=== PATIENT | male | born 1960 | race Caucasian/White ===

== ENCOUNTER 2021-02-10 10:06 | Inpatient (IN) | payer BC ==
[2021-02-10] MEDS ORDERED: DEXAMETHASONE SOD PHOSPHATE 10 MG/ML 1 ML VIAL IVP STA (10:32)
[2021-02-10] MEDS ORDERED: ACETAMINOPHEN TAB 500 MG TAB PO STA (11:03)
--- NOTE | 2021-02-10 11:05 | ED ---
URI HPI - General Chief Complaint: Upper Respiratory Infection Stated Complaint: covid+, increased SOB Time Seen by Provider: 02/10/21 10:17 Source: patient, RN notes reviewed Mode of arrival: ambulatory Limitations: no limitations - History of Present Illness Initial Comments: 60-year-old male presents emergency Department with chief complaint of covid19. Patient states he tested positive ago. Patient states he seen at [facility] discussed with the not receive monoclonal antibodies at that time. Patient states he had: Back last December. Patient states that he's had increasing shortness breath, cough congestion. Patient still had fever bodyaches and chills. Patient states he feels more short of breath and he has.. - Related Data Allergies Allergy/AdvReac Type Severity Reaction Status Date / Time No Known Allergies Allergy Verified 02/10/21 10:08 Review of Systems ROS Statement: Those systems with pertinent positive or pertinent negative responses have been documented in the HPI. ROS Other: All systems not noted in ROS Statement are negative. Past Medical History Past Medical History: Hypertension History of Any Multi-Drug Resistant Organisms: None Reported Additional Past Surgical History / Comment(s): vasectomy Past Psychological History: No Psychological Hx Reported Smoking Status: Never smoker Past Alcohol Use History: Daily Past Drug Use History: None Reported General Exam Limitations: no limitations General appearance: alert, in no apparent distress Head exam: Present: atraumatic, normocephalic, normal inspection Eye exam: Present: normal appearance, PERRL, EOMI. Absent: scleral icterus, conjunctival injection, periorbital swelling ENT exam: Present: normal exam, mucous membranes moist Neck exam: Present: normal inspection. Absent: tenderness, meningismus, lymphadenopathy Respiratory exam: Present: decreased breath sounds. Absent: normal lung sounds bilaterally, respiratory distress, wheezes, rales, rhonchi, stridor Cardiovascular Exam: Present: regular rate, normal rhythm, normal heart sounds. Absent: systolic murmur, diastolic murmur, rubs, gallop, clicks GI/Abdominal exam: Present: soft, normal bowel sounds. Absent: distended, tenderness, guarding, rebound, rigid Neurological exam: Present: alert Skin exam: Present: warm, dry, intact, normal color. Absent: rash Course Vital Signs 02/10/21 02/10/21 10:08 10:18 Temperature 99.7 F H Pulse Rate 97 Respiratory 18 16 Rate Blood Pressure 129/74 O2 Sat by Pulse 82 L Oximetry Medical Decision Making - Medical Decision Making Chest x-ray is consistent COVID-19 pneumonia, patient is approximately 82%. Patient will be admitted for COVID-19 pneumonia hypoxia - Lab Data Result diagrams: 02/10/21 10:59 02/10/21 10:59 Lab Results 02/10/21 02/10/21 Range/Units 10:59 10:59 WBC 5.5 (3.8-10.6) k/uL RBC 4.64 (4.30-5.90) m/uL Hgb 14.9 (13.0-17.5) gm/dL Hct 43.5 (39.0-53.0) % MCV 93.7 (80.0-100.0) fL MCH 32.2 (25.0-35.0) pg MCHC 34.4 (31.0-37.0) g/dL RDW 12.2 (11.5-15.5) % Plt Count 206 (150-450) k/uL MPV 8.1 Neutrophils % 82 % Lymphocytes % 11 % Monocytes % 5 % Eosinophils % 0 % Basophils % 0 % Neutrophils # 4.5 (1.3-7.7) k/uL Lymphocytes # 0.6 L (1.0-4.8) k/uL Monocytes # 0.3 (0-1.0) k/uL Eosinophils # 0.0 (0-0.7) k/uL Basophils # 0.0 (0-0.2) k/uL Sodium 136 L (137-145) mmol/L Potassium 4.1 (3.5-5.1) mmol/L Chloride 105 (98-107) mmol/L Carbon Dioxide 22 (22-30) mmol/L Anion Gap 9 mmol/L BUN 24 H (9-20) mg/dL Creatinine 1.28 H (0.66-1.25) mg/dL Est GFR (CKD-EPI)AfAm 69 (>60 ml/min/1.73 sqM) Est GFR (CKD-EPI)NonAf 60 (>60 ml/min/1.73 sqM) Glucose 113 H (74-99) mg/dL Calcium 7.6 L (8.4-10.2) mg/dL Total Bilirubin 0.6 (0.2-1.3) mg/dL AST 74 H (17-59) U/L ALT 33 (4-49) U/L Alkaline Phosphatase 70 (38-126) U/L Lactate Dehydrogenase 1547 H (313-618) U/L Total Protein 6.1 L (6.3-8.2) g/dL Albumin 3.1 L (3.5-5.0) g/dL Disposition Clinical Impression: Pneumonia due to COVID-19 virus, Hypoxia Disposition: ADMITTED IP TO THIS HOSP Condition: Serious Referrals: Khadijah Hall DO [Primary Care Provider] - 1-2 days
[2021-02-10 11:30] LABS: Basophils % (A) 0 %; Eosinophils % (A) 0 %; HCT 43.5 % (39.0-53.0); HGB 14.9 gm/dL (13.0-17.5); Lymphocytes # (A) 0.6 k/uL (1.0-4.8); Lymphocytes % (A) 11 %; MCH 32.2 pg (25.0-35.0); MCHC 34.4 g/dL (31.0-37.0); MCV 93.7 fL (80.0-100.0); Mean Platelet Volume 8.1; Monocytes # (A) 0.3 k/uL (0-1.0); Monocytes % (A) 5 %; Neutrophils # (A) 4.5 k/uL (1.3-7.7); Neutrophils % (A) 82 %; Platelet Count 206 k/uL (150-450); RBC 4.64 m/uL (4.30-5.90); RDW 12.2 % (11.5-15.5); WBC 5.5 k/uL (3.8-10.6)
--- NOTE | 2021-02-10 11:35 | XR ---
EXAMINATION TYPE: XR chest 2V DATE OF EXAM: 02/10/2021 COMPARISON: NONE HISTORY: Shortness of breath, Covid positive TECHNIQUE: Frontal and lateral views of the chest are obtained. FINDINGS: There is abnormal airspace disease in the lungs bilaterally left greater than right. No ev ident pneumothorax or pleural effusion. Cardiac mediastinal silhouette is within normal limits. Bones are showing normal mineralization. IMPRESSION: Findings suggest Covid pneumonia. Follow-up as indicated.
[2021-02-10 11:48] LABS: Albumin 3.1 g/dL (3.5-5.0); Calcium 7.6 mg/dL (8.4-10.2); Potassium 4.1 mmol/L (3.5-5.1); Total Bilirubin 0.6 mg/dL (0.2-1.3); Total Protein 6.1 g/dL (6.3-8.2)
[2021-02-10] MEDS ORDERED: NALOXONE 0.4 MG/ML 1 ML VIAL IV PRN (12:11)
[2021-02-10] MEDS ORDERED: SODIUM CHLORIDE 0.9% 1,000 ML IV SCH (12:15)
[2021-02-10 13:13] LABS: C Reactive Protein 33.2 mg/dL (<1.0)
[2021-02-10] MEDS ORDERED: MELATONIN 3 MG TABLET PO PRN (15:46)
[2021-02-10] MEDS ORDERED: LORazepam 0.5 MG TAB PO PRN (15:46)
[2021-02-10] MEDS ORDERED: ONDANSETRON 4 MG/2 ML VIAL IVP PRN (15:46)
[2021-02-10] MEDS ORDERED: LACTULOSE 20 GM/30 ML CUP PO PRN (15:46)
[2021-02-10] MEDS ORDERED: CALCIUM CARBONATE 500 MG CHEWABLE PO PRN (15:46)
--- NOTE | 2021-02-10 15:48 | P.HPIM ---
History of Present Illness H&P Date: 02/10/21 Chief Complaint: Short of breath This is a pleasant 60-year-old patient of Dr. rae Chronic stable medical conditions include hyperlipidemia, hypertension. Patient did not take the COVID-19 vaccine. About 7 days ago patient started having fever and dry cough chills. About 4 days ago patient tested positive for COVID-19. Patient is having one or 2 loose stools a day. Denies any body aches or headaches. No loss of taste or smell. S patient is pretty symptoms progress decided to come in. He was 82% on room air. Review of systems: GEN.: Loss of appetite, fever, chills EYES: None HEENT: None NECK: None RESPIRATORY: As above CARDIOVASCULAR: None GASTROINTESTINAL: As above GENITOURINARY: None MUSCULOSKELETAL: None LYMPHATICS: None HEMATOLOGICAL: None PSYCHIATRY: None NEUROLOGICAL: None Past medical history to include: Hypertension, hyperlipidemia, diverticulosis, bilateral tinnitus, 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 Stopped in 1987. He has takes couple of drinks a day. 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 Family history: Reviewed, noncontributory to presentation Physical examination: VITAL SIGNS: 99.7, 97, 18, 129/74, 82% room air GENERAL: BMI 28.2, reclining in bed, awake, tired. EYES: Pupils equal. Conjunctiva normal. HEENT: External appearance of nose and ears normal, oral cavity grossly normal. NECK: JVD not raised; masses not palpable. HEART: First and second heart sounds are normal; no edema. LUNGS: Respiratory rate increased; bilateral crackles. ABDOMEN: Soft, nontender, liver spleen not palpable, no masses palpable. PSYCH: Alert and oriented x3; mood and affect normal. NEUROLOGICAL: Cranial nerves grossly intact; no facial asymmetry, power and sensation grossly intact. LYMPHATICS: No lymph nodes palpable in the axilla and neck INVESTIGATIONS, reviewed in the clinical context: WBC 5.5 hemoglobin 14.9 platelets 206 lymphocytes 0.6 sodium 136 potassium 4.1 BUN 24 creatinine 1.28 CRP 33.2 Assessment and plan: -Acute severe COVID 19 pneumonitis in a patient did not receive the COVID-19 vaccine. Dexamethasone. Subcu Lovenox. Vitamin C vitamin D zinc. Pulmonary consulted -Hyperlipidemia Zetia 10 mg daily at bedtime Pravachol 80 mg daily at bedtime -Essential hypertension Patient's had decreased appetite. Blood pressure relatively controlled. We will use amlodipine 5 mg a day -Kidney failure. Unknown if this is a acute component. IV fluids. Repeat labs in the morning. Renal ultrasound. UA. -Acute severe hypoxic is pretty failure from COVID-19 Supplement oxygen Dexamethasone. Subcu Lovenox. Resume home medications. Cut back on antihypertensive and use amlodipine 5 mg daily at bedtime. Ultrasound. UA. Repeat labs in the morning. Consult pulmonary. Oxygen supplementation. Care was discussed with the patient. Given the complexity and severity of patient's condition expect the patient to be in the hospital at least for 2 overnights Past Medical History Past Medical History: Hyperlipidemia, Hypertension, Osteoarthritis (OA) Additional Past Medical History / Comment(s): Diverticular disease, bilateral tinnitis, arthritis bilateral hands. History of Any Multi-Drug Resistant Organisms: None Reported Past Surgical History: Tonsillectomy Additional Past Surgical History / Comment(s): Colonoscopy, vasectomy Past Anesthesia/Blood Transfusion Reactions: No Reported Reaction Smoking Status: Former smoker - Past Family History Mother Family Medical History: No Reported History Additional Family Medical History / Comment(s): Mother is healthy Father Family Medical History: Respiratory Disorder Additional Family Medical History / Comment(s): Father of covid. Medications and Allergies Home Medications Medication Instructions Recorded Confirmed Type Albuterol Inhaler [Ventolin Hfa 2 puff INHALATION RT-Q4H PRN 02/10/21 02/10/21 History Inhaler] Ascorbic Acid [Vitamin C] 500 mg PO HS 02/10/21 02/10/21 History Calcium Carb/Mag Ox/Zinc Sulf 1 tab PO BID 02/10/21 02/10/21 History [Qia-Ral-Ppot 334-134-5 mg Tab] Ezetimibe [Zetia] 10 mg PO HS 02/10/21 02/10/21 History Multivitamins, Thera [Multivitamin 1 tab PO HS 02/10/21 02/10/21 History (formulary)] Pravastatin Sodium [Pravachol] 80 mg PO HS 02/10/21 02/10/21 History Turmeric Root Extract [Turmeric] 1,000 mg PO HS 02/10/21 02/10/21 History amLODIPine BESYLATE/BENAZEPRIL 1 cap PO HS 02/10/21 02/10/21 History [amLODIPine BESYLATE/BENAZEPRIL 5-20 MG] Allergies Allergy/AdvReac Type Severity Reaction Status Date / Time No Known Allergies Allergy Verified 02/10/21 12:23 Physical Exam Vitals: Vital Signs Temp Pulse Resp BP Pulse Ox 02/10/21 10:18 16 02/10/21 10:08 99.7 F H 97 18 129/74 82 L Intake and Output 02/10/21 02/10/21 02/10/21 06:59 14:59 22:59 Other: Weight 81.647 kg 81.647 kg Results CBC & Chem 7: 02/10/21 10:59 02/10/21 10:59 Labs: Abnormal Lab Results - Last 24 Hours (Table) 02/10/21 02/10/21 Range/Units 10:59 10:59 Lymphocytes # 0.6 L (1.0-4.8) k/uL Sodium 136 L (137-145) mmol/L BUN 24 H (9-20) mg/dL Creatinine 1.28 H (0.66-1.25) mg/dL Glucose 113 H (74-99) mg/dL Calcium 7.6 L (8.4-10.2) mg/dL AST 74 H (17-59) U/L Lactate Dehydrogenase 1547 H (313-618) U/L C-Reactive Protein 33.2 H (<1.0) mg/dL Total Protein 6.1 L (6.3-8.2) g/dL Albumin 3.1 L (3.5-5.0) g/dL Thrombosis Risk Factor Assmnt - Choose All That Apply Any of the Below Risk Factors Present?: Yes Each Factor Represents 1 point: Obesity (BMI >25), Serious lung disease incl. pneumonia (< 1month) Other Risk Factors: Yes Each Risk Factor Represents 2 Points: Age 61-74 years Other congenital or acquired thrombophilia - If yes, enter type in comment: No Thrombosis Risk Factor Assessment Total Risk Factor Score: 4 Thrombosis Risk Factor Assessment Level: Moderate Risk
--- NOTE | 2021-02-10 16:31 | US ---
EXAMINATION TYPE: US kidneys/renal and bladder DATE OF EXAM: 02/10/2021 COMPARISON: NONE CLINICAL HISTORY: Elevated BUN/creatinine. EXAM MEASUREMENTS: Right Kidney: 10.8 x 5.9 x 4.5 cm Left Kidney: 11.0 x 5.5 x 4.6 cm Incidental finding: liver appears heterogenous. Right Kidney: WNL as seen Left Kidney: WNL as seen Bladder: WNL; anechoic Bilateral Jets seen: No There is no evidence for hydronephrosis at this point in time. No nephrolithiasis is seen. No gerson s are identified. The urinary bladder is anechoic. Bilateral ureteral jets are not seen. IMPRESSION: There may be underlying hepatic steatosis, hepatocellular disease Renal sizes as described.
[2021-02-10] MEDS: amLODIPine 5 MG TAB PO SCH (20:15)
[2021-02-10] MEDS: MULTIVITAMINS, THERA 1 EACH TAB PO SCH (20:15)
[2021-02-10] MEDS: EZETIMIBE 10 MG TAB PO SCH (20:15)
[2021-02-10] MEDS: ASCORBIC ACID 500 MG TAB PO SCH (20:15)
[2021-02-10] MEDS: ENOXAPARIN 40 MG/0.4 ML SYRINGE SQ SCH (20:25)
[2021-02-10] MEDS: SODIUM CHLORIDE 0.45% 1,000 ML IV SCH ×2 (20:48)
[2021-02-10] MEDS: PRAVASTATIN SODIUM 80 MG TAB PO SCH (20:48)
[2021-02-10] MEDS: ACETAMINOPHEN TAB 325 MG TAB PO PRN (21:36)
[2021-02-11] MEDS: SODIUM CHLORIDE 0.45% 1,000 ML IV SCH ×3 (04:15→21:13)
[2021-02-11 06:56] LABS: African American GFR (CKD) >90 (>60 ml/min/1.73 sqM); Anion Gap 12 mmol/L; Blood Urea Nitrogen 19 mg/dL (9-20); Carbon Dioxide 22 mmol/L (22-30); Chloride 103 mmol/L (98-107); Glucose 161 mg/dL (74-99); Non-African American GFR(CKD) 87 (>60 ml/min/1.73 sqM); Potassium 4.5 mmol/L (3.5-5.1); Sodium 137 mmol/L (137-145)
[2021-02-11] MEDS: ENOXAPARIN 40 MG/0.4 ML SYRINGE SQ SCH (07:44)
[2021-02-11] MEDS: ZINC SULFATE 220 MG CAP PO SCH (07:45)
[2021-02-11] MEDS: DEXAMETHASONE SOD PHOSPHATE 10 MG/ML 1 ML VIAL IVP SCH (07:45)
[2021-02-11] MEDS: ASCORBIC ACID 500 MG TAB PO SCH (07:45)
[2021-02-11 09:08] LABS: C Reactive Protein 35.5 mg/dL (<1.0)
--- NOTE | 2021-02-11 13:10 | P.CNPUL ---
History of Present Illness Consult date: 02/11/21 Requesting physician: Jorge Lopez Reason for consult: dyspnea, hypoxemia, abnormal CXR/CT Chief complaint: Shortness of breath, cough, congestion History of present illness: This a very pleasant 60-year-old male patient with a history of hypertension, hyperlipidemia. Daily alcohol use. 8 days ago he started having complaints of increasing shortness of breath, cough and congestion. He tested positive for COVID-19 5 days ago. He is not vaccinated. He presented to the emergency room here yesterday with complaints of increasing shortness of breath cough and congestion. He was found to be hypoxemic at 82% on room air. He was initiated on oxygen at 5 L/m per nasal cannula. He did have a T-max of 100.5. X-ray revealed evidence of bilateral patchy opacities consistent with COVID-19 pneumonia. White count 5.5. Hemoglobin 14.9. Lymphocytes 0.6. D-dimer 2.33. Sodium 137. Potassium 4.5. Creatinine 0.94. Glucose 161. Ferritin 5642. AST 74. ALT 33. LDH 1547. C-reactive protein 35.5. He was initiated on Decadron, Lovenox, vitamin supplements. He is seen today in consultation on the regular medical floor. His oxygen requirements have increased and he is now on 15 L high flow nasal cannula plus a nonrebreather mask. He is afebrile. Hemodynamically stable. He states he is doing the same today compared to yesterday. No worse but no better. Review of Systems REVIEW OF SYSTEMS: CONSTITUTIONAL: Denies any recent significant weight loss or weight gain. EYES: Denies change in vision. EARS, NOSE, MOUTH, THROAT: Denies headaches, denies sore throat. CARDIOVASCULAR: Denies chest pain, palpitations or syncopal episodes. RESPIRATORY: Positive for shortness of breath, cough, congestion no hemoptysis. GASTROINTESTINAL: Denies change in appetite, denies abdominal pain GENITOURINARY: Denies hematuria, denies infections. MUSKULOSKELETAL: Denies pain, denies swelling. INTEGUMENTARY: Denies rash, denies eczema. NEUROLOGICAL: Denies recent memory loss, no recent seizure activity. PSYCHIATRIC: Denies anxiety, denies depression. HEMATOLOGIC/LYMPHATIC: Denies anemia, denies enlarged lymph nodes. Past Medical History Past Medical History: Hyperlipidemia, Hypertension, Osteoarthritis (OA) Additional Past Medical History / Comment(s): Diverticular disease, bilateral tinnitis, arthritis bilateral hands. History of Any Multi-Drug Resistant Organisms: None Reported Past Surgical History: Tonsillectomy Additional Past Surgical History / Comment(s): Colonoscopy, vasectomy Past Anesthesia/Blood Transfusion Reactions: No Reported Reaction Smoking Status: Former smoker - Past Family History Mother Family Medical History: No Reported History Additional Family Medical History / Comment(s): Mother is healthy Father Family Medical History: Respiratory Disorder Additional Family Medical History / Comment(s): Father of covid. Medications and Allergies Home Medications Medication Instructions Recorded Confirmed Type Albuterol Inhaler [Ventolin Hfa 2 puff INHALATION RT-Q4H PRN 02/10/21 02/10/21 History Inhaler] Ascorbic Acid [Vitamin C] 500 mg PO HS 02/10/21 02/10/21 History Calcium Carb/Mag Ox/Zinc Sulf 1 tab PO BID 02/10/21 02/10/21 History [Zxm-Orc-Odsq 334-134-5 mg Tab] Ezetimibe [Zetia] 10 mg PO HS 02/10/21 02/10/21 History Multivitamins, Thera [Multivitamin 1 tab PO HS 02/10/21 02/10/21 History (formulary)] Pravastatin Sodium [Pravachol] 80 mg PO HS 02/10/21 02/10/21 History Turmeric Root Extract [Turmeric] 1,000 mg PO HS 02/10/21 02/10/21 History amLODIPine BESYLATE/BENAZEPRIL 1 cap PO HS 02/10/21 02/10/21 History [amLODIPine BESYLATE/BENAZEPRIL 5-20 MG] Allergies Allergy/AdvReac Type Severity Reaction Status Date / Time No Known Allergies Allergy Verified 02/10/21 12:23 Physical Exam Vitals: Vital Signs Temp Pulse Pulse Resp BP BP Pulse Ox 02/11/21 09:41 99.5 F 95 19 147/75 90 L 02/11/21 09:38 90 17 02/11/21 07:47 90 17 02/11/21 06:00 99.5 F 90 17 127/63 90 L 02/11/21 02:00 99.9 F H 87 18 115/62 92 L 02/11/21 01:06 90 L 02/10/21 23:50 18 02/10/21 23:00 90 185 H 89 L 02/10/21 22:23 91 18 89 L 02/10/21 22:14 90 18 134/71 87 L 02/10/21 21:50 97 20 139/71 82 L 02/10/21 21:31 100.3 F H 94 20 138/69 86 L 02/10/21 20:00 99.0 F 92 16 131/72 89 L 02/10/21 18:10 100.5 F H 90 16 125/71 89 L 02/10/21 17:00 86 20 117/77 88 L 02/10/21 15:46 82 20 118/71 92 L 02/10/21 15:00 87 20 119/69 88 L 02/10/21 14:00 98 F 87 92 20 124/76 140/76 86 L 02/10/21 13:45 82 20 121/75 89 L Intake and Output 02/10/21 02/11/21 02/11/21 22:59 06:59 14:59 Output Total 100 Balance -100 Output: Urine 100 Other: Voiding Method Bedside Commode Bedside Commode Urinal Urinal # Voids 1 Weight 81.647 kg GENERAL EXAM: Alert, pleasant 60-year-old gentleman, on 15 L high flow nasal cannula plus a nonrebreather mask, fairly comfortable in no apparent distress. HEAD: Normocephalic. EYES: Normal reaction of pupils, equal size. NOSE: Clear with pink turbinates. THROAT: No erythema or exudates. NECK: No masses, no JVD. CHEST: No chest wall deformity. LUNGS: Equal air entry with coarse crackles in the bilateral bases. CVS: S1 and S2 normal with no audible murmur, regular rhythm. ABDOMEN: No hepatosplenomegaly, normal bowel sounds, no guarding or rigidity. SPINE: No scoliosis or deformity SKIN: No rashes CENTRAL NERVOUS SYSTEM: No focal deficits, tone is normal in all 4 extremities. EXTREMITIES: There is no peripheral edema. No clubbing, no cyanosis. Periphe ral pulses are intact. Results - Laboratory Findings CBC and BMP: 02/10/21 10:59 02/11/21 05:43 PT/INR, D-dimer D-Dimer 2.33 mg/L FEU (<0.60) H 02/11/21 05:43 Abnormal lab findings: Abnormal Labs 02/10/21 02/10/21 02/11/21 10:59 10:59 05:43 Lymphocytes # 0.6 L D-Dimer 2.33 H Sodium 136 L BUN 24 H Creatinine 1.28 H Glucose 113 H Calcium 7.6 L Ferritin 5642.0 H AST 74 H Lactate Dehydrogenase 1547 H C-Reactive Protein 33.2 H Total Protein 6.1 L Albumin 3.1 L 02/11/21 05:43 Lymphocytes # D-Dimer Sodium BUN Creatinine Glucose 161 H Calcium 8.0 L Ferritin AST Lactate Dehydrogenase C-Reactive Protein 35.5 H Total Protein Albumin - Diagnostic Findings Chest x-ray: image reviewed Assessment and Plan Assessment: 1 Acute hypoxemic respiratory failure secondary to acute COVID-19 pneumonia. Onset of symptoms 8 days ago. Tested + 5 days ago. Not vaccinated. Currently on 15 L high flow nasal cannula plus a nonrebreather mask. Oxygen requirements too high for Remdesivir. He will be initiated on Baricitinib. 2 Elevated inflammatory markers secondary to above 3 Acute renal failure initial creatinine 1.28, currently 0.94 4 Hypertension 5 Hyperlipidemia 6 Daily alcohol use Plan: The patient was seen and evaluated Chest x-ray and labs reviewed On 15 L high flow nasal cannula plus a nonrebreather mask Titrate the FiO2 as tolerated Initiated on Baricitinib Continue Decadron, Lovenox, vitamin supplements Doppler of the lower extremities Follow-up chest x-ray and labs in the a.m. We will continue to follow and make further recommendations based on his clinical status I, the cosigning physician, performed a history & physical examination of the patient. Lungs sounds with coarse crackles in the bilateral bases. Maintaining O2 saturations in the 90s on 15 L high flow nasal cannula plus a nonrebreather mask. I discussed the assessment and plan of care with my nurse practitioner, Oumou Manzano. I attest to the above consultation as dictated by her. Time with Patient: Greater than 30
[2021-02-11] MEDS ORDERED: LOPERAMIDE 2 MG CAP PO PRN (13:20)
[2021-02-11] MEDS: BARICITINIB 2 MG TABLET PO SCH ×2 (13:41→15:51)
--- NOTE | 2021-02-11 14:40 | US ---
EXAMINATION TYPE: US venous doppler duplex LE DATE OF EXAM: 02/11/2021 2:17 PM COMPARISON: NONE CLINICAL HISTORY: Elevated d-dimer, CoVID. d-dimer 2.3, no symptoms SIDE PERFORMED: Bilateral TECHNIQUE: The lower extremity deep venous system is examined utilizing real time linear array sonog lula with graded compression, doppler sonography and color-flow sonography. VESSELS IMAGED: Common Femoral Vein Deep Femoral Vein Greater Saphenous Vein * Femoral Vein Popliteal Vein Small Saphenous Vein * Proximal Calf Veins (* superficial vessels) rouleaux flow seen throughout bilateral legs There is normal flow, compressibility, vascular waveforms. Right Leg: Negative for DVT Left Leg: Negative for DVT IMPRESSION: No evident deep venous thrombosis within the lower extremities from the level of the knee s centrally
--- NOTE | 2021-02-11 14:56 | P.PN ---
Progress Note - Text Progress Note Date: 02/11/21 Chief Complaint: Short of breath This is a pleasant 60-year-old patient of Dr. rae Chronic stable medical conditions include hyperlipidemia, hypertension. Patient did not take the COVID-19 vaccine. About 7 days ago patient started having fever and dry cough chills. About 4 days ago patient tested positive for COVID-19. Patient is having one or 2 loose stools a day. Denies any body aches or headaches. No loss of taste or smell. S patient is pretty symptoms progress decided to come in. He was 82% on room air. Admitted with severe COVID 19 pneumonitis, acute kidney injury, acute hypoxic respiratory failure. Started on dexamethasone. IV fluids. Baricitinib added. February 11: Sitting of the edge of the bed. Short of breath. Eating some. Tired. Baricitinib added by pulmonary. Review of systems: Was done for constitutional, cardiovascular, GI, pulmonary. relevant finding as above Active Medications Acetaminophen (Acetaminophen Tab 325 Mg Tab) 650 mg PO Q6HR PRN PRN Reason: Mild Pain or Fever > 100.5 Last Admin: 02/10/21 21:36 Dose: 650 mg Documented by: Amlodipine Besylate (Amlodipine 5 Mg Tab) 5 mg PO HS [facility] Last Admin: 02/10/21 20:15 Dose: 5 mg Documented by: Ascorbic Acid (Ascorbic Acid 500 Mg Tab) 1,000 mg PO DAILY [facility] Last Admin: 02/11/21 07:45 Dose: 1,000 mg Documented by: Baricitinib (Baricitinib 2 Mg Tablet) 4 mg PO DAILY@1400 [facility] Stop: 02/24/21 14:01 Last Admin: 02/11/21 13:41 Dose: 4 mg Documented by: Calcium Carbonate/Glycine (Calcium Carbonate 500 Mg Chewable) 1,000 mg PO Q4HR PRN PRN Reason: Dyspepsia Dexamethasone Sodium Phosphate (Dexamethasone Sod Phosphate 10 Mg/Ml 1 Ml Vial) 6 mg IVP DAILY [facility] Last Admin: 02/11/21 07:45 Dose: 6 mg Documented by: Ezetimibe (Ezetimibe 10 Mg Tab) 10 mg PO HS [facility] Last Admin: 02/10/21 20:15 Dose: 10 mg Documented by: Enoxaparin Sodium (Enoxaparin 40 Mg/0.4 Ml Syringe) 40 mg SQ DAILY [facility] Last Admin: 02/11/21 07:44 Dose: 40 mg Documented by: Sodium Chloride (Saline 0.45%) 1,000 mls @ 125 mls/hr IV .Q8H [facility] Last Admin: 02/11/21 04:15 Dose: 125 mls/hr Documented by: Lactulose (Lactulose 20 Gm/30 Ml Cup) 20 gm PO DAILY PRN PRN Reason: Constipation Loperamide HCl (Loperamide 2 Mg Cap) 2 mg PO BID PRN PRN Reason: Diarrhea Last Admin: 02/11/21 13:41 Dose: 2 mg Documented by: Lorazepam (Lorazepam 0.5 Mg Tab) 0.5 mg PO Q6HR PRN PRN Reason: Anxiety Melatonin (Melatonin 3 Mg Tablet) 3 mg PO HS PRN PRN Reason: Insomnia Multivitamins (Multivitamins, Thera 1 Each Tab) 1 each PO HS [facility] Last Admin: 02/10/21 20:15 Dose: 1 each Documented by: Naloxone HCl (Naloxone 0.4 Mg/Ml 1 Ml Vial) 0.2 mg IV Q2M PRN PRN Reason: Opioid Reversal Ondansetron HCl (Ondansetron 4 Mg/2 Ml Vial) 4 mg IVP Q8HR PRN PRN Reason: Nausea And Vomiting Pravastatin Sodium (Pravastatin Sodium 80 Mg Tab) 80 mg PO HS [facility] Last Admin: 02/10/21 20:48 Dose: 80 mg Documented by: Zinc Sulfate (Zinc Sulfate 220 Mg Cap) 220 mg PO DAILY [facility] Last Admin: 02/11/21 07:45 Dose: 220 mg Documented by: Past medical history to include: Hypertension, hyperlipidemia, diverticulosis, bilateral tinnitus, 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 Stopped in 1987. He has takes couple of drinks a day. 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 Family history: Reviewed, noncontributory to presentation Physical examination: VITAL SIGNS: 99.5, 94, 19, 146.75, 93% on 15 L GENERAL: Sitting of the edge of the bed, short of breath LUNGS: Respiratory rate increased; PSYCH: Alert and oriented x3; mood and affect anxious NEUROLOGICAL: Cranial nerves grossly intact; no facial asymmetry, moving all 4 limbs Rest of the exam per pulmonary and nursing INVESTIGATIONS, reviewed in the clinical context: February 11: D-dimer 2.33 potassium 4.5 creatinine 0.94 CRP 35.5 Ultrasound kidney: Kidneys unremarkable. Possible hepatic steatosis. WBC 5.5 hemoglobin 14.9 platelets 206 lymphocytes 0.6 sodium 136 potassium 4.1 BUN 24 creatinine 1.28 CRP 33.2 Assessment and plan: -Acute severe COVID 19 pneumonitis in a patient did not receive the COVID-19 vaccine: Not improving. Dexamethasone. Subcu Lovenox. Vitamin C vitamin D zinc. Baricitinib added by pulmonary -Hyperlipidemia Zetia 10 mg daily at bedtime Pravachol 80 mg daily at bedtime -Essential hypertension Patient's had decreased appetite. Blood pressure relatively controlled. We will use amlodipine 5 mg a day -Acute kidney injury, prerenal from decreased oral intake: Better IV fluids. -Acute severe hypoxic is pretty failure from COVID-19: Worsening 15 L of nasal cannula Dexamethasone. Subcu Lovenox. Baricitinib. 15 L nasal cannula. Discussed with patient. Follow labs.
[2021-02-11] MEDS: MULTIVITAMINS, THERA 1 EACH TAB PO SCH (21:11)
[2021-02-11] MEDS: EZETIMIBE 10 MG TAB PO SCH (21:11)
[2021-02-11] MEDS: amLODIPine 5 MG TAB PO SCH (21:11)
[2021-02-11] MEDS: PRAVASTATIN SODIUM 80 MG TAB PO SCH (21:11)
[2021-02-12 07:01] LABS: Basophils % (A) 0 %; Eosinophils % (A) 0 %; HCT 46.1 % (39.0-53.0); HGB 15.6 gm/dL (13.0-17.5); Lymphocytes # (A) 0.7 k/uL (1.0-4.8); Lymphocytes % (A) 7 %; MCH 32.2 pg (25.0-35.0); MCHC 33.8 g/dL (31.0-37.0); MCV 95.3 fL (80.0-100.0); Mean Platelet Volume 8.1; Monocytes # (A) 0.7 k/uL (0-1.0); Monocytes % (A) 7 %; Neutrophils # (A) 7.9 k/uL (1.3-7.7); Neutrophils % (A) 82 %; Platelet Count 318 k/uL (150-450); RBC 4.83 m/uL (4.30-5.90); RDW 12.2 % (11.5-15.5); WBC 9.6 k/uL (3.8-10.6)
[2021-02-12 07:11] LABS: ALT 44 U/L (4-49); AST 77 U/L (17-59); African American GFR (CKD) >90 (>60 ml/min/1.73 sqM); Albumin 3.4 g/dL (3.5-5.0); Albumin/Globulin Ratio 1.1; Alkaline Phosphatase 75 U/L (38-126); Anion Gap 13 mmol/L; Blood Urea Nitrogen 19 mg/dL (9-20); Calcium 7.9 mg/dL (8.4-10.2); Carbon Dioxide 21 mmol/L (22-30); Chloride 101 mmol/L (98-107); Globulin 3.2 g/dL; Glucose 147 mg/dL (74-99); Non-African American GFR(CKD) >90 (>60 ml/min/1.73 sqM); Potassium 4.5 mmol/L (3.5-5.1); Sodium 135 mmol/L (137-145); Total Bilirubin 0.8 mg/dL (0.2-1.3); Total Protein 6.6 g/dL (6.3-8.2)
[2021-02-12 07:34] LABS: C Reactive Protein 16.9 mg/dL (<1.0)
--- NOTE | 2021-02-12 07:49 | XR ---
EXAMINATION TYPE: XR chest 1V portable DATE OF EXAM: 02/12/2021 COMPARISON: Chest x-ray 02/10/2021 HISTORY: Covid pneumonia TECHNIQUE: Single frontal view of the chest is obtained. FINDINGS: Bilateral airspace disease is again seen, there is prominence interstitium, groundglass op acity. There is no evident pneumothorax or pleural effusion. Cardiac mediastinal silhouette is stable . There are overlying artifacts. IMPRESSION: Findings consistent with Covid related pneumonia
[2021-02-12] MEDS: BARICITINIB 2 MG TABLET PO SCH (08:52)
[2021-02-12] MEDS: ZINC SULFATE 220 MG CAP PO SCH (08:52)
[2021-02-12] MEDS: ASCORBIC ACID 500 MG TAB PO SCH (08:52)
[2021-02-12] MEDS: DEXAMETHASONE SOD PHOSPHATE 10 MG/ML 1 ML VIAL IVP SCH (08:52)
[2021-02-12] MEDS: ENOXAPARIN 40 MG/0.4 ML SYRINGE SQ SCH (08:52)
[2021-02-12] MEDS: SODIUM CHLORIDE 0.45% 1,000 ML IV SCH ×2 (10:37→17:51)
--- NOTE | 2021-02-12 16:33 | P.PN ---
Subjective Progress Note Date: 02/12/21 Principal diagnosis: Dyspnea This a very pleasant 60-year-old male patient with a history of hypertension, hyperlipidemia. Daily alcohol use. 8 days ago he started having complaints of increasing shortness of breath, cough and congestion. He tested positive for COVID-19 5 days ago. He is not vaccinated. He presented to the emergency room here yesterday with complaints of increasing shortness of breath cough and congestion. He was found to be hypoxemic at 82% on room air. He was initiated on oxygen at 5 L/m per nasal cannula. He did have a T-max of 100.5. X-ray rev ealed evidence of bilateral patchy opacities consistent with COVID-19 pneumonia. White count 5.5. Hemoglobin 14.9. Lymphocytes 0.6. D-dimer 2.33. Sodium 137. Potassium 4.5. Creatinine 0.94. Glucose 161. Ferritin 5642. AST 74. ALT 33. LDH 1547. C-reactive protein 35.5. He was initiated on Decadron, Lovenox, vitamin supplements. He is seen today in consultation on the regular medical floor. His oxygen requirements have increased and he is now on 15 L high flow nasal cannula plus a nonrebreather mask. He is afebrile. Hemodynamically stable. He states he is doing the same today compared to yesterday. No worse but no better. On 02/12/2021 patient seen in follow-up on medical surgical floor. Is currently on 15 L and nonrebreather mask, his pulse ox of 93-96%. He states that his breathing is slightly improved, occasional cough and at times he is able to bring up some crawford colored phlegm. No chest discomfort. He sitting up in the recliner, his vital signs have been stable, he has been afebrile. He was started on Baricitinib yesterday on 02/11/2021, he remains on Decadron and prophylactic Lovenox in addition to multivitamins. His lower extremity Dopplers were negative for DVT. His d-dimer is up to 4.76 on today's labs, his white count is 9.6, hemoglobin is 15.6, sodium is 135, potassium is 4.5, BUN is 19 creatinine 0.81. Renal profile has improved, BUN is down to 19 creatinine 0.81. LDH is 2024, and CRP is 16.9. Objective - Vital Signs Vital signs: Vital Signs Temp 97.3 F L 02/12/21 12:58 Pulse 89 02/12/21 12:58 Resp 17 02/12/21 12:58 BP 146/82 02/12/21 12:58 Pulse Ox 96 02/12/21 12:58 Intake & Output 02/11/21 02/12/21 02/12/21 18:59 06:59 18:59 Output Total 103 1450 Balance -103 -1450 Output: Urine 100 1450 Stool 3 Other: Voiding Method Bedside Commode Bedside Commode Urinal Urinal # Voids 1 # Bowel Movements 1 - Exam GENERAL EXAM: Alert, very pleasant, 60-year-old white male, on 15 L and her percent nonrebreather mask with a sat of 93-96% comfortable in no apparent distress. HEAD: Normocephalic/atraumatic. EYES: Normal reaction of pupils, equal size. Conjunctiva pink, sclera white. NOSE: Clear with pink turbinates. THROAT: No erythema or exudates. NECK: No masses, no JVD, no thyroid enlargement, no adenopathy. CHEST: No chest wall deformity. Symmetrical expansion. LUNGS: Equal air entry with bilateral crackles CVS: Regular rate and rhythm, normal S1 and S2, no gallops, no murmurs, no rubs ABDOMEN: Soft, nontender. No hepatosplenomegaly, normal bowel sounds, no guarding or rigidity. EXTREMITIES: No clubbing, no edema, no cyanosis, 2+ pulses and upper and lower extremities. MUSCULOSKELETAL: Muscle strength and tone normal. SPINE: No scoliosis or deformity SKIN: No rashes CENTRAL NERVOUS SYSTEM: Alert and oriented -3. No focal deficits, tone is normal in all 4 extremities. PSYCHIATRIC: Alert and oriented -3. Appropriate affect. Intact judgment and insight. - Labs CBC & Chem 7: 02/12/21 05:47 02/12/21 05:47 Labs: Abnormal Lab Results - Last 24 Hours (Table) 02/11/21 02/12/21 02/12/21 Range/Units 05:43 05:47 05:47 Neutrophils # (1.3-7.7) k/uL Lymphocytes # (1.0-4.8) k/uL D-Dimer 4.76 H (<0.60) mg/L FEU Sodium (137-145) mmol/L Carbon Dioxide (22-30) mmol/L Glucose (74-99) mg/dL Calcium (8.4-10.2) mg/dL AST (17-59) U/L Lactate Dehydrogenase 2024 H (313-618) U/L C-Reactive Protein 16.9 H (<1.0) mg/dL Albumin (3.5-5.0) g/dL Procalcitonin 0.60 H (0.02-0.09) ng/mL 02/12/21 02/12/21 Range/Units 05:47 05:47 Neutrophils # 7.9 H (1.3-7.7) k/uL Lymphocytes # 0.7 L (1.0-4.8) k/uL D-Dimer (<0.60) mg/L FEU Sodium 135 L (137-145) mmol/L Carbon Dioxide 21 L (22-30) mmol/L Glucose 147 H (74-99) mg/dL Calcium 7.9 L (8.4-10.2) mg/dL AST 77 H (17-59) U/L Lactate Dehydrogenase (313-618) U/L C-Reactive Protein (<1.0) mg/dL Albumin 3.4 L (3.5-5.0) g/dL Procalcitonin (0.02-0.09) ng/mL Assessment and Plan Plan: Assessment: #1. Acute hypoxic respiratory failure, related to COVID-19, patient came into the hospital on 02/10/2021 with a day history of symptoms. He was outside the window for Remdesivir, he is a non-vaccinated adult. Started on Baricitinib on 02/11/2021. Currently on 15 L in the 100% nonrebreather mask #2. Elevated d-dimer, lower extremity Dopplers were negative for DVT, CTA chest is pending #3. Acute kidney injury, improved with IV hydration #4. Hyperlipidemia #5. Hypertension Plan: Wean FiO2 to keep O2 sat ration is at or above 90% Still requiring high flow oxygen at 15 L and nonrebreather mask Breathing fairly comfortably, not tachypneic, no increased work of breathing We will obtain CT angiogram of the chest to rule out possibility of pulmonary embolism Continue with current medical treatment, Decadron, prophylactic Lovenox, and Tommy Patient's daughter was updated on the phone, questions have been answered I performed a history & physical examination of the patient and discussed their management with my nurse practitioner, Ness Garcia. I reviewed the nurse practitioner's note and agree with the documented findings and plan of care. Lung sounds are positive for dim breath sounds throughout the lung anne. The findings and the impression was discussed with the patient. I attest to the documentation by the nurse practitioner. Time with Patient: Less than 30
--- NOTE | 2021-02-12 18:43 | CT ---
EXAMINATION TYPE: CT chest angio for PE DATE OF EXAM: 02/12/2021 COMPARISON: Same-day radiograph. HISTORY: Covid, elevated d-dimer, cough, shortness of breath. CT DLP: 381.6 mGycm Automated exposure control for dose reduction was used. CONTRAST: CT Chest for pulmonary embolism performed with with IV Contrast, patient injected with 100 mL of Isov ue 370. MIPS reformats were provided and reviewed. FINDINGS: LUNGS: There are bilateral diffuse marked patchy ground glass opacities. There is no pleural effusion or pneumothorax seen. The tracheobronchial tree is patent. MEDIASTINUM: There is satisfactory enhancement of the pulmonary artery and its branches, there is no CT evidence for pulmonary embolism. There are scattered few borderline to mildly enlarged mediastina l lymph nodes, may be reactive. No pericardial effusion is seen. OTHER: No additional significant abnormality is seen. IMPRESSION: No acute PE. Findings compatible with atypical pneumonia including Covid.
--- NOTE | 2021-02-12 19:43 | P.PN ---
Progress Note - Text Progress Note Date: 02/12/21 Chief Complaint: Short of breath This is a pleasant 60-year-old patient of Dr. rae Chronic stable medical conditions include hyperlipidemia, hypertension. Patient did not take the COVID-19 vaccine. About 7 days ago patient started having fever and dry cough chills. About 4 days ago patient tested positive for COVID-19. Patient is having one or 2 loose stools a day. Denies any body aches or headaches. No loss of taste or smell. S patient is pretty symptoms progress decided to come in. He was 82% on room air. Admitted with severe COVID 19 pneumonitis, acute kidney injury, acute hypoxic respiratory failure. Started on dexamethasone. IV fluids. Baricitinib added. February 11: Sitting of the edge of the bed. Short of breath. Eating some. Tired. Baricitinib added by pulmonary. February 12: Sitting at edge of the bed. Short of breath. 96% on 15 L. On Baricitinib and dexamethasone. Eating about 50-75%. Review of systems: Was done for constitutional, cardiovascular, GI, pulmonary. relevant finding as above Active Medications Acetaminophen (Acetaminophen Tab 325 Mg Tab) 650 mg PO Q6HR PRN PRN Reason: Mild Pain or Fever > 100.5 Last Admin: 02/10/21 21:36 Dose: 650 mg Documented by: Amlodipine Besylate (Amlodipine 5 Mg Tab) 5 mg PO HS [facility] Last Admin: 02/11/21 21:11 Dose: 5 mg Documented by: Ascorbic Acid (Ascorbic Acid 500 Mg Tab) 1,000 mg PO DAILY [facility] Last Admin: 02/12/21 08:52 Dose: 1,000 mg Documented by: Baricitinib (Baricitinib 2 Mg Tablet) 4 mg PO DAILY@1400 [facility] Stop: 02/25/21 14:01 Last Admin: 02/12/21 08:52 Dose: 4 mg Documented by: Calcium Carbonate/Glycine (Calcium Carbonate 500 Mg Chewable) 1,000 mg PO Q4HR PRN PRN Reason: Dyspepsia Dexamethasone Sodium Phosphate (Dexamethasone Sod Phosphate 10 Mg/Ml 1 Ml Vial) 6 mg IVP DAILY [facility] Last Admin: 02/12/21 08:52 Dose: 6 mg Documented by: Ezetimibe (Ezetimibe 10 Mg Tab) 10 mg PO [facility] Last Admin: 12/14/21 21:11 Dose: 10 mg Documented by: Enoxaparin Sodium (Enoxaparin 40 Mg/0.4 Ml Syringe) 40 mg SQ DAILY [facility] Last Admin: 02/12/21 08:52 Dose: 40 mg Documented by: Sodium Chloride (Saline 0.45%) 1,000 mls @ 75 mls/hr IV .[id number] [facility] Last Admin: 02/12/21 17:51 Dose: Not Given Documented by: Lactulose (Lactulose 20 Gm/30 Ml Cup) 20 gm PO DAILY PRN PRN Reason: Constipation Loperamide HCl (Loperamide 2 Mg Cap) 2 mg PO BID PRN PRN Reason: Diarrhea Last Admin: 02/11/21 13:41 Dose: 2 mg Documented by: Lorazepam (Lorazepam 0.5 Mg Tab) 0.5 mg PO Q6HR PRN PRN Reason: Anxiety Melatonin (Melatonin 3 Mg Tablet) 3 mg PO HS PRN PRN Reason: Insomnia Multivitamins (Multivitamins, Thera 1 Each Tab) 1 each PO HS [facility] Last Admin: 02/11/21 21:11 Dose: 1 each Documented by: Naloxone HCl (Naloxone 0.4 Mg/Ml 1 Ml Vial) 0.2 mg IV Q2M PRN PRN Reason: Opioid Reversal Ondansetron HCl (Ondansetron 4 Mg/2 Ml Vial) 4 mg IVP Q8HR PRN PRN Reason: Nausea And Vomiting Pravastatin Sodium (Pravastatin Sodium 80 Mg Tab) 80 mg PO HS [facility] Last Admin: 02/11/21 21:11 Dose: 80 mg Documented by: Zinc Sulfate (Zinc Sulfate 220 Mg Cap) 220 mg PO DAILY [facility] Last Admin: 02/12/21 08:52 Dose: 220 mg Documented by: Past medical history to include: Hypertension, hyperlipidemia, diverticulosis, bilateral tinnitus, 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 Stopped in 1987. He has takes couple of drinks a day. 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 Family history: Reviewed, noncontributory to presentation Physical examination: VITAL SIGNS: 97.3, 99, 17, 1 4682, 96% on 15 L nonrebreather GENERAL: Sitting of the edge of the bed, short of breath LUNGS: Respiratory rate increased; PSYCH: Alert and oriented x3; mood and affect anxious NEUROLOGICAL: Cranial nerves grossly intact; no facial asymmetry, moving all 4 limbs Rest of the exam per pulmonary and nursing INVESTIGATIONS, reviewed in the clinical context: February 12: WBC 9.6 hemoglobin 15.6 d-dimer 4.76 potassium 4.5 creatinine 0.81 February 11: D-dimer 2.33 potassium 4.5 creatinine 0.94 CRP 35.5 Ultrasound kidney: Kidneys unremarkable. Possible hepatic steatosis. WBC 5.5 hemoglobin 14.9 platelets 206 lymphocytes 0.6 sodium 136 potassium 4.1 BUN 24 creatinine 1.28 CRP 33.2 Assessment and plan: -Acute severe COVID 19 pneumonitis in a patient did not receive the COVID-19 vaccine: Not improving. Dexamethasone. Subcu Lovenox. Vitamin C vitamin D zinc. Baricitinib added by pulmonary -Hyperlipidemia Zetia 10 mg daily at bedtime Pravachol 80 mg daily at bedtime -Essential hypertension Patient's had decreased appetite. Blood pressure relatively controlled. We will use amlodipine 5 mg a day -Acute kidney injury, prerenal from decreased oral intake: Better IV fluids. -Acute severe hypoxic is pretty failure from COVID-19: Not improving 15 L of nasal cannula Dexamethasone. Subcu Lovenox. Baricitinib. 15 L nasal cannula. Discussed with patient. Follow labs.
[2021-02-12] MEDS: MULTIVITAMINS, THERA 1 EACH TAB PO SCH (20:29)
[2021-02-12] MEDS: amLODIPine 5 MG TAB PO SCH (20:29)
[2021-02-12] MEDS: EZETIMIBE 10 MG TAB PO SCH (20:29)
[2021-02-12] MEDS: PRAVASTATIN SODIUM 80 MG TAB PO SCH (20:29)
[2021-02-13] MEDS: SODIUM CHLORIDE 0.45% 1,000 ML IV SCH ×3 (00:52→22:48)
[2021-02-13 06:27] LABS: ALT 58 U/L (4-49); AST 74 U/L (17-59); African American GFR (CKD) >90 (>60 ml/min/1.73 sqM); Albumin 3.4 g/dL (3.5-5.0); Alkaline Phosphatase 86 U/L (38-126); Anion Gap 10 mmol/L; Blood Urea Nitrogen 19 mg/dL (9-20); Carbon Dioxide 22 mmol/L (22-30); Chloride 105 mmol/L (98-107); Globulin 3.5 g/dL; Glucose 137 mg/dL (74-99); Non-African American GFR(CKD) >90 (>60 ml/min/1.73 sqM); Potassium 4.8 mmol/L (3.5-5.1); Sodium 137 mmol/L (137-145); Total Protein 6.9 g/dL (6.3-8.2)
[2021-02-13 06:40] LABS: HCT 45.4 % (39.0-53.0); HGB 15.4 gm/dL (13.0-17.5); MCH 32.5 pg (25.0-35.0); MCV 95.8 fL (80.0-100.0); Mean Platelet Volume 8.1; Platelet Count 304 k/uL (150-450); RBC 4.74 m/uL (4.30-5.90); RDW 12.9 % (11.5-15.5); WBC 12.7 k/uL (3.8-10.6)
[2021-02-13 06:50] LABS: C Reactive Protein 6.8 mg/dL (<1.0)
[2021-02-13 07:34] LABS: Lymphocytes # (M) 1.14 k/uL (1.0-4.8); Monocytes # (M) 1.02 k/uL (0-1.0); Neutrophils # (M) 10.54 k/uL (1.3-7.7); Neutrophils % (M) 83 %; Nucleated Red Blood Cells 0 /100 WBC (0-0); Total Cells Counted 100
[2021-02-13] MEDS: ZINC SULFATE 220 MG CAP PO SCH (09:16)
[2021-02-13] MEDS: ENOXAPARIN 40 MG/0.4 ML SYRINGE SQ SCH (09:16)
[2021-02-13] MEDS: ASCORBIC ACID 500 MG TAB PO SCH (09:16)
[2021-02-13] MEDS: DEXAMETHASONE SOD PHOSPHATE 10 MG/ML 1 ML VIAL IVP SCH (09:16)
[2021-02-13] MEDS: BARICITINIB 2 MG TABLET PO SCH (14:46)
--- NOTE | 2021-02-13 14:52 | P.PN ---
Subjective Progress Note Date: 02/13/21 Principal diagnosis: Dyspnea This a very pleasant 60-year-old male patient with a history of hypertension, hyperlipidemia. Daily alcohol use. 8 days ago he started having complaints of increasing shortness of breath, cough and congestion. He tested positive for COVID-19 5 days ago. He is not vaccinated. He presented to the emergency room here yesterday with complaints of increasing shortness of breath cough and congestion. He was found to be hypoxemic at 82% on room air. He was initiated on oxygen at 5 L/m per nasal cannula. He did have a T-max of 100.5. X-ray rev ealed evidence of bilateral patchy opacities consistent with COVID-19 pneumonia. White count 5.5. Hemoglobin 14.9. Lymphocytes 0.6. D-dimer 2.33. Sodium 137. Potassium 4.5. Creatinine 0.94. Glucose 161. Ferritin 5642. AST 74. ALT 33. LDH 1547. C-reactive protein 35.5. He was initiated on Decadron, Lovenox, vitamin supplements. He is seen today in consultation on the regular medical floor. His oxygen requirements have increased and he is now on 15 L high flow nasal cannula plus a nonrebreather mask. He is afebrile. Hemodynamically stable. He states he is doing the same today compared to yesterday. No worse but no better. On 02/12/2021 patient seen in follow-up on medical surgical floor. Is currently on 15 L and nonrebreather mask, his pulse ox of 93-96%. He states that his breathing is slightly improved, occasional cough and at times he is able to bring up some crawford colored phlegm. No chest discomfort. He sitting up in the recliner, his vital signs have been stable, he has been afebrile. He was started on Baricitinib yesterday on 02/11/2021, he remains on Decadron and prophylactic Lovenox in addition to multivitamins. His lower extremity Dopplers were negative for DVT. His d-dimer is up to 4.76 on today's labs, his white count is 9.6, hemoglobin is 15.6, sodium is 135, potassium is 4.5, BUN is 19 creatinine 0.81. Renal profile has improved, BUN is down to 19 creatinine 0.81. LDH is 2024, and CRP is 16.9. On 02/13/2021 patient seen in follow-up on medical surgical floor. Patient is currently awake and alert, in no acute distress, he continues to require 15 L and [place] nonrebreather mask, to maintain O2 saturations at 90-92%, mildly dyspneic, but no acute distress, he states he is slightly better, no complaints of chest pain, his been afebrile, he is short of breath with any exertion, and with conversation, CTA chest was completed showing no evidence of pulmonary embolism. There were bilateral diffuse marked patchy groundglass opacities. There were no pleural effusions or pneumothorax. Patient is currently on Baricitinib, she is on Decadron 6 mg daily, multivitamins, patient is on prophylactic Lovenox. Patient has had no acute events overnight. Objective - Vital Signs Vital signs: Vital Signs Temp 98.6 F 02/13/21 14:28 Pulse 107 H 02/13/21 14:28 Resp 18 02/13/21 14:28 BP 156/85 02/13/21 14:28 Pulse Ox 81 L 02/13/21 14:28 Intake & Output 02/12/21 02/13/21 02/13/21 18:59 06:59 18:59 Output Total 900 900 Balance -900 -900 Output: Urine 900 900 Other: Voiding Method Bedside Commode Urinal Urinal # Voids 4 4 # Bowel Movements 1 - Exam GENERAL EXAM: Alert, very pleasant, 60-year-old white male, on 15 L and her percent nonrebreather mask with a sat of 90-92% comfortable in no apparent distress. HEAD: Normocephalic/atraumatic. EYES: Normal reaction of pupils, equal size. Conjunctiva pink, sclera white. NOSE: Clear with pink turbinates. THROAT: No erythema or exudates. NECK: No masses, no JVD, no thyroid enlargement, no adenopathy. CHEST: No chest wall deformity. Symmetrical expansion. LUNGS: Equal air entry with bilateral crackles CVS: Regular rate and rhythm, normal S1 and S2, no gallops, no murmurs, no rubs ABDOMEN: Soft, nontender. No hepatosplenomegaly, normal bowel sounds, no guarding or rigidity. EXTREMITIES: No clubbing, no edema, no cyanosis, 2+ pulses and upper and lower extremities. MUSCULOSKELETAL: Muscle strength and tone normal. SPINE: No scoliosis or deformity SKIN: No rashes CENTRAL NERVOUS SYSTEM: Alert and oriented -3. No focal deficits, tone is normal in all 4 extremities. PSYCHIATRIC: Alert and oriented -3. Appropriate affect. Intact judgment and insight. - Labs CBC & Chem 7: 02/13/21 05:32 02/13/21 05:32 Labs: Abnormal Lab Results - Last 24 Hours (Table) 02/13/21 02/13/21 02/13/21 Range/Units 05:32 05:32 05:32 WBC 12.7 H (3.8-10.6) k/uL Neutrophils # (Manual) 10.54 H (1.3-7.7) k/uL Monocytes # (Manual) 1.02 H (0-1.0) k/uL D-Dimer 29.00 H (<0.60) mg/L FEU Glucose 137 H (74-99) mg/dL Calcium 8.0 L (8.4-10.2) mg/dL AST 74 H (17-59) U/L ALT 58 H (4-49) U/L C-Reactive Protein 6.8 H (<1.0) mg/dL Albumin 3.4 L (3.5-5.0) g/dL Assessment and Plan Plan: Assessment: #1. Acute hypoxic respiratory failure, related to COVID-19, patient came into the hospital on 02/10/2021 with a day history of symptoms. He was outside the window for Remdesivir, he is a non-vaccinated adult. Started on Baricitinib on 02/11/2021. Currently on 15 L in the 100% nonrebreather mask #2. Elevated d-dimer, lower extremity Dopplers were negative for DVT, CTA showed no evidence of PE #3. Acute kidney injury, improved with IV hydration #4. Hyperlipidemia #5. Hypertension Plan: Continue Baricitinib Continue Decadron, Lovenox CT angiogram of the chest has been reviewed showing no pulmonary embolism Continue with current dose Lovenox Continue with multivitamins Encouraged patient to do self-proning I performed a history & physical examination of the patient and discussed their management with my nurse practitioner, Ness Garcia. I reviewed the nurse practitioner's note and agree with the documented findings and plan of care. Lung sounds are positive for dim breath sounds throughout the lung anne. The findings and the impression was discussed with the patient. I attest to the documentation by the nurse practitioner. Time with Patient: Less than 30
--- NOTE | 2021-02-13 15:12 | P.PN ---
Progress Note - Text Progress Note Date: 02/13/21 Chief Complaint: Short of breath This is a pleasant 60-year-old patient of Dr. rae Chronic stable medical conditions include hyperlipidemia, hypertension. Patient did not take the COVID-19 vaccine. About 7 days ago patient started having fever and dry cough chills. About 4 days ago patient tested positive for COVID-19. Patient is having one or 2 loose stools a day. Denies any body aches or headaches. No loss of taste or smell. S patient is pretty symptoms progress decided to come in. He was 82% on room air. Admitted with severe COVID 19 pneumonitis, acute kidney injury, acute hypoxic respiratory failure. Started on dexamethasone. IV fluids. Baricitinib added. February 11: Sitting of the edge of the bed. Short of breath. Eating some. Tired. Baricitinib added by pulmonary. February 12: Sitting at edge of the bed. Short of breath. 96% on 15 L. On Baricitinib and dexamethasone. Eating about 50-75%. February 13: Sitting up in a chair. Short of breath. On 15 L nasal cannula. On Baricitinib admitted and dexamethasone. Eating some Review of systems: Was done for constitutional, cardiovascular, GI, pulmonary. relevant finding as above Active Medications Acetaminophen (Acetaminophen Tab 325 Mg Tab) 650 mg PO Q6HR PRN PRN Reason: Mild Pain or Fever > 100.5 Last Admin: 02/10/21 21:36 Dose: 650 mg Documented by: Amlodipine Besylate (Amlodipine 5 Mg Tab) 5 mg PO HS [facility] Last Admin: 02/12/21 20:29 Dose: 5 mg Documented by: Ascorbic Acid (Ascorbic Acid 500 Mg Tab) 1,000 mg PO DAILY [facility] Last Admin: 02/13/21 09:16 Dose: 1,000 mg Documented by: Baricitinib (Baricitinib 2 Mg Tablet) 4 mg PO DAILY@1400 [facility] Stop: 02/25/21 14:01 Last Admin: 02/13/21 14:46 Dose: 4 mg Documented by: Calcium Carbonate/Glycine (Calcium Carbonate 500 Mg Chewable) 1,000 mg PO Q4HR PRN PRN Reason: Dyspepsia Dexamethasone Sodium Phosphate (Dexamethasone Sod Phosphate 10 Mg/Ml 1 Ml Vial) 6 mg IVP DAILY [facility] Last Admin: 02/13/21 09:16 Dose: 6 mg Documented by: Ezetimibe (Ezetimibe 10 Mg Tab) 10 mg PO HS [facility] Last Admin: 02/12/21 20:29 Dose: 10 mg Documented by: Enoxaparin Sodium (Enoxaparin 40 Mg/0.4 Ml Syringe) 40 mg SQ DAILY [facility] Last Admin: 02/13/21 09:16 Dose: 40 mg Documented by: Sodium Chloride (Saline 0.45%) 1,000 mls @ 75 mls/hr IV .[id number] [facility] Last Admin: 02/13/21 09:21 Dose: 75 mls/hr Documented by: Lactulose (Lactulose 20 Gm/30 Ml Cup) 20 gm PO DAILY PRN PRN Reason: Constipation Loperamide HCl (Loperamide 2 Mg Cap) 2 mg PO BID PRN PRN Reason: Diarrhea Last Admin: 02/11/21 13:41 Dose: 2 mg Documented by: Lorazepam (Lorazepam 0.5 Mg Tab) 0.5 mg PO Q6HR PRN PRN Reason: Anxiety Melatonin (Melatonin 3 Mg Tablet) 3 mg PO HS PRN PRN Reason: Insomnia Multivitamins (Multivitamins, Thera 1 Each Tab) 1 each PO HS [facility] Last Admin: 02/12/21 20:29 Dose: 1 each Documented by: Naloxone HCl (Naloxone 0.4 Mg/Ml 1 Ml Vial) 0.2 mg IV Q2M PRN PRN Reason: Opioid Reversal Ondansetron HCl (Ondansetron 4 Mg/2 Ml Vial) 4 mg IVP Q8HR PRN PRN Reason: Nausea And Vomiting Pravastatin Sodium (Pravastatin Sodium 80 Mg Tab) 80 mg PO HS [facility] Last Admin: 02/12/21 20:29 Dose: 80 mg Documented by: Zinc Sulfate (Zinc Sulfate 220 Mg Cap) 220 mg PO DAILY [facility] Last Admin: 02/13/21 09:16 Dose: 220 mg Documented by: Past medical history to include: Hypertension, hyperlipidemia, diverticulosis, bilateral tinnitus, 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 Stopped in 1987. He has takes couple of drinks a day. 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 Family history: Reviewed, noncontributory to presentation Physical examination: VITAL SIGNS: 98.6, 107, 18, 1 56 x 85, 90% on 15 L GENERAL: Sitting up in a chair, short of breath LUNGS: Respiratory rate increased; PSYCH: Alert and oriented x3; mood and affect anxious NEUROLOGICAL: Cranial nerves grossly intact; no facial asymmetry, moving all 4 limbs Rest of the exam per pulmonary and nursing INVESTIGATIONS, reviewed in the clinical context: February 13: WBC 12.7 hemoglobin 15.4 d-dimer 29 potassium 4.8 creatinine 0.73 Chest CTA [February 12]: Negative for PE Doppler ultrasound [February 11]: Negative for DVT February 12: WBC 9.6 hemoglobin 15.6 d-dimer 4.76 potassium 4.5 creatinine 0.81 February 11: D-dimer 2.33 potassium 4.5 creatinine 0.94 CRP 35.5 Ultrasound kidney: Kidneys unremarkable. Possible hepatic steatosis. WBC 5.5 hemoglobin 14.9 platelets 206 lymphocytes 0.6 sodium 136 potassium 4.1 BUN 24 creatinine 1.28 CRP 33.2 Assessment and plan: -Acute severe COVID 19 pneumonitis in a patient did not receive the COVID-19 vaccine: Not improving. Dexamethasone. Subcu Lovenox. Vitamin C vitamin D zinc. Baricitinib added by pulmonary -Hyperlipidemia Zetia 10 mg daily at bedtime Pravachol 80 mg daily at bedtime -Essential hypertension amlodipine 5 mg a day -Acute kidney injury, prerenal from decreased oral intake: Better IV fluids. -Acute severe hypoxic is pretty failure from COVID-19: Not improving 15 L of nasal cannula Dexamethasone. Subcu Lovenox. Baricitinib. 15 L nasal cannula. Discussed with patient. Follow labs.
[2021-02-13] MEDS: EZETIMIBE 10 MG TAB PO SCH (22:31)
[2021-02-13] MEDS: amLODIPine 5 MG TAB PO SCH (22:31)
[2021-02-13] MEDS: PRAVASTATIN SODIUM 80 MG TAB PO SCH (22:31)
[2021-02-13] MEDS: MULTIVITAMINS, THERA 1 EACH TAB PO SCH (22:31)
[2021-02-14] MEDS ORDERED: ALBUTEROL HFA INHALER INHALATION PRN (04:13)
[2021-02-14 05:58] LABS: Glucose,Whole Blood 114 mg/dL (75-99)
[2021-02-14] MEDS ORDERED: LORazepam 2 MG/ML INJ IV STA (06:08)
[2021-02-14] MEDS ORDERED: propofoL 100 ML IV ONE (06:58)
[2021-02-14 07:02] LABS: Glucose,Whole Blood 125 mg/dL (75-99)
--- NOTE | 2021-02-14 07:31 | XR ---
EXAMINATION TYPE: XR chest 1V portable DATE OF EXAM: 02/14/2021 CLINICAL HISTORY: Difficulty breathing have to be intubated. TECHNIQUE: Single AP portable semiupright view of the chest is obtained. COMPARISON: Chest x-ray and CTA chest from 2 days earlier FINDINGS: New endotracheal tube terminates just below clavicular level above the aortic knob approxi mately 5 cm above pia. New orogastric tube projects below diaphragm. Persistent bilateral multifocal and confluent opacities. Cardiac silhouette size is upper limits of n ormal. Osseous structures are intact. IMPRESSION: 1. Satisfactory positioning of new endotracheal and orogastric tubes. 2. Bilateral multifocal and confluent opacities consistent with covid-19 infection are redemonstrated . No significant change from 2 days earlier.
[2021-02-14 08:17] LABS: Basophils # (A) 0.1 k/uL (0-0.2); Basophils % (A) 1 %; Eosinophils % (A) 0 %; HCT 44.1 % (39.0-53.0); HGB 14.9 gm/dL (13.0-17.5); Lymphocytes # (A) 0.9 k/uL (1.0-4.8); Lymphocytes % (A) 4 %; MCH 32.4 pg (25.0-35.0); MCHC 33.7 g/dL (31.0-37.0); Mean Platelet Volume 7.6; Monocytes # (A) 1.3 k/uL (0-1.0); Monocytes % (A) 5 %; Neutrophils # (A) 22.6 k/uL (1.3-7.7); Neutrophils % (A) 88 %; Platelet Count 223 k/uL (150-450); WBC 25.8 k/uL (3.8-10.6)
[2021-02-14] MEDS ORDERED: CISATRACURIUM 2 MG/ML 5 ML VIAL IV ONE (08:18)
[2021-02-14 08:22] LABS: ALT 85 U/L (4-49); AST 119 U/L (17-59); African American GFR (CKD) >90 (>60 ml/min/1.73 sqM); Albumin 3.3 g/dL (3.5-5.0); Alkaline Phosphatase 126 U/L (38-126); Anion Gap 8 mmol/L; Blood Urea Nitrogen 19 mg/dL (9-20); Calcium 7.7 mg/dL (8.4-10.2); Carbon Dioxide 27 mmol/L (22-30); Chloride 100 mmol/L (98-107); Globulin 3.3 g/dL; Glucose 169 mg/dL (74-99); Non-African American GFR(CKD) >90 (>60 ml/min/1.73 sqM); Potassium 4.3 mmol/L (3.5-5.1); Sodium 135 mmol/L (137-145); Total Bilirubin 2.2 mg/dL (0.2-1.3); Total Protein 6.6 g/dL (6.3-8.2)
--- NOTE | 2021-02-14 08:48 | XR ---
EXAMINATION TYPE: XR chest 1V confirm line [facility] DATE OF EXAM: 02/14/2021 COMPARISON: 02/14/2021 HISTORY: Line placement TECHNIQUE: Single frontal view of the chest is obtained. FINDINGS: Central line seen with tip overlying the SVC. No sizable pneumothorax. Diffuse bilateral i nfiltrate stable. Tiny bilateral pleural effusion suspected. Osseous structures are stable. IMPRESSION: 1. Central line in good position with no sizable pneumothorax. 2. Stable bilateral infiltrates
[2021-02-14 08:53] LABS: ABG Base Excess 0.2 mmol/L; ABG HCO3 28 mmol/L (21-25); ABG Oxygen Saturation 96.3 % (94-97); ABG PCO2 64 mmHg (35-45); ABG PH 7.25 (7.35-7.45); ABG PO2 101 mmHg (83-108); ABG TCO2 29 mmol/L (19-24)
[2021-02-14 08:58] LABS: Allen Test Performed? no
[2021-02-14] MEDS: ASCORBIC ACID 500 MG TAB PO SCH (09:04)
[2021-02-14] MEDS: ZINC SULFATE 220 MG CAP PO SCH (09:04)
[2021-02-14] MEDS: DEXAMETHASONE SOD PHOSPHATE 10 MG/ML 1 ML VIAL IVP SCH (09:05)
[2021-02-14] MEDS: ENOXAPARIN 40 MG/0.4 ML SYRINGE SQ SCH (09:05)
[2021-02-14] MEDS: ALBUTEROL HFA INHALER INHALATION SCH ×4 (09:31→20:13)
[2021-02-14] MEDS: CISATRACURIUM 200 MG in SODIUM CHLORIDE 0.9% 180 ML IV SCH (09:45)
--- NOTE | 2021-02-14 10:03 | US ---
EXAMINATION TYPE: US venous doppler duplex LE BI DATE OF EXAM: 02/14/2021 9:53 AM COMPARISON: 02/11/21 CLINICAL HISTORY: elevated d-dimer. Increase in d-dimer from prior exam on 02/11/21 SIDE PERFORMED: Bilateral TECHNIQUE: The lower extremity deep venous system is examined utilizing real time linear array sonog lula with graded compression, doppler sonography and color-flow sonography. VESSELS IMAGED: Common Femoral Vein Deep Femoral Vein Greater Saphenous Vein * Femoral Vein Popliteal Vein Small Saphenous Vein * Proximal Calf Veins (* superficial vessels) Right Leg: Positive for DVT Left Leg: Negative for DVT Thrombus of the right Posterior Tibial vein IMPRESSION: 1. Exam is positive for DVT right lower extremity posterior tibial vein
--- NOTE | 2021-02-14 10:13 | PCN ---
PROCEDURE NOTE PROCEDURE PERFORMED: Right radial art line. PREOP DIAGNOSIS: Frequent blood draws and blood gas monitoring. POSTOP DIAGNOSIS: Frequent blood draws and blood gas monitoring. VACATION SALES ADVISOR: Dr. Jose Juan Salinas. ARTERIAL LINE PLACEMENT: Indications: Hemodynamic monitoring. A time-out was completed verifying correct patient, procedure, site, positioning, and implant(s) or special equipment if applicable. Bart's test was performed to ensure adequate perfusion. The patient's right wrist was prepped and draped in sterile fashion. 1% Lidocaine was used to anesthetize the area. An 18G Arrow arterial line was introduced into the radial artery. The catheter was threaded over the guide wire and the needle was removed with appropriate pulsatile blood return. Blood loss was minimal. The catheter was then sutured in place to the skin and a sterile dressing applied. Perfusion to the extremity distal to the point of catheter insertion was checked and found to be adequate. The patient tolerated the procedure well and there were no complications. There was informed consent and universal timeout. The patient's procedure took place in room 257. There was good blood return and waveform. The patient tolerated the procedure well. The catheter was sutured in place. A sterile dressing was applied by the nurse. There was no immediate complication. MMODL / IJN: [id number] /
--- NOTE | 2021-02-14 10:13 | PCN ---
PROCEDURE NOTE PROCEDURE PERFORMED: Left subclavian triple-lumen catheter. PREOP DIAGNOSIS: Administration of fluids and pressors. POSTOP DIAGNOSIS: Administration of fluids and pressors. OPERATORS: Dr. Gandhi, Dr. Manzano. TRIPLE LUMEN CATHETER PLACEMENT: Indication: Hemodynamic monitoring/Intravenous access. A time-out was completed verifying correct patient, procedure, site, positioning, and implant(s) or special equipment if applicable. The patient was placed in a dependent position appropriate for triple lumen catheter placement based on the vein to be cannulated. The patient's left shoulder was prepped and draped in sterile fashion. 1% Lidocaine was used to anesthetize the surrounding skin area. A triple lumen 9F Cordis catheter was introduced into the subclavian vein using Seldinger technique. The catheter was threaded smoothly over the guide wire and appropriate blood return was obtained. Each lumen of the catheter was evacuated of air and flushed with sterile saline. The catheter was then sutured in place to the skin and a sterile dressing applied. Perfusion to the extremity distal to the point of catheter insertion was checked and found to be adequate. We used the left subclavian site. There was no immediate complication. There was good blood return from all 3 ports. The patient tolerated procedure well. The catheter was sutured in place. Sterile dressing was applied. A chest x-ray was ordered. There was no immediate complication. The patient did well with the procedure. MMODL / IJN: [id number] /
[2021-02-14] MEDS: SODIUM CHLORIDE 0.9% 1,000 ML IV SCH (10:16)
[2021-02-14] MEDS ORDERED: HEPARIN SODIUM 1,000 UN/ML (10ML VL) IV ONE (10:46)
[2021-02-14] MEDS ORDERED: HEPARIN SODIUM 1,000 UN/ML (10ML VL) IV PRN (10:46)
[2021-02-14] MEDS ORDERED: SODIUM CHLORIDE 0.9% 1,000 ML IV ONE ×3 (10:47→14:38)
--- NOTE | 2021-02-14 10:55 | P.PN ---
Subjective Progress Note Date: 02/14/21 Principal diagnosis: Dyspnea This a very pleasant 60-year-old male patient with a history of hypertension, hyperlipidemia. Daily alcohol use. 8 days ago he started having complaints of increasing shortness of breath, cough and congestion. He tested positive for COVID-19 5 days ago. He is not vaccinated. He presented to the emergency room here yesterday with complaints of increasing shortness of breath cough and congestion. He was found to be hypoxemic at 82% on room air. He was initiated on oxygen at 5 L/m per nasal cannula. He did have a T-max of 100.5. X-ray rev ealed evidence of bilateral patchy opacities consistent with COVID-19 pneumonia. White count 5.5. Hemoglobin 14.9. Lymphocytes 0.6. D-dimer 2.33. Sodium 137. Potassium 4.5. Creatinine 0.94. Glucose 161. Ferritin 5642. AST 74. ALT 33. LDH 1547. C-reactive protein 35.5. He was initiated on Decadron, Lovenox, vitamin supplements. He is seen today in consultation on the regular medical floor. His oxygen requirements have increased and he is now on 15 L high flow nasal cannula plus a nonrebreather mask. He is afebrile. Hemodynamically stable. He states he is doing the same today compared to yesterday. No worse but no better. On 02/12/2021 patient seen in follow-up on medical surgical floor. Is currently on 15 L and nonrebreather mask, his pulse ox of 93-96%. He states that his breathing is slightly improved, occasional cough and at times he is able to bring up some crawford colored phlegm. No chest discomfort. He sitting up in the recliner, his vital signs have been stable, he has been afebrile. He was started on Baricitinib yesterday on 02/11/2021, he remains on Decadron and prophylactic Lovenox in addition to multivitamins. His lower extremity Dopplers were negative for DVT. His d-dimer is up to 4.76 on today's labs, his white count is 9.6, hemoglobin is 15.6, sodium is 135, potassium is 4.5, BUN is 19 creatinine 0.81. Renal profile has improved, BUN is down to 19 creatinine 0.81. LDH is 2024, and CRP is 16.9. On 02/13/2021 patient seen in follow-up on medical surgical floor. Patient is currently awake and alert, in no acute distress, he continues to require 15 L and [place] nonrebreather mask, to maintain O2 saturations at 90-92%, mildly dyspneic, but no acute distress, he states he is slightly better, no complaints of chest pain, his been afebrile, he is short of breath with any exertion, and with conversation, CTA chest was completed showing no evidence of pulmonary embolism. There were bilateral diffuse marked patchy groundglass opacities. There were no pleural effusions or pneumothorax. Patient is currently on Baricitinib, she is on Decadron 6 mg daily, multivitamins, patient is on prophylactic Lovenox. Patient has had no acute events overnight. On 02/14/2021 patient seen in follow-up in intensive care unit, patient significantly deteriorated clinically and was emergently transferred to the intensive care unit early this morning and intubated and placed on mechanical ventilator at 7 AM this morning, he is currently on assist control mode with a rate of 24, tidal volume is 450, FiO2 of 100%, and PEEP of 14. His peak airway pressure is 30, plateau is 28. He has been sedated he is currently on Diprivan and 75 mics per kilo per minute, awaiting to be started on Nimbex infusion as well, his maintenance IV fluids of 0.45 at a rate of 75 ML per hour. His blood gas was reviewed showing pO2 of 101, pCO2 of 64, and pH of 7.25, this was done on the above-mentioned vent settings and FiO2 100%. We will increase the rate to 32, and dropped the FiO2 down to 90%. He is hemodynamically stable, he is tachycardic with a rate of 126, in sinus mechanism. Chest x-ray shows left subclavian central line, ET tube in good positions, no sizable pneumothorax, and diffuse bilateral infiltrates that are stable in appearance, there were tiny bilateral pleural effusions. The rest of his blood work has been reviewed and his white blood cell count is up to 25.8, hemoglobin is 14.9, his d-dimer remains elevated at greater than 34.1, patient had a recent CTA chest on 02/12/2021 which showed no evidence of pulmonary embolism, and lower extremity Dopplers were negative for DVT. His sodium today is 135, potassium is 4.3, the rest of electrolytes and renal profile were unremarkable. His AST is over 119, ALT is 85. His follow-up LDH and CRP are pending for today, his pro-calcitonin level is 0.60. Baricitinib was discontinued. Lower extremity Dopplers were again checked and were negative for DVT, will continue with current dose Lovenox. Objective - Vital Signs Vital signs: Vital Signs Temp 98.5 F 02/14/21 08:15 Pulse 123 H 02/14/21 09:30 Resp 32 H 02/14/21 09:30 BP 121/71 02/14/21 09:30 Pulse Ox 93 L 02/14/21 09:30 Intake & Output 02/13/21 02/14/21 02/14/21 18:59 06:59 18:59 Intake Total 900 480 Output Total 440 443 Balance 460 37 Intake: IV 900 Sodium Chloride 0.45% 1, 900 000 ml @ 75 mls/hr IV . [id number] [facility] Rx#:[id number] Oral 480 Output: Urine 440 440 Stool 3 Other: Voiding Method Urinal Urinal # Voids 500 500 ABP, PAP, CO, CI - Last Documented Arterial Blood Pressure 117/65 - Exam GENERAL EXAM: Intubated, and sedated 60-year-old white male, on assist control mode of ventilation, newly intubated, with a rate of 24, tidal is 450, FiO2 100% and PEEP of 14. Tachypneic, tachycardic, patient is sedated on 75 mics of diprivan, will also be paralyzed HEAD: Normocephalic/atraumatic. EYES: Normal reaction of pupils, equal size. Conjunctiva pink, sclera white. NOSE: Clear with pink turbinates. THROAT: No erythema or exudates. NECK: No masses, no JVD, no thyroid enlargement, no adenopathy. CHEST: No chest wall deformity. Symmetrical expansion. LUNGS: Equal air entry with bilateral crackles CVS: Regular rate and rhythm, normal S1 and S2, no gallops, no murmurs, no rubs ABDOMEN: Soft, nontender. No hepatosplenomegaly, normal bowel sounds, no guarding or rigidity. EXTREMITIES: No clubbing, no edema, no cyanosis, 2+ pulses and upper and lower extremities. MUSCULOSKELETAL: Muscle strength and tone normal. SPINE: No scoliosis or deformity SKIN: No rashes CENTRAL NERVOUS SYSTEM: Sedated, intubated No focal deficits, tone is normal in all 4 extremities. - Labs CBC & Chem 7: 02/14/21 07:48 02/14/21 07:48 Labs: Abnormal Lab Results - Last 24 Hours (Table) 02/14/21 02/14/21 02/14/21 Range/Units 05:57 07:01 07:48 WBC (3.8-10.6) k/uL Neutrophils # (1.3-7.7) k/uL Lymphocytes # (1.0-4.8) k/uL Monocytes # (0-1.0) k/uL D-Dimer >34.10 H (<0.60) mg/L FEU ABG pH (7.35-7.45) ABG pCO2 (35-45) mmHg ABG HCO3 (21-25) mmol/L ABG Total CO2 (19-24) mmol/L Sodium (137-145) mmol/L Glucose (74-99) mg/dL POC Glucose (mg/dL) 114 H 125 H (75-99) mg/dL Calcium (8.4-10.2) mg/dL Total Bilirubin (0.2-1.3) mg/dL AST (17-59) U/L ALT (4-49) U/L Albumin (3.5-5.0) g/dL 02/14/21 02/14/21 02/14/21 Range/Units 07:48 07:48 08:51 WBC 25.8 H (3.8-10.6) k/uL Neutrophils # 22.6 H (1.3-7.7) k/uL Lymphocytes # 0.9 L (1.0-4.8) k/uL Monocytes # 1.3 H (0-1.0) k/uL D-Dimer (<0.60) mg/L FEU ABG pH 7.25 L (7.35-7.45) ABG pCO2 64 H (35-45) mmHg ABG HCO3 28 H (21-25) mmol/L ABG Total CO2 29 H (19-24) mmol/L Sodium 135 L (137-145) mmol/L Glucose 169 H (74-99) mg/dL POC Glucose (mg/dL) (75-99) mg/dL Calcium 7.7 L (8.4-10.2) mg/dL Total Bilirubin 2.2 H (0.2-1.3) mg/dL AST 119 H (17-59) U/L ALT 85 H (4-49) U/L Albumin 3.3 L (3.5-5.0) g/dL Assessment and Plan Plan: Assessment: #1. Acute hypoxic respiratory failure, related to COVID-19, patient came into the hospital on 02/10/2021 with a day history of symptoms. He was outside the window for Remdesivir, he is a non-vaccinated adult. Started on Baricitinib on 02/11/2021. Currently on 15 L in the 100% nonrebreather mask. Patient had decompensated and was emergently transferred to the intensive care unit where he was intubated on 02/14/2021 #2. Elevated pro-calcitonin level, rule out possibility of bacterial infection, Baricitinib was discontinued, patient will be mak cultured, and started on cefep eder for empiric antibiotic coverage #3. Acute right leg DVT discovered on repeat lower extremity Doppler on 02/14/2021. No evidence of PE on CT angiogram of the chest from 02/12/2021 #4. Acute kidney injury, improved with IV hydration #5. Hyperlipidemia #6. Hypertension Plan: Patient was transferred to the intensive care unit, and emergently intubated Blood gases and chest x-rays were reviewed Increase respiratory rate to 32 breaths per minute Drop FiO2 down to 90% Give 1 L bolus Obtain lactic acid, obtain blood cultures 2, urine and sputum culture Start cefepime for empiric antibiotic coverage Baricitinib was discontinued Continue Decadron 6 mg IVP daily Central line and art line has been placed, follow-up chest x-ray has been reviewed and ET tube and central line are in good locations, no evidence of pneumothorax Utilize to prevent an Nimbex for sedation and paralysis We'll start heparin infusion high intensity protocol for acute DVT in right lower leg Start tube feedings for nutritional support Prone patient sometime today after we make sure that he is hemodynamically s table Wean FiO2 to keep O2 saturations at 90% and above We'll continue to closely follow I performed a history & physical examination of the patient and discussed their management with my nurse practitioner, Ness Garcia. I reviewed the nurse practitioner's note and agree with the documented findings and plan of care. Lung sounds are positive for dim breath sounds throughout the lung anne. The findings and the impression was discussed with the patient. I attest to the documentation by the nurse practitioner. Time with Patient: Greater than 30
[2021-02-14] MEDS ORDERED: CEFEPIME 2 GM in SODIUM CHLORIDE 0.9% 100 ML IVPB ONE (11:00)
[2021-02-14 12:11] LABS: INR 1.3 (<1.2); Partial Thromboplastin Time 24.2 sec (22.0-30.0); Prothrombin Time 13.5 sec (9.0-12.0)
[2021-02-14] MEDS: HEPARIN SOD,PORK IN 0.45% NACL 25,000 UNIT in 0.45% NACL 1 250ML.BAG IV SCH (12:14)
[2021-02-14 12:32] LABS: Glucose,Whole Blood 166 mg/dL (75-99)
[2021-02-14] MEDS: ARTIFICIAL TEARS-HYPROMELLOSE DROPS 15 ML BTL BOTH EYES SCH ×3 (13:46→20:26)
[2021-02-14] MEDS: CEFEPIME 2 GM in SODIUM CHLORIDE 0.9% 100 ML IVPB SCH (16:02)
[2021-02-14 16:18] LABS: Glucose,Whole Blood 176 mg/dL (75-99)
[2021-02-14 16:20] LABS: Amorphous Sediment,Urine Moderate /hpf; Appearance,Urine Cloudy (Clear); Bacteria,Urine Rare /hpf; Bilirubin,Urine Negative (Negative); Blood,Urine Small (Negative); Color,Urine Dark Yellow; Glucose,Urine (UA) Negative (Negative); Hyaline Casts,Urine 5 /lpf (0-2); Ketones,Urine Negative (Negative); Leukocyte Esterase,Urine Negative (Negative); Mucus,Urine Rare /hpf; Nitrite,Urine Negative (Negative); PH, Urine 5.5 (5.0-8.0); Protein,Urine 1+ (Negative); RBC,Urine 2 /hpf (0-5); Specific Gravity,Urine 1.021 (1.001-1.035); Squamous Epithelial Cell,Urine 1 /hpf (0-4); WBC,Urine 4 /hpf (0-5)
--- NOTE | 2021-02-14 17:25 | P.PN ---
Progress Note - Text Progress Note Date: 02/14/21 Chief Complaint: Short of breath This is a pleasant 60-year-old patient of Dr. rae Chronic stable medical conditions include hyperlipidemia, hypertension. Patient did not take the COVID-19 vaccine. About 7 days ago patient started having fever and dry cough chills. About 4 days ago patient tested positive for COVID-19. Patient is having one or 2 loose stools a day. Denies any body aches or headaches. No loss of taste or smell. S patient is pretty symptoms progress decided to come in. He was 82% on room air. Admitted with severe COVID 19 pneumonitis, acute kidney injury, acute hypoxic respiratory failure. Started on dexamethasone. IV fluids. Baricitinib added. February 11: Sitting of the edge of the bed. Short of breath. Eating some. Tired. Baricitinib added by pulmonary. February 12: Sitting at edge of the bed. Short of breath. 96% on 15 L. On Baricitinib and dexamethasone. Eating about 50-75%. February 13: Sitting up in a chair. Short of breath. On 15 L nasal cannula. On Baricitinib admitted and dexamethasone. Eating some February 14: Patient went down respiratory status and was moved to the ICU. Intubated. Drips included Diprivan, Nimbex, IV heparin. Doppler positive for DVT in the right lower extremity posterior tibial vein. Ventilator settings include FiO2 90% and a PEEP of 14. Spoke to patient is Dr. Bowman telephone number [phone]. She wanted the patient to have ivermectin. I did inform her that this was not one of the CDC recommended medications. Dr. Gandhi in sole stapler welt on the case is on the [facility] COVID guideline team. She also had wanted patient to be on inhalers including QVAR. She'll be discussing this with Dr. Gandhi the sole stapler welt. She also wants the patient to be at high dose vitamin C. I've asked her to fax over the literature to the ICU and I will review the same. Review of systems: Patient intubated Active Medications Acetaminophen (Acetaminophen Tab 325 Mg Tab) 650 mg PO Q6HR PRN PRN Reason: Mild Pain or Fever > 100.5 Last Admin: 02/10/21 21:36 Dose: 650 mg Documented by: Albuterol Sulfate (Albuterol Hfa Inhaler) 2 puff INHALATION RT-QID PRN PRN Reason: Shortness Of Breath Or Wheezing Albuterol Sulfate (Albuterol Hfa Inhaler) 2 puff INHALATION RT-QID [facility] Last Admin: 02/14/21 16:51 Dose: 2 puff Documented by: Artificial Tears (Artificial Tears-Hypromellose Drops 15 Ml Btl) 2 drops BOTH EYES Q4HR [facility] Last Admin: 02/14/21 16:04 Dose: 2 drops Documented by: Ascorbic Acid (Ascorbic Acid 500 Mg Tab) 1,000 mg PO DAILY [facility] Last Admin: 02/14/21 09:04 Dose: 1,000 mg Documented by: Dexamethasone Sodium Phosphate (Dexamethasone Sod Phosphate 10 Mg/Ml 1 Ml Vial) 6 mg IVP DAILY [facility] Last Admin: 02/14/21 09:05 Dose: 6 mg Documented by: Ezetimibe (Ezetimibe 10 Mg Tab) 10 mg PO HS [facility] Last Admin: 02/13/21 22:31 Dose: 10 mg Documented by: Heparin Sodium (Porcine) (Heparin Sodium 1,000 Un/Ml (10ml Vl)) 0 unit IV PER PROTOCOL PRN; Protocol PRN Reason: Low PTT Hydromorphone HCl (Hydromorphone 1 Mg/Ml 1 Ml Syringe) 1 mg IVP Q1HR PRN PRN Reason: Pain Cisatracurium Besylate 200 mg/ (Sodium Chloride) 200 mls @ 4.899 mls/hr IV .Q24H [facility]; Protocol Last Titration: 02/14/21 16:26 Dose: 1 mcg/kg/min, 4.899 mls/hr Documented by: Propofol 1,000 mg/ IV Solution 100 mls @ 0 mls/hr IV .Q0M [facility]; Protocol Last Admin: 02/14/21 15:45 Dose: 50 mcg/kg/min, 24.494 mls/hr Documented by: Sodium Chloride (Saline 0.9%) 1,000 mls @ 75 mls/hr IV .[id number] [facility] Last Admin: 02/14/21 10:16 Dose: 75 mls/hr Documented by: Cefepime HCl 2 gm/ Sodium (Chloride) 100 mls @ 25 mls/hr IVPB Q8HR [facility] Last Admin: 02/14/21 16:02 Dose: 25 mls/hr Documented by: Heparin Sodium/Sodium Chloride (25,000 unit/ Sodium Chloride) 250 mls @ 14.696 mls/hr IV .Q17H1M [facility]; Protocol Last Admin: 02/14/21 12:14 Dose: 18 units/kg/hr, 14.696 mls/hr Documented by: Norepinephrine Bitartrate 8 mg (/ Sodium Chloride) 258 mls @ 7.899 mls/hr IV .Q24H [facility]; Protocol Multivitamins (Multivitamins, Thera 1 Each Tab) 1 each PO HS [facility] Last Admin: 02/13/21 22:31 Dose: 1 each Documented by: Pravastatin Sodium (Pravastatin Sodium 80 Mg Tab) 80 mg PO HS [facility] Last Admin: 02/13/21 22:31 Dose: 80 mg Documented by: Zinc Sulfate (Zinc Sulfate 220 Mg Cap) 220 mg PO DAILY [facility] Last Admin: 02/14/21 09:04 Dose: 220 mg Documented by: Past medical history to include: Hypertension, hyperlipidemia, diverticulosis, bilateral tinnitus, 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 Stopped in 1987. He has takes couple of drinks a day. 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 Family history: Reviewed, noncontributory to presentation Physical examination: VITAL SIGNS: 98.8, 63, 32, 95/62, 98/56, 92% on the ventilator GENERAL: Laying in bed, intubated LUNGS: Respiratory rate increased; PSYCH: Unable to assess Rest of the exam per pulmonary and nursing INVESTIGATIONS, reviewed in the clinical context: February 14: WBC 25.8 hemoglobin 14.9 d-dimer greater than 34 potassium 4.3 creatinine 0.77 pro-calcitonin 0.21 Ultrasound venous Doppler right leg: DVT posterior tibial vein. February 13: WBC 12.7 hemoglobin 15.4 d-dimer 29 potassium 4.8 creatinine 0.73 Chest CTA [February 12]: Negative for PE Doppler ultrasound [February 11]: Negative for DVT February 12: WBC 9.6 hemoglobin 15.6 d-dimer 4.76 potassium 4.5 creatinine 0.81 February 11: D-dimer 2.33 potassium 4.5 creatinine 0.94 CRP 35.5 Ultrasound kidney: Kidneys unremarkable. Possible hepatic steatosis. WBC 5.5 hemoglobin 14.9 platelets 206 lymphocytes 0.6 sodium 136 potassium 4.1 BUN 24 creatinine 1.28 CRP 33.2 Assessment and plan: -Acute severe COVID 19 pneumonitis in a patient did not receive the COVID-19 vaccine: Worsening Dexamethasone. Subcu Lovenox. Vitamin C vitamin D zinc. Baricitinib added by pulmonary -Hyperlipidemia Zetia 10 mg daily at bedtime Pravachol 80 mg daily at bedtime -Acute DVT right lower extremity tibial vein IV heparin -IV heparin monitoring Follow PTT -Essential hypertension amlodipine 5 mg a day -Acute kidney injury, prerenal from decreased oral intake: Better IV fluids. -Acute severe hypoxic respiratory failure from COVID-19: Worsening Patient intubated today on the ventilator. Patient intubated on the ventilator. Drips include to prevent, Nimbex, IV heparin. Spoke to patient's daughter over the phone. Prognosis guarded.
[2021-02-14] MEDS: NOREPINEPHRINE 8 MG in SODIUM CHLORIDE 0.9% 250 ML IV SCH (17:38)
[2021-02-14 18:04] LABS: Glucose,Whole Blood 178 mg/dL (75-99)
[2021-02-14] MEDS: INSULIN ASPART (NovoLOG) 100 UNIT/ML VIAL SQ SCH (18:35)
[2021-02-14] MEDS: CHLORHEXIDINE GLUCONATE 15 ML CUP MUCOUS MEM SCH (20:25)
[2021-02-14] MEDS: MULTIVITAMINS, THERA 1 EACH TAB PO SCH (20:25)
[2021-02-14] MEDS: PRAVASTATIN SODIUM 80 MG TAB PO SCH (20:33)
[2021-02-14] MEDS: EZETIMIBE 10 MG TAB PO SCH (20:33)
[2021-02-14 23:39] LABS: Glucose,Whole Blood 174 mg/dL (75-99)
[2021-02-15] MEDS: SODIUM CHLORIDE 0.9% 1,000 ML IV SCH ×2 (00:15→12:06)
[2021-02-15] MEDS: INSULIN ASPART (NovoLOG) 100 UNIT/ML VIAL SQ SCH ×4 (00:15→18:17)
[2021-02-15] MEDS: CEFEPIME 2 GM in SODIUM CHLORIDE 0.9% 100 ML IVPB SCH ×3 (00:15→17:13)
[2021-02-15] MEDS: ARTIFICIAL TEARS-HYPROMELLOSE DROPS 15 ML BTL BOTH EYES SCH ×6 (00:15→20:56)
[2021-02-15 03:29] LABS: Basophils # (A) 0.1 k/uL (0-0.2); Basophils % (A) 0 %; Eosinophils % (A) 0 %; HCT 38.1 % (39.0-53.0); HGB 12.3 gm/dL (13.0-17.5); Lymphocytes # (A) 0.6 k/uL (1.0-4.8); Lymphocytes % (A) 3 %; MCH 31.5 pg (25.0-35.0); MCHC 32.3 g/dL (31.0-37.0); MCV 97.6 fL (80.0-100.0); Mean Platelet Volume 8.9; Monocytes # (A) 0.8 k/uL (0-1.0); Monocytes % (A) 4 %; Neutrophils # (A) 16.4 k/uL (1.3-7.7); Neutrophils % (A) 90 %; Platelet Count 178 k/uL (150-450); RDW 13.3 % (11.5-15.5); WBC 18.3 k/uL (3.8-10.6)
[2021-02-15 03:37] LABS: Partial Thromboplastin Time 44.8 sec (22.0-30.0)
[2021-02-15] MEDS: CISATRACURIUM 200 MG in SODIUM CHLORIDE 0.9% 180 ML IV SCH (04:02)
[2021-02-15] MEDS: HEPARIN SOD,PORK IN 0.45% NACL 25,000 UNIT in 0.45% NACL 1 250ML.BAG IV SCH ×2 (04:02→20:58)
[2021-02-15 04:05] LABS: ALT 62 U/L (4-49); AST 52 U/L (17-59); African American GFR (CKD) >90 (>60 ml/min/1.73 sqM); Albumin 2.4 g/dL (3.5-5.0); Alkaline Phosphatase 76 U/L (38-126); Anion Gap 7 mmol/L; Blood Urea Nitrogen 31 mg/dL (9-20); Calcium 6.7 mg/dL (8.4-10.2); Carbon Dioxide 22 mmol/L (22-30); Chloride 108 mmol/L (98-107); Glucose 157 mg/dL (74-99); LDH 1887 U/L (313-618); Non-African American GFR(CKD) 84 (>60 ml/min/1.73 sqM); Potassium 5.2 mmol/L (3.5-5.1); Sodium 137 mmol/L (137-145); Total Bilirubin 0.8 mg/dL (0.2-1.3); Total Protein 5.2 g/dL (6.3-8.2)
[2021-02-15 05:33] LABS: Glucose,Whole Blood 135 mg/dL (75-99)
[2021-02-15 06:23] LABS: ABG Base Excess -1.9 mmol/L; ABG HCO3 23 mmol/L (21-25); ABG Oxygen Saturation 98.4 % (94-97); ABG PCO2 41 mmHg (35-45); ABG PH 7.37 (7.35-7.45); ABG PO2 110 mmHg (83-108); ABG TCO2 25 mmol/L (19-24)
[2021-02-15 06:34] LABS: Allen Test Performed? No
--- NOTE | 2021-02-15 06:37 | XR ---
EXAMINATION TYPE: XR chest 1V portable DATE OF EXAM: 02/15/2021 COMPARISON: 02/14/2021 HISTORY: Covid pneumonia TECHNIQUE: Single frontal view of the chest is obtained. FINDINGS: There is a retrocardiac opacity which is worsened in the interval since the prior study. I nfiltrates in the right lung have improved slightly in the interval. The heart size is normal and the pulmonary vasculature is not congested. There is no pneumothorax. There is an NG tube within the stomach and a PICC line entering the left arm terminating the SVC/R ju nction. ET tube is 6.4 cm above the pia. IMPRESSION: Mild improvement in the right lung infiltrates but worsening in the infiltrate in the re trocardiac region of the left lower lobe.
[2021-02-15] MEDS: ALBUTEROL HFA INHALER INHALATION SCH ×4 (07:57→20:55)
[2021-02-15] MEDS ORDERED: CHOLECALCIFEROL 25 MCG (1000 IU) TABLET PO SCH (09:00)
[2021-02-15] MEDS: DEXAMETHASONE SOD PHOSPHATE 10 MG/ML 1 ML VIAL IVP SCH (09:06)
[2021-02-15] MEDS: CHLORHEXIDINE GLUCONATE 15 ML CUP MUCOUS MEM SCH ×2 (09:06→20:56)
[2021-02-15] MEDS: ASCORBIC ACID 500 MG TAB PO SCH (09:07)
[2021-02-15] MEDS: ZINC SULFATE 220 MG CAP PO SCH (09:07)
[2021-02-15] MEDS: SYMBICORT 160-4.5 MCG INHALER INHALATION SCH ×2 (09:17→20:55)
--- NOTE | 2021-02-15 11:19 | P.PN ---
Subjective Progress Note Date: 02/15/21 Principal diagnosis: Acute hypoxemic respiratory failure secondary to COVID-19 pneumonia This a very pleasant 60-year-old male patient with a history of hypertension, hyperlipidemia. Daily alcohol use. 8 days ago he started having complaints of increasing shortness of breath, cough and congestion. He tested positive for COVID-19 5 days ago. He is not vaccinated. He presented to the emergency room here yesterday with complaints of increasing shortness of breath cough and congestion. He was found to be hypoxemic at 82% on room air. He was initiated on oxygen at 5 L/m per nasal cannula. He did have a T-max of 100.5. X-ray revealed evidence of bilateral patchy opacities consistent with COVID-19 pneumonia. White count 5.5. Hemoglobin 14.9. Lymphocytes 0.6. D-dimer 2.33. Sodium 137. Potassium 4.5. Creatinine 0.94. Glucose 161. Ferritin 5642. AST 74. ALT 33. LDH 1547. C-reactive protein 35.5. He was initiated on Decadron, Lovenox, vitamin supplements. He is seen today in consultation on the regular medical floor. His oxygen requirements have increased and he is now on 15 L high flow nasal cannula plus a nonrebreather mask. He is afebrile. He modynamically stable. He states he is doing the same today compared to yesterday. No worse but no better. On 02/12/2021 patient seen in follow-up on medical surgical floor. Is currently on 15 L and nonrebreather mask, his pulse ox of 93-96%. He states that his breathing is slightly improved, occasional cough and at times he is able to bring up some crawford colored phlegm. No chest discomfort. He sitting up in the recliner, his vital signs have been stable, he has been afebrile. He was starte d on Baricitinib yesterday on 02/11/2021, he remains on Decadron and prophylactic Lovenox in addition to multivitamins. His lower extremity Dopplers were negative for DVT. His d-dimer is up to 4.76 on today's labs, his white count is 9.6, hemoglobin is 15.6, sodium is 135, potassium is 4.5, BUN is 19 creatinine 0.81. Renal profile has improved, BUN is down to 19 creatinine 0.81. LDH is 2023, and CRP is 16.9. On 02/13/2021 patient seen in follow-up on medical surgical floor. Patient is currently awake and alert, in no acute distress, he continues to require 15 L and [place] nonrebreather mask, to maintain O2 saturations at 90-92%, mildly dyspneic, but no acute distress, he states he is slightly better, no complaints of chest pain, his been afebrile, he is short of breath with any exertion, and with conversation, CTA chest was completed showing no evidence of pulmonary embolism. There were bilateral diffuse marked patchy groundglass opacities. There were no pleural effusions or pneumothorax. Patient is currently on Baricitinib, she is on Decadron 6 mg daily, multivitamins, patient is on prophylactic Lovenox. Patient has had no acute events overnight. On 02/14/2021 patient seen in follow-up in intensive care unit, patient significantly deteriorated clinically and was emergently transferred to the intensive care unit early this morning and intubated and placed on mechanical ventilator at 7 AM this morning, he is currently on assist control mode with a rate of 24, tidal volume is 450, FiO2 of 100%, and PEEP of 14. His peak airway pressure is 30, plateau is 28. He has been sedated he is currently on Diprivan and 75 mics per kilo per minute, awaiting to be started on Nimbex infusion as well, his maintenance IV fluids of 0.45 at a rate of 75 ML per hour. His blood gas was reviewed showing pO2 of 101, pCO2 of 64, and pH of 7.25, this was done on the above-mentioned vent settings and FiO2 100%. We will increase the rate to 32, and dropped the FiO2 down to 90%. He is hemodynamically stable, he is tachycardic with a rate of 126, in sinus mechanism. Chest x-ray shows left subclavian central line, ET tube in good positions, no sizable pneumothorax, and diffuse bilateral infiltrates that are stable in appearance, there were tiny bilateral pleural effusions. The rest of his blood work has been reviewed and his white blood cell count is up to 25.8, hemoglobin is 14.9, his d-dimer remains elevated at greater than 34.1, patient had a recent CTA chest on which showed no evidence of pulmonary embolism, and lower extremity Dopplers were negative for DVT. His sodium today is 135, potassium is 4.3, the rest of electrolytes and renal profile were unremarkable. His AST is over 119, ALT is 85. His follow-up LDH and CRP are pending for today, his pro-calcitonin level is 0.60. Baricitinib was discontinued. Lower extremity Dopplers were again checked and were negative for DVT, will continue with current dose Lovenox. The patient is seen today 02/15/2021 in follow-up in the intensive care unit. He remains intubated and on mechanical ventilator. Current settings are assist- control mode with a rate of 32, tidal volume 450, FiO2 55% and a PEEP of 14. Morning blood gases revealed a and P O2 of 110, pCO2 41, 87.37. He is sedated on propofol 50 mcg/kg/m, Nimbex at 1.5 g per kilogram per minute. Norepinephrine at 3 mcg/m. Heparin drip per weight base protocol. He does have a right lower extremity DVT. 0.9 normal saline at 75 ML's per hour. He is being nourished with Vital HPI 37 ML's per hour which is goal. He continues on Sym bicort, albuterol. Remains on Decadron, vitamin supplements. Currently on cefepime. White count 18.3. Hemoglobin 12.3. Lymphocytes 0.6. D-dimer greater than 34. Sodium 137. Potassium 5.2. Creatinine 0.97. Chest x-ray continues to show bilateral patchy opacities. Slightly improved on the right. Slightly worsened on the left. Objective - Vital Signs Vital signs: Vital Signs Temp 98.4 F 02/15/21 04:00 Pulse 85 02/15/21 10:00 Resp 32 H 02/15/21 10:00 BP 95/62 02/14/21 16:00 Pulse Ox 94 L 02/15/21 10:00 Intake & Output 02/14/21 02/15/21 02/15/21 18:59 06:59 18:59 Intake Total 3071.993 2462.183 580.513 Output Total 390 590 245 Balance 2681.993 1872.183 335.513 Weight 81.647 kg Intake: IV 21 1241 257 0.9NS Pressure BAg 21 36 12 Sodium Chloride 0.9% 1, 1205 245 000 ml @ 75 mls/hr IV . [id number] [facility] Rx#:[id number] Intake, IV Titration 3010.993 682.183 115.513 Amount Cefepime 2 gm In Sodium 75 25 Chloride 0.9% 100 ml @ 200 mls/hr IVPB ONCE [facility] Rx#:[id number] Cisatracurium 200 mg In 60.993 75.848 Sodium Chloride 0.9% 180 ml @ 1 MCG/KG/MIN 4.899 mls/hr IV .Q24H [facility] Rx#: [id number] Heparin Sod,Pork in 0.45% 192.152 NaCl 25,000 unit In 0.45 % NaCl 1 250ml.bag @ 18 UNITS/KG/HR 14.696 mls/hr IV .Q17H1M [facility] Rx#: [id number] Norepinephrine 8 mg In 25.596 Sodium Chloride 0.9% 250 ml @ 0.05 MCG/KG/MIN 7. 899 mls/hr IV .Q24H [facility] Rx#:[id number] Sodium Chloride 0.9% 1, 675 75 000 ml @ 75 mls/hr IV . [id number] [facility] Rx#:[id number] Sodium Chloride 0.9% 1, 2000 000 ml @ 999 mls/hr IV . Q1H1M [facility] Rx#:[id number] propofoL 1,000 mg In 200.000 288.587 115.513 Empty Bag 1 bag @ Titrate IV .Q0M [facility] Rx#: [id number] Tube Feeding 40 359 148 Other 180 60 Output: Urine 390 590 245 Other: Voiding Method Indwelling Catheter Indwelling Catheter ABP, PAP, CO, CI - Last Documented Arterial Blood Pressure 119/58 - Exam GENERAL EXAM: Intubated, sedated 60-year-old male patient, on assist control mode of ventilation, with a rate of 32, tidal is 450, FiO2 55% and PEEP of 14. HEAD: Normocephalic/atraumatic. EYES: Normal reaction of pupils, equal size. Conjunctiva pink, sclera white. NOSE: Clear with pink turbinates. THROAT: No erythema or exudates. NECK: No masses, no JVD, no thyroid enlargement, no adenopathy. CHEST: No chest wall deformity. Symmetrical expansion. LUNGS: Equal air entry with bilateral crackles CVS: Regular rate and rhythm, normal S1 and S2, no gallops, no murmurs, no rubs ABDOMEN: Soft, nontender. No hepatosplenomegaly, normal bowel sounds, no guardi ng or rigidity. EXTREMITIES: No clubbing, no edema, no cyanosis, 2+ pulses and upper and lower extremities. MUSCULOSKELETAL: Muscle strength and tone normal. SPINE: No scoliosis or deformity SKIN: No rashes CENTRAL NERVOUS SYSTEM: Sedated, intubated No focal deficits, tone is normal in all 4 extremities. - Labs CBC & Chem 7: 02/15/21 03:05 02/15/21 03:05 Labs: Abnormal Lab Results - Last 24 Hours (Table) 02/14/21 02/14/21 02/14/21 Range/Units 07:48 11:03 11:03 WBC (3.8-10.6) k/uL RBC (4.30-5.90) m/uL Hgb (13.0-17.5) gm/dL Hct (39.0-53.0) % Neutrophils # (1.3-7.7) k/uL Lymphocytes # (1.0-4.8) k/uL PT 13.5 H (9.0-12.0) sec INR 1.3 H (<1.2) APTT (22.0-30.0) sec D-Dimer (<0.60) mg/L FEU ABG pO2 (83-108) mmHg ABG Total CO2 (19-24) mmol/L ABG O2 Saturation (94-97) % ABG Lactic Acid 1.8 H (0.5-1.6) mmol/L Potassium (3.5-5.1) mmol/L Chloride (98-107) mmol/L BUN (9-20) mg/dL Glucose (74-99) mg/dL POC Glucose (mg/dL) (75-99) mg/dL Calcium (8.4-10.2) mg/dL ALT (4-49) U/L Lactate Dehydrogenase (313-618) U/L C-Reactive Protein (<1.0) mg/dL Total Protein (6.3-8.2) g/dL Albumin (3.5-5.0) g/dL Procalcitonin 0.21 H (0.02-0.09) ng/mL Urine Protein (Negative) Urine Blood (Negative) Amorphous Sediment (None) /hpf Urine Bacteria (None) /hpf Hyaline Casts (0-2) /lpf Urine Mucus (None) /hpf 02/14/21 02/14/21 02/14/21 Range/Units 11:06 12:29 16:15 WBC (3.8-10.6) k/uL RBC (4.30-5.90) m/uL Hgb (13.0-17.5) gm/dL Hct (39.0-53.0) % Neutrophils # (1.3-7.7) k/uL Lymphocytes # (1.0-4.8) k/uL PT (9.0-12.0) sec INR (<1.2) APTT (22.0-30.0) sec D-Dimer (<0.60) mg/L FEU ABG pO2 (83-108) mmHg ABG Total CO2 (19-24) mmol/L ABG O2 Saturation (94-97) % ABG Lactic Acid (0.5-1.6) mmol/L Potassium (3.5-5.1) mmol/L Chloride (98-107) mmol/L BUN (9-20) mg/dL Glucose (74-99) mg/dL POC Glucose (mg/dL) 166 H 176 H (75-99) mg/dL Calcium (8.4-10.2) mg/dL ALT (4-49) U/L Lactate Dehydrogenase (313-618) U/L C-Reactive Protein (<1.0) mg/dL Total Protein (6.3-8.2) g/dL Albumin (3.5-5.0) g/dL Procalcitonin (0.02-0.09) ng/mL Urine Protein 1+ H (Negative) Urine Blood Small H (Negative) Amorphous Sediment Moderate H (None) /hpf Urine Bacteria Rare H (None) /hpf Hyaline Casts 5 H (0-2) /lpf Urine Mucus Rare H (None) /hpf 02/14/21 02/14/21 02/14/21 Range/Units 18:03 18:08 23:38 WBC (3.8-10.6) k/uL RBC (4.30-5.90) m/uL Hgb (13.0-17.5) gm/dL Hct (39.0-53.0) % Neutrophils # (1.3-7.7) k/uL Lymphocytes # (1.0-4.8) k/uL PT (9.0-12.0) sec INR (<1.2) APTT 111.2 H* (22.0-30.0) sec D-Dimer (<0.60) mg/L FEU ABG pO2 (83-108) mmHg ABG Total CO2 (19-24) mmol/L ABG O2 Saturation (94-97) % ABG Lactic Acid (0.5-1.6) mmol/L Potassium (3.5-5.1) mmol/L Chloride (98-107) mmol/L BUN (9-20) mg/dL Glucose (74-99) mg/dL POC Glucose (mg/dL) 178 H 174 H (75-99) mg/dL Calcium (8.4-10.2) mg/dL ALT (4-49) U/L Lactate Dehydrogenase (313-618) U/L C-Reactive Protein (<1.0) mg/dL Total Protein (6.3-8.2) g/dL Albumin (3.5-5.0) g/dL Procalcitonin (0.02-0.09) ng/mL Urine Protein (Negative) Urine Blood (Negative) Amorphous Sediment (None) /hpf Urine Bacteria (None) /hpf Hyaline Casts (0-2) /lpf Urine Mucus (None) /hpf 02/15/21 02/15/21 02/15/21 Range/Units 03:05 03:05 03:05 WBC 18.3 H (3.8-10.6) k/uL RBC 3.90 L (4.30-5.90) m/uL Hgb 12.3 L (13.0-17.5) gm/dL Hct 38.1 L (39.0-53.0) % Neutrophils # 16.4 H (1.3-7.7) k/uL Lymphocytes # 0.6 L (1.0-4.8) k/uL PT (9.0-12.0) sec INR (<1.2) APTT 44.8 H (22.0-30.0) sec D-Dimer >34.10 H (<0.60) mg/L FEU ABG pO2 (83-108) mmHg ABG Total CO2 (19-24) mmol/L ABG O2 Saturation (94-97) % ABG Lactic Acid (0.5-1.6) mmol/L Potassium 5.2 H (3.5-5.1) mmol/L Chloride 108 H (98-107) mmol/L BUN 31 H (9-20) mg/dL Glucose 157 H (74-99) mg/dL POC Glucose (mg/dL) (75-99) mg/dL Calcium 6.7 L (8.4-10.2) mg/dL ALT 62 H (4-49) U/L Lactate Dehydrogenase 1887 H (313-618) U/L C-Reactive Protein 22.0 H (<1.0) mg/dL Total Protein 5.2 L (6.3-8.2) g/dL Albumin 2.4 L (3.5-5.0) g/dL Procalcitonin (0.02-0.09) ng/mL Urine Protein (Negative) Urine Blood (Negative) Amorphous Sediment (None) /hpf Urine Bacteria (None) /hpf Hyaline Casts (0-2) /lpf Urine Mucus (None) /hpf 02/15/21 02/15/21 Range/Units 05:32 05:39 WBC (3.8-10.6) k/uL RBC (4.30-5.90) m/uL Hgb (13.0-17.5) gm/dL Hct (39.0-53.0) % Neutrophils # (1.3-7.7) k/uL Lymphocytes # (1.0-4.8) k/uL PT (9.0-12.0) sec INR (<1.2) APTT (22.0-30.0) sec D-Dimer (<0.60) mg/L FEU ABG pO2 110 H (83-108) mmHg ABG Total CO2 25 H (19-24) mmol/L ABG O2 Saturation 98.4 H (94-97) % ABG Lactic Acid (0.5-1.6) mmol/L Potassium (3.5-5.1) mmol/L Chloride (98-107) mmol/L BUN (9-20) mg/dL Glucose (74-99) mg/dL POC Glucose (mg/dL) 135 H (75-99) mg/dL Calcium (8.4-10.2) mg/dL ALT (4-49) U/L Lactate Dehydrogenase (313-618) U/L C-Reactive Protein (<1.0) mg/dL Total Protein (6.3-8.2) g/dL Albumin (3.5-5.0) g/dL Procalcitonin (0.02-0.09) ng/mL Urine Protein (Negative) Urine Blood (Negative) Amorphous Sediment (None) /hpf Urine Bacteria (None) /hpf Hyaline Casts (0-2) /lpf Urine Mucus (None) /hpf Assessment and Plan Assessment: 1 Acute hypoxemic respiratory failure secondary to acute COVID-19 pneumonia. Not vaccinated. Continued to worsen and was subsequently intubated and placed on mechanical ventilator on 02/14/2021. 2 Elevated inflammatory markers secondary to above 3 Elevated pro-calcitonin level, rule out possibility of bacterial infection, Baricitinib was discontinued, patient will be mak cultured, and started on cefepime for empiric antibiotic coverage 4 Acute right leg DVT discovered on repeat lower extremity Doppler on 02/14/2021. No evidence of PE on CT angiogram of the chest from 02/12/2021 5 Acute kidney injury, improved with IV hydration 6 Hypertension 7 Hyperlipidemia 8 Daily alcohol use Plan: The patient was seen and evaluated Chest x-ray, ABGs and labs reviewed Decrease FiO2 to 50% Adjust ET tube down another 1.5 cm Continue Symbicort, albuterol Continue Decadron, Lovenox, vitamin supplements On heparin drip for DVT Follow-up chest x-ray, ABG's and labs in the a.m. The patient's daughter Gracie was updated at length and in detail by Dr. Gandhi today We will continue to follow and make further recommendations based on his clinical status Critical care time 38 minutes I, the cosigning physician, performed a history & physical examination of the patient. Lungs sounds with coarse crackles in the bilateral bases. Maintaining O2 saturations in the 90s on 50% FiO2 and a PEEP of 14 via the mechanical ventilator. I discussed the assessment and plan of care with my nurse practitioner, Oumou Manzano. I attest to the above note as dictated by her.
[2021-02-15 12:11] LABS: Glucose,Whole Blood 168 mg/dL (75-99)
[2021-02-15 17:33] LABS: Glucose,Whole Blood 177 mg/dL (75-99)
--- NOTE | 2021-02-15 18:06 | P.PN ---
Progress Note - Text Progress Note Date: 02/15/21 Chief Complaint: Short of breath This is a pleasant 60-year-old patient of Dr. rae Chronic stable medical conditions include hyperlipidemia, hypertension. Patient did not take the COVID-19 vaccine. About 7 days ago patient started having fever and dry cough chills. About 4 days ago patient tested positive for COVID-19. Patient is having one or 2 loose stools a day. Denies any body aches or headaches. No loss of taste or smell. S patient is pretty symptoms progress decided to come in. He was 82% on room air. Admitted with severe COVID 19 pneumonitis, acute kidney injury, acute hypoxic respiratory failure. Started on dexamethasone. IV fluids. Baricitinib added. February 11: Sitting of the edge of the bed. Short of breath. Eating some. Tired. Baricitinib added by pulmonary. February 12: Sitting at edge of the bed. Short of breath. 96% on 15 L. On Baricitinib and dexamethasone. Eating about 50-75%. February 13: Sitting up in a chair. Short of breath. On 15 L nasal cannula. On Baricitinib admitted and dexamethasone. Eating some February 14: Patient went down respiratory status and was moved to the ICU. Intubated. Drips included Diprivan, Nimbex, IV heparin. Doppler positive for DVT in the right lower extremity posterior tibial vein. Ventilator settings include FiO2 90% and a PEEP of 14. Spoke to patient is Dr. Bowman telephone number [phone]. She wanted the patient to have ivermectin. I did inform her that this was not one of the CDC recommended medications. Dr. Gandhi in customer service cashier on the case is on the [facility] COVID guideline team. She also had wanted patient to be on inhalers including QVAR. She'll be discussing this with Dr. Gandhi the customer service cashier. She also wants the patient to be at high dose vitamin C. I've asked her to fax over the literature to the ICU and I will review the same. February 15: ICU: Patient currently under pain and Nimbex. He will fed taken off this morning. 2 feeding at 37 mL an hour. On the ventilator with FiO2 50% and a PEEP of 14. Review of systems: Patient intubated Active Medications Acetaminophen (Acetaminophen Tab 325 Mg Tab) 650 mg PO Q6HR PRN PRN Reason: Mild Pain or Fever > 100.5 Last Admin: 02/10/21 21:36 Dose: 650 mg Documented by: Albuterol Sulfate (Albuterol Hfa Inhaler) 2 puff INHALATION RT-QID PRN PRN Reason: Shortness Of Breath Or Wheezing Albuterol Sulfate (Albuterol Hfa Inhaler) 2 puff INHALATION RT-QID [facility] Last Admin: 02/15/21 16:02 Dose: 2 puff Documented by: Artificial Tears (Artificial Tears-Hypromellose Drops 15 Ml Btl) 2 drops BOTH EYES Q4HR [facility] Last Admin: 02/15/21 17:14 Dose: 2 drops Documented by: Ascorbic Acid (Ascorbic Acid 500 Mg Tab) 1,000 mg PO DAILY [facility] Last Admin: 02/15/21 09:07 Dose: 1,000 mg Documented by: Budesonide/Formoterol Fumarate (Symbicort 160-4.5 Mcg Inhaler) 2 puff INHALATION RT-BID [facility] Last Admin: 02/15/21 09:17 Dose: Not Given Documented by: Chlorhexidine Gluconate (Chlorhexidine Gluconate 15 Ml Cup) 15 ml MUCOUS MEM BID [facility] Last Admin: 02/15/21 09:06 Dose: 15 ml Documented by: Cholecalciferol (Cholecalciferol 25 Mcg (1000 Iu) Tablet) 25 mcg PO DAILY [facility] Last Admin: 02/15/21 09:07 Dose: 25 mcg Documented by: Dexamethasone Sodium Phosphate (Dexamethasone Sod Phosphate 10 Mg/Ml 1 Ml Vial) 6 mg IVP DAILY [facility] Last Admin: 02/15/21 09:06 Dose: 6 mg Documented by: Ezetimibe (Ezetimibe 10 Mg Tab) 10 mg PO HS [facility] Last Admin: 02/14/21 20:33 Dose: 10 mg Documented by: Heparin Sodium (Porcine) (Heparin Sodium 1,000 Un/Ml (10ml Vl)) 0 unit IV PER PROTOCOL PRN; Protocol PRN Reason: Low PTT Hydromorphone HCl (Hydromorphone 1 Mg/Ml 1 Ml Syringe) 1 mg IVP Q1HR PRN PRN Reason: Pain Cisatracurium Besylate 200 mg/ (Sodium Chloride) 200 mls @ 4.899 mls/hr IV .Q24H [facility]; Protocol Last Titration: 02/15/21 09:00 Dose: 2 mcg/kg/min, 9.798 mls/hr Documented by: Propofol 1,000 mg/ IV Solution 100 mls @ 0 mls/hr IV .Q0M [facility]; Protocol Last Admin: 02/15/21 12:05 Dose: 50 mcg/kg/min, 24.494 mls/hr Documented by: Sodium Chloride (Saline 0.9%) 1,000 mls @ 75 mls/hr IV .[id number] [facility] Last Admin: 02/15/21 12:06 Dose: 75 mls/hr Documented by: Cefepime HCl 2 gm/ Sodium (Chloride) 100 mls @ 25 mls/hr IVPB Q8HR [facility] Last Admin: 02/15/21 17:13 Dose: 25 mls/hr Documented by: Heparin Sodium/Sodium Chloride (25,000 unit/ Sodium Chloride) 250 mls @ 14.696 mls/hr IV .Q17H1M [facility]; Protocol Last Admin: 02/15/21 04:02 Dose: 15 units/kg/hr, 12.247 mls/hr Documented by: Norepinephrine Bitartrate 8 mg (/ Sodium Chloride) 258 mls @ 7.899 mls/hr IV .Q24H [facility]; Protocol Last Titration: 02/14/21 23:02 Dose: 0.02 mcg/kg/min, 3.16 mls/hr Documented by: Insulin Aspart (Insulin Aspart (Novolog) 100 Unit/Ml Vial) 0 unit SQ Q6H [facility]; Protocol Last Admin: 02/15/21 12:34 Dose: 3 unit Documented by: Multivitamins (Multivitamins, Thera 1 Each Tab) 1 each PO HS [facility] Last Admin: 02/14/21 20:25 Dose: 1 each Documented by: Pravastatin Sodium (Pravastatin Sodium 80 Mg Tab) 80 mg PO HS [facility] Last Admin: 02/14/21 20:33 Dose: 80 mg Documented by: Zinc Sulfate (Zinc Sulfate 220 Mg Cap) 220 mg PO DAILY [facility] Last Admin: 02/15/21 09:07 Dose: 220 mg Documented by: Past medical history to include: Hypertension, hyperlipidemia, diverticulosis, bilateral tinnitus, 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 Stopped in 1987. He has takes couple of drinks a day. 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 Family history: Reviewed, noncontributory to presentation Physical examination: VITAL SIGNS: Afebrile, 85, 32, 128/59, 96% on the ventilator/50% GENERAL: Laying in bed, intubated, sedated LUNGS: Respiratory rate increased; PSYCH: Unable to assess Rest of the exam per pulmonary and nursing INVESTIGATIONS, reviewed in the clinical context: February 15: WBC eating 0.3 hemoglobin 12.3 platelets 8.9 d-dimer greater than 34 potassium 5.2 creatinine 0.97 CRP February 14: WBC 25.8 hemoglobin 14.9 d-dimer greater than 34 potassium 4.3 creatinine 0.77 pro-calcitonin 0.21 Ultrasound venous Doppler right leg: DVT posterior tibial vein. February 13: WBC 12.7 hemoglobin 15.4 d-dimer 29 potassium 4.8 creatinine 0.73 Chest CTA [February 12]: Negative for PE Doppler ultrasound [February 11]: Negative for DVT February 12: WBC 9.6 hemoglobin 15.6 d-dimer 4.76 potassium 4.5 creatinine 0.81 February 11: D-dimer 2.33 potassium 4.5 creatinine 0.94 CRP 35.5 Ultrasound kidney: Kidneys unremarkable. Possible hepatic steatosis. WBC 5.5 hemoglobin 14.9 platelets 206 lymphocytes 0.6 sodium 136 potassium 4.1 BUN 24 creatinine 1.28 CRP 33.2 Assessment and plan: -Acute severe COVID 19 pneumonitis in a patient did not receive the COVID-19 vaccine: On improving Dexamethasone. Subcu Lovenox. Vitamin C vitamin D zinc. -Hyperlipidemia Zetia 10 mg daily at bedtime Pravachol 80 mg daily at bedtime -Acute DVT right lower extremity tibial vein IV heparin -IV heparin monitoring Follow PTT -Essential hypertension amlodipine 5 mg a day -Acute kidney injury, prerenal from decreased oral intake: Better IV fluids. -Acute severe hypoxic respiratory failure from COVID-19: Not improving Patient intubated today on the ventilator. Drips include to propofol/Nimbex. Patient's levo fed discontinued this morning. 2 feeding at 37 mL an hour. Prognosis guarded. Spoke to patient's daughter about vitamin D vitamin C. She was wondering if vitamin C IV will be useful. I did say we did not have any concrete data to support that even though vitamin C is useful and patient is only getting some vitamin C supplement.
[2021-02-15] MEDS: NOREPINEPHRINE 8 MG in SODIUM CHLORIDE 0.9% 250 ML IV SCH (18:31)
[2021-02-15] MEDS ORDERED: propofoL 100 ML IV ONE (19:36)
[2021-02-15] MEDS: PRAVASTATIN SODIUM 80 MG TAB PO SCH (20:56)
[2021-02-15] MEDS: EZETIMIBE 10 MG TAB PO SCH (20:56)
[2021-02-15] MEDS: MULTIVITAMINS, THERA 1 EACH TAB PO SCH (20:56)
[2021-02-16] MEDS: CISATRACURIUM 200 MG in SODIUM CHLORIDE 0.9% 180 ML IV SCH ×2 (00:25→16:15)
[2021-02-16] MEDS: ARTIFICIAL TEARS-HYPROMELLOSE DROPS 15 ML BTL BOTH EYES SCH ×6 (00:25→20:52)
[2021-02-16 00:29] LABS: Glucose,Whole Blood 159 mg/dL (75-99)
[2021-02-16] MEDS: INSULIN ASPART (NovoLOG) 100 UNIT/ML VIAL SQ SCH ×4 (00:36→18:18)
[2021-02-16] MEDS: CEFEPIME 2 GM in SODIUM CHLORIDE 0.9% 100 ML IVPB SCH ×3 (00:36→17:03)
[2021-02-16] MEDS: SODIUM CHLORIDE 0.9% 1,000 ML IV SCH ×2 (00:37→15:16)
[2021-02-16 05:00] LABS: Basophils % (A) 0 %; Eosinophils % (A) 0 %; HCT 37.2 % (39.0-53.0); HGB 12.1 gm/dL (13.0-17.5); Lymphocytes # (A) 0.6 k/uL (1.0-4.8); Lymphocytes % (A) 3 %; MCH 32.3 pg (25.0-35.0); MCHC 32.5 g/dL (31.0-37.0); MCV 99.2 fL (80.0-100.0); Monocytes # (A) 0.8 k/uL (0-1.0); Monocytes % (A) 4 %; Neutrophils # (A) 16.1 k/uL (1.3-7.7); Neutrophils % (A) 90 %; Platelet Count 320 k/uL (150-450); RBC 3.75 m/uL (4.30-5.90); RDW 13.2 % (11.5-15.5); WBC 17.8 k/uL (3.8-10.6)
[2021-02-16 05:18] LABS: Partial Thromboplastin Time 30.9 sec (22.0-30.0)
[2021-02-16 05:24] LABS: ALT 65 U/L (4-49); AST 49 U/L (17-59); African American GFR (CKD) >90 (>60 ml/min/1.73 sqM); Albumin 2.5 g/dL (3.5-5.0); Alkaline Phosphatase 78 U/L (38-126); Anion Gap 4 mmol/L; Blood Urea Nitrogen 24 mg/dL (9-20); Calcium 7.3 mg/dL (8.4-10.2); Carbon Dioxide 25 mmol/L (22-30); Chloride 109 mmol/L (98-107); Glucose 170 mg/dL (74-99); LDH 1195 U/L (313-618); Non-African American GFR(CKD) >90 (>60 ml/min/1.73 sqM); Potassium 4.8 mmol/L (3.5-5.1); Sodium 138 mmol/L (137-145); Total Bilirubin 0.6 mg/dL (0.2-1.3); Total Protein 5.4 g/dL (6.3-8.2)
[2021-02-16 05:35] LABS: C Reactive Protein 13.4 mg/dL (<1.0)
[2021-02-16 05:57] LABS: ABG HCO3 26 mmol/L (21-25); ABG Oxygen Saturation 97.8 % (94-97); ABG PCO2 40 mmHg (35-45); ABG PH 7.43 (7.35-7.45); ABG PO2 94 mmHg (83-108); ABG TCO2 28 mmol/L (19-24); Allen Test Performed? Yes
--- NOTE | 2021-02-16 06:44 | XR ---
EXAMINATION TYPE: XR chest 1V portable DATE OF EXAM: 02/16/2021 COMPARISON: 02/15/2021 HISTORY: Covid TECHNIQUE: Single frontal view of the chest is obtained. FINDINGS: ET tube is 5.58 cm above the pia. The left-sided PICC line is unchanged in position. Th ere is an NG tube within the stomach. There is a consolidative opacity in the retrocardiac region which is stable partially consolidative o pacity in the right mid and lower lung zone, stable as well. There is no pneumothorax. Is a probable small left pleural effusion. The osseous structures are intact. IMPRESSION: No significant interval change in the acute cardiopulmonary process.
[2021-02-16 06:58] LABS: Glucose,Whole Blood 154 mg/dL (75-99)
[2021-02-16] MEDS: ALBUTEROL HFA INHALER INHALATION SCH ×4 (07:51→19:53)
[2021-02-16] MEDS: SYMBICORT 160-4.5 MCG INHALER INHALATION SCH ×2 (07:51→19:53)
[2021-02-16] MEDS: CHLORHEXIDINE GLUCONATE 15 ML CUP MUCOUS MEM SCH ×2 (09:00→20:51)
[2021-02-16] MEDS: ZINC SULFATE 220 MG CAP PO SCH (09:14)
[2021-02-16] MEDS: DEXAMETHASONE SOD PHOSPHATE 10 MG/ML 1 ML VIAL IVP SCH (09:14)
[2021-02-16] MEDS: ASCORBIC ACID 500 MG TAB PO SCH (09:14)
[2021-02-16] MEDS: CHOLECALCIFEROL 25 MCG (1000 IU) TABLET PO SCH (09:30)
--- NOTE | 2021-02-16 10:46 | P.PN ---
Subjective Progress Note Date: 02/16/21 Principal diagnosis: Dyspnea This a very pleasant 60-year-old male patient with a history of hypertension, hyperlipidemia. Daily alcohol use. 8 days ago he started having complaints of increasing shortness of breath, cough and congestion. He tested positive for COVID-19 5 days ago. He is not vaccinated. He presented to the emergency room here yesterday with complaints of increasing shortness of breath cough and congestion. He was found to be hypoxemic at 82% on room air. He was initiated on oxygen at 5 L/m per nasal cannula. He did have a T-max of 100.5. X-ray rev ealed evidence of bilateral patchy opacities consistent with COVID-19 pneumonia. White count 5.5. Hemoglobin 14.9. Lymphocytes 0.6. D-dimer 2.33. Sodium 137. Potassium 4.5. Creatinine 0.94. Glucose 161. Ferritin 5642. AST 74. ALT 33. LDH 1547. C-reactive protein 35.5. He was initiated on Decadron, Lovenox, vitamin supplements. He is seen today in consultation on the regular medical floor. His oxygen requirements have increased and he is now on 15 L high flow nasal cannula plus a nonrebreather mask. He is afebrile. Hemodynamically stable. He states he is doing the same today compared to yesterday. No worse but no better. On 02/12/2021 patient seen in follow-up on medical surgical floor. Is currently on 15 L and nonrebreather mask, his pulse ox of 93-96%. He states that his breathing is slightly improved, occasional cough and at times he is able to bring up some crawford colored phlegm. No chest discomfort. He sitting up in the recliner, his vital signs have been stable, he has been afebrile. He was started on Baricitinib yesterday on 02/11/2021, he remains on Decadron and prophylactic Lovenox in addition to multivitamins. His lower extremity Dopplers were negative for DVT. His d-dimer is up to 4.76 on today's labs, his white count is 9.6, hemoglobin is 15.6, sodium is 135, potassium is 4.5, BUN is 19 creatinine 0.81. Renal profile has improved, BUN is down to 19 creatinine 0.81. LDH is 2024, and CRP is 16.9. On 02/13/2021 patient seen in follow-up on medical surgical floor. Patient is currently awake and alert, in no acute distress, he continues to require 15 L and [place] nonrebreather mask, to maintain O2 saturations at 90-92%, mildly dyspneic, but no acute distress, he states he is slightly better, no complaints of chest pain, his been afebrile, he is short of breath with any exertion, and with conversation, CTA chest was completed showing no evidence of pulmonary embolism. There were bilateral diffuse marked patchy groundglass opacities. There were no pleural effusions or pneumothorax. Patient is currently on Baricitinib, she is on Decadron 6 mg daily, multivitamins, patient is on prophylactic Lovenox. Patient has had no acute events overnight. On 02/14/2021 patient seen in follow-up in intensive care unit, patient significantly deteriorated clinically and was emergently transferred to the intensive care unit early this morning and intubated and placed on mechanical ventilator at 7 AM this morning, he is currently on assist control mode with a rate of 24, tidal volume is 450, FiO2 of 100%, and PEEP of 14. His peak airway pressure is 30, plateau is 28. He has been sedated he is currently on Diprivan and 75 mics per kilo per minute, awaiting to be started on Nimbex infusion as well, his maintenance IV fluids of 0.45 at a rate of 75 ML per hour. His blood gas was reviewed showing pO2 of 101, pCO2 of 64, and pH of 7.25, this was done on the above-mentioned vent settings and FiO2 100%. We will increase the rate to 32, and dropped the FiO2 down to 90%. He is hemodynamically stable, he is tachycardic with a rate of 126, in sinus mechanism. Chest x-ray shows left subclavian central line, ET tube in good positions, no sizable pneumothorax, and diffuse bilateral infiltrates that are stable in appearance, there were tiny bilateral pleural effusions. The rest of his blood work has been reviewed and his white blood cell count is up to 25.8, hemoglobin is 14.9, his d-dimer remains elevated at greater than 34.1, patient had a recent CTA chest on 02/12/2021 which showed no evidence of pulmonary embolism, and lower extremity Dopplers were negative for DVT. His sodium today is 135, potassium is 4.3, the rest of electrolytes and renal profile were unremarkable. His AST is over 119, ALT is 85. His follow-up LDH and CRP are pending for today, his pro-calcitonin level is 0.60. Baricitinib was discontinued. Lower extremity Dopplers were again checked and were negative for DVT, will continue with current dose Lovenox. On 02/16/2021 patient seen in follow-up in intensive care unit, he remains intubated, sedated and paralyzed, on assist-control mode of ventilation with a rate of 32, tidal volume is 450, FiO2 of 40%, and PEEP of 14. His peak air pressures 30, plateau pressure is 27. Patient is currently on point tenderness) 75 ML per hour, Diprivan is a 50 mics per kilo per minute, Nimbex is a 2 mics per kilo per minute, his heparin infusion is at weight-based her to call, and he is tolerating tube feedings with vital HP at a rate of 37 with a goal of 37. He remains on Decadron 6 mg daily, he is on empiric antibiotics in the form of cefepime, his pro-calcitonin was elevated at 2.38, his blood and sputum cultures have been sent, a sputum culture showing rare PMNs, rare epithelial cells and rare gram-negative bacilli, fungal culture is pending. Culture has shown no growth thus far. Urinalysis has shown no clear evidence of infection. His inflammatory markers are improving at today's labs and LDH is down to 1195, CRP is 13.4, his white count is improving and is down to 17.8, hemoglobin is 12.9, his d-dimer has significantly improved and is down to 4.3, renal function is stable with BUN of 24 creatinine of 0.91, sodium is 138, potassium is 4.8, chloride is 109, CO2 is 25. No fever or chills, vital signs have been stable, has not required vasopressor support. Urine output has been adequate any order of 60-70 ML per hour. Objective - Vital Signs Vital signs: Vital Signs Temp 97.9 F 02/16/21 04:00 Pulse 73 02/16/21 07:00 Resp 32 H 02/16/21 07:00 BP 128/79 02/16/21 05:00 Pulse Ox 96 02/16/21 07:00 Intake & Output 02/15/21 02/16/21 02/16/21 18:59 06:59 18:59 Intake Total 6775.306 4805.283 115 Output Total 1220 1050 45 Balance 955.699 1525.283 70 Intake: IV 938 936 78 0.9NS Pressure BAg 36 36 3 Sodium Chloride 0.9% 1, 902 900 75 000 ml @ 75 mls/hr IV . [id number] [facility] Rx#:[id number] Intake, IV Titration 324.265 737.283 Amount Cisatracurium 200 mg In 36.495 151.053 Sodium Chloride 0.9% 180 ml @ 1 MCG/KG/MIN 4.899 mls/hr IV .Q24H [facility] Rx#: [id number] Heparin Sod,Pork in 0.45% 323.934 NaCl 25,000 unit In 0.45 % NaCl 1 250ml.bag @ 18 UNITS/KG/HR 14.696 mls/hr IV .Q17H1M [facility] Rx#: [id number] Norepinephrine 8 mg In 63.095 Sodium Chloride 0.9% 250 ml @ 0.05 MCG/KG/MIN 7. 899 mls/hr IV .Q24H [facility] Rx#:[id number] propofoL 1,000 mg In 287.770 199.201 Empty Bag 1 bag @ Titrate IV .Q0M [facility] Rx#: [id number] Tube Feeding 467 444 37 Other 120 180 Output: Urine 1220 1050 45 Other: Voiding Method Indwelling Catheter Indwelling Catheter ABP, PAP, CO, CI - Last Documented Arterial Blood Pressure 151/63 - Exam GENERAL EXAM: Intubated, and sedated 60-year-old white male, on assist control mode of ventilation, with a rate of 32, tidal is 450, FiO2 40% and PEEP of 14. Paralyzed and sedated HEAD: Normocephalic/atraumatic. EYES: Normal reaction of pupils, equal size. Conjunctiva pink, sclera white. NOSE: Clear with pink turbinates. THROAT: No erythema or exudates. NECK: No masses, no JVD, no thyroid enlargement, no adenopathy. CHEST: No chest wall deformity. Symmetrical expansion. LUNGS: Equal air entry with bilateral crackles CVS: Regular rate and rhythm, normal S1 and S2, no gallops, no murmurs, no rubs ABDOMEN: Soft, nontender. No hepatosplenomegaly, normal bowel sounds, no guarding or rigidity. EXTREMITIES: No clubbing, no edema, no cyanosis, 2+ pulses and upper and lower extremities. MUSCULOSKELETAL: Muscle strength and tone normal. SPINE: No scoliosis or deformity SKIN: No rashes CENTRAL NERVOUS SYSTEM: Sedated, intubated No focal deficits, tone is normal in all 4 extremities. - Labs CBC & Chem 7: 02/16/21 04:30 02/16/21 04:30 Labs: Abnormal Lab Results - Last 24 Hours (Table) 02/15/21 02/15/21 02/15/21 Range/Units 03:05 12:10 17:31 WBC (3.8-10.6) k/uL RBC (4.30-5.90) m/uL Hgb (13.0-17.5) gm/dL Hct (39.0-53.0) % Neutrophils # (1.3-7.7) k/uL Lymphocytes # (1.0-4.8) k/uL APTT (22.0-30.0) sec D-Dimer (<0.60) mg/L FEU ABG HCO3 (21-25) mmol/L ABG Total CO2 (19-24) mmol/L ABG O2 Saturation (94-97) % Chloride (98-107) mmol/L BUN (9-20) mg/dL Glucose (74-99) mg/dL POC Glucose (mg/dL) 168 H 177 H (75-99) mg/dL Calcium (8.4-10.2) mg/dL ALT (4-49) U/L Lactate Dehydrogenase (313-618) U/L C-Reactive Protein (<1.0) mg/dL Total Protein (6.3-8.2) g/dL Albumin (3.5-5.0) g/dL Procalcitonin 2.38 H (0.02-0.09) ng/mL 02/16/21 02/16/21 02/16/21 Range/Units 00:27 04:30 04:30 WBC (3.8-10.6) k/uL RBC (4.30-5.90) m/uL Hgb (13.0-17.5) gm/dL Hct (39.0-53.0) % Neutrophils # (1.3-7.7) k/uL Lymphocytes # (1.0-4.8) k/uL APTT 30.9 H (22.0-30.0) sec D-Dimer 4.30 H (<0.60) mg/L FEU ABG HCO3 (21-25) mmol/L ABG Total CO2 (19-24) mmol/L ABG O2 Saturation (94-97) % Chloride 109 H (98-107) mmol/L BUN 24 H (9-20) mg/dL Glucose 170 H (74-99) mg/dL POC Glucose (mg/dL) 159 H (75-99) mg/dL Calcium 7.3 L (8.4-10.2) mg/dL ALT 65 H (4-49) U/L Lactate Dehydrogenase 1195 H (313-618) U/L C-Reactive Protein 13.4 H (<1.0) mg/dL Total Protein 5.4 L (6.3-8.2) g/dL Albumin 2.5 L (3.5-5.0) g/dL Procalcitonin (0.02-0.09) ng/mL 02/16/21 02/16/21 02/16/21 Range/Units 04:30 06:00 06:57 WBC 17.8 H (3.8-10.6) k/uL RBC 3.75 L (4.30-5.90) m/uL Hgb 12.1 L (13.0-17.5) gm/dL Hct 37.2 L (39.0-53.0) % Neutrophils # 16.1 H (1.3-7.7) k/uL Lymphocytes # 0.6 L (1.0-4.8) k/uL APTT (22.0-30.0) sec D-Dimer (<0.60) mg/L FEU ABG HCO3 26 H (21-25) mmol/L ABG Total CO2 28 H (19-24) mmol/L ABG O2 Saturation 97.8 H (94-97) % Chloride (98-107) mmol/L BUN (9-20) mg/dL Glucose (74-99) mg/dL POC Glucose (mg/dL) 154 H (75-99) mg/dL Calcium (8.4-10.2) mg/dL ALT (4-49) U/L Lactate Dehydrogenase (313-618) U/L C-Reactive Protein (<1.0) mg/dL Total Protein (6.3-8.2) g/dL Albumin (3.5-5.0) g/dL Procalcitonin (0.02-0.09) ng/mL Microbiology - Last 24 Hours (Table) 02/15/21 09:41 Gram Stain - Preliminary Sputum Sputum Culture - Preliminary 02/14/21 16:46 Blood Culture - Preliminary Blood No Growth after 24 hours 02/14/21 11:03 Blood Culture - Preliminary Blood No Growth after 24 hours Assessment and Plan Plan: Assessment: #1. Acute hypoxic respiratory failure, related to COVID-19, patient came into the hospital on 02/10/2021 with a day history of symptoms. He was outside the window for Remdesivir, he is a non-vaccinated adult. Started on Baricitinib on 02/11/2021. Currently on 15 L in the 100% nonrebreather mask. Patient had decompensated and was emergently transferred to the intensive care unit where he was intubated on 02/14/2021 #2. Elevated pro-calcitonin level, rule out possibility of bacterial infection, Baricitinib was discontinued, patient will be mak cultured, and started on cefepime for empiric antibiotic coverage, no evidence of UTI, sputum culture showing rare PMNs, blood cultures are negative thus far #3. Acute right leg DVT discovered on repeat lower extremity Doppler on 02/14/2021. No evidence of PE on CT angiogram of the chest from 02/12/2021, on heparin infusion #4. Acute kidney injury, improved with IV hydration #5. Hyperlipidemia #6. Hypertension Plan: Blood gases and chest x-rays were reviewed We'll continue with current vent settings FiO2 is currently on 40% and PEEP of 14 Blood gases are satisfactory We will attempt paralytic holiday today Continue with empiric antibiotics will await final culture so far the cultures are negative While signs are stable, hemodynamically stable Urine output is adequate, not requiring any vasopressor support Continue to feedings for nutritional support If tolerates paralytic holiday and maintains stable O2 saturations we will start decreasing PEEP We'll continue closely follow Obtain blood work for tomorrow CBC, CMP, Inflammatory markers are improving, d-dimer is significantly improved Discontinue heparin and start the patient on Eliquis for right lower extremity DVT I performed a history & physical examination of the patient and discussed their management with my nurse practitioner, Ness Garcia. I reviewed the nurse practitioner's note and agree with the documented findings and plan of care. Lung sounds are positive for dim breath sounds throughout the lung anne. The findings and the impression was discussed with the patient. I attest to the documentation by the nurse practitioner. Time with Patient: Greater than 30
[2021-02-16] MEDS: APIXABAN 5 MG TAB PO SCH ×2 (11:26→20:51)
[2021-02-16 11:33] LABS: Glucose,Whole Blood 148 mg/dL (75-99)
[2021-02-16] MEDS: HYDROmorphone 1 MG/ML 1 ML SYRINGE IVP PRN ×2 (15:05→20:51)
--- NOTE | 2021-02-16 16:28 | P.PN ---
Progress Note - Text Progress Note Date: 02/16/21 Chief Complaint: Short of breath This is a pleasant 60-year-old patient of Dr. rae Chronic stable medical conditions include hyperlipidemia, hypertension. Patient did not take the COVID-19 vaccine. About 7 days ago patient started having fever and dry cough chills. About 4 days ago patient tested positive for COVID-19. Patient is having one or 2 loose stools a day. Denies any body aches or headaches. No loss of taste or smell. S patient is pretty symptoms progress decided to come in. He was 82% on room air. Admitted with severe COVID 19 pneumonitis, acute kidney injury, acute hypoxic respiratory failure. Started on dexamethasone. IV fluids. Baricitinib added. February 11: Sitting of the edge of the bed. Short of breath. Eating some. Tired. Baricitinib added by pulmonary. February 12: Sitting at edge of the bed. Short of breath. 96% on 15 L. On Baricitinib and dexamethasone. Eating about 50-75%. February 13: Sitting up in a chair. Short of breath. On 15 L nasal cannula. On Baricitinib admitted and dexamethasone. Eating some February 14: Patient went down respiratory status and was moved to the ICU. Intubated. Drips included Diprivan, Nimbex, IV heparin. Doppler positive for DVT in the right lower extremity posterior tibial vein. Ventilator settings include FiO2 90% and a PEEP of 14. Spoke to patient is Dr. Bowman telephone number [phone]. She wanted the patient to have ivermectin. I did inform her that this was not one of the CDC recommended medications. Dr. Gandhi in litigation associate on the case is on the [facility] COVID guideline team. She also had wanted patient to be on inhalers including QVAR. She'll be discussing this with Dr. Gandhi the litigation associate. She also wants the patient to be at high dose vitamin C. I've asked her to fax over the literature to the ICU and I will review the same. February 15: ICU: Patient currently under pain and Nimbex. He will fed taken off this morning. 2 feeding at 37 mL an hour. On the ventilator with FiO2 50% and a PEEP of 14. February 16: ICU: Drips include propofol and Nimbex. FiO2 40% and a PEEP of 14. Tube feeding. Review of systems: Patient intubated Active Medications Acetaminophen (Acetaminophen Tab 325 Mg Tab) 650 mg PO Q6HR PRN PRN Reason: Mild Pain or Fever > 100.5 Last Admin: 02/10/21 21:36 Dose: 650 mg Documented by: Albuterol Sulfate (Albuterol Hfa Inhaler) 2 puff INHALATION RT-QID PRN PRN Reason: Shortness Of Breath Or Wheezing Albuterol Sulfate (Albuterol Hfa Inhaler) 2 puff INHALATION RT-QID [facility] Last Admin: 02/16/21 16:16 Dose: 2 puff Documented by: Apixaban (Apixaban 5 Mg Tab) 10 mg PO BID [facility]; Protocol Stop: 02/22/21 10:45 Last Admin: 02/16/21 11:26 Dose: 10 mg Documented by: Apixaban (Apixaban 5 Mg Tab) 5 mg PO BID [facility]; Protocol Artificial Tears (Artificial Tears-Hypromellose Drops 15 Ml Btl) 2 drops BOTH EYES Q4HR [facility] Last Admin: 02/16/21 11:26 Dose: 2 drops Documented by: Ascorbic Acid (Ascorbic Acid 500 Mg Tab) 1,000 mg PO DAILY [facility] Last Admin: 02/16/21 09:14 Dose: 1,000 mg Documented by: Budesonide/Formoterol Fumarate (Symbicort 160-4.5 Mcg Inhaler) 2 puff INHALATION RT-BID [facility] Last Admin: 02/16/21 07:51 Dose: 2 puff Documented by: Chlorhexidine Gluconate (Chlorhexidine Gluconate 15 Ml Cup) 15 ml MUCOUS MEM BID [facility] Last Admin: 02/16/21 09:00 Dose: 15 ml Documented by: Cholecalciferol (Cholecalciferol 25 Mcg (1000 Iu) Tablet) 100 mcg PO DAILY [facility] Last Admin: 02/16/21 09:30 Dose: 100 mcg Documented by: Dexamethasone Sodium Phosphate (Dexamethasone Sod Phosphate 10 Mg/Ml 1 Ml Vial) 6 mg IVP DAILY [facility] Last Admin: 02/16/21 09:14 Dose: 6 mg Documented by: Ezetimibe (Ezetimibe 10 Mg Tab) 10 mg PO HS [facility] Last Admin: 02/15/21 20:56 Dose: 10 mg Documented by: Hydromorphone HCl (Hydromorphone 1 Mg/Ml 1 Ml Syringe) 1 mg IVP Q1HR PRN PRN Reason: Pain Last Admin: 02/16/21 15:05 Dose: 1 mg Documented by: Propofol 1,000 mg/ IV Solution 100 mls @ 0 mls/hr IV .Q0M [facility]; Protocol Last Titration: 02/16/21 15:27 Dose: 50 mcg/kg/min, 24.494 mls/hr Documented by: Sodium Chloride (Saline 0.9%) 1,000 mls @ 75 mls/hr IV .[id number] [facility] Last Admin: 02/16/21 15:16 Dose: 75 mls/hr Documented by: Cefepime HCl 2 gm/ Sodium (Chloride) 100 mls @ 25 mls/hr IVPB Q8HR [facility] Last Admin: 02/16/21 09:13 Dose: 25 mls/hr Documented by: Cisatracurium Besylate 200 mg/ (Sodium Chloride) 200 mls @ 9.798 mls/hr IV .[id number] [facility]; Protocol Insulin Aspart (Insulin Aspart (Novolog) 100 Unit/Ml Vial) 0 unit SQ Q6H [facility]; Protocol Last Admin: 02/16/21 11:39 Dose: 2 unit Documented by: Multivitamins (Multivitamins, Thera 1 Each Tab) 1 each PO HS [facility] Last Admin: 02/15/21 20:56 Dose: 1 each Documented by: Pravastatin Sodium (Pravastatin Sodium 80 Mg Tab) 80 mg PO HS [facility] Last Admin: 02/15/21 20:56 Dose: 80 mg Documented by: Zinc Sulfate (Zinc Sulfate 220 Mg Cap) 220 mg PO DAILY [facility] Last Admin: 02/16/21 09:14 Dose: 220 mg Documented by: Past medical history to include: Hypertension, hyperlipidemia, diverticulosis, bilateral tinnitus, 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 Stopped in 1987. He has takes couple of drinks a day. 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 Family history: Reviewed, noncontributory to presentation Physical examination: VITAL SIGNS: 98.5, 73, 32, 03/31/1961, 94% on the ventilator GENERAL: Laying in bed, intubated, sedated LUNGS: Respiratory rate increased; PSYCH: Unable to assess Rest of the exam per pulmonary and nursing INVESTIGATIONS, reviewed in the clinical context: February 16: White count 17.8 hemoglobin 12.1 d-dimer 4.3 potassium 4.8 creatinine 0.9 CRP 13.4 February 15: WBC eating 0.3 hemoglobin 12.3 platelets 8.9 d-dimer greater than 34 potassium 5.2 creatinine 0.97 CRP 22 February 14: WBC 25.8 hemoglobin 14.9 d-dimer greater than 34 potassium 4.3 creatinine 0.77 pro-calcitonin 0.21 Ultrasound venous Doppler right leg: DVT posterior tibial vein. February 13: WBC 12.7 hemoglobin 15.4 d-dimer 29 potassium 4.8 creatinine 0.73 Chest CTA [February 12]: Negative for PE Doppler ultrasound [February 11]: Negative for DVT February 12: WBC 9.6 hemoglobin 15.6 d-dimer 4.76 potassium 4.5 creatinine 0.81 February 11: D-dimer 2.33 potassium 4.5 creatinine 0.94 CRP 35.5 Ultrasound kidney: Kidneys unremarkable. Possible hepatic steatosis. WBC 5.5 hemoglobin 14.9 platelets 206 lymphocytes 0.6 sodium 136 potassium 4.1 BUN 24 creatinine 1.28 CRP 33.2 Assessment and plan: -Acute severe COVID 19 pneumonitis in a patient did not receive the COVID-19 vaccine: Slow to respond Dexamethasone. Subcu Lovenox. Vitamin C vitamin D zinc. -Hyperlipidemia Zetia 10 mg daily at bedtime Pravachol 80 mg daily at bedtime -Acute DVT right lower extremity tibial vein IV heparin. He started on eliquis today on February 16 -IV heparin monitoring: Discontinued -Essential hypertension amlodipine 5 mg a day -Acute kidney injury, prerenal from decreased oral intake: Better IV fluids. -Acute severe hypoxic respiratory failure from COVID-19: Slow to respond on the ventilator. Drips include to propofol/Nimbex. 2 feeding. On the ventilator. Continue supportive care. With litigation associate
[2021-02-16 17:45] LABS: Glucose,Whole Blood 155 mg/dL (75-99)
[2021-02-16] MEDS: EZETIMIBE 10 MG TAB PO SCH (20:51)
[2021-02-16] MEDS: MULTIVITAMINS, THERA 1 EACH TAB PO SCH (20:51)
[2021-02-16] MEDS: PRAVASTATIN SODIUM 80 MG TAB PO SCH (20:51)
[2021-02-16 23:59] LABS: Glucose,Whole Blood 159 mg/dL (75-99)
[2021-02-17] MEDS: ARTIFICIAL TEARS-HYPROMELLOSE DROPS 15 ML BTL BOTH EYES SCH ×7 (00:06→23:18)
[2021-02-17] MEDS: INSULIN ASPART (NovoLOG) 100 UNIT/ML VIAL SQ SCH ×5 (00:06→23:17)
[2021-02-17] MEDS: CEFEPIME 2 GM in SODIUM CHLORIDE 0.9% 100 ML IVPB SCH ×4 (00:06→23:17)
[2021-02-17] MEDS: CISATRACURIUM 200 MG in SODIUM CHLORIDE 0.9% 180 ML IV SCH ×3 (01:23→20:13)
[2021-02-17] MEDS: SODIUM CHLORIDE 0.9% 1,000 ML IV SCH ×2 (05:01→17:11)
[2021-02-17 05:17] LABS: Basophils % (A) 0 %; Eosinophils % (A) 0 %; HCT 32.6 % (39.0-53.0); HGB 10.8 gm/dL (13.0-17.5); Lymphocytes # (A) 0.5 k/uL (1.0-4.8); Lymphocytes % (A) 4 %; MCH 32.3 pg (25.0-35.0); MCHC 33.3 g/dL (31.0-37.0); MCV 96.9 fL (80.0-100.0); Mean Platelet Volume 9.2; Monocytes % (A) 7 %; Neutrophils % (A) 87 %; Platelet Count 409 k/uL (150-450); RBC 3.36 m/uL (4.30-5.90); RDW 12.6 % (11.5-15.5); WBC 14.9 k/uL (3.8-10.6)
[2021-02-17 05:20] LABS: Glucose,Whole Blood 144 mg/dL (75-99)
[2021-02-17 05:45] LABS: ALT 69 U/L (4-49); AST 44 U/L (17-59); African American GFR (CKD) >90 (>60 ml/min/1.73 sqM); Albumin 2.4 g/dL (3.5-5.0); Alkaline Phosphatase 75 U/L (38-126); Anion Gap 3 mmol/L; Blood Urea Nitrogen 27 mg/dL (9-20); Calcium 7.6 mg/dL (8.4-10.2); Carbon Dioxide 26 mmol/L (22-30); Chloride 108 mmol/L (98-107); Glucose 151 mg/dL (74-99); LDH 999 U/L (313-618); Non-African American GFR(CKD) >90 (>60 ml/min/1.73 sqM); Potassium 4.8 mmol/L (3.5-5.1); Sodium 137 mmol/L (137-145); Total Bilirubin 0.5 mg/dL (0.2-1.3); Total Protein 5.3 g/dL (6.3-8.2)
[2021-02-17 06:30] LABS: ABG Base Excess 3.3 mmol/L; ABG HCO3 27 mmol/L (21-25); ABG Oxygen Saturation 97.9 % (94-97); ABG PCO2 37 mmHg (35-45); ABG PH 7.48 (7.35-7.45); ABG PO2 89 mmHg (83-108); ABG TCO2 28 mmol/L (19-24); Allen Test Performed? Yes
[2021-02-17] MEDS: HYDROmorphone 1 MG/ML 1 ML SYRINGE IVP PRN ×2 (07:55→11:07)
--- NOTE | 2021-02-17 08:03 | P.PN ---
Subjective Progress Note Date: 02/17/21 This a very pleasant 60-year-old male patient with a history of hypertension, hyperlipidemia. Daily alcohol use. 8 days ago he started having complaints of increasing shortness of breath, cough and congestion. He tested positive for COVID-19 5 days ago. He is not vaccinated. He presented to the emergency room here yesterday with complaints of increasing shortness of breath cough and congestion. He was found to be hypoxemic at 82% on room air. He was initiated on oxygen at 5 L/m per nasal cannula. He did have a T-max of 100.5. X-ray revealed evidence of bilateral patchy opacities consistent with COVID-19 pneumonia. White count 5.5. Hemoglobin 14.9. Lymphocytes 0.6. D-dimer 2.33. Sodium 137. Potassium 4.5. Creatinine 0.94. Glucose 161. Ferritin 5642. AST 74. ALT 33. LDH 1547. C-reactive protein 35.5. He was initiated on Decadron, Lovenox, vitamin supplements. He is seen today in consultation on the regular medical floor. His oxygen requirements have increased and he is now on 15 L high flow nasal cannula plus a nonrebreather mask. He is afebrile. Hemodynamically stable. He states he is doing the same today compared to yesterday. No worse but no better. On 02/12/2021 patient seen in follow-up on medical surgical floor. Is currently on 15 L and nonrebreather mask, his pulse ox of 93-96%. He states that his breathing is slightly improved, occasional cough and at times he is able to bring up some crawford colored phlegm. No chest discomfort. He sitting up in the recliner, his vital signs have been stable, he has been afebrile. He was started on Baricitinib yesterday on 02/11/2021, he remains on Decadron and prophylactic Lovenox in addition to multivitamins. His lower extremity Dopplers were negative for DVT. His d-dimer is up to 4.76 on today's labs, his white count is 9.6, hemoglobin is 15.6, sodium is 135, potassium is 4.5, BUN is 19 creatinine 0.81. Renal profile has improved, BUN is down to 19 creatinine 0.81. LDH is 2023, and CRP is 16.9. On 02/13/2021 patient seen in follow-up on medical surgical floor. Patient is currently awake and alert, in no acute distress, he continues to require 15 L and [place] nonrebreather mask, to maintain O2 saturations at 90-92%, mildly dyspneic, but no acute distress, he states he is slightly better, no complaints of chest pain, his been afebrile, he is short of breath with any exertion, and with conversation, CTA chest was completed showing no evidence of pulmonary embolism. There were bilateral diffuse marked patchy groundglass opacities. There were no pleural effusions or pneumothorax. Patient is currently on Baricitinib, she is on Decadron 6 mg daily, multivitamins, patient is on pro phylactic Lovenox. Patient has had no acute events overnight. On 02/14/2021 patient seen in follow-up in intensive care unit, patient significantly deteriorated clinically and was emergently transferred to the intensive care unit early this morning and intubated and placed on mechanical ventilator at 7 AM this morning, he is currently on assist control mode with a rate of 24, tidal volume is 450, FiO2 of 100%, and PEEP of 14. His peak airway pressure is 30, plateau is 28. He has been sedated he is currently on Diprivan and 75 mics per kilo per minute, awaiting to be started on Nimbex infusion as well, his maintenance IV fluids of 0.45 at a rate of 75 ML per hour. His blood gas was reviewed showing pO2 of 101, pCO2 of 64, and pH of 7.25, this was done on the above-mentioned vent settings and FiO2 100%. We will increase the rate to 32, and dropped the FiO2 down to 90%. He is hemodynamically stable, he is tachycardic with a rate of 126, in sinus mechanism. Chest x-ray shows left s ubclavian central line, ET tube in good positions, no sizable pneumothorax, and diffuse bilateral infiltrates that are stable in appearance, there were tiny bilateral pleural effusions. The rest of his blood work has been reviewed and his white blood cell count is up to 25.8, hemoglobin is 14.9, his d-dimer remains elevated at greater than 34.1, patient had a recent CTA chest on 02/12/2021 which showed no evidence of pulmonary embolism, and lower extremity Dopplers were negative for DVT. His sodium today is 135, potassium is 4.3, the rest of electrolytes and renal profile were unremarkable. His AST is over 119, ALT is 85. His follow-up LDH and CRP are pending for today, his pro-calcitonin level is 0.60. Baricitinib was discontinued. Lower extremity Dopplers were again checked and were negative for DVT, will continue with current dose Lovenox. On 02/16/2021 patient seen in follow-up in intensive care unit, he remains intubated, sedated and paralyzed, on assist-control mode of ventilation with a rate of 32, tidal volume is 450, FiO2 of 40%, and PEEP of 14. His peak air pressures 30, plateau pressure is 27. Patient is currently on point tenderness) 75 ML per hour, Diprivan is a 50 mics per kilo per minute, Nimbex is a 2 mics per kilo per minute, his heparin infusion is at weight-based her to call, and he is tolerating tube feedings with vital HP at a rate of 37 with a goal of 37. He remains on Decadron 6 mg daily, he is on empiric antibiotics in the form of cefepime, his pro-calcitonin was elevated at 2.38, his blood and sputum cultures have been sent, a sputum culture showing rare PMNs, rare epithelial cells and rare gram-negative bacilli, fungal culture is pending. Culture has shown no growth thus far. Urinalysis has shown no clear evidence of infection. His inflammatory markers are improving at today's labs and LDH is down to 1195, CRP is 13.4, his white count is improving and is down to 17.8, hemoglobin is 12.9, his d-dimer has significantly improved and is down to 4.3, renal function is stable with BUN of 24 creatinine of 0.91, sodium is 138, potassium is 4.8, chloride is 109, CO2 is 25. No fever or chills, vital signs have been stable, has not required vasopressor support. Urine output has been adequate any order of 60-70 ML per hour. 02/17/2021, the patient is being seen for a follow-up in the intensive care unit. The patient is a supplement. Pneumonia, intubated on a mechanical ventilator and the patient has been intubated since 02/14/2021. This morning the patient is sedated and paralyzed. The patient is currently on propofol w hich is running at 50 mg/kg per minute and the patient is also on Nimbex running at 2 mcg/kg per minute. The patient has been adequately sedated and paralyzed. The patient is currently on a mechanical ventilator. He is on assist control mode at the rate of 32, tidal volume is at 450, FiO2 is at 40% with a PEEP of 14. His peak airway pressure is 34. His dynamic airway pressure is 31. The chest x-ray from today shows adequate expansion of both lungs and the patient has bilateral pulmonary infiltrates consistent with COVID 19 infection. The patient's has no evidence of any pneumothorax. ET tube is in a good location. The blood gases from today shows a pH of 7.48 with a pCO2 of 37 and pO2 of 89 and this was done and FiO2 of 40%. Note that the patient was also found to have a DVT of the left lower extremity. For now, the patient is on anticoagulation and the patient is receiving Eliquis for anticoagulants at a dose of 10 mg by mouth twice a day. A CT angiogram was also done at time of admission and it showed no evidence of PE and was consistent with COVID 19 related pneumonia. The patient's most recent d-dimer is at 4.79. The patient is hemodynamically stable. In terms of his COVID 19 related pneumonia, the patient is being treated with a combination of Decadron and multivitamins. He is receiving Decadron 6 mg IV for 24 hours. His LDH level is down to 999 and his CRP level is down to 6. His pro-calcitonin level at the time of admission was 0.6 and came up to 2.39. Based on that, the patient was placed on empiric antibiotic coverage with cefepime. Sputum Gram stain and culture has been sent and the results are still pending for now. Meanwhile, the blood work shows a white cell count of 14.9. The patient is currently afebrile on no pressors. He is receiv ing enteral feeding for nutritional support and he is currently on vital high protein at the rate of 37 mL an hour. His cardiac rhythm is sinus. In terms of his blood pressure, he is hypertensive. He is receiving no antihypertensive medication. The patient has been maintained on lisinopril and amlodipine on outpatient basis. Objective - Vital Signs Vital signs: Vital Signs Temp 98.0 F 02/17/21 04:00 Pulse 64 02/17/21 07:00 Resp 11 L 02/17/21 07:00 BP 141/76 02/17/21 07:00 Pulse Ox 95 02/17/21 07:00 Intake & Output 02/16/21 02/17/21 02/17/21 18:59 06:59 18:59 Intake Total 0191.809 6119.092 132.055 Output Total 1270 930 100 Balance 663.728 8476.092 32.055 Weight 85.7 kg Intake: IV 936 969 81 0.9NS Pressure BAg 36 69 6 Sodium Chloride 0.9% 1, 900 900 75 000 ml @ 75 mls/hr IV . [id number] [facility] Rx#:[id number] Intake, IV Titration 375.497 378.092 14.055 Amount Cefepime 2 gm In Sodium 100 Chloride 0.9% 100 ml @ 25 mls/hr IVPB Q8HR [facility] Rx# :[id number] Cisatracurium 200 mg In 89.488 Sodium Chloride 0.9% 180 ml @ 2 MCG/KG/MIN 9.798 mls/hr IV .[id number] [facility] Rx #:[id number] Heparin Sod,Pork in 0.45% 75.497 NaCl 25,000 unit In 0.45 % NaCl 1 250ml.bag @ 18 UNITS/KG/HR 14.696 mls/hr IV .[id number] [facility] Rx#: [id number] propofoL 1,000 mg In 200.000 288.604 14.055 Empty Bag 1 bag @ Titrate IV .Q0M [facility] Rx#: [id number] Tube Feeding 444 444 37 Other 180 180 Output: Urine 1270 930 100 Other: Voiding Method Indwelling Catheter Indwelling Catheter ABP, PAP, CO, CI - Last Documented Arterial Blood Pressure 154/65 - Exam GENERAL EXAM: Intubated, and sedated 60-year-old white male, on assist control mode of ventilation, with a rate of 32, tidal is 450, FiO2 40% and PEEP of 14. Paralyzed and sedated HEAD: Normocephalic/atraumatic. EYES: Normal reaction of pupils, equal size. Conjunctiva pink, sclera white. NOSE: Clear with pink turbinates. THROAT: No erythema or exudates. NECK: No masses, no JVD, no thyroid enlargement, no adenopathy. CHEST: No chest wall deformity. Symmetrical expansion. LUNGS: Equal air entry with bilateral crackles CVS: Regular rate and rhythm, normal S1 and S2, no gallops, no murmurs, no rubs ABDOMEN: Soft, nontender. No hepatosplenomegaly, normal bowel sounds, no guarding or rigidity. EXTREMITIES: No clubbing, no edema, no cyanosis, 2+ pulses and upper and lower extremities. MUSCULOSKELETAL: Muscle strength and tone normal. SPINE: No scoliosis or deformity SKIN: No rashes CENTRAL NERVOUS SYSTEM: Sedated, intubated No focal deficits, tone is normal in all 4 extremities. - Labs CBC & Chem 7: 02/17/21 05:00 02/17/21 05:00 Labs: Abnormal Lab Results - Last 24 Hours (Table) 02/16/21 02/16/21 02/16/21 Range/Units 10:45 11:31 17:43 WBC (3.8-10.6) k/uL RBC (4.30-5.90) m/uL Hgb (13.0-17.5) gm/dL Hct (39.0-53.0) % Neutrophils # (1.3-7.7) k/uL Lymphocytes # (1.0-4.8) k/uL APTT 68.2 H (22.0-30.0) sec D-Dimer (<0.60) mg/L FEU ABG pH (7.35-7.45) ABG HCO3 (21-25) mmol/L ABG Total CO2 (19-24) mmol/L ABG O2 Saturation (94-97) % Chloride (98-107) mmol/L BUN (9-20) mg/dL Glucose (74-99) mg/dL POC Glucose (mg/dL) 148 H 155 H (75-99) mg/dL Calcium (8.4-10.2) mg/dL ALT (4-49) U/L Lactate Dehydrogenase (313-618) U/L C-Reactive Protein (<1.0) mg/dL Total Protein (6.3-8.2) g/dL Albumin (3.5-5.0) g/dL 02/16/21 02/17/21 02/17/21 Range/Units 23:57 05:00 05:00 WBC (3.8-10.6) k/uL RBC (4.30-5.90) m/uL Hgb (13.0-17.5) gm/dL Hct (39.0-53.0) % Neutrophils # (1.3-7.7) k/uL Lymphocytes # (1.0-4.8) k/uL APTT (22.0-30.0) sec D-Dimer 4.79 H (<0.60) mg/L FEU ABG pH (7.35-7.45) ABG HCO3 (21-25) mmol/L ABG Total CO2 (19-24) mmol/L ABG O2 Saturation (94-97) % Chloride 108 H (98-107) mmol/L BUN 27 H (9-20) mg/dL Glucose 151 H (74-99) mg/dL POC Glucose (mg/dL) 159 H (75-99) mg/dL Calcium 7.6 L (8.4-10.2) mg/dL ALT 69 H (4-49) U/L Lactate Dehydrogenase 999 H (313-618) U/L C-Reactive Protein 6.0 H (<1.0) mg/dL Total Protein 5.3 L (6.3-8.2) g/dL Albumin 2.4 L (3.5-5.0) g/dL 02/17/21 02/17/21 02/17/21 Range/Units 05:00 05:19 06:25 WBC 14.9 H (3.8-10.6) k/uL RBC 3.36 L (4.30-5.90) m/uL Hgb 10.8 L (13.0-17.5) gm/dL Hct 32.6 L (39.0-53.0) % Neutrophils # 13.0 H (1.3-7.7) k/uL Lymphocytes # 0.5 L (1.0-4.8) k/uL APTT (22.0-30.0) sec D-Dimer (<0.60) mg/L FEU ABG pH 7.48 H (7.35-7.45) ABG HCO3 27 H (21-25) mmol/L ABG Total CO2 28 H (19-24) mmol/L ABG O2 Saturation 97.9 H (94-97) % Chloride (98-107) mmol/L BUN (9-20) mg/dL Glucose (74-99) mg/dL POC Glucose (mg/dL) 144 H (75-99) mg/dL Calcium (8.4-10.2) mg/dL ALT (4-49) U/L Lactate Dehydrogenase (313-618) U/L C-Reactive Protein (<1.0) mg/dL Total Protein (6.3-8.2) g/dL Albumin (3.5-5.0) g/dL Microbiology - Last 24 Hours (Table) 02/14/21 16:46 Blood Culture - Preliminary Blood No Growth after 48 hours 02/14/21 11:03 Blood Culture - Preliminary Blood No Growth after 48 hours 02/15/21 09:41 Gram Stain - Preliminary Sputum Sputum Culture - Preliminary Assessment and Plan Plan: #1. Acute hypoxic respiratory failure, related to COVID-19, patient came into the hospital on 02/10/2021 with a day history of symptoms. He was outside the window for Remdesivir, he is a non-vaccinated adult. Started on Baricitinib on 02/11/2021. Currently on 15 L in the 100% nonrebreather mask. Patient had d ecompensated and was emergently transferred to the intensive care unit where he was intubated on 02/14/2021. For now, the patient is intubated, sedated and paralyzed. The patient remains on a mechanical ventilator. Chest x-ray still showing diffuse bilateral pulmonary infiltrates. He also has a right lower extremity DVT. He remains on Decadron and he is also on empiric antibiotic coverage with IV cefepime due to an elevated pro-calcitonin level. Cultures of been all negative. #2. Elevated pro-calcitonin level, rule out possibility of bacterial infection, Baricitinib was discontinued, patient will be mak cultured, and started on cefepime for empiric antibiotic coverage, no evidence of UTI, sputum culture showing rare PMNs, blood cultures are negative thus far #3. Acute right leg DVT discovered on repeat lower extremity Doppler on 02/14/2021. No evidence of PE on CT angiogram of the chest from 02/12/2021, on heparin infusion #4. Acute kidney injury, improved with IV hydration #5. Hyperlipidemia #6. Hypertension Plan: Continue vent support Review of the respiratory rate down to 26 and keep the PEEP at 14 with an FiO2 of 40% Continue Decadron Continue IV cefepime We also antibiotic therapy is not required pressors will attempt paralytic holiday today Continue with empiric antibiotics will await final culture so far the cultures are negative While signs are stable, hemodynamically stable Urine output is adequate, not requiring any vasopressor support Continue to feedings for nutritional support Inflammatory markers are improving, d-dimer is significantly improved Condition is critical and the patient will continue his care here in the intensive care unit. Family will be updated on his condition. There is a critically care evaluate was done and more than 30 minutes. Time with Patient: Greater than 30
[2021-02-17] MEDS: SYMBICORT 160-4.5 MCG INHALER INHALATION SCH ×2 (08:33→20:16)
[2021-02-17] MEDS: ALBUTEROL HFA INHALER INHALATION SCH ×4 (08:33→20:16)
[2021-02-17 08:42] LABS: ABG Base Excess 3.8 mmol/L; ABG HCO3 29 mmol/L (21-25); ABG Oxygen Saturation 98.9 % (94-97); ABG PCO2 47 mmHg (35-45); ABG PO2 139 mmHg (83-108); ABG TCO2 30 mmol/L (19-24); Allen Test Performed? Yes
--- NOTE | 2021-02-17 09:04 | XR ---
EXAMINATION TYPE: XR chest 1V portable DATE OF EXAM: 02/17/2021 Comparison: Earlier today Clinical History: 60-year-old male sob Findings: ET tube satisfactory. Left subclavian CVC tip at the cavoatrial junction. NG tube satisfactory. Sligh t leftward patient rotation. Heart likely normal size. Suspect slight leftward cardiac shift. Mild hy perinflation. Patchy interstitial changes bilaterally. Worsening left basilar/retrocardiac opacity ex tending up to the midlung level. Impression: 1. Diffuse patchy interstitial changes persist. 2. Worsening opacity in the left mid and lower lung now with some volume loss at the left base. Corre late for a combination of worsening airspace disease and atelectasis.
--- NOTE | 2021-02-17 10:07 | XR ---
EXAMINATION TYPE: XR chest 1V portable DATE OF EXAM: 02/17/2021 COMPARISON: 02/16/2021 HISTORY: Cough TECHNIQUE: Single frontal view of the chest is obtained. FINDINGS: ET and NG tube noted. Left-sided central line seen. Bilateral interstitial and the left-si ded alveolar consolidative infiltrates are seen with small left effusion. Findings are stable. Heart size stable. IMPRESSION: Bilateral infiltrates and left-sided pleural effusion and consolidation are stable.
[2021-02-17] MEDS: CHLORHEXIDINE GLUCONATE 15 ML CUP MUCOUS MEM SCH ×2 (10:16→20:03)
[2021-02-17] MEDS: ZINC SULFATE 220 MG CAP PO SCH (10:17)
[2021-02-17] MEDS: CHOLECALCIFEROL 25 MCG (1000 IU) TABLET PO SCH (10:17)
[2021-02-17] MEDS: ASCORBIC ACID 500 MG TAB PO SCH (10:17)
[2021-02-17] MEDS: DEXAMETHASONE SOD PHOSPHATE 10 MG/ML 1 ML VIAL IVP SCH (10:17)
[2021-02-17] MEDS: APIXABAN 5 MG TAB PO SCH ×2 (10:17→20:03)
[2021-02-17 12:01] LABS: Glucose,Whole Blood 147 mg/dL (75-99)
[2021-02-17] MEDS: fentaNYL (PF). 1,000 MCG in SODIUM CHLORIDE 0.9% 80 ML IV SCH (14:35)
[2021-02-17 18:16] LABS: Glucose,Whole Blood 156 mg/dL (75-99)
[2021-02-17] MEDS: EZETIMIBE 10 MG TAB PO SCH (20:03)
[2021-02-17] MEDS: MULTIVITAMINS, THERA 1 EACH TAB PO SCH (20:03)
[2021-02-17] MEDS: PRAVASTATIN SODIUM 80 MG TAB PO SCH (20:03)
[2021-02-17 23:09] LABS: Glucose,Whole Blood 177 mg/dL (75-99)
--- NOTE | 2021-02-18 00:04 | P.PN ---
Subjective From the records This is a pleasant 60-year-old patient of Dr. rae Chronic stable medical conditions include hyperlipidemia, hypertension. Patient did not take the COVID-19 vaccine. About 7 days ago patient started having fever and dry cough chills. About 4 days ago patient tested positive for COVID-19. Patient is having one or 2 loose stools a day. Denies any body aches or headaches. No loss of taste or smell. S patient is pretty symptoms progress decided to come in. He was 82% on room air. Admitted with severe COVID 19 pneumonitis, acute kidney injury, acute hypoxic respiratory failure. Started on dexamethasone. IV fluids. Baricitinib added. February 11: Sitting of the edge of the bed. Short of breath. Eating some. Ti red. Baricitinib added by pulmonary. February 12: Sitting at edge of the bed. Short of breath. 96% on 15 L. On Baricitinib and dexamethasone. Eating about 50-75%. February 13: Sitting up in a chair. Short of breath. On 15 L nasal cannula. On Baricitinib admitted and dexamethasone. Eating some February 14: Patient went down respiratory status and was moved to the ICU. Intubated. Drips included Diprivan, Nimbex, IV heparin. Doppler positive for DVT in the right lower extremity posterior tibial vein. Ventilator settings include FiO2 90% and a PEEP of 14. Spoke to patient is Dr. Bwoman telephone number [phone]. She wanted the patient to have ivermectin. I did inform her that this was not one of the CDC recommended medications. Dr. Gandhi in office services specialist on the case is on the [facility] COVID guideline team. She also had wanted patient to be on inhalers including QVAR. She'll be discussing this with Dr. Gandhi the office services specialist. She also wants the patient to be at high dose vitamin C. I've asked her to fax over the literature to the ICU and I will review the same. February 15: ICU: Patient currently under pain and Nimbex. He will fed taken off this morning. 2 feeding at 37 mL an hour. On the ventilator with FiO2 50% and a PEEP of 14. February 16: ICU: Drips include propofol and Nimbex. FiO2 40% and a PEEP of 14. Tube feeding. Subjective: 02/17/2021 Patient remains in the ICU sedated and intubated, with pulmonary/critical care team helping with the vent management. Patient was admitted with bilateral Covid pneumonia with bacterial super infection is suspected with hypoxia. Also his hospital case complicated with a right leg DVT. Patient has been treated currently with dexamethasone, multiple vitamins and cefepime added for suspected bacterial superinfection. Also he is on Eliquis therapeutic dose for his right leg DVT. WBCs is 14. Hemoglobin 10.8. D-dimer 4.7. LDH 999 and CRP. Patient prognosis remains guarded Objective - Vital Signs Vital signs: Vital Signs Temp 98.0 F 02/17/21 04:00 Pulse 55 L 02/17/21 10:00 Resp 45 H 02/17/21 10:00 BP 130/67 02/17/21 10:00 Pulse Ox 98 02/17/21 10:00 Intake & Output 02/16/21 02/17/21 02/17/21 18:59 06:59 18:59 Intake Total 4868.001 4843.092 586.901 Output Total 1270 930 450 Balance 891.807 0855.092 136.901 Weight 85.7 kg Intake: IV 936 969 324 0.9NS Pressure BAg 36 69 24 Sodium Chloride 0.9% 1, 900 900 300 000 ml @ 75 mls/hr IV . [id number] [facility] Rx#:[id number] Intake, IV Titration 375.497 378.092 77.901 Amount Cefepime 2 gm In Sodium 100 Chloride 0.9% 100 ml @ 25 mls/hr IVPB Q8HR [facility] Rx# :[id number] Cisatracurium 200 mg In 89.488 Sodium Chloride 0.9% 180 ml @ 2 MCG/KG/MIN 9.798 mls/hr IV .[id number] [facility] Rx #:[id number] Heparin Sod,Pork in 0.45% 75.497 NaCl 25,000 unit In 0.45 % NaCl 1 250ml.bag @ 18 UNITS/KG/HR 14.696 mls/hr IV .[id number] [facility] Rx#: [id number] propofoL 1,000 mg In 200.000 288.604 77.901 Empty Bag 1 bag @ Titrate IV .Q0M [facility] Rx#: [id number] Tube Feeding 444 444 185 Other 180 180 Output: Urine 1270 930 450 Other: Voiding Method Indwelling Catheter Indwelling Catheter ABP, PAP, CO, CI - Last Documented Arterial Blood Pressure 130/58 - Exam -GENERAL: The patient is sedated and intubated HEENT: Pupils are round and equally reacting to light. EOMI. No scleral icterus. No conjunctival pallor. Normocephalic, atraumatic. No pharyngeal erythema. No thyromegaly. CARDIOVASCULAR: S1 and S2 present. No murmurs, rubs, or gallops. PULMONARY: Chest is clear to auscultation, no wheezing or crackles. ABDOMEN: Soft, nontender, nondistended, normoactive bowel sounds. No palpable organomegaly. MUSCULOSKELETAL: No joint swelling or deformity. EXTREMITIES: No cyanosis, clubbing, or pedal edema. NEUROLOGICAL: Gross neurological examination did not reveal any focal deficits. SKIN: No rashes. no petechiae. - Labs CBC & Chem 7: 02/17/21 05:00 02/17/21 05:00 Labs: Abnormal Lab Results - Last 24 Hours (Table) 02/16/21 02/16/21 02/16/21 Range/Units 10:45 11:31 17:43 WBC (3.8-10.6) k/uL RBC (4.30-5.90) m/uL Hgb (13.0-17.5) gm/dL Hct (39.0-53.0) % Neutrophils # (1.3-7.7) k/uL Lymphocytes # (1.0-4.8) k/uL APTT 68.2 H (22.0-30.0) sec D-Dimer (<0.60) mg/L FEU ABG pH (7.35-7.45) ABG pCO2 (35-45) mmHg ABG pO2 (83-108) mmHg ABG HCO3 (21-25) mmol/L ABG Total CO2 (19-24) mmol/L ABG O2 Saturation (94-97) % Chloride (98-107) mmol/L BUN (9-20) mg/dL Glucose (74-99) mg/dL POC Glucose (mg/dL) 148 H 155 H (75-99) mg/dL Calcium (8.4-10.2) mg/dL ALT (4-49) U/L Lactate Dehydrogenase (313-618) U/L C-Reactive Protein (<1.0) mg/dL Total Protein (6.3-8.2) g/dL Albumin (3.5-5.0) g/dL 02/16/21 02/17/21 02/17/21 Range/Units 23:57 05:00 05:00 WBC (3.8-10.6) k/uL RBC (4.30-5.90) m/uL Hgb (13.0-17.5) gm/dL Hct (39.0-53.0) % Neutrophils # (1.3-7.7) k/uL Lymphocytes # (1.0-4.8) k/uL APTT (22.0-30.0) sec D-Dimer 4.79 H (<0.60) mg/L FEU ABG pH (7.35-7.45) ABG pCO2 (35-45) mmHg ABG pO2 (83-108) mmHg ABG HCO3 (21-25) mmol/L ABG Total CO2 (19-24) mmol/L ABG O2 Saturation (94-97) % Chloride 108 H (98-107) mmol/L BUN 27 H (9-20) mg/dL Glucose 151 H (74-99) mg/dL POC Glucose (mg/dL) 159 H (75-99) mg/dL Calcium 7.6 L (8.4-10.2) mg/dL ALT 69 H (4-49) U/L Lactate Dehydrogenase 999 H (313-618) U/L C-Reactive Protein 6.0 H (<1.0) mg/dL Total Protein 5.3 L (6.3-8.2) g/dL Albumin 2.4 L (3.5-5.0) g/dL 02/17/21 02/17/21 02/17/21 Range/Units 05:00 05:19 06:25 WBC 14.9 H (3.8-10.6) k/uL RBC 3.36 L (4.30-5.90) m/uL Hgb 10.8 L (13.0-17.5) gm/dL Hct 32.6 L (39.0-53.0) % Neutrophils # 13.0 H (1.3-7.7) k/uL Lymphocytes # 0.5 L (1.0-4.8) k/uL APTT (22.0-30.0) sec D-Dimer (<0.60) mg/L FEU ABG pH 7.48 H (7.35-7.45) ABG pCO2 (35-45) mmHg ABG pO2 (83-108) mmHg ABG HCO3 27 H (21-25) mmol/L ABG Total CO2 28 H (19-24) mmol/L ABG O2 Saturation 97.9 H (94-97) % Chloride (98-107) mmol/L BUN (9-20) mg/dL Glucose (74-99) mg/dL POC Glucose (mg/dL) 144 H (75-99) mg/dL Calcium (8.4-10.2) mg/dL ALT (4-49) U/L Lactate Dehydrogenase (313-618) U/L C-Reactive Protein (<1.0) mg/dL Total Protein (6.3-8.2) g/dL Albumin (3.5-5.0) g/dL 02/17/21 Range/Units 08:40 WBC (3.8-10.6) k/uL RBC (4.30-5.90) m/uL Hgb (13.0-17.5) gm/dL Hct (39.0-53.0) % Neutrophils # (1.3-7.7) k/uL Lymphocytes # (1.0-4.8) k/uL APTT (22.0-30.0) sec D-Dimer (<0.60) mg/L FEU ABG pH (7.35-7.45) ABG pCO2 47 H (35-45) mmHg ABG pO2 139 H (83-108) mmHg ABG HCO3 29 H (21-25) mmol/L ABG Total CO2 30 H (19-24) mmol/L ABG O2 Saturation 98.9 H (94-97) % Chloride (98-107) mmol/L BUN (9-20) mg/dL Glucose (74-99) mg/dL POC Glucose (mg/dL) (75-99) mg/dL Calcium (8.4-10.2) mg/dL ALT (4-49) U/L Lactate Dehydrogenase (313-618) U/L C-Reactive Protein (<1.0) mg/dL Total Protein (6.3-8.2) g/dL Albumin (3.5-5.0) g/dL Microbiology - Last 24 Hours (Table) 02/15/21 09:41 Gram Stain - Final Sputum Sputum Culture - Final 02/14/21 16:46 Blood Culture - Preliminary Blood No Growth after 48 hours 02/14/21 11:03 Blood Culture - Preliminary Blood No Growth after 48 hours Assessment and Plan Assessment: Bilateral Covid pneumonia Acute hypoxic respiratory failure Increased inflammatory markers Right leg DVT Hypertension Hyperlipidemia Plan: This is a pleasant 60 years old male who presents with Bilateral Covid pneumonia and hypoxia Continue with vitamin C, vitamin D, and zinc. Continue with dexamethasone Pulmonary team consult Labs and medication were reviewed.. Continue same treatment. Continue with symptomatic treatment. Resume home medication. Monitor lytes and vitals. DVT and GI prophylaxis. Further recommendations as per clinical course of the patient DVT prophylaxis: Eliquis GI Prophylaxis: Pepcid PT/OT: Pending Prognosis is guarded
[2021-02-18 00:23] LABS: Glucose,Whole Blood 159 mg/dL (75-99)
[2021-02-18] MEDS: fentaNYL (PF). 1,000 MCG in SODIUM CHLORIDE 0.9% 80 ML IV SCH ×4 (01:30→23:26)
[2021-02-18 05:08] LABS: Glucose,Whole Blood 141 mg/dL (75-99)
[2021-02-18] MEDS: ARTIFICIAL TEARS-HYPROMELLOSE DROPS 15 ML BTL BOTH EYES SCH ×5 (05:15→20:03)
[2021-02-18] MEDS: INSULIN ASPART (NovoLOG) 100 UNIT/ML VIAL SQ SCH ×3 (05:15→18:46)
[2021-02-18 05:17] LABS: Basophils % (A) 0 %; Eosinophils % (A) 0 %; HCT 32.5 % (39.0-53.0); HGB 10.4 gm/dL (13.0-17.5); Lymphocytes # (A) 0.7 k/uL (1.0-4.8); Lymphocytes % (A) 6 %; MCH 31.3 pg (25.0-35.0); MCHC 31.9 g/dL (31.0-37.0); MCV 98.1 fL (80.0-100.0); Mean Platelet Volume 9.1; Monocytes # (A) 0.8 k/uL (0-1.0); Monocytes % (A) 6 %; Neutrophils # (A) 10.4 k/uL (1.3-7.7); Neutrophils % (A) 84 %; Platelet Count 493 k/uL (150-450); RBC 3.31 m/uL (4.30-5.90); RDW 12.6 % (11.5-15.5); WBC 12.4 k/uL (3.8-10.6)
[2021-02-18 05:27] LABS: ALT 59 U/L (4-49); AST 30 U/L (17-59); African American GFR (CKD) >90 (>60 ml/min/1.73 sqM); Albumin 2.4 g/dL (3.5-5.0); Alkaline Phosphatase 73 U/L (38-126); Anion Gap 5 mmol/L; Blood Urea Nitrogen 29 mg/dL (9-20); Calcium 7.5 mg/dL (8.4-10.2); Carbon Dioxide 26 mmol/L (22-30); Chloride 107 mmol/L (98-107); Glucose 141 mg/dL (74-99); Non-African American GFR(CKD) >90 (>60 ml/min/1.73 sqM); Potassium 4.8 mmol/L (3.5-5.1); Sodium 138 mmol/L (137-145); Total Bilirubin 0.5 mg/dL (0.2-1.3); Total Protein 5.5 g/dL (6.3-8.2)
[2021-02-18 05:45] LABS: ABG Base Excess 4.7 mmol/L; ABG HCO3 29 mmol/L (21-25); ABG PCO2 43 mmHg (35-45); ABG PH 7.44 (7.35-7.45); ABG PO2 78 mmHg (83-108); ABG TCO2 30 mmol/L (19-24); Allen Test Performed? Yes
[2021-02-18] MEDS: ALBUTEROL HFA INHALER INHALATION SCH ×4 (07:42→20:50)
[2021-02-18] MEDS ORDERED: FUROSEMIDE 10 MG/ML 4 ML VIAL IV STA (08:25)
--- NOTE | 2021-02-18 08:26 | P.PN ---
Subjective Progress Note Date: 02/18/21 This a very pleasant 60-year-old male patient with a history of hypertension, hyperlipidemia. Daily alcohol use. 8 days ago he started having complaints of increasing shortness of breath, cough and congestion. He tested positive for COVID-19 5 days ago. He is not vaccinated. He presented to the emergency room here yesterday with complaints of increasing shortness of breath cough and congestion. He was found to be hypoxemic at 82% on room air. He was initiated on oxygen at 5 L/m per nasal cannula. He did have a T-max of 100.5. X-ray revealed evidence of bilateral patchy opacities consistent with COVID-19 pneumonia. White count 5.5. Hemoglobin 14.9. Lymphocytes 0.6. D-dimer 2.33. Sodium 137. Potassium 4.5. Creatinine 0.94. Glucose 161. Ferritin 5642. AST 74. ALT 33. LDH 1547. C-reactive protein 35.5. He was initiated on Decadron, Lovenox, vitamin supplements. He is seen today in consultation on the regular medical floor. His oxygen requirements have increased and he is now on 15 L high flow nasal cannula plus a nonrebreather mask. He is afebrile. Hemodynamically stable. He states he is doing the same today compared to yesterday. No worse but no better. On 02/12/2021 patient seen in follow-up on medical surgical floor. Is currently on 15 L and nonrebreather mask, his pulse ox of 93-96%. He states that his breathing is slightly improved, occasional cough and at times he is able to bring up some crawford colored phlegm. No chest discomfort. He sitting up in the recliner, his vital signs have been stable, he has been afebrile. He was started on Baricitinib yesterday on 02/11/2021, he remains on Decadron and prophylactic Lovenox in addition to multivitamins. His lower extremity Dopplers were negative for DVT. His d-dimer is up to 4.76 on today's labs, his white count is 9.6, hemoglobin is 15.6, sodium is 135, potassium is 4.5, BUN is 19 creatinine 0.81. Renal profile has improved, BUN is down to 19 creatinine 0.81. LDH is 2023, and CRP is 16.9. On 02/13/2021 patient seen in follow-up on medical surgical floor. Patient is currently awake and alert, in no acute distress, he continues to require 15 L and [place] nonrebreather mask, to maintain O2 saturations at 90-92%, mildly dyspneic, but no acute distress, he states he is slightly better, no complaints of chest pain, his been afebrile, he is short of breath with any exertion, and with conversation, CTA chest was completed showing no evidence of pulmonary embolism. There were bilateral diffuse marked patchy groundglass opacities. There were no pleural effusions or pneumothorax. Patient is currently on Baricitinib, she is on Decadron 6 mg daily, multivitamins, patient is on prop hylactic Lovenox. Patient has had no acute events overnight. On 02/14/2021 patient seen in follow-up in intensive care unit, patient significantly deteriorated clinically and was emergently transferred to the intensive care unit early this morning and intubated and placed on mechanical ventilator at 7 AM this morning, he is currently on assist control mode with a rate of 24, tidal volume is 450, FiO2 of 100%, and PEEP of 14. His peak airway pressure is 30, plateau is 28. He has been sedated he is currently on Diprivan and 75 mics per kilo per minute, awaiting to be started on Nimbex infusion as well, his maintenance IV fluids of 0.45 at a rate of 75 ML per hour. His blood gas was reviewed showing pO2 of 101, pCO2 of 64, and pH of 7.25, this was done on the above-mentioned vent settings and FiO2 100%. We will increase the rate to 32, and dropped the FiO2 down to 90%. He is hemodynamically stable, he is tachycardic with a rate of 126, in sinus mechanism. Chest x-ray shows left rondon bclavian central line, ET tube in good positions, no sizable pneumothorax, and diffuse bilateral infiltrates that are stable in appearance, there were tiny bilateral pleural effusions. The rest of his blood work has been reviewed and his white blood cell count is up to 25.8, hemoglobin is 14.9, his d-dimer remains elevated at greater than 34.1, patient had a recent CTA chest on 02/12/2021 which showed no evidence of pulmonary embolism, and lower extremity Dopplers were negative for DVT. His sodium today is 135, potassium is 4.3, the rest of electrolytes and renal profile were unremarkable. His AST is over 119, ALT is 85. His follow-up LDH and CRP are pending for today, his pro-calcitonin level is 0.60. Baricitinib was discontinued. Lower extremity Dopplers were again checked and were negative for DVT, will continue with current dose Lovenox. On 02/16/2021 patient seen in follow-up in intensive care unit, he remains intubated, sedated and paralyzed, on assist-control mode of ventilation with a rate of 32, tidal volume is 450, FiO2 of 40%, and PEEP of 14. His peak air pressures 30, plateau pressure is 27. Patient is currently on point tenderness) 75 ML per hour, Diprivan is a 50 mics per kilo per minute, Nimbex is a 2 mics per kilo per minute, his heparin infusion is at weight-based her to call, and he is tolerating tube feedings with vital HP at a rate of 37 with a goal of 37. He remains on Decadron 6 mg daily, he is on empiric antibiotics in the form of cefepime, his pro-calcitonin was elevated at 2.38, his blood and sputum cultures have been sent, a sputum culture showing rare PMNs, rare epithelial cells and rare gram-negative bacilli, fungal culture is pending. Culture has shown no growth thus far. Urinalysis has shown no clear evidence of infection. His inflammatory markers are improving at today's labs and LDH is down to 1195, CRP is 13.4, his white count is improving and is down to 17.8, hemoglobin is 12.9, his d-dimer has significantly improved and is down to 4.3, renal function is stable with BUN of 24 creatinine of 0.91, sodium is 138, potassium is 4.8, chloride is 109, CO2 is 25. No fever or chills, vital signs have been stable, has not required vasopressor support. Urine output has been adequate any order of 60-70 ML per hour. 02/17/2021, the patient is being seen for a follow-up in the intensive care unit. The patient is a supplement. Pneumonia, intubated on a mechanical ventilator and the patient has been intubated since 02/14/2021. This morning the patient is sedated and paralyzed. The patient is currently on propofol wh ich is running at 50 mg/kg per minute and the patient is also on Nimbex running at 2 mcg/kg per minute. The patient has been adequately sedated and paralyzed. The patient is currently on a mechanical ventilator. He is on assist control mode at the rate of 32, tidal volume is at 450, FiO2 is at 40% with a PEEP of 14. His peak airway pressure is 34. His dynamic airway pressure is 31. The chest x-ray from today shows adequate expansion of both lungs and the patient has bilateral pulmonary infiltrates consistent with COVID 19 infection. The patient's has no evidence of any pneumothorax. ET tube is in a good location. The blood gases from today shows a pH of 7.48 with a pCO2 of 37 and pO2 of 89 and this was done and FiO2 of 40%. Note that the patient was also found to have a DVT of the left lower extremity. For now, the patient is on anticoagulation and the patient is receiving Eliquis for anticoagulants at a dose of 10 mg by mouth twice a day. A CT angiogram was also done at time of admission and it showed no evidence of PE and was consistent with COVID 19 related pneumonia. The patient's most recent d-dimer is at 4.79. The patient is hemodynamically stable. In terms of his COVID 19 related pneumonia, the patient is being treated with a combination of Decadron and multivitamins. He is receiving Decadron 6 mg IV for 24 hours. His LDH level is down to 999 and his CRP level is down to 6. His pro-calcitonin level at the time of admission was 0.6 and came up to 2.39. Based on that, the patient was placed on empiric antibiotic coverage with cefepime. Sputum Gram stain and culture has been sent and the results are still pending for now. Meanwhile, the blood work shows a white cell count of 14.9. The patient is currently afebrile on no pressors. He is receivi ng enteral feeding for nutritional support and he is currently on vital high protein at the rate of 37 mL an hour. His cardiac rhythm is sinus. In terms of his blood pressure, he is hypertensive. He is receiving no antihypertensive medication. The patient has been maintained on lisinopril and amlodipine on outpatient basis. 02/18/2021, the patient is being seen in follow-up in the intensive care unit. The patient was intubated on 02/14/2021 and the patient has been intubated since. The patient remains on propofol which is running at 50 mcg/kg per minute and the patient is also on paralyzed with Nimbex at 2 mcg/kg per minute. Adequately paralyzed and sedated on assist-control mode of mechanical ventilation with a rate of 32, tidal volume 450, FiO2 is at 40% with a PEEP of 12. I was able to wean down the PEEP likely yesterday. Repeat chest x-ray from today is showing stable findings. There may be some improved aeration of the right lung base. Nevertheless, there is still persistent bibasilar pulmonary infiltrates that are still present. Blood gases from today shows a pH of 7.44 with a pCO2 of 43 and pO2 of 78 and this was done and FiO2 of 40%. The patient had a CT angiogram and at time of admission that showed no evidence of any pulmonary embolism. It was consistent overnight he related pneumonia. Nevertheless, the patient had a DVT of the right lower extremity and the patient is currently on therapeutic dose of Eliquis 10 mg by mouth twice a day. (. The patient remains on Decadron at a dose of 6 mg IV every 24 hours. His inflammatory markers were downtrending yesterday. Repeat labs are not available from today. Most recent LDH from yesterday was down to 999 and a CRP level was down to 6. He is hemodynamically stable for now. He is on no pressors. He is on enteral feeding with vital high protein at the rate of 37 mL an hour. Cardiac rhythm is sinus. His blood pressure is under better control for now and he is on no drips and he is maintained on 0.9 saline at the rate of 26 and hour. Objective - Vital Signs Vital signs: Vital Signs Temp 98.4 F 02/18/21 04:00 Pulse 49 L 02/18/21 04:00 Resp 26 H 02/18/21 04:00 BP 113/67 02/18/21 04:00 Pulse Ox 95 02/18/21 04:00 Intake & Output 02/17/21 02/18/21 02/18/21 18:59 06:59 18:59 Intake Total 1133.269 6745.347 193 Output Total 1250 1340 250 Balance 662.911 -42.653 -57 Weight 85.7 kg 91.2 kg Intake: IV 972 367 52 0.9NS Pressure BAg 72 72 12 Sodium Chloride 0.9% 1, 900 295 40 000 ml @ 20 mls/hr IV . Q24H [facility] Rx#:[id number] Intake, IV Titration 422.911 322.347 Amount Cisatracurium 200 mg In 145.01 39.519 Sodium Chloride 0.9% 180 ml @ 2 MCG/KG/MIN 9.798 mls/hr IV .[id number] [facility] Rx #:[id number] fentaNYL (PF). 1,000 mcg 112.125 In Sodium Chloride 0.9% 80 ml @ 0.5 MCG/KG/HR 4. 285 mls/hr IV .[id number] [facility] Rx#:[id number] propofoL 1,000 mg In 277.901 170.703 Empty Bag 1 bag @ Titrate IV .Q0M [facility] Rx#: [id number] Tube Feeding 518 518 111 Other 90 30 Output: Urine 1250 1340 250 Other: Voiding Method Indwelling Catheter Indwelling Catheter Indwelling Catheter ABP, PAP, CO, CI - Last Documented Arterial Blood Pressure 124/58 - Exam GENERAL EXAM: Intubated, and sedated 60-year-old white male, on assist control mode of ventilation, with a rate of 26, tidal is 450, FiO2 40% and PEEP of 12. Paralyzed and sedated HEAD: Normocephalic/atraumatic. EYES: Normal reaction of pupils, equal size. Conjunctiva pink, sclera white. NOSE: Clear with pink turbinates. THROAT: No erythema or exudates. NECK: No masses, no JVD, no thyroid enlargement, no adenopathy. CHEST: No chest wall deformity. Symmetrical expansion. LUNGS: Equal air entry with bilateral crackles CVS: Regular rate and rhythm, normal S1 and S2, no gallops, no murmurs, no rubs ABDOMEN: Soft, nontender. No hepatosplenomegaly, normal bowel sounds, no guarding or rigidity. EXTREMITIES: No clubbing, no edema, no cyanosis, 2+ pulses and upper and lower extremities. MUSCULOSKELETAL: Muscle strength and tone normal. SPINE: No scoliosis or deformity SKIN: No rashes CENTRAL NERVOUS SYSTEM: Sedated, intubated No focal deficits, tone is normal in all 4 extremities. - Labs CBC & Chem 7: 02/18/21 05:05 02/18/21 05:05 Labs: Abnormal Lab Results - Last 24 Hours (Table) 02/17/21 02/17/21 02/17/21 Range/Units 08:40 11:59 18:15 WBC (3.8-10.6) k/uL RBC (4.30-5.90) m/uL Hgb (13.0-17.5) gm/dL Hct (39.0-53.0) % Plt Count (150-450) k/uL Neutrophils # (1.3-7.7) k/uL Lymphocytes # (1.0-4.8) k/uL ABG pCO2 47 H (35-45) mmHg ABG pO2 139 H (83-108) mmHg ABG HCO3 29 H (21-25) mmol/L ABG Total CO2 30 H (19-24) mmol/L ABG O2 Saturation 98.9 H (94-97) % BUN (9-20) mg/dL Glucose (74-99) mg/dL POC Glucose (mg/dL) 147 H 156 H (75-99) mg/dL Calcium (8.4-10.2) mg/dL ALT (4-49) U/L Total Protein (6.3-8.2) g/dL Albumin (3.5-5.0) g/dL 02/17/21 02/18/21 02/18/21 Range/Units 23:07 00:22 05:05 WBC 12.4 H (3.8-10.6) k/uL RBC 3.31 L (4.30-5.90) m/uL Hgb 10.4 L (13.0-17.5) gm/dL Hct 32.5 L (39.0-53.0) % Plt Count 493 H (150-450) k/uL Neutrophils # 10.4 H (1.3-7.7) k/uL Lymphocytes # 0.7 L (1.0-4.8) k/uL ABG pCO2 (35-45) mmHg ABG pO2 (83-108) mmHg ABG HCO3 (21-25) mmol/L ABG Total CO2 (19-24) mmol/L ABG O2 Saturation (94-97) % BUN (9-20) mg/dL Glucose (74-99) mg/dL POC Glucose (mg/dL) 177 H 159 H (75-99) mg/dL Calcium (8.4-10.2) mg/dL ALT (4-49) U/L Total Protein (6.3-8.2) g/dL Albumin (3.5-5.0) g/dL 02/18/21 02/18/21 02/18/21 Range/Units 05:05 05:06 05:42 WBC (3.8-10.6) k/uL RBC (4.30-5.90) m/uL Hgb (13.0-17.5) gm/dL Hct (39.0-53.0) % Plt Count (150-450) k/uL Neutrophils # (1.3-7.7) k/uL Lymphocytes # (1.0-4.8) k/uL ABG pCO2 (35-45) mmHg ABG pO2 78 L (83-108) mmHg ABG HCO3 29 H (21-25) mmol/L ABG Total CO2 30 H (19-24) mmol/L ABG O2 Saturation (94-97) % BUN 29 H (9-20) mg/dL Glucose 141 H (74-99) mg/dL POC Glucose (mg/dL) 141 H (75-99) mg/dL Calcium 7.5 L (8.4-10.2) mg/dL ALT 59 H (4-49) U/L Total Protein 5.5 L (6.3-8.2) g/dL Albumin 2.4 L (3.5-5.0) g/dL Microbiology - Last 24 Hours (Table) 02/14/21 16:46 Blood Culture - Preliminary Blood No Growth after 72 hours 02/14/21 11:03 Blood Culture - Preliminary Blood No Growth after 72 hours 02/15/21 09:41 Gram Stain - Final Sputum Sputum Culture - Final Assessment and Plan Plan: #1. Acute hypoxic respiratory failure, related to COVID-19, patient came into the hospital on 02/10/2021 with a day history of symptoms. He was outside the window for Remdesivir, he is a non-vaccinated adult. Started on Baricitinib on 02/11/2021. Currently on 15 L in the 100% nonrebreather mask. Patient had decompensated and was emergently transferred to the intensive care unit where he was intubated on 02/14/2021. For now, the patient is intubated, sedated and paralyzed. The patient remains on a mechanical ventilator. Chest x-ray still showing diffuse bilateral pulmonary infiltrates. He also has a right lower extremity DVT. He remains on Decadron and he is also on empiric antibiotic coverage with IV cefepime due to an elevated pro-calcitonin level. Cultures of been all negative. On today's evaluation, the patient remains on a mechanical ventilator. He remains sedated and paralyzed. No major improvement of the chest x-ray findings. No significant change in his blood gases. He was dynamically stable. Remains on IV cefepime. Remains on Decadron. #2. Elevated pro-calcitonin level, rule out possibility of bacterial infection, Baricitinib was discontinued, patient will be mak cultured, and started on cefepime for empiric antibiotic coverage, no evidence of UTI, sputum culture showing rare PMNs, blood cultures are negative thus far #3. Acute right leg DVT discovered on repeat lower extremity Doppler on 02/14/2021. No evidence of PE on CT angiogram of the chest from 02/12/2021, on heparin infusion #4. Acute kidney injury, improved with IV hydration #5. Hyperlipidemia #6. Hypertension Plan: Continue vent support, Drop the PEEP down to 10 Keep rate 26 and with an FiO2 of 40% Lasix 40 mg IVP Continue Decadron Continue IV cefepime repeat pro-calcitonin level paralytic holiday today Continue with empiric antibiotics will await final culture so far the cultures are negative While signs are stable, hemodynamically stable Urine output is adequate, not requiring any vasopressor support Continue to feedings for nutritional support Inflammatory markers are improving, d-dimer is significantly improved Condition is critical and the patient will continue his care here in the intensive care unit. Family will be updated on his condition. There is a critically care evaluate was done and more than 30 minutes. Time with Patient: Greater than 30 Time with Patient: Greater than 30
[2021-02-18] MEDS: APIXABAN 5 MG TAB PO SCH ×2 (09:00→20:03)
[2021-02-18] MEDS: CHOLECALCIFEROL 25 MCG (1000 IU) TABLET PO SCH (09:00)
[2021-02-18] MEDS: CHLORHEXIDINE GLUCONATE 15 ML CUP MUCOUS MEM SCH ×2 (09:00→20:03)
[2021-02-18] MEDS: ZINC SULFATE 220 MG CAP PO SCH (09:00)
[2021-02-18] MEDS: ASCORBIC ACID 500 MG TAB PO SCH (09:00)
[2021-02-18] MEDS: DEXAMETHASONE SOD PHOSPHATE 10 MG/ML 1 ML VIAL IVP SCH (09:00)
[2021-02-18] MEDS: CEFEPIME 2 GM in SODIUM CHLORIDE 0.9% 100 ML IVPB SCH ×2 (09:01→15:51)
--- NOTE | 2021-02-18 09:07 | XR ---
EXAMINATION TYPE: XR chest 1V portable DATE OF EXAM: 02/18/2021 COMPARISON: 02/17/2021 HISTORY: Shortness of breath TECHNIQUE: Single frontal view of the chest is obtained. FINDINGS: ET tube, NG tube and central line noted. There is bilateral areas of infiltrate and pleura l effusion pattern. No sizable pneumothorax. Hypertrophic change of the spine. IMPRESSION: Interval progression of infiltrate involving the right lung with stable left-sided conso lidation and pleural effusion. Correlate for diffuse pneumonia versus CHF
[2021-02-18 11:42] LABS: Glucose,Whole Blood 174 mg/dL (75-99)
[2021-02-18] MEDS ORDERED: amLODIPine 10 MG TAB PO SCH (14:30)
[2021-02-18] MEDS: SODIUM CHLORIDE 0.9% 1,000 ML IV SCH (14:32)
[2021-02-18] MEDS: CISATRACURIUM 200 MG in SODIUM CHLORIDE 0.9% 180 ML IV SCH (15:49)
[2021-02-18 17:33] LABS: Glucose,Whole Blood 184 mg/dL (75-99)
[2021-02-18] MEDS: EZETIMIBE 10 MG TAB PO SCH (20:02)
[2021-02-18] MEDS: PRAVASTATIN SODIUM 80 MG TAB PO SCH (20:03)
[2021-02-18] MEDS: MULTIVITAMINS, THERA 1 EACH TAB PO SCH (20:03)
--- NOTE | 2021-02-18 21:42 | P.PN ---
Subjective From the records This is a pleasant 60-year-old patient of Dr. rae Chronic stable medical conditions include hyperlipidemia, hypertension. Patient did not take the COVID-19 vaccine. About 7 days ago patient started having fever and dry cough chills. About 4 days ago patient tested positive for COVID-19. Patient is having one or 2 loose stools a day. Denies any body aches or headaches. No loss of taste or smell. S patient is pretty symptoms progress decided to come in. He was 82% on room air. Admitted with severe COVID 19 pneumonitis, acute kidney injury, acute hypoxic respiratory failure. Started on dexamethasone. IV fluids. Baricitinib added. February 11: Sitting of the edge of the bed. Short of breath. Eating some. Ti red. Baricitinib added by pulmonary. February 12: Sitting at edge of the bed. Short of breath. 96% on 15 L. On Baricitinib and dexamethasone. Eating about 50-75%. February 13: Sitting up in a chair. Short of breath. On 15 L nasal cannula. On Baricitinib admitted and dexamethasone. Eating some February 14: Patient went down respiratory status and was moved to the ICU. Intubated. Drips included Diprivan, Nimbex, IV heparin. Doppler positive for DVT in the right lower extremity posterior tibial vein. Ventilator settings include FiO2 90% and a PEEP of 14. Spoke to patient is Dr. Bowman telephone number [phone]. She wanted the patient to have ivermectin. I did inform her that this was not one of the CDC recommended medications. Dr. Gandhi in string studies director on the case is on the [facility] COVID guideline team. She also had wanted patient to be on inhalers including QVAR. She'll be discussing this with Dr. Gandhi the string studies director. She also wants the patient to be at high dose vitamin C. I've asked her to fax over the literature to the ICU and I will review the same. February 15: ICU: Patient currently under pain and Nimbex. He will fed taken off this morning. 2 feeding at 37 mL an hour. On the ventilator with FiO2 50% and a PEEP of 14. February 16: ICU: Drips include propofol and Nimbex. FiO2 40% and a PEEP of 14. Tube feeding. Subjective: 02/17/2021 Patient remains in the ICU sedated and intubated, with pulmonary/critical care team helping with the vent management. Patient was admitted with bilateral Covid pneumonia with bacterial super infection is suspected with hypoxia. Also his hospital case complicated with a right leg DVT. Patient has been treated currently with dexamethasone, multiple vitamins and cefepime added for suspected bacterial superinfection. Also he is on Eliquis therapeutic dose for his right leg DVT. WBCs is 14. Hemoglobin 10.8. D-dimer 4.7. LDH 999 and CRP. Patient prognosis remains guarded 02/18/2021 Patient remains intubated and sedated the critical care unit with pulmonary/critical care unit team following the patient closely. His FiO2 improved down to 40%. Distal to Our . He isn't a slight leukocytosis at 12, hemoglobin 10.4. Repeat chest x-ray showing progressed right-sided infiltrate therefore received 1 time dose of Lasix. Protonix calcitonin actually improved 2.3 down to 0.3. He remains on cefepime, dexamethasone, multiple vitamins and Eliquis with Pepcid. Objective - Vital Signs Vital signs: Vital Signs Temp 98.1 F 02/18/21 08:00 Pulse 51 L 02/18/21 09:00 Resp 26 H 02/18/21 09:00 BP 111/63 02/18/21 09:00 Pulse Ox 93 L 02/18/21 09:00 Intake & Output 02/17/21 02/18/21 02/18/21 18:59 06:59 18:59 Intake Total 5270.822 6856.347 468.547 Output Total 1250 1340 550 Balance 662.911 -42.653 -81.453 Weight 85.7 kg 91.2 kg Intake: IV 972 367 104 0.9NS Pressure BAg 72 72 24 Sodium Chloride 0.9% 1, 900 295 80 000 ml @ 20 mls/hr IV . Q24H [facility] Rx#:[id number] Intake, IV Titration 422.911 322.347 149.547 Amount Cisatracurium 200 mg In 145.01 39.519 Sodium Chloride 0.9% 180 ml @ 2 MCG/KG/MIN 9.798 mls/hr IV .[id number] [facility] Rx #:[id number] fentaNYL (PF). 1,000 mcg 112.125 55.705 In Sodium Chloride 0.9% 80 ml @ 0.5 MCG/KG/HR 4. 285 mls/hr IV .[id number] [facility] Rx#:[id number] propofoL 1,000 mg In 277.901 170.703 93.842 Empty Bag 1 bag @ Titrate IV .Q0M [facility] Rx#: [id number] Tube Feeding 518 518 185 Other 90 30 Output: Urine 1250 1340 550 Other: Voiding Method Indwelling Catheter Indwelling Catheter Indwelling Catheter ABP, PAP, CO, CI - Last Documented Arterial Blood Pressure 108/52 - Exam -GENERAL: The patient is sedated and intubated HEENT: Pupils are round and equally reacting to light. EOMI. No scleral icterus. No conjunctival pallor. Normocephalic, atraumatic. No pharyngeal erythema. No thyromegaly. CARDIOVASCULAR: S1 and S2 present. No murmurs, rubs, or gallops. PULMONARY: Chest is clear to auscultation, no wheezing or crackles. ABDOMEN: Soft, nontender, nondistended, normoactive bowel sounds. No palpable organomegaly. MUSCULOSKELETAL: No joint swelling or deformity. EXTREMITIES: No cyanosis, clubbing, or pedal edema. NEUROLOGICAL: Gross neurological examination did not reveal any focal deficits. SKIN: No rashes. no petechiae. - Labs CBC & Chem 7: 02/18/21 05:05 02/18/21 05:05 Labs: Abnormal Lab Results - Last 24 Hours (Table) 02/17/21 02/17/21 02/17/21 Range/Units 11:59 18:15 23:07 WBC (3.8-10.6) k/uL RBC (4.30-5.90) m/uL Hgb (13.0-17.5) gm/dL Hct (39.0-53.0) % Plt Count (150-450) k/uL Neutrophils # (1.3-7.7) k/uL Lymphocytes # (1.0-4.8) k/uL ABG pO2 (83-108) mmHg ABG HCO3 (21-25) mmol/L ABG Total CO2 (19-24) mmol/L BUN (9-20) mg/dL Glucose (74-99) mg/dL POC Glucose (mg/dL) 147 H 156 H 177 H (75-99) mg/dL Calcium (8.4-10.2) mg/dL ALT (4-49) U/L Total Protein (6.3-8.2) g/dL Albumin (3.5-5.0) g/dL 02/18/21 02/18/21 02/18/21 Range/Units 00:22 05:05 05:05 WBC 12.4 H (3.8-10.6) k/uL RBC 3.31 L (4.30-5.90) m/uL Hgb 10.4 L (13.0-17.5) gm/dL Hct 32.5 L (39.0-53.0) % Plt Count 493 H (150-450) k/uL Neutrophils # 10.4 H (1.3-7.7) k/uL Lymphocytes # 0.7 L (1.0-4.8) k/uL ABG pO2 (83-108) mmHg ABG HCO3 (21-25) mmol/L ABG Total CO2 (19-24) mmol/L BUN 29 H (9-20) mg/dL Glucose 141 H (74-99) mg/dL POC Glucose (mg/dL) 159 H (75-99) mg/dL Calcium 7.5 L (8.4-10.2) mg/dL ALT 59 H (4-49) U/L Total Protein 5.5 L (6.3-8.2) g/dL Albumin 2.4 L (3.5-5.0) g/dL 02/18/21 02/18/21 Range/Units 05:06 05:42 WBC (3.8-10.6) k/uL RBC (4.30-5.90) m/uL Hgb (13.0-17.5) gm/dL Hct (39.0-53.0) % Plt Count (150-450) k/uL Neutrophils # (1.3-7.7) k/uL Lymphocytes # (1.0-4.8) k/uL ABG pO2 78 L (83-108) mmHg ABG HCO3 29 H (21-25) mmol/L ABG Total CO2 30 H (19-24) mmol/L BUN (9-20) mg/dL Glucose (74-99) mg/dL POC Glucose (mg/dL) 141 H (75-99) mg/dL Calcium (8.4-10.2) mg/dL ALT (4-49) U/L Total Protein (6.3-8.2) g/dL Albumin (3.5-5.0) g/dL Microbiology - Last 24 Hours (Table) 02/14/21 16:46 Blood Culture - Preliminary Blood No Growth after 72 hours 02/14/21 11:03 Blood Culture - Preliminary Blood No Growth after 72 hours 02/15/21 09:41 Gram Stain - Final Sputum Sputum Culture - Final Assessment and Plan Assessment: Bilateral Covid pneumonia Acute hypoxic respiratory failure Increased inflammatory markers Right leg DVT Hypertension Hyperlipidemia Plan: This is a pleasant 60 years old male who presents with Bilateral Covid pneumonia and hypoxia Continue with vitamin C, vitamin D, and zinc. Continue with dexamethasone Pulmonary team consult Labs and medication were reviewed.. Continue same treatment. Continue with symptomatic treatment. Resume home medication. Monitor lytes and vitals. DVT and GI prophylaxis. Further recommendations as per clinical course of the patient DVT prophylaxis: Eliquis GI Prophylaxis: Pepcid PT/OT: Pending Prognosis is guarded
[2021-02-19 00:04] LABS: Glucose,Whole Blood 117 mg/dL (75-99)
[2021-02-19] MEDS: INSULIN ASPART (NovoLOG) 100 UNIT/ML VIAL SQ SCH ×5 (00:09→23:48)
[2021-02-19] MEDS: ARTIFICIAL TEARS-HYPROMELLOSE DROPS 15 ML BTL BOTH EYES SCH ×3 (00:11→08:31)
[2021-02-19] MEDS: CEFEPIME 2 GM in SODIUM CHLORIDE 0.9% 100 ML IVPB SCH ×4 (00:11→23:49)
[2021-02-19] MEDS: fentaNYL (PF). 1,000 MCG in SODIUM CHLORIDE 0.9% 80 ML IV SCH ×5 (02:56→21:20)
[2021-02-19 05:46] LABS: Glucose,Whole Blood 130 mg/dL (75-99)
[2021-02-19 05:56] LABS: ABG Base Excess 3.5 mmol/L; ABG HCO3 28 mmol/L (21-25); ABG PCO2 46 mmHg (35-45); ABG PH 7.41 (7.35-7.45); ABG PO2 77 mmHg (83-108); Allen Test Performed? Yes
[2021-02-19 06:53] LABS: Basophils % (A) 0 %; Eosinophils # (A) 0.1 k/uL (0-0.7); Eosinophils % (A) 1 %; HCT 32.5 % (39.0-53.0); HGB 10.6 gm/dL (13.0-17.5); Lymphocytes # (A) 0.9 k/uL (1.0-4.8); Lymphocytes % (A) 8 %; MCH 32.1 pg (25.0-35.0); MCHC 32.6 g/dL (31.0-37.0); MCV 98.5 fL (80.0-100.0); Mean Platelet Volume 8.8; Monocytes # (A) 0.8 k/uL (0-1.0); Monocytes % (A) 7 %; Neutrophils # (A) 8.6 k/uL (1.3-7.7); Neutrophils % (A) 80 %; Platelet Count 524 k/uL (150-450); RDW 12.6 % (11.5-15.5); WBC 10.7 k/uL (3.8-10.6)
[2021-02-19 06:53] LABS: ALT 52 U/L (4-49); AST 42 U/L (17-59); African American GFR (CKD) >90 (>60 ml/min/1.73 sqM); Albumin 2.5 g/dL (3.5-5.0); Alkaline Phosphatase 70 U/L (38-126); Anion Gap 5 mmol/L; Blood Urea Nitrogen 30 mg/dL (9-20); Calcium 7.7 mg/dL (8.4-10.2); Carbon Dioxide 26 mmol/L (22-30); Chloride 106 mmol/L (98-107); Glucose 143 mg/dL (74-99); Non-African American GFR(CKD) >90 (>60 ml/min/1.73 sqM); Potassium 4.6 mmol/L (3.5-5.1); Sodium 137 mmol/L (137-145); Total Bilirubin 0.8 mg/dL (0.2-1.3); Total Protein 5.8 g/dL (6.3-8.2)
[2021-02-19 07:10] LABS: ABG Oxygen Saturation 95.4 % (94-97)
[2021-02-19] MEDS: SODIUM CHLORIDE 0.9% 1,000 ML IV SCH (07:17)
[2021-02-19] MEDS ORDERED: bisacodyL 10 MG SUPP RECTAL PRN (08:20)
[2021-02-19] MEDS: ALBUTEROL HFA INHALER INHALATION SCH ×4 (08:34→20:22)
[2021-02-19] MEDS ORDERED: FUROSEMIDE 10 MG/ML 4 ML VIAL IV STA (08:46)
--- NOTE | 2021-02-19 08:49 | P.PN ---
Subjective Progress Note Date: 02/19/21 This a very pleasant 60-year-old male patient with a history of hypertension, hyperlipidemia. Daily alcohol use. 8 days ago he started having complaints of increasing shortness of breath, cough and congestion. He tested positive for COVID-19 5 days ago. He is not vaccinated. He presented to the emergency room here yesterday with complaints of increasing shortness of breath cough and congestion. He was found to be hypoxemic at 82% on room air. He was initiated on oxygen at 5 L/m per nasal cannula. He did have a T-max of 100.5. X-ray revealed evidence of bilateral patchy opacities consistent with COVID-19 pneumonia. White count 5.5. Hemoglobin 14.9. Lymphocytes 0.6. D-dimer 2.33. Sodium 137. Potassium 4.5. Creatinine 0.94. Glucose 161. Ferritin 5642. AST 74. ALT 33. LDH 1547. C-reactive protein 35.5. He was initiated on Decadron, Lovenox, vitamin supplements. He is seen today in consultation on the regular medical floor. His oxygen requirements have increased and he is now on 15 L high flow nasal cannula plus a nonrebreather mask. He is afebrile. Hemodynamically stable. He states he is doing the same today compared to yesterday. No worse but no better. On 02/12/2021 patient seen in follow-up on medical surgical floor. Is currently on 15 L and nonrebreather mask, his pulse ox of 93-96%. He states that his breathing is slightly improved, occasional cough and at times he is able to bring up some crawford colored phlegm. No chest discomfort. He sitting up in the recliner, his vital signs have been stable, he has been afebrile. He was started on Baricitinib yesterday on 02/11/2021, he remains on Decadron and prophylactic Lovenox in addition to multivitamins. His lower extremity Dopplers were negative for DVT. His d-dimer is up to 4.76 on today's labs, his white count is 9.6, hemoglobin is 15.6, sodium is 135, potassium is 4.5, BUN is 19 creatinine 0.81. Renal profile has improved, BUN is down to 19 creatinine 0.81. LDH is 2023, and CRP is 16.9. On 02/13/2021 patient seen in follow-up on medical surgical floor. Patient is currently awake and alert, in no acute distress, he continues to require 15 L and [place] nonrebreather mask, to maintain O2 saturations at 90-92%, mildly dyspneic, but no acute distress, he states he is slightly better, no complaints of chest pain, his been afebrile, he is short of breath with any exertion, and with conversation, CTA chest was completed showing no evidence of pulmonary embolism. There were bilateral diffuse marked patchy groundglass opacities. There were no pleural effusions or pneumothorax. Patient is currently on Baricitinib, she is on Decadron 6 mg daily, multivitamins, patient is on prop hylactic Lovenox. Patient has had no acute events overnight. On 02/14/2021 patient seen in follow-up in intensive care unit, patient significantly deteriorated clinically and was emergently transferred to the intensive care unit early this morning and intubated and placed on mechanical ventilator at 7 AM this morning, he is currently on assist control mode with a rate of 24, tidal volume is 450, FiO2 of 100%, and PEEP of 14. His peak airway pressure is 30, plateau is 28. He has been sedated he is currently on Diprivan and 75 mics per kilo per minute, awaiting to be started on Nimbex infusion as well, his maintenance IV fluids of 0.45 at a rate of 75 ML per hour. His blood gas was reviewed showing pO2 of 101, pCO2 of 64, and pH of 7.25, this was done on the above-mentioned vent settings and FiO2 100%. We will increase the rate to 32, and dropped the FiO2 down to 90%. He is hemodynamically stable, he is tachycardic with a rate of 126, in sinus mechanism. Chest x-ray shows left rondon bclavian central line, ET tube in good positions, no sizable pneumothorax, and diffuse bilateral infiltrates that are stable in appearance, there were tiny bilateral pleural effusions. The rest of his blood work has been reviewed and his white blood cell count is up to 25.8, hemoglobin is 14.9, his d-dimer remains elevated at greater than 34.1, patient had a recent CTA chest on 02/12/2021 which showed no evidence of pulmonary embolism, and lower extremity Dopplers were negative for DVT. His sodium today is 135, potassium is 4.3, the rest of electrolytes and renal profile were unremarkable. His AST is over 119, ALT is 85. His follow-up LDH and CRP are pending for today, his pro-calcitonin level is 0.60. Baricitinib was discontinued. Lower extremity Dopplers were again checked and were negative for DVT, will continue with current dose Lovenox. On 02/16/2021 patient seen in follow-up in intensive care unit, he remains intubated, sedated and paralyzed, on assist-control mode of ventilation with a rate of 32, tidal volume is 450, FiO2 of 40%, and PEEP of 14. His peak air pressures 30, plateau pressure is 27. Patient is currently on point tenderness) 75 ML per hour, Diprivan is a 50 mics per kilo per minute, Nimbex is a 2 mics per kilo per minute, his heparin infusion is at weight-based her to call, and he is tolerating tube feedings with vital HP at a rate of 37 with a goal of 37. He remains on Decadron 6 mg daily, he is on empiric antibiotics in the form of cefepime, his pro-calcitonin was elevated at 2.38, his blood and sputum cultures have been sent, a sputum culture showing rare PMNs, rare epithelial cells and rare gram-negative bacilli, fungal culture is pending. Culture has shown no growth thus far. Urinalysis has shown no clear evidence of infection. His inflammatory markers are improving at today's labs and LDH is down to 1195, CRP is 13.4, his white count is improving and is down to 17.8, hemoglobin is 12.9, his d-dimer has significantly improved and is down to 4.3, renal function is stable with BUN of 24 creatinine of 0.91, sodium is 138, potassium is 4.8, chloride is 109, CO2 is 25. No fever or chills, vital signs have been stable, has not required vasopressor support. Urine output has been adequate any order of 60-70 ML per hour. 02/17/2021, the patient is being seen for a follow-up in the intensive care unit. The patient is a supplement. Pneumonia, intubated on a mechanical ventilator and the patient has been intubated since 02/14/2021. This morning the patient is sedated and paralyzed. The patient is currently on propofol wh ich is running at 50 mg/kg per minute and the patient is also on Nimbex running at 2 mcg/kg per minute. The patient has been adequately sedated and paralyzed. The patient is currently on a mechanical ventilator. He is on assist control mode at the rate of 32, tidal volume is at 450, FiO2 is at 40% with a PEEP of 14. His peak airway pressure is 34. His dynamic airway pressure is 31. The chest x-ray from today shows adequate expansion of both lungs and the patient has bilateral pulmonary infiltrates consistent with COVID 19 infection. The patient's has no evidence of any pneumothorax. ET tube is in a good location. The blood gases from today shows a pH of 7.48 with a pCO2 of 37 and pO2 of 89 and this was done and FiO2 of 40%. Note that the patient was also found to have a DVT of the left lower extremity. For now, the patient is on anticoagulation and the patient is receiving Eliquis for anticoagulants at a dose of 10 mg by mouth twice a day. A CT angiogram was also done at time of admission and it showed no evidence of PE and was consistent with COVID 19 related pneumonia. The patient's most recent d-dimer is at 4.79. The patient is hemodynamically stable. In terms of his COVID 19 related pneumonia, the patient is being treated with a combination of Decadron and multivitamins. He is receiving Decadron 6 mg IV for 24 hours. His LDH level is down to 999 and his CRP level is down to 6. His pro-calcitonin level at the time of admission was 0.6 and came up to 2.39. Based on that, the patient was placed on empiric antibiotic coverage with cefepime. Sputum Gram stain and culture has been sent and the results are still pending for now. Meanwhile, the blood work shows a white cell count of 14.9. The patient is currently afebrile on no pressors. He is receivi ng enteral feeding for nutritional support and he is currently on vital high protein at the rate of 37 mL an hour. His cardiac rhythm is sinus. In terms of his blood pressure, he is hypertensive. He is receiving no antihypertensive medication. The patient has been maintained on lisinopril and amlodipine on outpatient basis. 02/18/2021, the patient is being seen in follow-up in the intensive care unit. The patient was intubated on 02/14/2021 and the patient has been intubated since. The patient remains on propofol which is running at 50 mcg/kg per minute and the patient is also on paralyzed with Nimbex at 2 mcg/kg per minute. Adequately paralyzed and sedated on assist-control mode of mechanical ventilation with a rate of 32, tidal volume 450, FiO2 is at 40% with a PEEP of 12. I was able to wean down the PEEP likely yesterday. Repeat chest x-ray from today is showing stable findings. There may be some improved aeration of the right lung base. Nevertheless, there is still persistent bibasilar pulmonary infiltrates that are still present. Blood gases from today shows a pH of 7.44 with a pCO2 of 43 and pO2 of 78 and this was done and FiO2 of 40%. The patient had a CT angiogram and at time of admission that showed no evidence of any pulmonary embolism. It was consistent overnight he related pneumonia. Nevertheless, the patient had a DVT of the right lower extremity and the patient is currently on therapeutic dose of Eliquis 10 mg by mouth twice a day. (. The patient remains on Decadron at a dose of 6 mg IV every 24 hours. His inflammatory markers were downtrending yesterday. Repeat labs are not available from today. Most recent LDH from yesterday was down to 999 and a CRP level was down to 6. He is hemodynamically stable for now. He is on no pressors. He is on enteral feeding with vital high protein at the rate of 37 mL an hour. Cardiac rhythm is sinus. His blood pressure is under better control for now and he is on no drips and he is maintained on 0.9 saline at the rate of 26 and hour. 02/19/21, the patient is being seen for a follow-up. This is a 60-year-old male patient a case of COVID 19 related pneumonia remains intubated on a mechanical ventilator. We were finally able to get him off the paralytics yesterday and as of midnight, the patient has been off paralytics. This morning, the patient is on /propofol which is running at 45 mcg/kg per minute. The patient is also on fentanyl at 2 mcg/kg/h. The patient is on a mechanical ventilator. Currently on assist control mode at the rate of 26 and the rate was reduced yesterday and the patient is also on a tidal volume of 450, FiO2 of 4040% and a PEEP is currently at 10. The peak airway pressure on the mechanical ventilator is 22 and a chest x-ray from today shows some improvement infiltration of the lung bases bilaterally. The blood gases from today shows a pH of 7.4 with a pCO2 of 46 and pO2 of 77. The patient is currently on Decadron. The patient is on therapeutic dose of Eliquis as the patient had a right lower extremity DVT. Due to concern of infections, the patient was given IV cefepime. His protest on level was as high as 2.38 and currently is down to 0.37. Otherwise, rest of the blood work is essentially stable. Hemoglobin is 10.6, stable with a white cell count of 10.7, stable. /Electrolytes are stable. The patient is receiving vital high protein at the rate of 37 mL an hour. Cardiac rhythm is sinus. IV fluids are currently at KVO. Fluid balance over the past 24 hours has been -8 81 mL. Objective - Vital Signs Vital signs: Vital Signs Temp 99 F 02/18/21 20:00 Pulse 57 L 02/18/21 21:00 Resp 26 H 02/18/21 21:00 BP 96/64 02/18/21 21:00 Pulse Ox 89 L 02/18/21 21:00 Intake & Output 02/18/21 02/19/21 02/19/21 18:59 06:59 18:59 Intake Total 5449.436 4993.374 90.853 Output Total 3075 895 100 Balance -1483.030 601.374 -9.147 Weight 88.5 kg Intake: IV 338 286 26 0.9NS Pressure BAg 78 66 6 Sodium Chloride 0.9% 1, 260 220 20 000 ml @ 20 mls/hr IV . Q24H [facility] Rx#:[id number] Intake, IV Titration 631.970 653.374 27.853 Amount Cisatracurium 200 mg In 216.699 42.655 Sodium Chloride 0.9% 180 ml @ 2 MCG/KG/MIN 9.798 mls/hr IV .[id number] [facility] Rx #:[id number] fentaNYL (PF). 1,000 mcg 141.299 242.746 27.853 In Sodium Chloride 0.9% 80 ml @ 0.5 MCG/KG/HR 4. 285 mls/hr IV .[id number] [facility] Rx#:[id number] propofoL 1,000 mg In 273.972 367.973 Empty Bag 1 bag @ Titrate IV .Q0M [facility] Rx#: [id number] Tube Feeding 592 407 37 Other 30 150 Output: Urine 3075 895 100 Other: Voiding Method Indwelling Catheter Indwelling Catheter ABP, PAP, CO, CI - Last Documented Arterial Blood Pressure 116/56 - Exam GENERAL EXAM: Intubated, and sedated 60-year-old white male, on assist control mode of ventilation, with a rate of 26, tidal is 450, FiO2 40% and PEEP of 10. sedated HEAD: Normocephalic/atraumatic. EYES: Normal reaction of pupils, equal size. Conjunctiva pink, sclera white. NOSE: Clear with pink turbinates. THROAT: No erythema or exudates. NECK: No masses, no JVD, no thyroid enlargement, no adenopathy. CHEST: No chest wall deformity. Symmetrical expansion. LUNGS: Equal air entry with bilateral crackles CVS: Regular rate and rhythm, normal S1 and S2, no gallops, no murmurs, no rubs ABDOMEN: Soft, nontender. No hepatosplenomegaly, normal bowel sounds, no guarding or rigidity. EXTREMITIES: No clubbing, no edema, no cyanosis, 2+ pulses and upper and lower extremities. MUSCULOSKELETAL: Muscle strength and tone normal. SPINE: No scoliosis or deformity SKIN: No rashes CENTRAL NERVOUS SYSTEM: Sedated, intubated No focal deficits, tone is normal in all 4 extremities. - Labs CBC & Chem 7: 02/19/21 04:30 02/19/21 05:00 Labs: Abnormal Lab Results - Last 24 Hours (Table) 02/18/21 02/18/21 02/18/21 Range/Units 05:05 11:40 17:32 WBC (3.8-10.6) k/uL RBC (4.30-5.90) m/uL Hgb (13.0-17.5) gm/dL Hct (39.0-53.0) % Plt Count (150-450) k/uL Neutrophils # (1.3-7.7) k/uL Lymphocytes # (1.0-4.8) k/uL ABG pCO2 (35-45) mmHg ABG pO2 (83-108) mmHg ABG HCO3 (21-25) mmol/L BUN (9-20) mg/dL Glucose (74-99) mg/dL POC Glucose (mg/dL) 174 H 184 H (75-99) mg/dL Calcium (8.4-10.2) mg/dL ALT (4-49) U/L Total Protein (6.3-8.2) g/dL Albumin (3.5-5.0) g/dL Procalcitonin 0.37 H (0.02-0.09) ng/mL 02/19/21 02/19/21 02/19/21 Range/Units 00:02 04:30 05:00 WBC 10.7 H (3.8-10.6) k/uL RBC 3.30 L (4.30-5.90) m/uL Hgb 10.6 L (13.0-17.5) gm/dL Hct 32.5 L (39.0-53.0) % Plt Count 524 H (150-450) k/uL Neutrophils # 8.6 H (1.3-7.7) k/uL Lymphocytes # 0.9 L (1.0-4.8) k/uL ABG pCO2 (35-45) mmHg ABG pO2 (83-108) mmHg ABG HCO3 (21-25) mmol/L BUN 30 H (9-20) mg/dL Glucose 143 H (74-99) mg/dL POC Glucose (mg/dL) 117 H (75-99) mg/dL Calcium 7.7 L (8.4-10.2) mg/dL ALT 52 H (4-49) U/L Total Protein 5.8 L (6.3-8.2) g/dL Albumin 2.5 L (3.5-5.0) g/dL Procalcitonin (0.02-0.09) ng/mL 02/19/21 02/19/21 Range/Units 05:45 05:45 WBC (3.8-10.6) k/uL RBC (4.30-5.90) m/uL Hgb (13.0-17.5) gm/dL Hct (39.0-53.0) % Plt Count (150-450) k/uL Neutrophils # (1.3-7.7) k/uL Lymphocytes # (1.0-4.8) k/uL ABG pCO2 46 H (35-45) mmHg ABG pO2 77 L (83-108) mmHg ABG HCO3 28 H (21-25) mmol/L BUN (9-20) mg/dL Glucose (74-99) mg/dL POC Glucose (mg/dL) 130 H (75-99) mg/dL Calcium (8.4-10.2) mg/dL ALT (4-49) U/L Total Protein (6.3-8.2) g/dL Albumin (3.5-5.0) g/dL Procalcitonin (0.02-0.09) ng/mL Microbiology - Last 24 Hours (Table) 02/14/21 16:46 Blood Culture - Preliminary Blood No Growth after 96 hours 02/14/21 11:03 Blood Culture - Preliminary Blood No Growth after 96 hours Assessment and Plan Plan: #1. Acute hypoxic respiratory failure, related to COVID-19, patient came into the hospital on 02/10/2021 with a day history of symptoms. He was outside the window for Remdesivir, he is a non-vaccinated adult. Started on Baricitinib on 02/11/2021. Currently on 15 L in the 100% nonrebreather mask. Patient had deco mpensated and was emergently transferred to the intensive care unit where he was intubated on 02/14/2021. For now, the patient is intubated, sedated and this morning the patient is off dialysis. We are the process of weaning down his sedation assessing his ability to do a breathing trial. He is currently on a PEEP of 10 and FiO2 of 40%. Airway pressures are quite low. Chest x-ray are stable and I am considering the possibility of extubate this patient either to a BiPAP or a high flow/Airvo system. This is possible today. As the patient's sedation is being weaned off, the blood pressure is going up and I'm going to counteract the blood pressure with Cleviprex #2. Elevated pro-calcitonin level, rule out possibility of bacterial infection, Baricitinib was discontinued, patient will be mak cultured, and started on cefepime for empiric antibiotic coverage, no evidence of UTI, sputum culture showing rare PMNs, blood cultures are negative thus far #3. Acute right leg DVT discovered on repeat lower extremity Doppler on 02/14/2021. No evidence of PE on CT angiogram of the chest from 02/12/2021, on heparin infusion #4. Acute kidney injury, improved #5. Hyperlipidemia #6. Hypertension Plan: Continue vent support, Lasix 40 mg IVP x1 Sedation holiday and check weaning parameters. The blood pressure goes up use Cleviprex drip for blood pressure control. The patient is currently off paralytics. Continue Decadron Continue IV cefepime repeat pro-calcitonin level was low @ 0.37 Continue with empiric antibiotics for another 24 hours hemodynamically stable Urine output is adequate, not requiring any vasopressor support Continue to feedings for nutritional support Inflammatory markers are improving, d-dimer is significantly improved Condition is critical and the patient will continue his care here in the intensive care unit. Family will be updated on his condition. There is a critically care evaluate was done and more than 30 minutes. Possible weaning, possible extubation to have high flow system or BiPAP today. Time with Patient: Greater than 30 Time with Patient: Greater than 30
[2021-02-19] MEDS: DEXAMETHASONE SOD PHOSPHATE 10 MG/ML 1 ML VIAL IVP SCH (09:01)
[2021-02-19] MEDS: CHLORHEXIDINE GLUCONATE 15 ML CUP MUCOUS MEM SCH ×2 (09:01→20:06)
[2021-02-19] MEDS: CHOLECALCIFEROL 25 MCG (1000 IU) TABLET PO SCH (09:01)
[2021-02-19] MEDS: CLEVIDIPINE BUTYRATE 25 MG in EMPTY BAG 1 BAG IV SCH ×4 (09:01→21:55)
[2021-02-19] MEDS: APIXABAN 5 MG TAB PO SCH ×2 (09:02→20:06)
[2021-02-19] MEDS: ASCORBIC ACID 500 MG TAB PO SCH (09:02)
[2021-02-19] MEDS: ZINC SULFATE 220 MG CAP PO SCH (09:02)
--- NOTE | 2021-02-19 09:26 | XR ---
EXAMINATION TYPE: XR chest 1V portable DATE OF EXAM: 02/19/2021 COMPARISON: Chest x-ray 02/18/2021 HISTORY: Covid, intubated TECHNIQUE: Single frontal view of the chest is obtained. FINDINGS: Endotracheal tube, NG tube, left subclavian central venous catheter are overlying appropri ate positions. Bilateral airspace disease is again seen. There is no evident pneumothorax or pleural effusion. Cardiac mediastinal silhouette shows a stable appearance accounting for differences in tech nique. There are overlying artifacts. Lung volumes are low. IMPRESSION: Findings consistent with patient's history pneumonia, ARDS or edema
[2021-02-19 11:59] LABS: Glucose,Whole Blood 179 mg/dL (75-99)
[2021-02-19] MEDS: ACETAMINOPHEN TAB 325 MG TAB PO PRN (12:42)
[2021-02-19 17:52] LABS: Glucose,Whole Blood 178 mg/dL (75-99)
[2021-02-19] MEDS: PRAVASTATIN SODIUM 80 MG TAB PO SCH (20:06)
[2021-02-19] MEDS: MULTIVITAMINS, THERA 1 EACH TAB PO SCH (20:06)
[2021-02-19] MEDS: EZETIMIBE 10 MG TAB PO SCH (20:06)
--- NOTE | 2021-02-19 21:39 | P.PN ---
Subjective From the records This is a pleasant 60-year-old patient of Dr. rae Chronic stable medical conditions include hyperlipidemia, hypertension. Patient did not take the COVID-19 vaccine. About 7 days ago patient started having fever and dry cough chills. About 4 days ago patient tested positive for COVID-19. Patient is having one or 2 loose stools a day. Denies any body aches or headaches. No loss of taste or smell. S patient is pretty symptoms progress decided to come in. He was 82% on room air. Admitted with severe COVID 19 pneumonitis, acute kidney injury, acute hypoxic respiratory failure. Started on dexamethasone. IV fluids. Baricitinib added. February 11: Sitting of the edge of the bed. Short of breath. Eating some. Ti red. Baricitinib added by pulmonary. February 12: Sitting at edge of the bed. Short of breath. 96% on 15 L. On Baricitinib and dexamethasone. Eating about 50-75%. February 13: Sitting up in a chair. Short of breath. On 15 L nasal cannula. On Baricitinib admitted and dexamethasone. Eating some February 14: Patient went down respiratory status and was moved to the ICU. Intubated. Drips included Diprivan, Nimbex, IV heparin. Doppler positive for DVT in the right lower extremity posterior tibial vein. Ventilator settings include FiO2 90% and a PEEP of 14. Spoke to patient is Dr. Bowman telephone number [phone]. She wanted the patient to have ivermectin. I did inform her that this was not one of the CDC recommended medications. Dr. Gandhi in food and beverage manager on the case is on the [facility] COVID guideline team. She also had wanted patient to be on inhalers including QVAR. She'll be discussing this with Dr. Gandhi the food and beverage manager. She also wants the patient to be at high dose vitamin C. I've asked her to fax over the literature to the ICU and I will review the same. February 15: ICU: Patient currently under pain and Nimbex. He will fed taken off this morning. 2 feeding at 37 mL an hour. On the ventilator with FiO2 50% and a PEEP of 14. February 16: ICU: Drips include propofol and Nimbex. FiO2 40% and a PEEP of 14. Tube feeding. Subjective: 02/17/2021 Patient remains in the ICU sedated and intubated, with pulmonary/critical care team helping with the vent management. Patient was admitted with bilateral Covid pneumonia with bacterial super infection is suspected with hypoxia. Also his hospital case complicated with a right leg DVT. Patient has been treated currently with dexamethasone, multiple vitamins and cefepime added for suspected bacterial superinfection. Also he is on Eliquis therapeutic dose for his right leg DVT. WBCs is 14. Hemoglobin 10.8. D-dimer 4.7. LDH 999 and CRP. Patient prognosis remains guarded 02/18/2021 Patient remains intubated and sedated the critical care unit with pulmonary/critical care unit team following the patient closely. His FiO2 improved down to 40%. Distal to Our . He isn't a slight leukocytosis at 12, hemoglobin 10.4. Repeat chest x-ray showing progressed right-sided infiltrate therefore received 1 time dose of Lasix. Protonix calcitonin actually improved 2.3 down to 0.3. He remains on cefepime, dexamethasone, multiple vitamins and Eliquis with Pepcid. 02/19/2021 Patient's still intubated in the ICU. Pulmonary/critical care team on the case. His FiO2 is 40% and tachypnea similar to yesterday but today he had low-grade fever over 100.5. However her leukocytosis is the same at 10.3, hemoglobin is stable at 10.6. Chest x-ray showing the same finding suspicious for pneumonia, ARDS, CHF. Patient currently is on cefepime as well as treatment for his Covid pneumonia with dexamethasone and multiple vitamins. Anticoagulation with Eliquis and Pepcid Objective - Vital Signs Vital signs: Vital Signs Temp 99.3 F 02/19/21 09:08 Pulse 82 02/19/21 11:00 Resp 26 H 02/19/21 11:00 BP 96/64 02/18/21 21:00 Pulse Ox 92 L 02/19/21 11:00 Intake & Output 02/18/21 02/19/21 02/19/21 18:59 06:59 18:59 Intake Total 2808.353 4320.374 640.265 Output Total 3075 895 2300 Balance -1483.030 601.374 -1659.735 Weight 88.5 kg Intake: IV 338 286 118 0.9NS Pressure BAg 78 66 18 Sodium Chloride 0.9% 1, 260 220 100 000 ml @ 20 mls/hr IV . Q24H [facility] Rx#:[id number] Intake, IV Titration 631.970 653.374 217.265 Amount Cefepime 2 gm In Sodium 100 Chloride 0.9% 100 ml @ 25 mls/hr IVPB Q8HR [facility] Rx# :[id number] Cisatracurium 200 mg In 216.699 42.655 Sodium Chloride 0.9% 180 ml @ 2 MCG/KG/MIN 9.798 mls/hr IV .[id number] [facility] Rx #:[id number] Clevidipine Butyrate 25 0.867 mg In Empty Bag 1 bag @ 1 MG/HR 2 mls/hr IV .Q24H [facility] Rx#:[id number] fentaNYL (PF). 1,000 mcg 141.299 242.746 27.853 In Sodium Chloride 0.9% 80 ml @ 0.5 MCG/KG/HR 4. 285 mls/hr IV .[id number] [facility] Rx#:[id number] propofoL 1,000 mg In 273.972 367.973 88.545 Empty Bag 1 bag @ Titrate IV .Q0M [facility] Rx#: [id number] Tube Feeding 592 407 185 Other 30 150 120 Output: Urine 3075 895 2300 Other: Voiding Method Indwelling Catheter Indwelling Catheter Indwelling Catheter ABP, PAP, CO, CI - Last Documented Arterial Blood Pressure 143/52 - Exam -GENERAL: The patient is sedated and intubated HEENT: Pupils are round and equally reacting to light. EOMI. No scleral icterus. No conjunctival pallor. Normocephalic, atraumatic. No pharyngeal erythema. No thyromegaly. CARDIOVASCULAR: S1 and S2 present. No murmurs, rubs, or gallops. PULMONARY: Chest is clear to auscultation, no wheezing or crackles. ABDOMEN: Soft, nontender, nondistended, normoactive bowel sounds. No palpable organomegaly. MUSCULOSKELETAL: No joint swelling or deformity. EXTREMITIES: No cyanosis, clubbing, or pedal edema. NEUROLOGICAL: Gross neurological examination did not reveal any focal deficits. SKIN: No rashes. no petechiae. - Labs CBC & Chem 7: 02/19/21 04:30 02/19/21 05:00 Labs: Abnormal Lab Results - Last 24 Hours (Table) 02/18/21 02/18/21 02/18/21 Range/Units 05:05 11:40 17:32 WBC (3.8-10.6) k/uL RBC (4.30-5.90) m/uL Hgb (13.0-17.5) gm/dL Hct (39.0-53.0) % Plt Count (150-450) k/uL Neutrophils # (1.3-7.7) k/uL Lymphocytes # (1.0-4.8) k/uL ABG pCO2 (35-45) mmHg ABG pO2 (83-108) mmHg ABG HCO3 (21-25) mmol/L BUN (9-20) mg/dL Glucose (74-99) mg/dL POC Glucose (mg/dL) 174 H 184 H (75-99) mg/dL Calcium (8.4-10.2) mg/dL ALT (4-49) U/L Total Protein (6.3-8.2) g/dL Albumin (3.5-5.0) g/dL Procalcitonin 0.37 H (0.02-0.09) ng/mL 02/19/21 02/19/21 02/19/21 Range/Units 00:02 04:30 05:00 WBC 10.7 H (3.8-10.6) k/uL RBC 3.30 L (4.30-5.90) m/uL Hgb 10.6 L (13.0-17.5) gm/dL Hct 32.5 L (39.0-53.0) % Plt Count 524 H (150-450) k/uL Neutrophils # 8.6 H (1.3-7.7) k/uL Lymphocytes # 0.9 L (1.0-4.8) k/uL ABG pCO2 (35-45) mmHg ABG pO2 (83-108) mmHg ABG HCO3 (21-25) mmol/L BUN 30 H (9-20) mg/dL Glucose 143 H (74-99) mg/dL POC Glucose (mg/dL) 117 H (75-99) mg/dL Calcium 7.7 L (8.4-10.2) mg/dL ALT 52 H (4-49) U/L Total Protein 5.8 L (6.3-8.2) g/dL Albumin 2.5 L (3.5-5.0) g/dL Procalcitonin (0.02-0.09) ng/mL 02/19/21 02/19/21 Range/Units 05:45 05:45 WBC (3.8-10.6) k/uL RBC (4.30-5.90) m/uL Hgb (13.0-17.5) gm/dL Hct (39.0-53.0) % Plt Count (150-450) k/uL Neutrophils # (1.3-7.7) k/uL Lymphocytes # (1.0-4.8) k/uL ABG pCO2 46 H (35-45) mmHg ABG pO2 77 L (83-108) mmHg ABG HCO3 28 H (21-25) mmol/L BUN (9-20) mg/dL Glucose (74-99) mg/dL POC Glucose (mg/dL) 130 H (75-99) mg/dL Calcium (8.4-10.2) mg/dL ALT (4-49) U/L Total Protein (6.3-8.2) g/dL Albumin (3.5-5.0) g/dL Procalcitonin (0.02-0.09) ng/mL Microbiology - Last 24 Hours (Table) 02/14/21 16:46 Blood Culture - Preliminary Blood No Growth after 96 hours 02/14/21 11:03 Blood Culture - Preliminary Blood No Growth after 96 hours Assessment and Plan Assessment: Bilateral Covid pneumonia Acute hypoxic respiratory failure Increased inflammatory markers Right leg DVT Hypertension Hyperlipidemia Plan: This is a pleasant 60 years old male who presents with Bilateral Covid pneumonia and hypoxia Continue with vitamin C, vitamin D, and zinc. Continue with dexamethasone Pulmonary team consult Labs and medication were reviewed.. Continue same treatment. Continue with symptomatic treatment. Resume home medication. Monitor lytes and vitals. DVT and GI prophylaxis. Further recommendations as per clinical course of the patient DVT prophylaxis: Eliquis GI Prophylaxis: Pepcid PT/OT: Pending Prognosis is guarded
[2021-02-19 23:39] LABS: Glucose,Whole Blood 167 mg/dL (75-99)
[2021-02-19] MEDS: CISATRACURIUM 200 MG in SODIUM CHLORIDE 0.9% 180 ML IV SCH (23:47)
[2021-02-20] MEDS: CLEVIDIPINE BUTYRATE 25 MG in EMPTY BAG 1 BAG IV SCH ×8 (00:01→20:24)
[2021-02-20] MEDS: fentaNYL (PF). 1,000 MCG in SODIUM CHLORIDE 0.9% 80 ML IV SCH ×4 (02:50→19:32)
[2021-02-20 04:34] LABS: Basophils % (A) 0 %; Eosinophils % (A) 0 %; HCT 38.5 % (39.0-53.0); HGB 12.4 gm/dL (13.0-17.5); Lymphocytes # (A) 0.7 k/uL (1.0-4.8); Lymphocytes % (A) 5 %; MCH 31.5 pg (25.0-35.0); MCHC 32.3 g/dL (31.0-37.0); MCV 97.4 fL (80.0-100.0); Mean Platelet Volume 7.9; Monocytes # (A) 0.9 k/uL (0-1.0); Monocytes % (A) 6 %; Neutrophils # (A) 12.9 k/uL (1.3-7.7); Neutrophils % (A) 86 %; Platelet Count 664 k/uL (150-450); RBC 3.95 m/uL (4.30-5.90); WBC 14.9 k/uL (3.8-10.6)
[2021-02-20 05:01] LABS: ALT 65 U/L (4-49); AST 62 U/L (17-59); African American GFR (CKD) >90 (>60 ml/min/1.73 sqM); Albumin 2.9 g/dL (3.5-5.0); Alkaline Phosphatase 87 U/L (38-126); Anion Gap 8 mmol/L; Blood Urea Nitrogen 33 mg/dL (9-20); Calcium 8.2 mg/dL (8.4-10.2); Carbon Dioxide 29 mmol/L (22-30); Chloride 101 mmol/L (98-107); Glucose 168 mg/dL (74-99); Non-African American GFR(CKD) >90 (>60 ml/min/1.73 sqM); Potassium 4.4 mmol/L (3.5-5.1); Sodium 138 mmol/L (137-145); Total Bilirubin 1.2 mg/dL (0.2-1.3); Total Protein 6.5 g/dL (6.3-8.2)
[2021-02-20 05:22] LABS: Glucose,Whole Blood 147 mg/dL (75-99)
[2021-02-20] MEDS: INSULIN ASPART (NovoLOG) 100 UNIT/ML VIAL SQ SCH ×4 (05:41→23:32)
[2021-02-20] MEDS: SODIUM CHLORIDE 0.9% 1,000 ML IV SCH (05:41)
[2021-02-20 06:09] LABS: ABG Base Excess 7.8 mmol/L; ABG HCO3 32 mmol/L (21-25); ABG Oxygen Saturation 96.1 % (94-97); ABG PCO2 45 mmHg (35-45); ABG PH 7.45 (7.35-7.45); ABG PO2 82 mmHg (83-108); ABG TCO2 33 mmol/L (19-24)
[2021-02-20 06:28] LABS: Allen Test Performed? no
[2021-02-20] MEDS: CEFEPIME 2 GM in SODIUM CHLORIDE 0.9% 100 ML IVPB SCH ×3 (08:33→23:24)
[2021-02-20] MEDS: ALBUTEROL HFA INHALER INHALATION SCH ×4 (08:34→19:55)
--- NOTE | 2021-02-20 08:42 | XR ---
EXAMINATION TYPE: XR chest 1V portable DATE OF EXAM: 02/20/2021 COMPARISON: 02/19/2021 HISTORY: Shortness of breath TECHNIQUE: Single frontal view of the chest is obtained. FINDINGS: ET tube, NG tube and central line noted. There is bilateral areas of infiltrate and pleura l effusion pattern. No sizable pneumothorax. Hypertrophic change of the spine. IMPRESSION: Stable bilateral areas of infiltrate and small effusion greater on the left.
[2021-02-20] MEDS: ASCORBIC ACID 500 MG TAB PO SCH (08:48)
[2021-02-20] MEDS: CHOLECALCIFEROL 25 MCG (1000 IU) TABLET PO SCH (08:48)
[2021-02-20] MEDS: APIXABAN 5 MG TAB PO SCH ×2 (08:48→20:24)
[2021-02-20] MEDS: DEXAMETHASONE SOD PHOSPHATE 10 MG/ML 1 ML VIAL IVP SCH (08:48)
[2021-02-20] MEDS: ZINC SULFATE 220 MG CAP PO SCH (08:48)
[2021-02-20] MEDS: CHLORHEXIDINE GLUCONATE 15 ML CUP MUCOUS MEM SCH ×2 (08:48→20:24)
[2021-02-20] MEDS: DEXMEDETOMIDINE/0.9% NACL(PMX) 400 MCG in EMPTY BAG 1 BAG IV SCH ×2 (11:13→22:07)
[2021-02-20 12:09] LABS: Glucose,Whole Blood 229 mg/dL (75-99)
--- NOTE | 2021-02-20 14:16 | P.PN ---
Subjective Progress Note Date: 02/20/21 Principal diagnosis: Acute hypoxic respiratory failure secondary to COVID-19 pneumonia 02/18/2021, the patient is being seen in follow-up in the intensive care unit. The patient was intubated on 02/14/2021 and the patient has been intubated since. The patient remains on propofol which is running at 50 mcg/kg per minute and the patient is also on paralyzed with Nimbex at 2 mcg/kg per minute. Adequately paralyzed and sedated on assist-control mode of mechanical ventilation with a rate of 32, tidal volume 450, FiO2 is at 40% with a PEEP of 12. I was able to wean down the PEEP likely yesterday. Repeat chest x-ray from today is showing stable findings. There may be some improved aeration of the right lung base. Nevertheless, there is still persistent bibasilar pulmonary infiltrates that are still present. Blood gases from today shows a pH of 7.44 with a pCO2 of 43 and pO2 of 78 and this was done and FiO2 of 40%. The patient had a CT angiogram and at time of admission that showed no evidence of any pulmonary embolism. It was consistent overnight he related pneumonia. Nevertheless, the patient had a DVT of the right lower extremity and the patient is currently on therapeutic dose of Eliquis 10 mg by mouth twice a day. (. The patient remains on Decadron at a dose of 6 mg IV every 24 hours. His inflammatory markers were downtrending yesterday. Repeat labs are not available from today. Most recent LDH from yesterday was down to 999 and a CRP level was down to 6. He is hemodynamically stable for now. He is on no pressors. He is on enteral feeding with vital high protein at the rate of 37 mL an hour. Cardiac rhythm is sinus. His blood pressure is under better control for now and he is on no drips and he is maintained on 0.9 saline at the rate of 26 and hour. 02/19/21, the patient is being seen for a follow-up. This is a 60-year-old male patient a case of COVID 19 related pneumonia remains intubated on a mechanical ventilator. We were finally able to get him off the paralytics yesterday and as of midnight, the patient has been off paralytics. This morning, the patient is on /propofol which is running at 45 mcg/kg per minute. The patient is also on fentanyl at 2 mcg/kg/h. The patient is on a mechanical ventilator. Currently on assist control mode at the rate of 26 and the rate was reduced yesterday and the patient is also on a tidal volume of 450, FiO2 of 4040% and a PEEP is currently at 10. The peak airway pressure on the mechanical ventilator is 22 and a chest x-ray from today shows some improvement infiltration of the lung bases bilaterally. The blood gases from today shows a pH of 7.4 with a pCO2 of 46 and pO2 of 77. The patient is currently on Decadron. The patient is on therapeutic dose of Eliquis as the patient had a right lower extremity DVT. Due to concern of infections, the patient was given IV cefepime. His protest on level was as high as 2.38 and currently is down to 0.37. Otherwise, rest of the blood work is essentially stable. Hemoglobin is 10.6, stable with a white cell count of 10.7, stable. /Electrolytes are stable. The patient is receiving vital high protein at the rate of 37 mL an hour. Cardiac rhythm is sinus. IV fluids are currently at KVO. Fluid balance over the past 24 hours has been -8 81 mL. Reevaluated today on 02/20/21, patient remains in the ICU, intubated and m echanically ventilated. He is presently on assist control rate of 26th of 450 FiO2 40% PEEP of 8 ABG showed a pO2 of 82 pCO2 of 42 pH of 7.45. Patient is on propofol, fentanyl, and Klonopin X. Propofol is at 15 cm at 2 mcg/kg/h, and level proximal is 10 mg per hour. Uterus yet is 14.9 hemoglobin is 12.4. Elects lites are normal, renal profile is normal. X-ray is showing bilateral infiltrates with left lower lobe consolidation and/or atelectasis. Patient remains on the COVID-19 cocktail, he is on Eliquis 10 mg by mouth twice a day, he is also on cefepime, Decadron 6 mg IV push daily. Patient is off Precedex at this point. I was hoping today that I couldn't wean the patient however he seems to be quite tachycardic, anxious, I will give the patient trial of Precedex and see if we could discontinue fentanyl and propofol. And proceed at least with some weaning trials of possible. I doubt if that will actually be successful but it is worth a trial. Objective - Vital Signs Vital signs: Vital Signs Temp 98.0 F 02/20/21 12:00 Pulse 106 H 02/20/21 13:00 Resp 27 H 02/20/21 13:00 BP 165/80 02/20/21 13:00 Pulse Ox 97 02/20/21 13:00 Intake & Output 02/19/21 02/20/21 02/20/21 18:59 06:59 18:59 Intake Total 4816.142 4460.820 921.602 Output Total 3850 1585 840 Balance -2094.668 84.820 81.602 Weight 88.5 kg 83.1 kg Intake: IV 276 309 282 0.9NS Pressure BAg 36 36 21 CVP 33 21 Cefepime 2 gm In Sodium 100 Chloride 0.9% 100 ml @ 25 mls/hr IVPB Q8HR [facility] Rx# :[id number] Sodium Chloride 0.9% 1, 240 240 140 000 ml @ 20 mls/hr IV . Q24H [facility] Rx#:[id number] Intake, IV Titration 710.332 622.820 369.602 Amount Cefepime 2 gm In Sodium 200 Chloride 0.9% 100 ml @ 25 mls/hr IVPB Q8HR [facility] Rx# :[id number] Clevidipine Butyrate 25 68.401 224.301 94.766 mg In Empty Bag 1 bag @ 1 MG/HR 2 mls/hr IV .Q24H [facility] Rx#:[id number] fentaNYL (PF). 1,000 mcg 174.400 176.256 189.682 In Sodium Chloride 0.9% 80 ml @ 0.5 MCG/KG/HR 4. 285 mls/hr IV .[id number] [facility] Rx#:[id number] propofoL 1,000 mg In 267.531 222.263 85.154 Empty Bag 1 bag @ Titrate IV .Q0M [facility] Rx#: [id number] Tube Feeding 261 598 270 Other 240 90 Output: Urine 3850 1585 840 Other: Voiding Method Indwelling Catheter Indwelling Catheter Indwelling Catheter ABP, PAP, CO, CI - Last Documented Arterial Blood Pressure 160/64 - Exam Physical Exam revealed 58-year-old white male on mechanical ventilation, intubated, sedated, but nonetheless he is arousable, follows simple instructions in spite of propofol and fentanyl. Head: Atraumatic normocephalic, endotracheal tube is intact. HEENT:[Neck is supple.] [No neck masses.] [No thyromegaly.] [No JVD.] Chest: [Symmetrical chest expansion, crackles at the bases. Cardiac Exam: [Normal S1 and S2, no S3 gallop, no murmur.] Abdomen: [Soft, nontender, no megaly, no rebound, no guarding, normal bowel sounds.] Extremities: [No clubbing, no edema, no cyanosis.] Neurological Exam: Patient is sedated however he is arousable, follows simple instructions, seems to be appropriate. Psychiatric: Anxious mood, blunt affect, seems to comprehend what he is being controlled. - Labs CBC & Chem 7: 02/20/21 04:15 02/20/21 04:15 Labs: Abnormal Lab Results - Last 24 Hours (Table) 02/19/21 02/19/21 02/20/21 Range/Units 17:51 23:36 04:15 WBC 14.9 H (3.8-10.6) k/uL RBC 3.95 L (4.30-5.90) m/uL Hgb 12.4 L (13.0-17.5) gm/dL Hct 38.5 L (39.0-53.0) % Plt Count 664 H (150-450) k/uL Neutrophils # 12.9 H (1.3-7.7) k/uL Lymphocytes # 0.7 L (1.0-4.8) k/uL ABG pO2 (83-108) mmHg ABG HCO3 (21-25) mmol/L ABG Total CO2 (19-24) mmol/L BUN (9-20) mg/dL Glucose (74-99) mg/dL POC Glucose (mg/dL) 178 H 167 H (75-99) mg/dL Calcium (8.4-10.2) mg/dL AST (17-59) U/L ALT (4-49) U/L Albumin (3.5-5.0) g/dL 02/20/21 02/20/21 02/20/21 Range/Units 04:15 05:21 06:07 WBC (3.8-10.6) k/uL RBC (4.30-5.90) m/uL Hgb (13.0-17.5) gm/dL Hct (39.0-53.0) % Plt Count (150-450) k/uL Neutrophils # (1.3-7.7) k/uL Lymphocytes # (1.0-4.8) k/uL ABG pO2 82 L (83-108) mmHg ABG HCO3 32 H (21-25) mmol/L ABG Total CO2 33 H (19-24) mmol/L BUN 33 H (9-20) mg/dL Glucose 168 H (74-99) mg/dL POC Glucose (mg/dL) 147 H (75-99) mg/dL Calcium 8.2 L (8.4-10.2) mg/dL AST 62 H (17-59) U/L ALT 65 H (4-49) U/L Albumin 2.9 L (3.5-5.0) g/dL 02/20/21 Range/Units 12:08 WBC (3.8-10.6) k/uL RBC (4.30-5.90) m/uL Hgb (13.0-17.5) gm/dL Hct (39.0-53.0) % Plt Count (150-450) k/uL Neutrophils # (1.3-7.7) k/uL Lymphocytes # (1.0-4.8) k/uL ABG pO2 (83-108) mmHg ABG HCO3 (21-25) mmol/L ABG Total CO2 (19-24) mmol/L BUN (9-20) mg/dL Glucose (74-99) mg/dL POC Glucose (mg/dL) 229 H (75-99) mg/dL Calcium (8.4-10.2) mg/dL AST (17-59) U/L ALT (4-49) U/L Albumin (3.5-5.0) g/dL Microbiology - Last 24 Hours (Table) 02/14/21 11:03 Blood Culture - Final Blood No Growth after 144 hours 02/14/21 16:46 Blood Culture - Preliminary Blood No Growth after 120 hours Assessment and Plan Assessment: Impression: Acute hypoxic respiratory failure secondary to COVID-19 pneumonia, admitted on 02/10, he was out of the window for Remdesivir. He is not vaccinated. Started on Baricitinib on 02/11, decompensated and ended up intubated on 02/14 remains intubated and mechanically ventilated. I am in the process of cutting down on sedation and hopefully achieve weaning parameters and possibly weaning mode of mechanical ventilation, but that seems to be a bit far-fetched. Elevated pro calcitonin, hence his Baricitinib was discontinued. And the patient is empirically on antibiotics in the form of cefepime. Acute right lower extremity DVT patient is on Eliquis. Initially was on heparin. No evidence of pulmonary embolism on CT angiogram. Acute kidney injury, improving. Benign essential hypertension. Dyslipidemia. Recommendation: Continue present supportive care measures Continue ventilatory support. Continue Decadron. Agree with stopping Baricitinib. Continue cefepime. Continue to monitor inflammatory markers. Will give the patient a trial of Precedex if we could discontinue propofol and fentanyl. However this is rather difficult patient is still requiring significant sedation nonetheless he is arousable in spite of all the sedation. Continue to monitor progress calcitonin. Continue nutritional support. Continue GI and DVT prophylaxis. Patient is definitely critically ill. Critical care time is over 30 minutes. Time with Patient: Greater than 30
[2021-02-20 17:55] LABS: Glucose,Whole Blood 153 mg/dL (75-99)
[2021-02-20] MEDS: CISATRACURIUM 200 MG in SODIUM CHLORIDE 0.9% 180 ML IV SCH (20:18)
[2021-02-20] MEDS: MULTIVITAMINS, THERA 1 EACH TAB PO SCH (20:24)
[2021-02-20] MEDS: EZETIMIBE 10 MG TAB PO SCH (21:51)
[2021-02-20] MEDS: PRAVASTATIN SODIUM 80 MG TAB PO SCH (21:51)
[2021-02-20 23:30] LABS: Glucose,Whole Blood 137 mg/dL (75-99)
--- NOTE | 2021-02-20 23:54 | P.PN ---
Subjective From the records This is a pleasant 60-year-old patient of Dr. rae Chronic stable medical conditions include hyperlipidemia, hypertension. Patient did not take the COVID-19 vaccine. About 7 days ago patient started having fever and dry cough chills. About 4 days ago patient tested positive for COVID-19. Patient is having one or 2 loose stools a day. Denies any body aches or headaches. No loss of taste or smell. S patient is pretty symptoms progress decided to come in. He was 82% on room air. Admitted with severe COVID 19 pneumonitis, acute kidney injury, acute hypoxic respiratory failure. Started on dexamethasone. IV fluids. Baricitinib added. February 11: Sitting of the edge of the bed. Short of breath. Eating some. Ti red. Baricitinib added by pulmonary. February 12: Sitting at edge of the bed. Short of breath. 96% on 15 L. On Baricitinib and dexamethasone. Eating about 50-75%. February 13: Sitting up in a chair. Short of breath. On 15 L nasal cannula. On Baricitinib admitted and dexamethasone. Eating some February 14: Patient went down respiratory status and was moved to the ICU. Intubated. Drips included Diprivan, Nimbex, IV heparin. Doppler positive for DVT in the right lower extremity posterior tibial vein. Ventilator settings include FiO2 90% and a PEEP of 14. Spoke to patient is Dr. Bowman telephone number [phone]. She wanted the patient to have ivermectin. I did inform her that this was not one of the CDC recommended medications. Dr. Gandhi in improvement engineer on the case is on the [facility] COVID guideline team. She also had wanted patient to be on inhalers including QVAR. She'll be discussing this with Dr. Gandhi the improvement engineer. She also wants the patient to be at high dose vitamin C. I've asked her to fax over the literature to the ICU and I will review the same. February 15: ICU: Patient currently under pain and Nimbex. He will fed taken off this morning. 2 feeding at 37 mL an hour. On the ventilator with FiO2 50% and a PEEP of 14. February 16: ICU: Drips include propofol and Nimbex. FiO2 40% and a PEEP of 14. Tube feeding. Subjective: 02/17/2021 Patient remains in the ICU sedated and intubated, with pulmonary/critical care team helping with the vent management. Patient was admitted with bilateral Covid pneumonia with bacterial super infection is suspected with hypoxia. Also his hospital case complicated with a right leg DVT. Patient has been treated currently with dexamethasone, multiple vitamins and cefepime added for suspected bacterial superinfection. Also he is on Eliquis therapeutic dose for his right leg DVT. WBCs is 14. Hemoglobin 10.8. D-dimer 4.7. LDH 999 and CRP. Patient prognosis remains guarded 02/18/2021 Patient remains intubated and sedated the critical care unit with pulmonary/critical care unit team following the patient closely. His FiO2 improved down to 40%. Distal to Our 26-28. He isn't a slight leukocytosis at 12, hemoglobin 10.4. Repeat chest x-ray showing progressed right-sided infiltrate therefore received 1 time dose of Lasix. Protonix calcitonin actually improved 2.3 down to 0.3. He remains on cefepime, dexamethasone, multiple vitamins and Eliquis with Pepcid. 02/19/2021 Patient's still intubated in the ICU. Pulmonary/critical care team on the case. His FiO2 is 40% and tachypnea similar to yesterday but today he had low-grade fever over 100.5. However her leukocytosis is the same at 10.3, hemoglobin is stable at 10.6. Chest x-ray showing the same finding suspicious for pneumonia, ARDS, CHF. Patient currently is on cefepime as well as treatment for his Covid pneumonia with dexamethasone and multiple vitamins. Anticoagulation with Eliquis and Pepcid 02/20/2021 Patient is critically ill in the ICU for bilateral Covid pneumonia and possible bacterial element of infection. With pulmonary/critical care team following the case closely and help with vent management. FiO2 today is slightly worse at 45%. Increased from the morning of 40%. PEEP was taken. The tip neck at 26. CBC showing some elements of hemoconcentration today with WBC 14.9, hemoglobin 12.4 and white count more than 600. BMP is unremarkable. Chest x-ray showing the usual bilateral infiltrates suspicious for pneumonia, ARDS versus CHF. She is on dexamethasone, multiple vitamins, cefepime, Eliquis and Pepcid Objective - Vital Signs Vital signs: Vital Signs Temp 98.0 F 02/20/21 12:00 Pulse 117 H 02/20/21 12:00 Resp 40 H 02/20/21 12:00 BP 180/84 02/20/21 11:00 Pulse Ox 97 02/20/21 12:00 Intake & Output 02/19/21 02/20/21 02/20/21 18:59 06:59 18:59 Intake Total 0915.647 6125.820 750.189 Output Total 3850 1585 800 Balance -2094.668 84.820 -49.811 Weight 88.5 kg 83.1 kg Intake: IV 276 309 256 0.9NS Pressure BAg 36 36 18 CVP 33 18 Cefepime 2 gm In Sodium 100 Chloride 0.9% 100 ml @ 25 mls/hr IVPB Q8HR [facility] Rx# :[id number] Sodium Chloride 0.9% 1, 240 240 120 000 ml @ 20 mls/hr IV . Q24H [facility] Rx#:[id number] Intake, IV Titration 710.332 622.820 278.189 Amount Cefepime 2 gm In Sodium 200 Chloride 0.9% 100 ml @ 25 mls/hr IVPB Q8HR [facility] Rx# :[id number] Clevidipine Butyrate 25 68.401 224.301 94.766 mg In Empty Bag 1 bag @ 1 MG/HR 2 mls/hr IV .Q24H [facility] Rx#:[id number] fentaNYL (PF). 1,000 mcg 174.400 176.256 98.269 In Sodium Chloride 0.9% 80 ml @ 0.5 MCG/KG/HR 4. 285 mls/hr IV .[id number] [facility] Rx#:[id number] propofoL 1,000 mg In 267.531 222.263 85.154 Empty Bag 1 bag @ Titrate IV .Q0M [facility] Rx#: [id number] Tube Feeding 529 648 216 Other 240 90 Output: Urine 3850 1585 800 Other: Voiding Method Indwelling Catheter Indwelling Catheter Indwelling Catheter ABP, PAP, CO, CI - Last Documented Arterial Blood Pressure 180/70 - Exam -GENERAL: The patient is sedated and intubated HEENT: Pupils are round and equally reacting to light. EOMI. No scleral icterus. No conjunctival pallor. Normocephalic, atraumatic. No pharyngeal erythema. No thyromegaly. CARDIOVASCULAR: S1 and S2 present. No murmurs, rubs, or gallops. PULMONARY: Chest is clear to auscultation, no wheezing or crackles. ABDOMEN: Soft, nontender, nondistended, normoactive bowel sounds. No palpable organomegaly. MUSCULOSKELETAL: No joint swelling or deformity. EXTREMITIES: No cyanosis, clubbing, or pedal edema. NEUROLOGICAL: Gross neurological examination did not reveal any focal deficits. SKIN: No rashes. no petechiae. - Labs CBC & Chem 7: 02/20/21 04:15 02/20/21 04:15 Labs: Abnormal Lab Results - Last 24 Hours (Table) 02/19/21 02/19/21 02/20/21 Range/Units 17:51 23:36 04:15 WBC 14.9 H (3.8-10.6) k/uL RBC 3.95 L (4.30-5.90) m/uL Hgb 12.4 L (13.0-17.5) gm/dL Hct 38.5 L (39.0-53.0) % Plt Count 664 H (150-450) k/uL Neutrophils # 12.9 H (1.3-7.7) k/uL Lymphocytes # 0.7 L (1.0-4.8) k/uL ABG pO2 (83-108) mmHg ABG HCO3 (21-25) mmol/L ABG Total CO2 (19-24) mmol/L BUN (9-20) mg/dL Glucose (74-99) mg/dL POC Glucose (mg/dL) 178 H 167 H (75-99) mg/dL Calcium (8.4-10.2) mg/dL AST (17-59) U/L ALT (4-49) U/L Albumin (3.5-5.0) g/dL 02/20/21 02/20/21 02/20/21 Range/Units 04:15 05:21 06:07 WBC (3.8-10.6) k/uL RBC (4.30-5.90) m/uL Hgb (13.0-17.5) gm/dL Hct (39.0-53.0) % Plt Count (150-450) k/uL Neutrophils # (1.3-7.7) k/uL Lymphocytes # (1.0-4.8) k/uL ABG pO2 82 L (83-108) mmHg ABG HCO3 32 H (21-25) mmol/L ABG Total CO2 33 H (19-24) mmol/L BUN 33 H (9-20) mg/dL Glucose 168 H (74-99) mg/dL POC Glucose (mg/dL) 147 H (75-99) mg/dL Calcium 8.2 L (8.4-10.2) mg/dL AST 62 H (17-59) U/L ALT 65 H (4-49) U/L Albumin 2.9 L (3.5-5.0) g/dL 02/20/21 Range/Units 12:08 WBC (3.8-10.6) k/uL RBC (4.30-5.90) m/uL Hgb (13.0-17.5) gm/dL Hct (39.0-53.0) % Plt Count (150-450) k/uL Neutrophils # (1.3-7.7) k/uL Lymphocytes # (1.0-4.8) k/uL ABG pO2 (83-108) mmHg ABG HCO3 (21-25) mmol/L ABG Total CO2 (19-24) mmol/L BUN (9-20) mg/dL Glucose (74-99) mg/dL POC Glucose (mg/dL) 229 H (75-99) mg/dL Calcium (8.4-10.2) mg/dL AST (17-59) U/L ALT (4-49) U/L Albumin (3.5-5.0) g/dL Microbiology - Last 24 Hours (Table) 02/14/21 16:46 Blood Culture - Preliminary Blood No Growth after 120 hours 02/14/21 11:03 Blood Culture - Preliminary Blood No Growth after 120 hours Assessment and Plan Assessment: Bilateral Covid pneumonia, bacterial superinfection is suspected as well Acute hypoxic respiratory failure Increased inflammatory markers Right leg DVT Hypertension Hyperlipidemia Plan: This is a pleasant 60 years old male who presents with Bilateral Covid pneumonia and hypoxia Continue with vitamin C, vitamin D, and zinc. Continue with dexamethasone Pulmonary team consult Continue with cefepime Labs and medication were reviewed.. Continue same treatment. Continue with symptomatic treatment. Resume home medication. Monitor lytes and vitals. DVT and GI prophylaxis. Further recommendations as per clinical course of the patient DVT prophylaxis: Eliquis GI Prophylaxis: Pepcid PT/OT: Pending Prognosis is guarded
[2021-02-21] MEDS: fentaNYL (PF). 1,000 MCG in SODIUM CHLORIDE 0.9% 80 ML IV SCH ×3 (00:39→08:28)
[2021-02-21] MEDS: CLEVIDIPINE BUTYRATE 25 MG in EMPTY BAG 1 BAG IV SCH ×7 (00:40→18:09)
[2021-02-21] MEDS: SODIUM CHLORIDE 0.9% 1,000 ML IV SCH (04:28)
[2021-02-21 05:07] LABS: Basophils % (A) 0 %; Eosinophils # (A) 0.1 k/uL (0-0.7); Eosinophils % (A) 1 %; HCT 37.6 % (39.0-53.0); HGB 12.1 gm/dL (13.0-17.5); Lymphocytes # (A) 0.9 k/uL (1.0-4.8); Lymphocytes % (A) 7 %; MCH 31.2 pg (25.0-35.0); MCHC 32.1 g/dL (31.0-37.0); MCV 97.1 fL (80.0-100.0); Mean Platelet Volume 8.1; Monocytes # (A) 1.1 k/uL (0-1.0); Monocytes % (A) 8 %; Neutrophils % (A) 82 %; Platelet Count 650 k/uL (150-450); RBC 3.88 m/uL (4.30-5.90); RDW 12.5 % (11.5-15.5); WBC 13.4 k/uL (3.8-10.6)
[2021-02-21 05:14] LABS: ABG Base Excess 7.9 mmol/L; ABG HCO3 32 mmol/L (21-25); ABG Oxygen Saturation 97.4 % (94-97); ABG PCO2 45 mmHg (35-45); ABG PH 7.46 (7.35-7.45); ABG PO2 91 mmHg (83-108); ABG TCO2 33 mmol/L (19-24)
[2021-02-21 05:26] LABS: ALT 80 U/L (4-49); AST 71 U/L (17-59); African American GFR (CKD) >90 (>60 ml/min/1.73 sqM); Alkaline Phosphatase 88 U/L (38-126); Anion Gap 8 mmol/L; Blood Urea Nitrogen 35 mg/dL (9-20); Calcium 8.5 mg/dL (8.4-10.2); Carbon Dioxide 28 mmol/L (22-30); Chloride 102 mmol/L (98-107); Glucose 139 mg/dL (74-99); Non-African American GFR(CKD) >90 (>60 ml/min/1.73 sqM); Potassium 4.5 mmol/L (3.5-5.1); Sodium 138 mmol/L (137-145); Total Bilirubin 1.2 mg/dL (0.2-1.3); Total Protein 6.7 g/dL (6.3-8.2)
[2021-02-21] MEDS: INSULIN ASPART (NovoLOG) 100 UNIT/ML VIAL SQ SCH ×3 (05:37→18:18)
[2021-02-21 06:17] LABS: Allen Test Performed? no
[2021-02-21] MEDS: CHLORHEXIDINE GLUCONATE 15 ML CUP MUCOUS MEM SCH ×2 (08:20→21:34)
[2021-02-21] MEDS: CHOLECALCIFEROL 25 MCG (1000 IU) TABLET PO SCH (08:20)
[2021-02-21] MEDS: ASCORBIC ACID 500 MG TAB PO SCH (08:20)
[2021-02-21] MEDS: CEFEPIME 2 GM in SODIUM CHLORIDE 0.9% 100 ML IVPB SCH ×2 (08:21→15:49)
[2021-02-21] MEDS: APIXABAN 5 MG TAB PO SCH ×2 (08:21→21:34)
[2021-02-21] MEDS: DEXAMETHASONE SOD PHOSPHATE 10 MG/ML 1 ML VIAL IVP SCH (08:21)
[2021-02-21] MEDS: ZINC SULFATE 220 MG CAP PO SCH (08:21)
[2021-02-21] MEDS: ALBUTEROL HFA INHALER INHALATION SCH ×4 (08:44→21:12)
[2021-02-21] MEDS: QUEtiapine 50 MG TAB PO SCH ×2 (09:43→21:34)
[2021-02-21] MEDS: DEXMEDETOMIDINE/0.9% NACL(PMX) 400 MCG in EMPTY BAG 1 BAG IV SCH ×4 (11:29→19:58)
[2021-02-21] MEDS: HYDROmorphone 1 MG/ML 1 ML SYRINGE IVP PRN (11:29)
--- NOTE | 2021-02-21 11:39 | P.PN ---
Subjective Progress Note Date: 02/21/21 Principal diagnosis: Acute hypoxic respiratory failure secondary to COVID-19 pneumonia 02/18/2021, the patient is being seen in follow-up in the intensive care unit. The patient was intubated on 02/14/2021 and the patient has been intubated since. The patient remains on propofol which is running at 50 mcg/kg per minute and the patient is also on paralyzed with Nimbex at 2 mcg/kg per minute. Adequately paralyzed and sedated on assist-control mode of mechanical ventilation with a rate of 32, tidal volume 450, FiO2 is at 40% with a PEEP of 12. I was able to wean down the PEEP likely yesterday. Repeat chest x-ray from today is showing stable findings. There may be some improved aeration of the right lung base. Nevertheless, there is still persistent bibasilar pulmonary infiltrates that are still present. Blood gases from today shows a pH of 7.44 with a pCO2 of 43 and pO2 of 78 and this was done and FiO2 of 40%. The patient had a CT angiogram and at time of admission that showed no evidence of any pulmonary embolism. It was consistent overnight he related pneumonia. Nevertheless, the patient had a DVT of the right lower extremity and the patient is currently on therapeutic dose of Eliquis 10 mg by mouth twice a day. (. The patient remains on Decadron at a dose of 6 mg IV every 24 hours. His inflammatory markers were downtrending yesterday. Repeat labs are not available from today. Most recent LDH from yesterday was down to 999 and a CRP level was down to 6. He is hemodynamically stable for now. He is on no pressors. He is on enteral feeding with vital high protein at the rate of 37 mL an hour. Cardiac rhythm is sinus. His blood pressure is under better control for now and he is on no drips and he is maintained on 0.9 saline at the rate of 26 and hour. 02/19/21, the patient is being seen for a follow-up. This is a 60-year-old male patient a case of COVID 19 related pneumonia remains intubated on a mechanical ventilator. We were finally able to get him off the paralytics yesterday and as of midnight, the patient has been off paralytics. This morning, the patient is on /propofol which is running at 45 mcg/kg per minute. The patient is also on fentanyl at 2 mcg/kg/h. The patient is on a mechanical ventilator. Currently on assist control mode at the rate of 26 and the rate was reduced yesterday and the patient is also on a tidal volume of 450, FiO2 of 4040% and a PEEP is currently at 10. The peak airway pressure on the mechanical ventilator is 22 and a chest x-ray from today shows some improvement infiltration of the lung bases bilaterally. The blood gases from today shows a pH of 7.4 with a pCO2 of 46 and pO2 of 77. The patient is currently on Decadron. The patient is on therapeutic dose of Eliquis as the patient had a right lower extremity DVT. Due to concern of infections, the patient was given IV cefepime. His protest on level was as high as 2.38 and currently is down to 0.37. Otherwise, rest of the blood work is essentially stable. Hemoglobin is 10.6, stable with a white cell count of 10.7, stable. /Electrolytes are stable. The patient is receiving vital high protein at the rate of 37 mL an hour. Cardiac rhythm is sinus. IV fluids are currently at KVO. Fluid balance over the past 24 hours has been -8 81 mL. Reevaluated today on 02/20/21, patient remains in the ICU, intubated and m echanically ventilated. He is presently on assist control rate of 26th of 450 FiO2 40% PEEP of 8 ABG showed a pO2 of 82 pCO2 of 42 pH of 7.45. Patient is on propofol, fentanyl, and Klonopin X. Propofol is at 15 cm at 2 mcg/kg/h, and level proximal is 10 mg per hour. Uterus yet is 14.9 hemoglobin is 12.4. Elects lites are normal, renal profile is normal. X-ray is showing bilateral infiltrates with left lower lobe consolidation and/or atelectasis. Patient remains on the COVID-19 cocktail, he is on Eliquis 10 mg by mouth twice a day, he is also on cefepime, Decadron 6 mg IV push daily. Patient is off Precedex at this point. I was hoping today that I couldn't wean the patient however he seems to be quite tachycardic, anxious, I will give the patient trial of Precedex and see if we could discontinue fentanyl and propofol. And proceed at least with some weaning trials of possible. I doubt if that will actually be successful but it is worth a trial. Reevaluated today on 02/17/21, patient remains in the ICU, intubated and mechanically ventilated. Patient is on assist control rate of 26, tidal volume 450, FiO2 40%, and PEEP at 8. His ABG today showed a pO2 of 91 pCO2 45 pH of 7.46. His WBC count is 13.4 hemoglobin 12.4 elects lites are normal renal profile is normal. Surprisingly, in spite of being on that much sedation, the patient is arousable, follows all simple instructions, seems to be very appropriate. Intensive still requiring clevidipine, at 12 mg per hour He is also on propofol at 40 which I cut it down to 20 shortly after I evaluated him. Fentanyl at 2 mcg/kg/h, and I went ahead and discontinued his fentanyl. Then I went ahead and recommended a trial of pressure support of 12 and CPAP, and the patient was doing great moving excellent tidal volumes in the 600 range, and his rate was in the low 20s. Then after a 20 minutes., I decided to go ahead and extubate the patient to BiPAP. He'll be placed on BiPAP with IPAP of 14, EPAP of 6, and FiO2 of 50%. This was done shortly after I evaluated the patient fully. Chest x-ray is showing persistent bilateral infiltrates, consistent with COVID-19 pneumonia. Objective - Vital Signs Vital signs: Vital Signs Temp 99.2 F 02/21/21 08:00 Pulse 124 H 02/21/21 10:00 Resp 9 L 02/21/21 10:00 BP 148/73 02/21/21 10:00 Pulse Ox 97 02/21/21 10:00 Intake & Output 02/20/21 02/21/21 02/21/21 18:59 06:59 18:59 Intake Total 3228.093 4124.748 714.871 Output Total 1150 1495 365 Balance 266.107 37.748 349.871 Intake: IV 412 312 184 0.9NS Pressure BAg 36 36 12 CVP 36 36 12 Cefepime 2 gm In Sodium 100 100 Chloride 0.9% 100 ml @ 25 mls/hr IVPB Q8HR [facility] Rx# :[id number] Sodium Chloride 0.9% 1, 240 240 60 000 ml @ 20 mls/hr IV . Q24H [facility] Rx#:[id number] Intake, IV Titration 518.107 482.748 248.871 Amount Clevidipine Butyrate 25 161.833 131.900 41.500 mg In Empty Bag 1 bag @ 1 MG/HR 2 mls/hr IV .Q24H [facility] Rx#:[id number] Dexmedetomidine/0.9% NaCl 27.839 (Pmx) 400 mcg In Empty Bag 1 bag @ 0.4 MCG/KG/HR 8.31 mls/hr IV .[id number] [facility] Rx#:[id number] Sodium Chloride 0.9% 1, 40 000 ml @ 20 mls/hr IV . Q24H [facility] Rx#:[id number] fentaNYL (PF). 1,000 mcg 189.682 270.241 65.989 In Sodium Chloride 0.9% 80 ml @ 0.5 MCG/KG/HR 4. 285 mls/hr IV .[id number] [facility] Rx#:[id number] propofoL 1,000 mg In 138.753 80.607 101.382 Empty Bag 1 bag @ Titrate IV .Q0M [facility] Rx#: [id number] Tube Feeding 486 648 162 Other 90 120 Output: Urine 1150 1495 365 Other: Voiding Method Indwelling Catheter Indwelling Catheter Indwelling Catheter ABP, PAP, CO, CI - Last Documented Arterial Blood Pressure 145/62 - Exam Physical Exam revealed 58-year-old white male on mechanical ventilation, intubated, sedated, but nonetheless he is arousable, follows simple instructions in spite of propofol and fentanyl. Head: Atraumatic normocephalic, endotracheal tube is intact. HEENT:[Neck is supple.] [No neck masses.] [No thyromegaly.] [No JVD.] Chest: [Symmetrical chest expansion, crackles at the bases. Cardiac Exam: [Normal S1 and S2, no S3 gallop, no murmur.] Abdomen: [Soft, nontender, no megaly, no rebound, no guarding, normal bowel sounds.] Extremities: [No clubbing, no edema, no cyanosis.] Neurological Exam: Patient is sedated however he is arousable, follows simple instructions, seems to be appropriate. Psychiatric: Anxious mood, blunt affect, seems to comprehend what he is being controlled. - Labs CBC & Chem 7: 02/21/21 04:45 02/21/21 04:45 Labs: Abnormal Lab Results - Last 24 Hours (Table) 02/20/21 02/20/21 02/20/21 Range/Units 12:08 17:53 23:29 WBC (3.8-10.6) k/uL RBC (4.30-5.90) m/uL Hgb (13.0-17.5) gm/dL Hct (39.0-53.0) % Plt Count (150-450) k/uL Neutrophils # (1.3-7.7) k/uL Lymphocytes # (1.0-4.8) k/uL Monocytes # (0-1.0) k/uL ABG pH (7.35-7.45) ABG HCO3 (21-25) mmol/L ABG Total CO2 (19-24) mmol/L ABG O2 Saturation (94-97) % BUN (9-20) mg/dL Glucose (74-99) mg/dL POC Glucose (mg/dL) 229 H 153 H 137 H (75-99) mg/dL AST (17-59) U/L ALT (4-49) U/L Albumin (3.5-5.0) g/dL 02/21/21 02/21/21 02/21/21 Range/Units 04:45 04:45 05:12 WBC 13.4 H (3.8-10.6) k/uL RBC 3.88 L (4.30-5.90) m/uL Hgb 12.1 L (13.0-17.5) gm/dL Hct 37.6 L (39.0-53.0) % Plt Count 650 H (150-450) k/uL Neutrophils # 11.0 H (1.3-7.7) k/uL Lymphocytes # 0.9 L (1.0-4.8) k/uL Monocytes # 1.1 H (0-1.0) k/uL ABG pH 7.46 H (7.35-7.45) ABG HCO3 32 H (21-25) mmol/L ABG Total CO2 33 H (19-24) mmol/L ABG O2 Saturation 97.4 H (94-97) % BUN 35 H (9-20) mg/dL Glucose 139 H (74-99) mg/dL POC Glucose (mg/dL) (75-99) mg/dL AST 71 H (17-59) U/L ALT 80 H (4-49) U/L Albumin 3.0 L (3.5-5.0) g/dL Microbiology - Last 24 Hours (Table) 02/14/21 16:46 Blood Culture - Final Blood No Growth after 144 hours 02/14/21 11:03 Blood Culture - Final Blood No Growth after 144 hours Assessment and Plan Assessment: Impression: Acute hypoxic respiratory failure secondary to COVID-19 pneumonia, admitted on 02/10, he was out of the window for Remdesivir. He is not vaccinated. Started on Baricitinib on 02/11, decompensated and ended up intubated on 02/14 remains intubated and mechanically ventilated. Hence we'll proceed with a weaning mode of mechanical ventilation today and placed on pressure support and CPAP and decide whether we could extubate the patient. Elevated pro calcitonin, hence his Baricitinib was discontinued. And the patient is empirically on antibiotics in the form of cefepime. Acute right lower extremity DVT patient is on Eliquis. Initially was on heparin. No evidence of pulmonary embolism on CT angiogram. Acute kidney injury, improving. Benign essential hypertension. Dyslipidemia. Recommendation: Continue present supportive care measures however the patient will be given a pressure support and CPAP, and if tolerated will extubate. Continue Decadron. Has been off Baricitinib Continue cefepime. Continue to monitor inflammatory markers. monitor in the ICU even if extubated. Start patient on Seroquel 50 mg by mouth twice a day. Continue nutritional support. Continue GI and DVT prophylaxis. Critical care time is over 30 minutes. Time with Patient: Greater than 30
[2021-02-21] MEDS ORDERED: LORazepam 2 MG/ML INJ IV STA (11:49)
[2021-02-21 11:52] LABS: Glucose,Whole Blood 192 mg/dL (75-99)
[2021-02-21] MEDS: LORazepam 2 MG/ML INJ IV PRN (14:53)
--- NOTE | 2021-02-21 17:41 | P.PN ---
Progress Note - Text Progress Note Date: 02/21/21 Chief Complaint: Short of breath This is a pleasant 60-year-old patient of Dr. rae Chronic stable medical conditions include hyperlipidemia, hypertension. Patient did not take the COVID-19 vaccine. About 7 days ago patient started having fever and dry cough chills. About 4 days ago patient tested positive for COVID-19. Patient is having one or 2 loose stools a day. Denies any body aches or headaches. No loss of taste or smell. S patient is pretty symptoms progress decided to come in. He was 82% on room air. Admitted with severe COVID 19 pneumonitis, acute kidney injury, acute hypoxic respiratory failure. Started on dexamethasone. IV fluids. Baricitinib added. February 11: Sitting of the edge of the bed. Short of breath. Eating some. Tired. Baricitinib added by pulmonary. February 12: Sitting at edge of the bed. Short of breath. 96% on 15 L. On Baricitinib and dexamethasone. Eating about 50-75%. February 13: Sitting up in a chair. Short of breath. On 15 L nasal cannula. On Baricitinib admitted and dexamethasone. Eating some February 14: Patient went down respiratory status and was moved to the ICU. Intubated. Drips included Diprivan, Nimbex, IV heparin. Doppler positive for DVT in the right lower extremity posterior tibial vein. Ventilator settings include FiO2 90% and a PEEP of 14. Spoke to patient is Dr. Bowman telephone number [phone]. She wanted the patient to have ivermectin. I did inform her that this was not one of the CDC recommended medications. Dr. Gandhi in coin dealer on the case is on the [facility] COVID guideline team. She also had wanted patient to be on inhalers including QVAR. She'll be discussing this with Dr. Gandhi the coin dealer. She also wants the patient to be at high dose vitamin C. I've asked her to fax over the literature to the ICU and I will review the same. February 15: ICU: Patient currently under pain and Nimbex. He will fed taken off this morning. 2 feeding at 37 mL an hour. On the ventilator with FiO2 50% and a PEEP of 14. February 16: ICU: Drips include propofol and Nimbex. FiO2 40% and a PEEP of 14. Tube feeding. February 21: ICU patient was extubated earlier today. Around 10 AM. Was getting 2 feeding prior to that. Currently on BiPAP 50%. Tired. On 50%. Current drips include Precedex and Cleviprex. Review of systems: Patient lethargic Active Medications Acetaminophen (Acetaminophen Tab 325 Mg Tab) 650 mg PO Q6HR PRN PRN Reason: Mild Pain or Fever > 100.5 Last Admin: 02/19/21 12:42 Dose: 650 mg Documented by: Albuterol Sulfate (Albuterol Hfa Inhaler) 2 puff INHALATION RT-QID PRN PRN Reason: Shortness Of Breath Or Wheezing Albuterol Sulfate (Albuterol Hfa Inhaler) 2 puff INHALATION RT-QID [facility] Last Admin: 02/21/21 15:04 Dose: 2 puff Documented by: Apixaban (Apixaban 5 Mg Tab) 10 mg PO BID [facility]; Protocol Stop: 02/22/21 10:45 Last Admin: 02/21/21 08:21 Dose: 10 mg Documented by: Apixaban (Apixaban 5 Mg Tab) 5 mg PO BID [facility]; Protocol Ascorbic Acid (Ascorbic Acid 500 Mg Tab) 1,000 mg PO DAILY [facility] Last Admin: 02/21/21 08:20 Dose: 1,000 mg Documented by: Bisacodyl (Bisacodyl 10 Mg Supp) 10 mg RECTAL DAILY PRN PRN Reason: Constipation Last Admin: 02/19/21 11:00 Dose: 10 mg Documented by: Chlorhexidine Gluconate (Chlorhexidine Gluconate 15 Ml Cup) 15 ml MUCOUS MEM BID [facility] Last Admin: 02/21/21 08:20 Dose: 15 ml Documented by: Cholecalciferol (Cholecalciferol 25 Mcg (1000 Iu) Tablet) 100 mcg PO DAILY [facility] Last Admin: 02/21/21 08:20 Dose: 100 mcg Documented by: Dexamethasone Sodium Phosphate (Dexamethasone Sod Phosphate 10 Mg/Ml 1 Ml Vial) 6 mg IVP DAILY [facility] Last Admin: 02/21/21 08:21 Dose: 6 mg Documented by: Ezetimibe (Ezetimibe 10 Mg Tab) 10 mg PO HS [facility] Last Admin: 02/20/21 21:51 Dose: 10 mg Documented by: Hydromorphone HCl (Hydromorphone 1 Mg/Ml 1 Ml Syringe) 1 mg IVP Q1HR PRN PRN Reason: Pain Last Admin: 02/21/21 11:29 Dose: 1 mg Documented by: Sodium Chloride (Saline 0.9%) 1,000 mls @ 20 mls/hr IV .Q24H [facility] Last Admin: 02/21/21 04:28 Dose: 20 mls/hr Documented by: Cefepime HCl 2 gm/ Sodium (Chloride) 100 mls @ 25 mls/hr IVPB Q8HR [facility] Last Admin: 02/21/21 15:49 Dose: 25 mls/hr Documented by: Clevidipine 25 mg/ IV Solution 50 mls @ 2 mls/hr IV .Q24H [facility]; Protocol Last Titration: 02/21/21 17:00 Dose: 4 mg/hr, 8 mls/hr Documented by: Dexmedetomidine HCl 400 mcg/ (IV Solution) 100 mls @ 8.31 mls/hr IV .Q12H3M [facility]; Protocol Last Admin: 02/21/21 15:00 Dose: 1.4 mcg/kg/hr, 29.085 mls/hr Documented by: Insulin Aspart (Insulin Aspart (Novolog) 100 Unit/Ml Vial) 0 unit SQ Q6H [facility]; Protocol Last Admin: 02/21/21 12:35 Dose: 5 unit Documented by: Lorazepam (Lorazepam 2 Mg/Ml Inj) 2 mg IV Q4HR PRN PRN Reason: Anxiety Last Admin: 02/21/21 14:53 Dose: 2 mg Documented by: Multivitamins (Multivitamins, Thera 1 Each Tab) 1 each PO [facility] Last Admin: 02/20/21 20:24 Dose: 1 each Documented by: Pravastatin Sodium (Pravastatin Sodium 80 Mg Tab) 80 mg PO HS [facility] Last Admin: 02/20/21 21:51 Dose: 80 mg Documented by: Quetiapine Fumarate (Quetiapine 50 Mg Tab) 50 mg PO BID [facility] Last Admin: 02/21/21 09:43 Dose: 50 mg Documented by: Zinc Sulfate (Zinc Sulfate 220 Mg Cap) 220 mg PO DAILY [facility] Last Admin: 02/21/21 08:21 Dose: 220 mg Documented by: Past medical history to include: Hypertension, hyperlipidemia, diverticulosis, bilateral tinnitus, 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 Stopped in 1987. He has takes couple of drinks a day. 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 Family history: Reviewed, noncontributory to presentation Physical examination: VITAL SIGNS: 99, 16, 29, 129/71, 99% on BiPAP GENERAL: Laying in bed, lethargic LUNGS: Respiratory rate increased; PSYCH: Unable to assess Rest of the exam per pulmonary and nursing INVESTIGATIONS, reviewed in the clinical context: February 21: White count 13.4 hemoglobin 12.1 platelets 650 sodium 138 potassium 4.5 creatinine 0.69 February 16: White count 17.8 hemoglobin 12.1 d-dimer 4.3 potassium 4.8 creatinine 0.9 CRP 13.4 February 15: WBC eating 0.3 hemoglobin 12.3 platelets 8.9 d-dimer greater than 34 potassium 5.2 creatinine 0.97 CRP 22 February 14: WBC 25.8 hemoglobin 14.9 d-dimer greater than 34 potassium 4.3 creatinine 0.77 pro-calcitonin 0.21 Ultrasound venous Doppler right leg: DVT posterior tibial vein. February 13: WBC 12.7 hemoglobin 15.4 d-dimer 29 potassium 4.8 creatinine 0.73 Chest CTA [February 12]: Negative for PE Doppler ultrasound [February 11]: Negative for DVT February 12: WBC 9.6 hemoglobin 15.6 d-dimer 4.76 potassium 4.5 creatinine 0.81 February 11: D-dimer 2.33 potassium 4.5 creatinine 0.94 CRP 35.5 Ultrasound kidney: Kidneys unremarkable. Possible hepatic steatosis. WBC 5.5 hemoglobin 14.9 platelets 206 lymphocytes 0.6 sodium 136 potassium 4.1 BUN 24 creatinine 1.28 CRP 33.2 Assessment and plan: -Acute severe COVID 19 pneumonitis in a patient did not receive the COVID-19 vaccine: Slow improvement Dexamethasone. Subcu Lovenox. Vitamin C vitamin D zinc. -Hyperlipidemia Zetia 10 mg daily at bedtime Pravachol 80 mg daily at bedtime -Acute DVT right lower extremity tibial vein IV heparin. Now eliquis -IV heparin monitoring: Discontinued -Essential hypertension amlodipine 5 mg a day currently held -Acute kidney injury, prerenal from decreased oral intake: Better IV fluids. -Acute severe hypoxic respiratory failure from COVID-19: Slow to respond ventilator. Extubated on February 21. BiPAP 50% Extubated today. Drips include Precedex and Cleviprex. On BiPAP 50%. 2 feeding on hold now.
[2021-02-21 18:01] LABS: Glucose,Whole Blood 148 mg/dL (75-99)
[2021-02-21] MEDS: PRAVASTATIN SODIUM 80 MG TAB PO SCH (21:34)
[2021-02-21] MEDS: EZETIMIBE 10 MG TAB PO SCH (21:34)
[2021-02-21] MEDS: MULTIVITAMINS, THERA 1 EACH TAB PO SCH (21:34)
[2021-02-22 00:08] LABS: Glucose,Whole Blood 80 mg/dL (75-99)
[2021-02-22] MEDS: INSULIN ASPART (NovoLOG) 100 UNIT/ML VIAL SQ SCH ×4 (00:10→19:27)
[2021-02-22] MEDS: CEFEPIME 2 GM in SODIUM CHLORIDE 0.9% 100 ML IVPB SCH ×3 (00:11→15:44)
[2021-02-22] MEDS: DEXMEDETOMIDINE/0.9% NACL(PMX) 400 MCG in EMPTY BAG 1 BAG IV SCH ×3 (02:30→20:16)
[2021-02-22 04:16] LABS: Basophils % (A) 0 %; Eosinophils # (A) 0.1 k/uL (0-0.7); Eosinophils % (A) 1 %; HCT 36.6 % (39.0-53.0); HGB 11.7 gm/dL (13.0-17.5); Lymphocytes # (A) 0.8 k/uL (1.0-4.8); Lymphocytes % (A) 7 %; MCH 31.2 pg (25.0-35.0); MCHC 31.9 g/dL (31.0-37.0); MCV 97.7 fL (80.0-100.0); Mean Platelet Volume 8.1; Monocytes # (A) 0.9 k/uL (0-1.0); Monocytes % (A) 8 %; Neutrophils # (A) 9.1 k/uL (1.3-7.7); Neutrophils % (A) 82 %; Platelet Count 578 k/uL (150-450); RBC 3.75 m/uL (4.30-5.90); RDW 12.4 % (11.5-15.5); WBC 11.1 k/uL (3.8-10.6)
[2021-02-22 04:42] LABS: ALT 87 U/L (4-49); AST 68 U/L (17-59); African American GFR (CKD) >90 (>60 ml/min/1.73 sqM); Albumin 2.8 g/dL (3.5-5.0); Alkaline Phosphatase 81 U/L (38-126); Anion Gap 6 mmol/L; Blood Urea Nitrogen 27 mg/dL (9-20); Calcium 8.4 mg/dL (8.4-10.2); Carbon Dioxide 28 mmol/L (22-30); Chloride 105 mmol/L (98-107); Glucose 98 mg/dL (74-99); Non-African American GFR(CKD) >90 (>60 ml/min/1.73 sqM); Potassium 4.5 mmol/L (3.5-5.1); Sodium 139 mmol/L (137-145); Total Bilirubin 1.3 mg/dL (0.2-1.3); Total Protein 6.4 g/dL (6.3-8.2)
[2021-02-22] MEDS: CLEVIDIPINE BUTYRATE 25 MG in EMPTY BAG 1 BAG IV SCH ×2 (04:58→20:30)
[2021-02-22 06:04] LABS: Glucose,Whole Blood 96 mg/dL (75-99)
[2021-02-22] MEDS: SODIUM CHLORIDE 0.9% 1,000 ML IV SCH (06:39)
[2021-02-22] MEDS: DEXAMETHASONE SOD PHOSPHATE 10 MG/ML 1 ML VIAL IVP SCH (08:37)
[2021-02-22] MEDS: ALBUTEROL HFA INHALER INHALATION SCH ×4 (09:03→20:43)
[2021-02-22 09:52] LABS: ABG Base Excess 4.8 mmol/L; ABG HCO3 27 mmol/L (21-25); ABG Oxygen Saturation 97.9 % (94-97); ABG PCO2 31 mmHg (35-45); ABG PH 7.55 (7.35-7.45); ABG PO2 91 mmHg (83-108); ABG TCO2 28 mmol/L (19-24)
[2021-02-22 09:54] LABS: Allen Test Performed? no
[2021-02-22] MEDS: APIXABAN 5 MG TAB PO SCH ×2 (09:54→21:16)
[2021-02-22] MEDS: QUEtiapine 50 MG TAB PO SCH (09:55)
[2021-02-22] MEDS: CHLORHEXIDINE GLUCONATE 15 ML CUP MUCOUS MEM SCH ×2 (10:19→21:17)
--- NOTE | 2021-02-22 10:53 | P.PN ---
Subjective Progress Note Date: 02/22/21 Principal diagnosis: Acute hypoxic respiratory failure secondary to COVID-19 pneumonia 02/18/2021, the patient is being seen in follow-up in the intensive care unit. The patient was intubated on 02/14/2021 and the patient has been intubated since. The patient remains on propofol which is running at 50 mcg/kg per minute and the patient is also on paralyzed with Nimbex at 2 mcg/kg per minute. Adequately paralyzed and sedated on assist-control mode of mechanical ventilation with a rate of 32, tidal volume 450, FiO2 is at 40% with a PEEP of 12. I was able to wean down the PEEP likely yesterday. Repeat chest x-ray from today is showing stable findings. There may be some improved aeration of the right lung base. Nevertheless, there is still persistent bibasilar pulmonary infiltrates that are still present. Blood gases from today shows a pH of 7.44 with a pCO2 of 43 and pO2 of 78 and this was done and FiO2 of 40%. The patient had a CT angiogram and at time of admission that showed no evidence of any pulmonary embolism. It was consistent overnight he related pneumonia. Nevertheless, the patient had a DVT of the right lower extremity and the patient is currently on therapeutic dose of Eliquis 10 mg by mouth twice a day. (. The patient remains on Decadron at a dose of 6 mg IV every 24 hours. His inflammatory markers were downtrending yesterday. Repeat labs are not available from today. Most recent LDH from yesterday was down to 999 and a CRP level was down to 6. He is hemodynamically stable for now. He is on no pressors. He is on enteral feeding with vital high protein at the rate of 37 mL an hour. Cardiac rhythm is sinus. His blood pressure is under better control for now and he is on no drips and he is maintained on 0.9 saline at the rate of 26 and hour. 02/19/21, the patient is being seen for a follow-up. This is a 60-year-old male patient a case of COVID 19 related pneumonia remains intubated on a mechanical ventilator. We were finally able to get him off the paralytics yesterday and as of midnight, the patient has been off paralytics. This morning, the patient is on /propofol which is running at 45 mcg/kg per minute. The patient is also on fentanyl at 2 mcg/kg/h. The patient is on a mechanical ventilator. Currently on assist control mode at the rate of 26 and the rate was reduced yesterday and the patient is also on a tidal volume of 450, FiO2 of 4040% and a PEEP is currently at 10. The peak airway pressure on the mechanical ventilator is 22 and a chest x-ray from today shows some improvement infiltration of the lung bases bilaterally. The blood gases from today shows a pH of 7.4 with a pCO2 of 46 and pO2 of 77. The patient is currently on Decadron. The patient is on therapeutic dose of Eliquis as the patient had a right lower extremity DVT. Due to concern of infections, the patient was given IV cefepime. His protest on level was as high as 2.38 and currently is down to 0.37. Otherwise, rest of the blood work is essentially stable. Hemoglobin is 10.6, stable with a white cell count of 10.7, stable. /Electrolytes are stable. The patient is receiving vital high protein at the rate of 37 mL an hour. Cardiac rhythm is sinus. IV fluids are currently at KVO. Fluid balance over the past 24 hours has been -8 81 mL. Reevaluated today on 02/20/21, patient remains in the ICU, intubated and m echanically ventilated. He is presently on assist control rate of 26th of 450 FiO2 40% PEEP of 8 ABG showed a pO2 of 82 pCO2 of 42 pH of 7.45. Patient is on propofol, fentanyl, and Klonopin X. Propofol is at 15 cm at 2 mcg/kg/h, and level proximal is 10 mg per hour. Uterus yet is 14.9 hemoglobin is 12.4. Elects lites are normal, renal profile is normal. X-ray is showing bilateral infiltrates with left lower lobe consolidation and/or atelectasis. Patient remains on the COVID-19 cocktail, he is on Eliquis 10 mg by mouth twice a day, he is also on cefepime, Decadron 6 mg IV push daily. Patient is off Precedex at this point. I was hoping today that I couldn't wean the patient however he seems to be quite tachycardic, anxious, I will give the patient trial of Precedex and see if we could discontinue fentanyl and propofol. And proceed at least with some weaning trials of possible. I doubt if that will actually be successful but it is worth a trial. Reevaluated today on 02/21/21, patient remains in the ICU, intubated and mechanically ventilated. Patient is on assist control rate of 26, tidal volume 450, FiO2 40%, and PEEP at 8. His ABG today showed a pO2 of 91 pCO2 45 pH of 7.46. His WBC count is 13.4 hemoglobin 12.4 elects lites are normal renal profile is normal. Surprisingly, in spite of being on that much sedation, the patient is arousable, follows all simple instructions, seems to be very appropriate. Intensive still requiring clevidipine, at 12 mg per hour He is also on propofol at 40 which I cut it down to 20 shortly after I evaluated him. Fentanyl at 2 mcg/kg/h, and I went ahead and discontinued his fentanyl. Then I went ahead and recommended a trial of pressure support of 12 and CPAP, and the patient was doing great moving excellent tidal volumes in the 600 range, and his rate was in the low 20s. Then after a 20 minutes., I decided to go ahead and extubate the patient to BiPAP. He'll be placed on BiPAP with IPAP of 14, EPAP of 6, and FiO2 of 50%. This was done shortly after I evaluated the patient fully. Chest x-ray is showing persistent bilateral infiltrates, consistent with COVID-19 pneumonia. Reevaluated today on 02/22/21, patient remains in the ICU, he was extubated yesterday to BiPAP. Remains on BiPAP at 14/6 and 50% FiO2. Patient is extremely anxious, and he is requiring intermittent Ativan injections and he is on Precedex. EEG this morning showed a pO2 of 91 pCO2 of 31 pH of 7.55, patient is on 50% FiO2, he is on BiPAP with IPAP of 14 and EPAP of 6. Still requiring clevidipine for elevated blood pressure. CT angiogram on 02/12 showed no evidence of pulmonary embolism. It was mostly consistent with COVID-19 pneumon ia. Patient remains on Eliquis S5 milligrams twice a day. He is basically anticoagulated. Nonetheless I will go ahead and order a d-dimer on this patient. Remains empirically on antibiotics in the form of cefepime. He is also on bronchodilators, Decadron 6 mg IV push daily. Patient was placed on Seroquel which I plan to increase the dose today from 50 mg twice a day to 100 mg by mouth twice a day in the meantime I plan to continue his Precedex and Ativan as needed. Chest x-ray continues to show by basilar infiltrates. Objective - Vital Signs Vital signs: Vital Signs Temp 97.6 F 02/22/21 04:00 Pulse 67 02/22/21 10:00 Resp 32 H 02/22/21 10:00 BP 148/76 02/22/21 07:00 Pulse Ox 92 L 02/22/21 10:00 Intake & Output 02/21/21 02/22/21 02/22/21 18:59 06:59 18:59 Intake Total 1234.474 282.437 161 Output Total 1490 1925 275 Balance -255.526 -1642.563 -114 Weight 83.1 kg Intake: IV 432 72 161 0.9NS Pressure BAg 36 36 18 CVP 36 36 3 Cefepime 2 gm In Sodium 200 100 Chloride 0.9% 100 ml @ 25 mls/hr IVPB Q8HR [facility] Rx# :[id number] Sodium Chloride 0.9% 1, 160 40 000 ml @ 20 mls/hr IV . Q24H [facility] Rx#:[id number] Intake, IV Titration 520.474 210.437 Amount Clevidipine Butyrate 25 171.767 34.4 mg In Empty Bag 1 bag @ 1 MG/HR 2 mls/hr IV .Q24H [facility] Rx#:[id number] Dexmedetomidine/0.9% NaCl 28.666 (Pmx) 400 mcg In Empty Bag 1 bag @ 0.4 MCG/KG/HR 8.31 mls/hr IV .Q12H3M [facility] Rx#:[id number] Dexmedetomidine/0.9% NaCl 112.670 176.037 (Pmx) 400 mcg In Empty Bag 1 bag @ 0.4 MCG/KG/HR 8.31 mls/hr IV .Q12H3M [facility] Rx#:[id number] Sodium Chloride 0.9% 1, 40 000 ml @ 20 mls/hr IV . Q24H [facility] Rx#:[id number] fentaNYL (PF). 1,000 mcg 65.989 In Sodium Chloride 0.9% 80 ml @ 0.5 MCG/KG/HR 4. 285 mls/hr IV .[id number] [facility] Rx#:[id number] propofoL 1,000 mg In 101.382 Empty Bag 1 bag @ Titrate IV .Q0M [facility] Rx#: [id number] Tube Feeding 162 Other 120 Output: Urine 1490 1925 275 Other: Voiding Method Indwelling Catheter Indwelling Catheter ABP, PAP, CO, CI - Last Documented Arterial Blood Pressure 146/64 - Exam Physical Exam revealed 58-year-old white male on BiPAP, seems to be comfortable except intermittently tachycardic and anxious. Head: Atraumatic normocephalic, endotracheal tube is intact. HEENT:[Neck is supple.] [No neck masses.] [No thyromegaly.] [No JVD.] Chest: [Symmetrical chest expansion, crackles at the bases. Cardiac Exam: [Normal S1 and S2, no S3 gallop, no murmur.] Abdomen: [Soft, nontender, no megaly, no rebound, no guarding, normal bowel sounds.] Extremities: [No clubbing, no edema, no cyanosis.] Neurological Exam: Arousable, follows simple instructions, seems to be generally weak. Psychiatric: Anxious mood, blunt affect, - Labs CBC & Chem 7: 02/22/21 04:00 02/22/21 04:00 Labs: Abnormal Lab Results - Last 24 Hours (Table) 02/21/21 02/21/21 02/22/21 Range/Units 11:51 18:00 04:00 WBC 11.1 H (3.8-10.6) k/uL RBC 3.75 L (4.30-5.90) m/uL Hgb 11.7 L (13.0-17.5) gm/dL Hct 36.6 L (39.0-53.0) % Plt Count 578 H (150-450) k/uL Neutrophils # 9.1 H (1.3-7.7) k/uL Lymphocytes # 0.8 L (1.0-4.8) k/uL ABG pH (7.35-7.45) ABG pCO2 (35-45) mmHg ABG HCO3 (21-25) mmol/L ABG Total CO2 (19-24) mmol/L ABG O2 Saturation (94-97) % BUN (9-20) mg/dL Creatinine (0.66-1.25) mg/dL POC Glucose (mg/dL) 192 H 148 H (75-99) mg/dL AST (17-59) U/L ALT (4-49) U/L Albumin (3.5-5.0) g/dL 02/22/21 02/22/21 Range/Units 04:00 09:46 WBC (3.8-10.6) k/uL RBC (4.30-5.90) m/uL Hgb (13.0-17.5) gm/dL Hct (39.0-53.0) % Plt Count (150-450) k/uL Neutrophils # (1.3-7.7) k/uL Lymphocytes # (1.0-4.8) k/uL ABG pH 7.55 H (7.35-7.45) ABG pCO2 31 L (35-45) mmHg ABG HCO3 27 H (21-25) mmol/L ABG Total CO2 28 H (19-24) mmol/L ABG O2 Saturation 97.9 H (94-97) % BUN 27 H (9-20) mg/dL Creatinine 0.63 L (0.66-1.25) mg/dL POC Glucose (mg/dL) (75-99) mg/dL AST 68 H (17-59) U/L ALT 87 H (4-49) U/L Albumin 2.8 L (3.5-5.0) g/dL Assessment and Plan Assessment: Impression: Acute hypoxic respiratory failure secondary to COVID-19 pneumonia, admitted on 02/10, he was out of the window for Remdesivir. He is not vaccinated. Started on Baricitinib on 02/11, decompensated and ended up intubated on 02/14 remains intubated and mechanically ventilated. Extubated to BiPAP on 02/21/21, remains on BiPAP. Elevated pro calcitonin, hence his Baricitinib was discontinued. And the patient is empirically on antibiotics in the form of cefepime. Acute right lower extremity DVT patient is on Eliquis. Fully anticoagulated. Acute kidney injury, resolved. Benign essential hypertension. Dyslipidemia. Recommendation: Continue BiPAP and continue to monitor in the ICU. Continue Eliquis. Continue Decadron. off Baricitinib Continue cefepime. Continue Ativan when necessary. Increase Seroquel to 100 mg by mouth twice a day. Continue Precedex. And titrate accordingly Continue nutritional support. Continue GI prophylaxis Doses remains relatively guarded and not ready to let the patient transfer out of the ICU at this point yet. Critical care time is over 30 minutes. Time with Patient: Greater than 30
[2021-02-22] MEDS: LORazepam 2 MG/ML INJ IV PRN ×2 (11:43→18:39)
[2021-02-22 12:10] LABS: Glucose,Whole Blood 135 mg/dL (75-99)
--- NOTE | 2021-02-22 14:12 | P.PN ---
Progress Note - Text Progress Note Date: 02/22/21 Chief Complaint: Short of breath This is a pleasant 60-year-old patient of Dr. rae Chronic stable medical conditions include hyperlipidemia, hypertension. Patient did not take the COVID-19 vaccine. About 7 days ago patient started having fever and dry cough chills. About 4 days ago patient tested positive for COVID-19. Patient is having one or 2 loose stools a day. Denies any body aches or headaches. No loss of taste or smell. S patient is pretty symptoms progress decided to come in. He was 82% on room air. Admitted with severe COVID 19 pneumonitis, acute kidney injury, acute hypoxic respiratory failure. Started on dexamethasone. IV fluids. Baricitinib added. February 11: Sitting of the edge of the bed. Short of breath. Eating some. Tired. Baricitinib added by pulmonary. February 12: Sitting at edge of the bed. Short of breath. 96% on 15 L. On Baricitinib and dexamethasone. Eating about 50-75%. February 13: Sitting up in a chair. Short of breath. On 15 L nasal cannula. On Baricitinib admitted and dexamethasone. Eating some February 14: Patient went down respiratory status and was moved to the ICU. Intubated. Drips included Diprivan, Nimbex, IV heparin. Doppler positive for DVT in the right lower extremity posterior tibial vein. Ventilator settings include FiO2 90% and a PEEP of 14. Spoke to patient is Dr. Bowman telephone number [phone]. She wanted the patient to have ivermectin. I did inform her that this was not one of the CDC recommended medications. Dr. Gandhi in prototype fabricator on the case is on the [facility] COVID guideline team. She also had wanted patient to be on inhalers including QVAR. She'll be discussing this with Dr. Gandhi the prototype fabricator. She also wants the patient to be at high dose vitamin C. I've asked her to fax over the literature to the ICU and I will review the same. February 15: ICU: Patient currently under pain and Nimbex. He will fed taken off this morning. 2 feeding at 37 mL an hour. On the ventilator with FiO2 50% and a PEEP of 14. February 16: ICU: Drips include propofol and Nimbex. FiO2 40% and a PEEP of 14. Tube feeding. February 21: ICU patient was extubated earlier today. Around 10 AM. Was getting 2 feeding prior to that. Currently on BiPAP 50%. Tired. On 50%. Current drips include Precedex and Cleviprex. February 22: ICU: Tired lethargic. On BiPAP 50%. Drips include Precedex and Cleviprex. Review of systems: Patient lethargic Active Medications Acetaminophen (Acetaminophen Tab 325 Mg Tab) 650 mg PO Q6HR PRN PRN Reason: Mild Pain or Fever > 100.5 Last Admin: 02/19/21 12:42 Dose: 650 mg Documented by: Albuterol Sulfate (Albuterol Hfa Inhaler) 2 puff INHALATION RT-QID PRN PRN Reason: Shortness Of Breath Or Wheezing Albuterol Sulfate (Albuterol Hfa Inhaler) 2 puff INHALATION RT-QID [facility] Last Admin: 02/22/21 12:11 Dose: 2 puff Documented by: Apixaban (Apixaban 5 Mg Tab) 5 mg PO BID [facility]; Protocol Ascorbic Acid (Ascorbic Acid 500 Mg Tab) 1,000 mg PO DAILY [facility] Last Admin: 02/21/21 08:20 Dose: 1,000 mg Documented by: Bisacodyl (Bisacodyl 10 Mg Supp) 10 mg RECTAL DAILY PRN PRN Reason: Constipation Last Admin: 02/19/21 11:00 Dose: 10 mg Documented by: Chlorhexidine Gluconate (Chlorhexidine Gluconate 15 Ml Cup) 15 ml MUCOUS MEM BID [facility] Last Admin: 02/22/21 10:19 Dose: Not Given Documented by: Cholecalciferol (Cholecalciferol 25 Mcg (1000 Iu) Tablet) 100 mcg PO DAILY [facility] Last Admin: 02/21/21 08:20 Dose: 100 mcg Documented by: Dexamethasone Sodium Phosphate (Dexamethasone Sod Phosphate 10 Mg/Ml 1 Ml Vial) 6 mg IVP DAILY [facility] Last Admin: 02/22/21 08:37 Dose: 6 mg Documented by: Ezetimibe (Ezetimibe 10 Mg Tab) 10 mg PO HS [facility] Last Admin: 02/21/21 21:34 Dose: Not Given Documented by: Hydromorphone HCl (Hydromorphone 1 Mg/Ml 1 Ml Syringe) 1 mg IVP Q1HR PRN PRN Reason: Pain Last Admin: 02/21/21 11:29 Dose: 1 mg Documented by: Sodium Chloride (Saline 0.9%) 1,000 mls @ 20 mls/hr IV .Q24H [facility] Last Admin: 02/22/21 06:39 Dose: 20 mls/hr Documented by: Cefepime HCl 2 gm/ Sodium (Chloride) 100 mls @ 25 mls/hr IVPB Q8HR [facility] Last Admin: 02/22/21 08:38 Dose: 25 mls/hr Documented by: Clevidipine 25 mg/ IV Solution 50 mls @ 2 mls/hr IV .Q24H [facility]; Protocol Last Admin: 02/22/21 04:58 Dose: 2 mg/hr, 4 mls/hr Documented by: Dexmedetomidine HCl 400 mcg/ (IV Solution) 100 mls @ 8.31 mls/hr IV .Q12H3M [facility]; Protocol Last Titration: 02/22/21 10:35 Dose: Infused Documented by: Insulin Aspart (Insulin Aspart (Novolog) 100 Unit/Ml Vial) 0 unit SQ Q6H [facility]; Protocol Last Admin: 02/22/21 06:39 Dose: Not Given Documented by: Lorazepam (Lorazepam 2 Mg/Ml Inj) 2 mg IV Q4HR PRN PRN Reason: Anxiety Last Admin: 02/22/21 11:43 Dose: 2 mg Documented by: Multivitamins (Multivitamins, Thera 1 Each Tab) 1 each PO [facility] Last Admin: 02/21/21 21:34 Dose: Not Given Documented by: Pravastatin Sodium (Pravastatin Sodium 80 Mg Tab) 80 mg PO HS [facility] Last Admin: 02/21/21 21:34 Dose: Not Given Documented by: Quetiapine Fumarate (Quetiapine 100 Mg Tab) 100 mg PO BID [facility] Zinc Sulfate (Zinc Sulfate 220 Mg Cap) 220 mg PO DAILY [facility] Last Admin: 02/21/21 08:21 Dose: 220 mg Documented by: Past medical history to include: Hypertension, hyperlipidemia, diverticulosis, bilateral tinnitus, 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 Stopped in 1987. He has takes couple of drinks a day. 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 Family history: Reviewed, noncontributory to presentation Physical examination: VITAL SIGNS: Afebrile, 67, 32, 1 46 x 64, 92% on BiPAP GENERAL: Laying in bed, lethargic LUNGS: Respiratory rate increased; PSYCH: Unable to assess Rest of the exam per pulmonary and nursing INVESTIGATIONS, reviewed in the clinical context: February 22: WBC 11.1 hemoglobin 11.7 platelets 578 potassium 4.5 creatinine 0.63 February 21: White count 13.4 hemoglobin 12.1 platelets 650 sodium 138 potassium 4.5 creatinine 0.69 February 16: White count 17.8 hemoglobin 12.1 d-dimer 4.3 potassium 4.8 creatinine 0.9 CRP 13.4 February 15: WBC eating 0.3 hemoglobin 12.3 platelets 8.9 d-dimer greater than 34 potassium 5.2 creatinine 0.97 CRP 22 February 14: WBC 25.8 hemoglobin 14.9 d-dimer greater than 34 potassium 4.3 creatinine 0.77 pro-calcitonin 0.21 Ultrasound venous Doppler right leg: DVT posterior tibial vein. February 13: WBC 12.7 hemoglobin 15.4 d-dimer 29 potassium 4.8 creatinine 0.73 Chest CTA [February 12]: Negative for PE Doppler ultrasound [February 11]: Negative for DVT February 12: WBC 9.6 hemoglobin 15.6 d-dimer 4.76 potassium 4.5 creatinine 0.81 February 11: D-dimer 2.33 potassium 4.5 creatinine 0.94 CRP 35.5 Ultrasound kidney: Kidneys unremarkable. Possible hepatic steatosis. WBC 5.5 hemoglobin 14.9 platelets 206 lymphocytes 0.6 sodium 136 potassium 4.1 BUN 24 creatinine 1.28 CRP 33.2 Assessment and plan: -Acute severe COVID 19 pneumonitis in a patient did not receive the COVID-19 vaccine: Slow improvement Dexamethasone. Subcu Lovenox. Vitamin C vitamin D zinc. -Possible secondary pneumonia Empirically and on IV cefepime -Hyperlipidemia Zetia 10 mg daily at bedtime Pravachol 80 mg daily at bedtime -Acute DVT right lower extremity tibial vein IV heparin. Now eliquis -IV heparin monitoring: Discontinued -Essential hypertension amlodipine 5 mg a day currently held -Acute kidney injury, prerenal from decreased oral intake: Better IV fluids. -Anxiety and controlled Seroquel increased by pulmonary. Ativan when necessary. -Acute severe hypoxic respiratory failure from COVID-19: Slow to respond ventilator. Extubated on February 21. BiPAP 50% Drips include Precedex and Cleviprex. On BiPAP 50%. Anxiety. Receiving Ativan. Has needed
[2021-02-22] MEDS: ZINC SULFATE 220 MG CAP PO SCH (14:39)
[2021-02-22] MEDS: CHOLECALCIFEROL 25 MCG (1000 IU) TABLET PO SCH (14:39)
[2021-02-22] MEDS: ASCORBIC ACID 500 MG TAB PO SCH (14:39)
[2021-02-22 17:54] LABS: Glucose,Whole Blood 124 mg/dL (75-99)
[2021-02-22] MEDS: QUEtiapine 100 MG TAB PO SCH (21:16)
[2021-02-22] MEDS: MULTIVITAMINS, THERA 1 EACH TAB PO SCH (21:17)
[2021-02-22] MEDS: EZETIMIBE 10 MG TAB PO SCH (21:17)
[2021-02-22] MEDS: PRAVASTATIN SODIUM 80 MG TAB PO SCH (21:17)
[2021-02-23 00:03] LABS: Glucose,Whole Blood 97 mg/dL (75-99)
[2021-02-23] MEDS: CEFEPIME 2 GM in SODIUM CHLORIDE 0.9% 100 ML IVPB SCH ×3 (00:03→15:28)
[2021-02-23] MEDS: INSULIN ASPART (NovoLOG) 100 UNIT/ML VIAL SQ SCH ×4 (00:04→17:47)
[2021-02-23 03:41] LABS: Basophils % (A) 0 %; Eosinophils # (A) 0.1 k/uL (0-0.7); Eosinophils % (A) 1 %; HCT 36.1 % (39.0-53.0); HGB 11.6 gm/dL (13.0-17.5); Lymphocytes # (A) 1.2 k/uL (1.0-4.8); Lymphocytes % (A) 10 %; MCH 31.3 pg (25.0-35.0); MCHC 32.1 g/dL (31.0-37.0); MCV 97.4 fL (80.0-100.0); Mean Platelet Volume 8.2; Monocytes # (A) 0.8 k/uL (0-1.0); Monocytes % (A) 7 %; Neutrophils # (A) 8.8 k/uL (1.3-7.7); Neutrophils % (A) 79 %; Platelet Count 534 k/uL (150-450); RBC 3.71 m/uL (4.30-5.90); RDW 12.3 % (11.5-15.5); WBC 11.1 k/uL (3.8-10.6)
[2021-02-23 03:49] LABS: ALT 68 U/L (4-49); AST 52 U/L (17-59); African American GFR (CKD) >90 (>60 ml/min/1.73 sqM); Albumin 2.9 g/dL (3.5-5.0); Alkaline Phosphatase 75 U/L (38-126); Anion Gap 7 mmol/L; Blood Urea Nitrogen 28 mg/dL (9-20); Calcium 8.5 mg/dL (8.4-10.2); Carbon Dioxide 27 mmol/L (22-30); Chloride 103 mmol/L (98-107); Glucose 91 mg/dL (74-99); Non-African American GFR(CKD) >90 (>60 ml/min/1.73 sqM); Potassium 4.4 mmol/L (3.5-5.1); Sodium 137 mmol/L (137-145); Total Bilirubin 1.3 mg/dL (0.2-1.3); Total Protein 6.3 g/dL (6.3-8.2)
[2021-02-23 05:44] LABS: Glucose,Whole Blood 95 mg/dL (75-99)
[2021-02-23 05:44] LABS: Glucose,Whole Blood 70 mg/dL (75-99)
[2021-02-23] MEDS: SODIUM CHLORIDE 0.9% 1,000 ML IV SCH (05:46)
[2021-02-23] MEDS: CLEVIDIPINE BUTYRATE 25 MG in EMPTY BAG 1 BAG IV SCH ×2 (07:47→09:40)
[2021-02-23] MEDS: DEXMEDETOMIDINE/0.9% NACL(PMX) 400 MCG in EMPTY BAG 1 BAG IV SCH (07:47)
[2021-02-23] MEDS: ALBUTEROL HFA INHALER INHALATION SCH ×4 (07:53→19:36)
[2021-02-23] MEDS: DEXAMETHASONE SOD PHOSPHATE 10 MG/ML 1 ML VIAL IVP SCH (09:56)
[2021-02-23] MEDS: CHLORHEXIDINE GLUCONATE 15 ML CUP MUCOUS MEM SCH (09:56)
--- NOTE | 2021-02-23 10:24 | P.PN ---
Subjective Progress Note Date: 02/23/21 Principal diagnosis: Acute hypoxic respiratory failure secondary to COVID-19 pneumonia 02/18/2021, the patient is being seen in follow-up in the intensive care unit. The patient was intubated on 02/14/2021 and the patient has been intubated since. The patient remains on propofol which is running at 50 mcg/kg per minute and the patient is also on paralyzed with Nimbex at 2 mcg/kg per minute. Adequately paralyzed and sedated on assist-control mode of mechanical ventilation with a rate of 32, tidal volume 450, FiO2 is at 40% with a PEEP of 12. I was able to wean down the PEEP likely yesterday. Repeat chest x-ray from today is showing stable findings. There may be some improved aeration of the right lung base. Nevertheless, there is still persistent bibasilar pulmonary infiltrates that are still present. Blood gases from today shows a pH of 7.44 with a pCO2 of 43 and pO2 of 78 and this was done and FiO2 of 40%. The patient had a CT angiogram and at time of admission that showed no evidence of any pulmonary embolism. It was consistent overnight he related pneumonia. Nevertheless, the patient had a DVT of the right lower extremity and the patient is currently on therapeutic dose of Eliquis 10 mg by mouth twice a day. (. The patient remains on Decadron at a dose of 6 mg IV every 24 hours. His inflammatory markers were downtrending yesterday. Repeat labs are not available from today. Most recent LDH from yesterday was down to 999 and a CRP level was down to 6. He is hemodynamically stable for now. He is on no pressors. He is on enteral feeding with vital high protein at the rate of 37 mL an hour. Cardiac rhythm is sinus. His blood pressure is under better control for now and he is on no drips and he is maintained on 0.9 saline at the rate of 26 and hour. 02/19/21, the patient is being seen for a follow-up. This is a 60-year-old male patient a case of COVID 19 related pneumonia remains intubated on a mechanical ventilator. We were finally able to get him off the paralytics yesterday and as of midnight, the patient has been off paralytics. This morning, the patient is on /propofol which is running at 45 mcg/kg per minute. The patient is also on fentanyl at 2 mcg/kg/h. The patient is on a mechanical ventilator. Currently on assist control mode at the rate of 26 and the rate was reduced yesterday and the patient is also on a tidal volume of 450, FiO2 of 4040% and a PEEP is currently at 10. The peak airway pressure on the mechanical ventilator is 22 and a chest x-ray from today shows some improvement infiltration of the lung bases bilaterally. The blood gases from today shows a pH of 7.4 with a pCO2 of 46 and pO2 of 77. The patient is currently on Decadron. The patient is on therapeutic dose of Eliquis as the patient had a right lower extremity DVT. Due to concern of infections, the patient was given IV cefepime. His protest on level was as high as 2.38 and currently is down to 0.37. Otherwise, rest of the blood work is essentially stable. Hemoglobin is 10.6, stable with a white cell count of 10.7, stable. /Electrolytes are stable. The patient is receiving vital high protein at the rate of 37 mL an hour. Cardiac rhythm is sinus. IV fluids are currently at KVO. Fluid balance over the past 24 hours has been -8 81 mL. Reevaluated today on 02/20/21, patient remains in the ICU, intubated and m echanically ventilated. He is presently on assist control rate of 26th of 450 FiO2 40% PEEP of 8 ABG showed a pO2 of 82 pCO2 of 42 pH of 7.45. Patient is on propofol, fentanyl, and Klonopin X. Propofol is at 15 cm at 2 mcg/kg/h, and level proximal is 10 mg per hour. Uterus yet is 14.9 hemoglobin is 12.4. Elects lites are normal, renal profile is normal. X-ray is showing bilateral infiltrates with left lower lobe consolidation and/or atelectasis. Patient remains on the COVID-19 cocktail, he is on Eliquis 10 mg by mouth twice a day, he is also on cefepime, Decadron 6 mg IV push daily. Patient is off Precedex at this point. I was hoping today that I couldn't wean the patient however he seems to be quite tachycardic, anxious, I will give the patient trial of Precedex and see if we could discontinue fentanyl and propofol. And proceed at least with some weaning trials of possible. I doubt if that will actually be successful but it is worth a trial. Reevaluated today on 02/21/21, patient remains in the ICU, intubated and mechanically ventilated. Patient is on assist control rate of 26, tidal volume 450, FiO2 40%, and PEEP at 8. His ABG today showed a pO2 of 91 pCO2 45 pH of 7.46. His WBC count is 13.4 hemoglobin 12.4 elects lites are normal renal profile is normal. Surprisingly, in spite of being on that much sedation, the patient is arousable, follows all simple instructions, seems to be very appropriate. Intensive still requiring clevidipine, at 12 mg per hour He is also on propofol at 40 which I cut it down to 20 shortly after I evaluated him. Fentanyl at 2 mcg/kg/h, and I went ahead and discontinued his fentanyl. Then I went ahead and recommended a trial of pressure support of 12 and CPAP, and the patient was doing great moving excellent tidal volumes in the 600 range, and his rate was in the low 20s. Then after a 20 minutes., I decided to go ahead and extubate the patient to BiPAP. He'll be placed on BiPAP with IPAP of 14, EPAP of 6, and FiO2 of 50%. This was done shortly after I evaluated the patient fully. Chest x-ray is showing persistent bilateral infiltrates, consistent with COVID-19 pneumonia. Reevaluated today on 02/22/21, patient remains in the ICU, he was extubated yesterday to BiPAP. Remains on BiPAP at 14/6 and 50% FiO2. Patient is extremely anxious, and he is requiring intermittent Ativan injections and he is on Precedex. EEG this morning showed a pO2 of 91 pCO2 of 31 pH of 7.55, patient is on 50% FiO2, he is on BiPAP with IPAP of 14 and EPAP of 6. Still requiring clevidipine for elevated blood pressure. CT angiogram on 02/12 showed no evidence of pulmonary embolism. It was mostly consistent with COVID-19 pneumon ia. Patient remains on Eliquis S5 milligrams twice a day. He is basically anticoagulated. Nonetheless I will go ahead and order a d-dimer on this patient. Remains empirically on antibiotics in the form of cefepime. He is also on bronchodilators, Decadron 6 mg IV push daily. Patient was placed on Seroquel which I plan to increase the dose today from 50 mg twice a day to 100 mg by mouth twice a day in the meantime I plan to continue his Precedex and Ativan as needed. Chest x-ray continues to show by basilar infiltrates. Reevaluated today on 02/23/21, remains in the ICU, remains on BiPAP, he is on IPAP of 14 and EPAP of 6 FiO2 50%, patient remains on clevidipine at 2 mg per hour, and he is requiring Precedex at 0.4 mcg/kg/h. Patient is on the COVID-19 cocktail. His electrolytes are normal renal profile is normal CBC is relatively normal. No chest x-ray was done, no chest x-ray was done today. Patient seems to be comfortable. And not in distress. Nonetheless the patient is still requiring Precedex and I have no plans to transfer the patient out of the ICU yet. Objective - Vital Signs Vital signs: Vital Signs Temp 98.2 F 02/23/21 04:00 Pulse 46 L 02/23/21 07:00 Resp 23 02/23/21 07:00 BP 115/69 02/23/21 07:00 Pulse Ox 99 02/23/21 07:00 Intake & Output 02/22/21 02/23/21 02/23/21 18:59 06:59 18:59 Intake Total 513.145 480.711 109.240 Output Total 1115 1310 75 Balance -601.855 -829.289 34.240 Intake: IV 345 409 26 0.9NS Pressure BAg 42 36 3 CVP 3 33 3 Cefepime 2 gm In Sodium 100 100 Chloride 0.9% 100 ml @ 25 mls/hr IVPB Q8HR [facility] Rx# :[id number] Sodium Chloride 0.9% 1, 200 240 20 000 ml @ 20 mls/hr IV . Q24H [facility] Rx#:[id number] Intake, IV Titration 168.145 71.711 83.240 Amount Clevidipine Butyrate 25 50 52.666 mg In Empty Bag 1 bag @ 1 MG/HR 2 mls/hr IV .Q24H [facility] Rx#:[id number] Dexmedetomidine/0.9% NaCl 118.145 71.711 30.574 (Pmx) 400 mcg In Empty Bag 1 bag @ 0.4 MCG/KG/HR 8.31 mls/hr IV .Q12H3M [facility] Rx#:[id number] Output: Urine 1115 1310 75 Other: Voiding Method Indwelling Catheter Indwelling Catheter ABP, PAP, CO, CI - Last Documented Arterial Blood Pressure 139/58 - Exam Physical Exam revealed 58-year-old white male on BiPAP, comfortable, not in distress. Head: Atraumatic normocephalic, endotracheal tube is intact. HEENT:[Neck is supple.] [No neck masses.] [No thyromegaly.] [No JVD.] Chest: [Symmetrical chest expansion, crackles at the bases. Cardiac Exam: [Normal S1 and S2, no S3 gallop, no murmur.] Abdomen: [Soft, nontender, no megaly, no rebound, no guarding, normal bowel sounds.] Extremities: [No clubbing, no edema, no cyanosis.] Neurological Exam: Arousable, follows simple instructions, remains weak. Psychiatric: Anxious mood, blunt affect, - Labs CBC & Chem 7: 02/23/21 03:30 02/23/21 03:30 Labs: Abnormal Lab Results - Last 24 Hours (Table) 02/22/21 02/22/21 02/22/21 Range/Units 12:09 16:04 17:52 WBC (3.8-10.6) k/uL RBC (4.30-5.90) m/uL Hgb (13.0-17.5) gm/dL Hct (39.0-53.0) % Plt Count (150-450) k/uL Neutrophils # (1.3-7.7) k/uL D-Dimer 3.97 H (<0.60) mg/L FEU BUN (9-20) mg/dL POC Glucose (mg/dL) 135 H 124 H (75-99) mg/dL ALT (4-49) U/L Albumin (3.5-5.0) g/dL 02/23/21 02/23/21 02/23/21 Range/Units 03:30 03:30 05:41 WBC 11.1 H (3.8-10.6) k/uL RBC 3.71 L (4.30-5.90) m/uL Hgb 11.6 L (13.0-17.5) gm/dL Hct 36.1 L (39.0-53.0) % Plt Count 534 H (150-450) k/uL Neutrophils # 8.8 H (1.3-7.7) k/uL D-Dimer (<0.60) mg/L FEU BUN 28 H (9-20) mg/dL POC Glucose (mg/dL) 70 L (75-99) mg/dL ALT 68 H (4-49) U/L Albumin 2.9 L (3.5-5.0) g/dL Assessment and Plan Assessment: Impression: Acute hypoxic respiratory failure secondary to COVID-19 pneumonia, admitted on 02/10, he was out of the window for Remdesivir. He is not vaccinated. Started on Baricitinib on 02/11, decompensated and ended up intubated on 02/14 remains intubated and mechanically ventilated. Extubated to BiPAP on 02/21/21, remains on BiPAP. Elevated pro calcitonin, hence his Baricitinib was discontinued. And the patient is empirically on antibiotics in the form of cefepime. Acute right lower extremity DVT patient is on Eliquis. Fully anticoagulated. Acute kidney injury, resolved. Benign essential hypertension. Dyslipidemia. Recommendation: Continue BiPAP and continue to monitor in the ICU. Continue Precedex and Seroquel. Continue Eliquis. Continue Decadron. off Baricitinib Continue cefepime. Continue Ativan when necessary. Continue nutritional support. Continue GI prophylaxis Doses remains relatively guarded and not ready to let the patient transfer out of the ICU at this point yet. We will continue to follow. Time with Patient: Less than 30
[2021-02-23 11:58] LABS: Glucose,Whole Blood 103 mg/dL (75-99)
[2021-02-23] MEDS: LORazepam 2 MG/ML INJ IV PRN (12:05)
[2021-02-23] MEDS: ASCORBIC ACID 500 MG TAB PO SCH (17:18)
[2021-02-23] MEDS: APIXABAN 5 MG TAB PO SCH ×2 (17:18→20:17)
[2021-02-23] MEDS: ZINC SULFATE 220 MG CAP PO SCH (17:19)
[2021-02-23] MEDS: QUEtiapine 100 MG TAB PO SCH ×2 (17:19→20:17)
[2021-02-23] MEDS: CHOLECALCIFEROL 25 MCG (1000 IU) TABLET PO SCH (17:19)
[2021-02-23 17:46] LABS: Glucose,Whole Blood 120 mg/dL (75-99)
--- NOTE | 2021-02-23 20:01 | P.PN ---
Progress Note - Text Progress Note Date: 02/23/21 Chief Complaint: Short of breath This is a pleasant 60-year-old patient of Dr. rae Chronic stable medical conditions include hyperlipidemia, hypertension. Patient did not take the COVID-19 vaccine. About 7 days ago patient started having fever and dry cough chills. About 4 days ago patient tested positive for COVID-19. Patient is having one or 2 loose stools a day. Denies any body aches or headaches. No loss of taste or smell. S patient is pretty symptoms progress decided to come in. He was 82% on room air. Admitted with severe COVID 19 pneumonitis, acute kidney injury, acute hypoxic respiratory failure. Started on dexamethasone. IV fluids. Baricitinib added. February 11: Sitting of the edge of the bed. Short of breath. Eating some. Tired. Baricitinib added by pulmonary. February 12: Sitting at edge of the bed. Short of breath. 96% on 15 L. On Baricitinib and dexamethasone. Eating about 50-75%. February 13: Sitting up in a chair. Short of breath. On 15 L nasal cannula. On Baricitinib admitted and dexamethasone. Eating some February 14: Patient went down respiratory status and was moved to the ICU. Intubated. Drips included Diprivan, Nimbex, IV heparin. Doppler positive for DVT in the right lower extremity posterior tibial vein. Ventilator settings include FiO2 90% and a PEEP of 14. Spoke to patient is Dr. Bowman telephone number [phone]. She wanted the patient to have ivermectin. I did inform her that this was not one of the CDC recommended medications. Dr. Gandhi in maintenance foreman on the case is on the [facility] COVID guideline team. She also had wanted patient to be on inhalers including QVAR. She'll be discussing this with Dr. Gandhi the maintenance foreman. She also wants the patient to be at high dose vitamin C. I've asked her to fax over the literature to the ICU and I will review the same. February 15: ICU: Patient currently under pain and Nimbex. He will fed taken off this morning. 2 feeding at 37 mL an hour. On the ventilator with FiO2 50% and a PEEP of 14. February 16: ICU: Drips include propofol and Nimbex. FiO2 40% and a PEEP of 14. Tube feeding. February 21: ICU patient was extubated earlier today. Around 10 AM. Was getting 2 feeding prior to that. Currently on BiPAP 50%. Tired. On 50%. Current drips include Precedex and Cleviprex. February 22: ICU: Tired lethargic. On BiPAP 50%. Drips include Precedex and Cleviprex. February 23: ICU. Awake. Was delirious earlier. Wanting to eat. 8 L nasal cannula. Off drips. Discussed with the nurse. Wanting to sit up on the bed. Review of systems: Was done for constitutional, cardiovascular, GI, pulmonary. relevant finding as above Active Medications Acetaminophen (Acetaminophen Tab 325 Mg Tab) 650 mg PO Q6HR PRN PRN Reason: Mild Pain or Fever > 100.5 Last Admin: 02/19/21 12:42 Dose: 650 mg Documented by: Albuterol Sulfate (Albuterol Hfa Inhaler) 2 puff INHALATION RT-QID PRN PRN Reason: Shortness Of Breath Or Wheezing Albuterol Sulfate (Albuterol Hfa Inhaler) 2 puff INHALATION RT-QID [facility] Last Admin: 02/23/21 19:36 Dose: 2 puff Documented by: Apixaban (Apixaban 5 Mg Tab) 5 mg PO BID [facility]; Protocol Last Admin: 02/23/21 17:18 Dose: Not Given Documented by: Ascorbic Acid (Ascorbic Acid 500 Mg Tab) 1,000 mg PO DAILY [facility] Last Admin: 02/23/21 17:18 Dose: Not Given Documented by: Bisacodyl (Bisacodyl 10 Mg Supp) 10 mg RECTAL DAILY PRN PRN Reason: Constipation Last Admin: 02/19/21 11:00 Dose: 10 mg Documented by: Cholecalciferol (Cholecalciferol 25 Mcg (1000 Iu) Tablet) 100 mcg PO DAILY [facility] Last Admin: 02/23/21 17:19 Dose: Not Given Documented by: Dexamethasone Sodium Phosphate (Dexamethasone Sod Phosphate 10 Mg/Ml 1 Ml Vial) 6 mg IVP DAILY [facility] Last Admin: 02/23/21 09:56 Dose: 6 mg Documented by: Ezetimibe (Ezetimibe 10 Mg Tab) 10 mg PO HS [facility] Last Admin: 02/22/21 21:17 Dose: Not Given Documented by: Hydromorphone HCl (Hydromorphone 1 Mg/Ml 1 Ml Syringe) 1 mg IVP Q1HR PRN PRN Reason: Pain Last Admin: 02/21/21 11:29 Dose: 1 mg Documented by: Sodium Chloride (Saline 0.9%) 1,000 mls @ 20 mls/hr IV .Q24H [facility] Last Admin: 02/23/21 05:46 Dose: 20 mls/hr Documented by: Cefepime HCl 2 gm/ Sodium (Chloride) 100 mls @ 25 mls/hr IVPB Q8HR [facility] Last Admin: 02/23/21 15:28 Dose: 25 mls/hr Documented by: Clevidipine 25 mg/ IV Solution 50 mls @ 2 mls/hr IV .Q24H [facility]; Protocol Last Titration: 02/23/21 13:45 Dose: 1 mg/hr, 2 mls/hr Documented by: Dexmedetomidine HCl 400 mcg/ (IV Solution) 100 mls @ 8.31 mls/hr IV .Q12H3M [facility]; Protocol Last Titration: 02/23/21 13:45 Dose: 0.2 mcg/kg/hr, 4.155 mls/hr Documented by: Insulin Aspart (Insulin Aspart (Novolog) 100 Unit/Ml Vial) 0 unit SQ Q6H [facility]; Protocol Last Admin: 02/23/21 17:47 Dose: Not Given Documented by: Lorazepam (Lorazepam 2 Mg/Ml Inj) 2 mg IV Q4HR PRN PRN Reason: Anxiety Last Admin: 02/23/21 12:05 Dose: 2 mg Documented by: Multivitamins (Multivitamins, Thera 1 Each Tab) 1 each PO [facility] Last Admin: 02/22/21 21:17 Dose: Not Given Documented by: Pravastatin Sodium (Pravastatin Sodium 80 Mg Tab) 80 mg PO HS [facility] Last Admin: 02/22/21 21:17 Dose: Not Given Documented by: Quetiapine Fumarate (Quetiapine 100 Mg Tab) 100 mg PO BID [facility] Last Admin: 02/23/21 17:19 Dose: Not Given Documented by: Zinc Sulfate (Zinc Sulfate 220 Mg Cap) 220 mg PO DAILY [facility] Last Admin: 02/23/21 17:19 Dose: Not Given Documented by: Past medical history to include: Hypertension, hyperlipidemia, diverticulosis, bilateral tinnitus, 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 Stopped in 1987. He has takes couple of drinks a day. 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 Family history: Reviewed, noncontributory to presentation Physical examination: VITAL SIGNS: 98.2, 13, 65, 1 29 x 6, 97% on 8 L GENERAL: Laying in bed, lethargic LUNGS: Respiratory rate increased; PSYCH: Unable to assess Rest of the exam per pulmonary and nursing INVESTIGATIONS, reviewed in the clinical context: February 23: WBC 11.1 hemoglobin 11.6 potassium 4.4 creatinine 0.76 February 22: WBC 11.1 hemoglobin 11.7 platelets 578 potassium 4.5 creatinine 0.63 February 21: White count 13.4 hemoglobin 12.1 platelets 650 sodium 138 potassium 4.5 creatinine 0.69 February 16: White count 17.8 hemoglobin 12.1 d-dimer 4.3 potassium 4.8 creatinine 0.9 CRP 13.4 February 15: WBC eating 0.3 hemoglobin 12.3 platelets 8.9 d-dimer greater than 34 potassium 5.2 creatinine 0.97 CRP 22 February 14: WBC 25.8 hemoglobin 14.9 d-dimer greater than 34 potassium 4.3 creatinine 0.77 pro-calcitonin 0.21 Ultrasound venous Doppler right leg: DVT posterior tibial vein. February 13: WBC 12.7 hemoglobin 15.4 d-dimer 29 potassium 4.8 creatinine 0.73 Chest CTA [February 12]: Negative for PE Doppler ultrasound [February 11]: Negative for DVT February 12: WBC 9.6 hemoglobin 15.6 d-dimer 4.76 potassium 4.5 creatinine 0.81 February 11: D-dimer 2.33 potassium 4.5 creatinine 0.94 CRP 35.5 Ultrasound kidney: Kidneys unremarkable. Possible hepatic steatosis. WBC 5.5 hemoglobin 14.9 platelets 206 lymphocytes 0.6 sodium 136 potassium 4.1 BUN 24 creatinine 1.28 CRP 33.2 Assessment and plan: -Acute severe COVID 19 pneumonitis in a patient did not receive the COVID-19 vaccine: Slow improvement Dexamethasone. Subcu Lovenox. Vitamin C vitamin D zinc. -Possible secondary pneumonia Empirically on IV cefepime -Hyperlipidemia Zetia 10 mg daily at bedtime Pravachol 80 mg daily at bedtime -Acute DVT right lower extremity tibial vein IV heparin. Now eliquis -IV heparin monitoring: Discontinued -Essential hypertension amlodipine 5 mg a day currently held -Acute kidney injury, prerenal from decreased oral intake: Better IV fluids. -Anxiety and controlled Seroquel increased by pulmonary. Ativan when necessary. -Acute severe hypoxic respiratory failure from COVID-19: Slow to respond ventilator. Extubated on February 21. BiPAP 50%. Now down to 8 L nasal cannula 8 L nasal cannula.. Start diet. Up in a chair as tolerated. Other medications to continue.
[2021-02-23] MEDS: PRAVASTATIN SODIUM 80 MG TAB PO SCH (20:17)
[2021-02-23] MEDS: EZETIMIBE 10 MG TAB PO SCH (20:17)
[2021-02-23] MEDS: MULTIVITAMINS, THERA 1 EACH TAB PO SCH (20:17)
[2021-02-24] MEDS: CEFEPIME 2 GM in SODIUM CHLORIDE 0.9% 100 ML IVPB SCH ×4 (00:27→23:52)
[2021-02-24 06:05] LABS: Glucose,Whole Blood 84 mg/dL (75-99)
[2021-02-24] MEDS: INSULIN ASPART (NovoLOG) 100 UNIT/ML VIAL SQ SCH ×4 (06:10→20:07)
[2021-02-24] MEDS: SODIUM CHLORIDE 0.9% 1,000 ML IV SCH (06:45)
[2021-02-24] MEDS: ALBUTEROL HFA INHALER INHALATION SCH ×4 (08:03→20:46)
[2021-02-24] MEDS: ASCORBIC ACID 500 MG TAB PO SCH (08:29)
[2021-02-24] MEDS: CHOLECALCIFEROL 25 MCG (1000 IU) TABLET PO SCH (08:29)
[2021-02-24] MEDS: ZINC SULFATE 220 MG CAP PO SCH (08:29)
[2021-02-24] MEDS: APIXABAN 5 MG TAB PO SCH ×2 (08:29→20:07)
[2021-02-24] MEDS: DEXAMETHASONE SOD PHOSPHATE 10 MG/ML 1 ML VIAL IVP SCH (08:29)
[2021-02-24] MEDS: QUEtiapine 100 MG TAB PO SCH ×2 (08:29→20:07)
--- NOTE | 2021-02-24 11:53 | P.PN ---
Subjective Progress Note Date: 02/24/21 Principal diagnosis: Acute hypoxic respiratory failure secondary to COVID-19 pneumonia 02/18/2021, the patient is being seen in follow-up in the intensive care unit. The patient was intubated on 02/14/2021 and the patient has been intubated since. The patient remains on propofol which is running at 50 mcg/kg per minute and the patient is also on paralyzed with Nimbex at 2 mcg/kg per minute. Adequately paralyzed and sedated on assist-control mode of mechanical ventilation with a rate of 32, tidal volume 450, FiO2 is at 40% with a PEEP of 12. I was able to wean down the PEEP likely yesterday. Repeat chest x-ray from today is showing stable findings. There may be some improved aeration of the right lung base. Nevertheless, there is still persistent bibasilar pulmonary infiltrates that are still present. Blood gases from today shows a pH of 7.44 with a pCO2 of 43 and pO2 of 78 and this was done and FiO2 of 40%. The patient had a CT angiogram and at time of admission that showed no evidence of any pulmonary embolism. It was consistent overnight he related pneumonia. Nevertheless, the patient had a DVT of the right lower extremity and the patient is currently on therapeutic dose of Eliquis 10 mg by mouth twice a day. (. The patient remains on Decadron at a dose of 6 mg IV every 24 hours. His inflammatory markers were downtrending yesterday. Repeat labs are not available from today. Most recent LDH from yesterday was down to 999 and a CRP level was down to 6. He is hemodynamically stable for now. He is on no pressors. He is on enteral feeding with vital high protein at the rate of 37 mL an hour. Cardiac rhythm is sinus. His blood pressure is under better control for now and he is on no drips and he is maintained on 0.9 saline at the rate of 26 and hour. 02/19/21, the patient is being seen for a follow-up. This is a 60-year-old male patient a case of COVID 19 related pneumonia remains intubated on a mechanical ventilator. We were finally able to get him off the paralytics yesterday and as of midnight, the patient has been off paralytics. This morning, the patient is on /propofol which is running at 45 mcg/kg per minute. The patient is also on fentanyl at 2 mcg/kg/h. The patient is on a mechanical ventilator. Currently on assist control mode at the rate of 26 and the rate was reduced yesterday and the patient is also on a tidal volume of 450, FiO2 of 4040% and a PEEP is currently at 10. The peak airway pressure on the mechanical ventilator is 22 and a chest x-ray from today shows some improvement infiltration of the lung bases bilaterally. The blood gases from today shows a pH of 7.4 with a pCO2 of 46 and pO2 of 77. The patient is currently on Decadron. The patient is on therapeutic dose of Eliquis as the patient had a right lower extremity DVT. Due to concern of infections, the patient was given IV cefepime. His protest on level was as high as 2.38 and currently is down to 0.37. Otherwise, rest of the blood work is essentially stable. Hemoglobin is 10.6, stable with a white cell count of 10.7, stable. /Electrolytes are stable. The patient is receiving vital high protein at the rate of 37 mL an hour. Cardiac rhythm is sinus. IV fluids are currently at KVO. Fluid balance over the past 24 hours has been -8 81 mL. Reevaluated today on 02/20/21, patient remains in the ICU, intubated and m echanically ventilated. He is presently on assist control rate of 26th of 450 FiO2 40% PEEP of 8 ABG showed a pO2 of 82 pCO2 of 42 pH of 7.45. Patient is on propofol, fentanyl, and Klonopin X. Propofol is at 15 cm at 2 mcg/kg/h, and level proximal is 10 mg per hour. Uterus yet is 14.9 hemoglobin is 12.4. Elects lites are normal, renal profile is normal. X-ray is showing bilateral infiltrates with left lower lobe consolidation and/or atelectasis. Patient remains on the COVID-19 cocktail, he is on Eliquis 10 mg by mouth twice a day, he is also on cefepime, Decadron 6 mg IV push daily. Patient is off Precedex at this point. I was hoping today that I couldn't wean the patient however he seems to be quite tachycardic, anxious, I will give the patient trial of Precedex and see if we could discontinue fentanyl and propofol. And proceed at least with some weaning trials of possible. I doubt if that will actually be successful but it is worth a trial. Reevaluated today on 02/21/21, patient remains in the ICU, intubated and mechanically ventilated. Patient is on assist control rate of 26, tidal volume 450, FiO2 40%, and PEEP at 8. His ABG today showed a pO2 of 91 pCO2 45 pH of 7.46. His WBC count is 13.4 hemoglobin 12.4 elects lites are normal renal profile is normal. Surprisingly, in spite of being on that much sedation, the patient is arousable, follows all simple instructions, seems to be very appropriate. Intensive still requiring clevidipine, at 12 mg per hour He is also on propofol at 40 which I cut it down to 20 shortly after I evaluated him. Fentanyl at 2 mcg/kg/h, and I went ahead and discontinued his fentanyl. Then I went ahead and recommended a trial of pressure support of 12 and CPAP, and the patient was doing great moving excellent tidal volumes in the 600 range, and his rate was in the low 20s. Then after a 20 minutes., I decided to go ahead and extubate the patient to BiPAP. He'll be placed on BiPAP with IPAP of 14, EPAP of 6, and FiO2 of 50%. This was done shortly after I evaluated the patient fully. Chest x-ray is showing persistent bilateral infiltrates, consistent with COVID-19 pneumonia. Reevaluated today on 02/22/21, patient remains in the ICU, he was extubated yesterday to BiPAP. Remains on BiPAP at 14/6 and 50% FiO2. Patient is extremely anxious, and he is requiring intermittent Ativan injections and he is on Precedex. EEG this morning showed a pO2 of 91 pCO2 of 31 pH of 7.55, patient is on 50% FiO2, he is on BiPAP with IPAP of 14 and EPAP of 6. Still requiring clevidipine for elevated blood pressure. CT angiogram on 02/12 showed no evidence of pulmonary embolism. It was mostly consistent with COVID-19 pneumon ia. Patient remains on Eliquis S5 milligrams twice a day. He is basically anticoagulated. Nonetheless I will go ahead and order a d-dimer on this patient. Remains empirically on antibiotics in the form of cefepime. He is also on bronchodilators, Decadron 6 mg IV push daily. Patient was placed on Seroquel which I plan to increase the dose today from 50 mg twice a day to 100 mg by mouth twice a day in the meantime I plan to continue his Precedex and Ativan as needed. Chest x-ray continues to show by basilar infiltrates. Reevaluated today on 02/23/21, remains in the ICU, remains on BiPAP, he is on IPAP of 14 and EPAP of 6 FiO2 50%, patient remains on clevidipine at 2 mg per hour, and he is requiring Precedex at 0.4 mcg/kg/h. Patient is on the COVID-19 cocktail. His electrolytes are normal renal profile is normal CBC is relatively normal. No chest x-ray was done, no chest x-ray was done today. Patient seems to be comfortable. And not in distress. Nonetheless the patient is still requiring Precedex and I have no plans to transfer the patient out of the ICU yet. Reevaluated today on 02/24/21, patient is in the ICU still, he is now on 4 L nasal cannula with O2 saturation of 94 up to 96%. He is hemodynamically stable, heart rate is 75 respiration 18 and the patient is doing great. He is off all the drips including Precedex. He remains on the COVID-19 cocktail. No labs were drawn today. My plan is to discontinue central line, discontinue his arterial line, and a transfer the patient today to a regular medical floor. Objective - Vital Signs Vital signs: Vital Signs Temp 99.2 F 02/24/21 04:00 Pulse 75 02/24/21 09:00 Resp 17 02/24/21 09:00 BP 134/97 02/23/21 13:00 Pulse Ox 94 L 02/24/21 09:00 Intake & Output 02/23/21 02/24/21 02/24/21 18:59 06:59 18:59 Intake Total 793.807 738 392 Output Total 1485 800 200 Balance -691.193 -62 192 Intake: IV 509 258 52 0.9NS Pressure BAg 66 39 6 CVP 3 39 6 Cefepime 2 gm In Sodium 200 Chloride 0.9% 100 ml @ 25 mls/hr IVPB Q8HR [facility] Rx# :[id number] Sodium Chloride 0.9% 1, 240 180 40 000 ml @ 20 mls/hr IV . Q24H [facility] Rx#:[id number] Intake, IV Titration 164.807 100 Amount Cefepime 2 gm In Sodium 100 Chloride 0.9% 100 ml @ 25 mls/hr IVPB Q8HR [facility] Rx# :[id number] Clevidipine Butyrate 25 68.999 mg In Empty Bag 1 bag @ 1 MG/HR 2 mls/hr IV .Q24H [facility] Rx#:[id number] Dexmedetomidine/0.9% NaCl 95.808 (Pmx) 400 mcg In Empty Bag 1 bag @ 0.4 MCG/KG/HR 8.31 mls/hr IV .Q12H3M [facility] Rx#:[id number] Oral 120 480 240 Output: Urine 1485 800 200 Other: Voiding Method Indwelling Catheter Indwelling Catheter Indwelling Catheter # Bowel Movements 1 ABP, PAP, CO, CI - Last Documented Arterial Blood Pressure 127/43 - Exam Physical Exam revealed 58-year-old white male 4 L nasal cannula in no distress Head: Atraumatic normocephalic moist mucous membranes noted HEENT:[Neck is supple.] [No neck masses.] [No thyromegaly.] [No JVD.] Chest: [Symmetrical chest expansion, minimal crackles at the bases. Cardiac Exam: [Normal S1 and S2, no S3 gallop, no murmur.] Abdomen: [Soft, nontender, no megaly, no rebound, no guarding, normal bowel sounds.] Extremities: [No clubbing, no edema, no cyanosis.] Neurological Exam: Alert and oriented 3, no gross focal deficits. Psychiatric: Normal mood affect and normal mental status examination - Labs CBC & Chem 7: 02/23/21 03:30 02/23/21 03:30 Labs: Abnormal Lab Results - Last 24 Hours (Table) 02/23/21 02/23/21 Range/Units 11:48 17:45 POC Glucose (mg/dL) 103 H 120 H (75-99) mg/dL Assessment and Plan Assessment: Impression: Acute hypoxic respiratory failure secondary to COVID-19 pneumonia, admitted on 02/10, he was out of the window for Remdesivir. He is not vaccinated. Started on Baricitinib on 02/11, decompensated and ended up intubated on 02/14 remained intubated however he was Extubated on 02/21 initially extubated to BiPAP, and he was transitioned to a nasal cannula, today he is on 4 L nasal cannula, and he is in no distress. Elevated pro calcitonin, hence his Baricitinib was discontinued. And the patient is empirically on antibiotics in the form of cefepime. Will likely discontinue cefepime in the next 24 hours Acute right lower extremity DVT patient is on Eliquis. Fully anticoagulated. Acute kidney injury, resolved. Benign essential hypertension. Dyslipidemia. Recommendation: Continue nasal cannula and titrate accordingly he is now on 4 L Transfer patient out of the ICU to a regular medical floor. Continue Eliquis. Continue Decadron. off Baricitinib Continue cefepime. Transitioned to oral antibiotics tomorrow. Continue Ativan when necessary. Physical therapy and ambulation. As well as incentive spirometer. Continue GI prophylaxis Transfer patient to a regular medical floor. We will continue to follow. Time with Patient: Less than 30
[2021-02-24 20:05] LABS: Glucose,Whole Blood 143 mg/dL (75-99)
[2021-02-24] MEDS: EZETIMIBE 10 MG TAB PO SCH (20:07)
[2021-02-24] MEDS: MULTIVITAMINS, THERA 1 EACH TAB PO SCH (20:07)
[2021-02-24] MEDS: PRAVASTATIN SODIUM 80 MG TAB PO SCH (20:07)
--- NOTE | 2021-02-24 20:27 | P.PN ---
Progress Note - Text Progress Note Date: 02/24/21 Chief Complaint: Short of breath This is a pleasant 60-year-old patient of Dr. rae Chronic stable medical conditions include hyperlipidemia, hypertension. Patient did not take the COVID-19 vaccine. About 7 days ago patient started having fever and dry cough chills. About 4 days ago patient tested positive for COVID-19. Patient is having one or 2 loose stools a day. Denies any body aches or headaches. No loss of taste or smell. S patient is pretty symptoms progress decided to come in. He was 82% on room air. Admitted with severe COVID 19 pneumonitis, acute kidney injury, acute hypoxic respiratory failure. Started on dexamethasone. IV fluids. Baricitinib added. February 11: Sitting of the edge of the bed. Short of breath. Eating some. Tired. Baricitinib added by pulmonary. February 12: Sitting at edge of the bed. Short of breath. 96% on 15 L. On Baricitinib and dexamethasone. Eating about 50-75%. February 13: Sitting up in a chair. Short of breath. On 15 L nasal cannula. On Baricitinib admitted and dexamethasone. Eating some February 14: Patient went down respiratory status and was moved to the ICU. Intubated. Drips included Diprivan, Nimbex, IV heparin. Doppler positive for DVT in the right lower extremity posterior tibial vein. Ventilator settings include FiO2 90% and a PEEP of 14. Spoke to patient is Dr. Bowman telephone number [phone]. She wanted the patient to have ivermectin. I did inform her that this was not one of the CDC recommended medications. Dr. Gandhi in senior process engineer on the case is on the [facility] COVID guideline team. She also had wanted patient to be on inhalers including QVAR. She'll be discussing this with Dr. Gandhi the senior process engineer. She also wants the patient to be at high dose vitamin C. I've asked her to fax over the literature to the ICU and I will review the same. February 15: ICU: Patient currently under pain and Nimbex. He will fed taken off this morning. 2 feeding at 37 mL an hour. On the ventilator with FiO2 50% and a PEEP of 14. February 16: ICU: Drips include propofol and Nimbex. FiO2 40% and a PEEP of 14. Tube feeding. February 21: ICU patient was extubated earlier today. Around 10 AM. Was getting 2 feeding prior to that. Currently on BiPAP 50%. Tired. On 50%. Current drips include Precedex and Cleviprex. February 22: ICU: Tired lethargic. On BiPAP 50%. Drips include Precedex and Cleviprex. February 23: ICU. Awake. Was delirious earlier. Wanting to eat. 8 L nasal cannula. Off drips. Discussed with the nurse. Wanting to sit up on the bed. February 24: ICU unit sitting up in a chair. Eating better. 4 L nasal cannula. Paul catheter. Slightly anxious Review of systems: Was done for constitutional, cardiovascular, GI, pulmonary. relevant finding as above Active Medications Acetaminophen (Acetaminophen Tab 325 Mg Tab) 650 mg PO Q6HR PRN PRN Reason: Mild Pain or Fever > 100.5 Last Admin: 02/19/21 12:42 Dose: 650 mg Documented by: Albuterol Sulfate (Albuterol Hfa Inhaler) 2 puff INHALATION RT-QID PRN PRN Reason: Shortness Of Breath Or Wheezing Albuterol Sulfate (Albuterol Hfa Inhaler) 2 puff INHALATION RT-QID [facility] Last Admin: 02/24/21 16:09 Dose: 2 puff Documented by: Apixaban (Apixaban 5 Mg Tab) 5 mg PO BID [facility]; Protocol Last Admin: 02/24/21 20:07 Dose: 5 mg Documented by: Ascorbic Acid (Ascorbic Acid 500 Mg Tab) 1,000 mg PO DAILY [facility] Last Admin: 02/24/21 08:29 Dose: 1,000 mg Documented by: Bisacodyl (Bisacodyl 10 Mg Supp) 10 mg RECTAL DAILY PRN PRN Reason: Constipation Last Admin: 02/19/21 11:00 Dose: 10 mg Documented by: Cholecalciferol (Cholecalciferol 25 Mcg (1000 Iu) Tablet) 100 mcg PO DAILY [facility] Last Admin: 02/24/21 08:29 Dose: 100 mcg Documented by: Dexamethasone Sodium Phosphate (Dexamethasone Sod Phosphate 10 Mg/Ml 1 Ml Vial) 6 mg IVP DAILY [facility] Last Admin: 02/24/21 08:29 Dose: 6 mg Documented by: Ezetimibe (Ezetimibe 10 Mg Tab) 10 mg PO HS [facility] Last Admin: 02/24/21 20:07 Dose: 10 mg Documented by: Sodium Chloride (Saline 0.9%) 1,000 mls @ 20 mls/hr IV .Q24H [facility] Last Admin: 02/24/21 06:45 Dose: 20 mls/hr Documented by: Cefepime HCl 2 gm/ Sodium (Chloride) 100 mls @ 25 mls/hr IVPB Q8HR [facility] Last Admin: 02/24/21 17:13 Dose: 25 mls/hr Documented by: Clevidipine 25 mg/ IV Solution 50 mls @ 2 mls/hr IV .Q24H [facility]; Protocol Last Titration: 02/23/21 13:45 Dose: 1 mg/hr, 2 mls/hr Documented by: Dexmedetomidine HCl 400 mcg/ (IV Solution) 100 mls @ 8.31 mls/hr IV .Q12H3M [facility]; Protocol Last Titration: 02/23/21 20:00 Dose: 0 mcg/kg/hr, 0 mls/hr Documented by: Insulin Aspart (Insulin Aspart (Novolog) 100 Unit/Ml Vial) 0 unit SQ ACHS [facility]; Protocol Last Admin: 02/24/21 20:07 Dose: 2 unit Documented by: Lorazepam (Lorazepam 2 Mg/Ml Inj) 2 mg IV Q4HR PRN PRN Reason: Anxiety Last Admin: 02/23/21 12:05 Dose: 2 mg Documented by: Multivitamins (Multivitamins, Thera 1 Each Tab) 1 each PO [facility] Last Admin: 02/24/21 20:07 Dose: 1 each Documented by: Pravastatin Sodium (Pravastatin Sodium 80 Mg Tab) 80 mg PO [facility] Last Admin: 02/24/21 20:07 Dose: 80 mg Documented by: Quetiapine Fumarate (Quetiapine 100 Mg Tab) 100 mg PO BID [facility] Last Admin: 02/24/21 20:07 Dose: 100 mg Documented by: Zinc Sulfate (Zinc Sulfate 220 Mg Cap) 220 mg PO DAILY [facility] Last Admin: 02/24/21 08:29 Dose: 220 mg Documented by: Past medical history to include: Hypertension, hyperlipidemia, diverticulosis, bilateral tinnitus, 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 Stopped in 1987. He has takes couple of drinks a day. 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 Family history: Reviewed, noncontributory to presentation Physical examination: VITAL SIGNS: 99.4, 73, 17, 112 x 59, 93% on 4 L GENERAL: Sitting up in a chair, more awake, slightly anxious LUNGS: Respiratory rate increased; PSYCH: AO 3, more affect anxious Rest of the exam per pulmonary and nursing INVESTIGATIONS, reviewed in the clinical context: February 23: WBC 11.1 hemoglobin 11.6 potassium 4.4 creatinine 0.76 February 22: WBC 11.1 hemoglobin 11.7 platelets 578 potassium 4.5 creatinine 0.63 February 21: White count 13.4 hemoglobin 12.1 platelets 650 sodium 138 potassium 4.5 creatinine 0.69 February 16: White count 17.8 hemoglobin 12.1 d-dimer 4.3 potassium 4.8 creatinine 0.9 CRP 13.4 February 15: WBC eating 0.3 hemoglobin 12.3 platelets 8.9 d-dimer greater than 34 potassium 5.2 creatinine 0.97 CRP 22 February 14: WBC 25.8 hemoglobin 14.9 d-dimer greater than 34 potassium 4.3 creatinine 0.77 pro-calcitonin 0.21 Ultrasound venous Doppler right leg: DVT posterior tibial vein. February 13: WBC 12.7 hemoglobin 15.4 d-dimer 29 potassium 4.8 creatinine 0.73 Chest CTA [February 12]: Negative for PE Doppler ultrasound [February 11]: Negative for DVT February 12: WBC 9.6 hemoglobin 15.6 d-dimer 4.76 potassium 4.5 creatinine 0.81 February 11: D-dimer 2.33 potassium 4.5 creatinine 0.94 CRP 35.5 Ultrasound kidney: Kidneys unremarkable. Possible hepatic steatosis. WBC 5.5 hemoglobin 14.9 platelets 206 lymphocytes 0.6 sodium 136 potassium 4.1 BUN 24 creatinine 1.28 CRP 33.2 Assessment and plan: -Acute severe COVID 19 pneumonitis in a patient did not receive the COVID-19 vaccine: Improving Dexamethasone. Subcu Lovenox. Vitamin C vitamin D zinc. -Possible secondary pneumonia Empirically on IV cefepime -Hyperlipidemia Zetia 10 mg daily at bedtime Pravachol 80 mg daily at bedtime -Acute DVT right lower extremity tibial vein IV heparin. Now eliquis -IV heparin monitoring: Discontinued -Essential hypertension amlodipine 5 mg a day currently held -Acute kidney injury, prerenal from decreased oral intake: Better IV fluids. -Anxiety and controlled Seroquel 100 mg twice a day. Ativan when necessary. -Acute severe hypoxic respiratory failure from COVID-19: Slow to respond ventilator. Extubated on February 21. BiPAP 50%. Now down to 4 L nasal cannula 4 L nasal cannula. Eating better. Decreased morning dose of Seroquel to 50 mg. Check stat x-rays in the morning. Check procalcitonin.
[2021-02-25 06:57] LABS: Glucose,Whole Blood 101 mg/dL (75-99)
--- NOTE | 2021-02-25 08:03 | XR ---
EXAMINATION TYPE: XR chest 1V portable DATE OF EXAM: 02/25/2021 HISTORY: Shortness of breath. COMPARISON: 02/20/2021 TECHNIQUE: Single view of the chest is submitted. FINDINGS: Indwelling tubes and catheters have been removed. There is a residual right upper lobe infiltrate as well as mild infiltrate right lung base. Overall appearance is improved relative to prior examination . The heart is stable. Hilar and mediastinal structures are within normal limits. Degenerative changes are seen of the dorsal spine. IMPRESSION: 1. There is a residual right upper lobe infiltrate as well as mild infiltrate right lung base. Overa ll appearance is improved relative to prior examination.
[2021-02-25] MEDS: INSULIN ASPART (NovoLOG) 100 UNIT/ML VIAL SQ SCH (08:12)
--- NOTE | 2021-02-25 09:21 | P.CONS ---
History of Present Illness - Chief Complaint Medical debility - History of Present Illness I had the opportunity to see patient for inpatient rehab consultation with regard to medical debility. He was admitted to [facility] February 10 acute hypoxic respiratory failure, Covid positive pneumonia. Seen by Dr. Lopez and Dr. Villaseñor. Serial chest x-rays followed for right upper and middle lobe infiltrates which are decreasing. Started therapies. PT reports minimal assistance for bed mobility and supervision for transfer and gait 52 feet with roller walker. OT reports minimal assistance for upper dressing, maximal assistance for lower dressing and toileting and moderate assistance for bathing. Minimal assistance functional mobility and transfer. Patient has just been transferred out of ICU into regular bed reports independent in room including bathroom. Previous functional history as elicited from patient: 60-year-old right-handed white male who is lives in one floor home with . They share the cooking and laundry. I both drive. Patient retired. Describes independent with standing shower, gait without device. PCP Khadijah slater. Denies tobacco. Admits to alcohol. Review of Systems Review of systems: ENT: Denies sneezes or discharge. Eyes: Denies discharge or photophobia. Cardiac: Denies chest pain or palpitation. Pulmonary: Resolving/resolved shortness of breath. Gastrointestinal: Denies nausea, emesis, constipation, diarrhea. Genitourinary: Denies discharge or frequency. Musculoskeletal: Denies muscle or bone aches. Neurologic: Denies motor or sensory change. Endocrine: Denies shakes or sweats. Oncology: Denies cancers. Dermatologic: Denies rash, itching, pruritus. ALLERGY/immunology: Denies sneezes, rashes. Past Medical History Past Medical History: Hyperlipidemia, Hypertension, Osteoarthritis (OA) Additional Past Medical History / Comment(s): Diverticular disease, bilateral tinnitis, arthritis bilateral hands. History of Any Multi-Drug Resistant Organisms: None Reported Past Surgical History: Tonsillectomy Additional Past Surgical History / Comment(s): Colonoscopy, vasectomy Past Anesthesia/Blood Transfusion Reactions: No Reported Reaction Smoking Status: Former smoker - Past Family History Mother Family Medical History: No Reported History Additional Family Medical History / Comment(s): Mother is healthy Father Family Medical History: Respiratory Disorder Additional Family Medical History / Comment(s): Father of covid. Medications and Allergies Home Medications Medication Instructions Recorded Confirmed Type Albuterol Inhaler [Ventolin Hfa 2 puff INHALATION RT-Q4H PRN 02/10/21 02/10/21 History Inhaler] Ascorbic Acid [Vitamin C] 500 mg PO HS 02/10/21 02/10/21 History Calcium Carb/Mag Ox/Zinc Sulf 1 tab PO BID 02/10/21 02/10/21 History [Fgk-[id number]-Wgjh 334-134-5 mg Tab] Ezetimibe [Zetia] 10 mg PO HS 02/10/21 02/10/21 History Multivitamins, Thera [Multivitamin 1 tab PO HS 02/10/21 02/10/21 History (formulary)] Pravastatin Sodium [Pravachol] 80 mg PO HS 02/10/21 02/10/21 History Turmeric Root Extract [Turmeric] 1,000 mg PO HS 02/10/21 02/10/21 History amLODIPine BESYLATE/BENAZEPRIL 1 cap PO HS 02/10/21 02/10/21 History [amLODIPine BESYLATE/BENAZEPRIL 5-20 MG] Allergies Allergy/AdvReac Type Severity Reaction Status Date / Time No Known Allergies Allergy Verified 02/10/21 12:23 Physical Exam Vitals: Vital Signs Temp Pulse Pulse Resp BP BP Pulse Ox 02/25/21 05:17 98.7 F 69 119/78 94 L 02/25/21 02:40 97.7 F 59 L 16 144/74 93 L 02/24/21 23:30 98 F 63 16 151/77 92 L 02/24/21 20:00 98.9 F 16 127/76 92 L 02/24/21 18:00 79 16 112/59 96 02/24/21 17:00 64 16 96 02/24/21 16:00 70 9 L 96 02/24/21 15:00 70 8 L 94 L 02/24/21 14:00 99.4 F 73 17 112/59 93 L 02/24/21 13:00 84 17 95 02/24/21 12:00 80 17 96 02/24/21 11:00 32 H 97 02/24/21 10:00 60 24 93 L Intake and Output 02/24/21 02/25/21 02/25/21 22:59 06:59 14:59 Intake Total 20 420 Output Total 300 503 Balance -280 -83 Intake: IV 20 220 Sodium Chloride 0.9% 1, 20 220 000 ml @ 20 mls/hr IV . Q24H [facility] Rx#:[id number] Oral 200 Output: Urine 300 500 Stool 3 Other: Voiding Method Urinal # Voids 0 # Bowel Movements 0 Weight 75.34 kg Skin: Good color, texture, turgor. General: Medium build and comfortable appearance. Head: Normocephalic, atraumatic. Eyes: Symmetric. Pupils equal round. Ears: Symmetric. Hearing within normal limits. Mouth: Clear. Neck: Supple. Carotid without bruit. Cardiac: Regular rate and rhythm. Lungs: Clear anteriorly and posteriorly. Abdomen: Soft active nontender. Extremities: Normal tone. Neurological: Mental status: Alert, cooperative, pleasant. Cranial nerves: Symmetric facial tone and trapezius. Motor: Normal strength and isolation all 4 limbs. Sensation: Intact throughout. DTRs: Symmetric and equal throughout. Mobility: Patient reports independent in room without device including bathroom. Results CBC & Chem 7: 02/23/21 03:30 02/23/21 03:30 Labs: Abnormal Lab Results - Last 24 Hours (Table) 02/24/21 02/25/21 02/25/21 Range/Units 20:04 05:55 06:56 D-Dimer 5.34 H (<0.60) mg/L FEU POC Glucose (mg/dL) 143 H 101 H (75-99) mg/dL Assessment and Plan (1) Hypoxia Current Visit: Yes Status: Acute Code(s): R09.02 - HYPOXEMIA SNOMED C ode(s): 338090237 (2) Pneumonia due to COVID-19 virus Current Visit: Yes Status: Acute Code(s): U07.1 - COVID-19; J12.82 - PNEUMONIA DUE TO CORONAVIRUS DISEASE 2019 SNOMED Code(s): 368228325002995203 Plan: Comments and plan: At this time PT and OT are ongoing. We will await therapy evaluations today. Patient reports independent in room I suspect this is in fact correct. If this is true, would anticipate return with support services. Discretion.
[2021-02-25] MEDS: ALBUTEROL HFA INHALER INHALATION SCH ×4 (09:37→20:37)
[2021-02-25] MEDS: DEXAMETHASONE SOD PHOSPHATE 10 MG/ML 1 ML VIAL IVP SCH (10:16)
[2021-02-25] MEDS: ASCORBIC ACID 500 MG TAB PO SCH (10:16)
[2021-02-25] MEDS: CHOLECALCIFEROL 25 MCG (1000 IU) TABLET PO SCH (10:16)
[2021-02-25] MEDS: QUEtiapine 100 MG TAB PO SCH (10:17)
[2021-02-25] MEDS: CEFEPIME 2 GM in SODIUM CHLORIDE 0.9% 100 ML IVPB SCH (10:17)
[2021-02-25] MEDS: ZINC SULFATE 220 MG CAP PO SCH (10:17)
[2021-02-25] MEDS: APIXABAN 5 MG TAB PO SCH ×2 (10:17→20:31)
[2021-02-25] MEDS: SODIUM CHLORIDE 0.9% 1,000 ML IV SCH (10:18)
[2021-02-25] MEDS: ARTIFICIAL TEARS-HYPROMELLOSE DROPS 15 ML BTL BOTH EYES SCH (11:42)
[2021-02-25 11:50] LABS: Glucose,Whole Blood 117 mg/dL (75-99)
[2021-02-25 12:37] VITALS: BMI 26.0
--- NOTE | 2021-02-25 14:44 | P.PN ---
Subjective Progress Note Date: 02/25/21 Principal diagnosis: Dyspnea This a very pleasant 60-year-old male patient with a history of hypertension, hyperlipidemia. Daily alcohol use. 8 days ago he started having complaints of increasing shortness of breath, cough and congestion. He tested positive for COVID-19 5 days ago. He is not vaccinated. He presented to the emergency room here yesterday with complaints of increasing shortness of breath cough and congestion. He was found to be hypoxemic at 82% on room air. He was initiated on oxygen at 5 L/m per nasal cannula. He did have a T-max of 100.5. X-ray rev ealed evidence of bilateral patchy opacities consistent with COVID-19 pneumonia. White count 5.5. Hemoglobin 14.9. Lymphocytes 0.6. D-dimer 2.33. Sodium 137. Potassium 4.5. Creatinine 0.94. Glucose 161. Ferritin 5642. AST 74. ALT 33. LDH 1547. C-reactive protein 35.5. He was initiated on Decadron, Lovenox, vitamin supplements. He is seen today in consultation on the regular medical floor. His oxygen requirements have increased and he is now on 15 L high flow nasal cannula plus a nonrebreather mask. He is afebrile. Hemodynamically stable. He states he is doing the same today compared to yesterday. No worse but no better. On 02/12/2021 patient seen in follow-up on medical surgical floor. Is currently on 15 L and nonrebreather mask, his pulse ox of 93-96%. He states that his breathing is slightly improved, occasional cough and at times he is able to bring up some crawford colored phlegm. No chest discomfort. He sitting up in the recliner, his vital signs have been stable, he has been afebrile. He was started on Baricitinib yesterday on 02/11/2021, he remains on Decadron and prophylactic Lovenox in addition to multivitamins. His lower extremity Dopplers were negative for DVT. His d-dimer is up to 4.76 on today's labs, his white count is 9.6, hemoglobin is 15.6, sodium is 135, potassium is 4.5, BUN is 19 creatinine 0.81. Renal profile has improved, BUN is down to 19 creatinine 0.81. LDH is 2024, and CRP is 16.9. On 02/13/2021 patient seen in follow-up on medical surgical floor. Patient is currently awake and alert, in no acute distress, he continues to require 15 L and [place] nonrebreather mask, to maintain O2 saturations at 90-92%, mildly dyspneic, but no acute distress, he states he is slightly better, no complaints of chest pain, his been afebrile, he is short of breath with any exertion, and with conversation, CTA chest was completed showing no evidence of pulmonary embolism. There were bilateral diffuse marked patchy groundglass opacities. There were no pleural effusions or pneumothorax. Patient is currently on Baricitinib, she is on Decadron 6 mg daily, multivitamins, patient is on prophylactic Lovenox. Patient has had no acute events overnight. On 02/14/2021 patient seen in follow-up in intensive care unit, patient significantly deteriorated clinically and was emergently transferred to the intensive care unit early this morning and intubated and placed on mechanical ventilator at 7 AM this morning, he is currently on assist control mode with a rate of 24, tidal volume is 450, FiO2 of 100%, and PEEP of 14. His peak airway pressure is 30, plateau is 28. He has been sedated he is currently on Diprivan and 75 mics per kilo per minute, awaiting to be started on Nimbex infusion as well, his maintenance IV fluids of 0.45 at a rate of 75 ML per hour. His blood gas was reviewed showing pO2 of 101, pCO2 of 64, and pH of 7.25, this was done on the above-mentioned vent settings and FiO2 100%. We will increase the rate to 32, and dropped the FiO2 down to 90%. He is hemodynamically stable, he is tachycardic with a rate of 126, in sinus mechanism. Chest x-ray shows left subclavian central line, ET tube in good positions, no sizable pneumothorax, and diffuse bilateral infiltrates that are stable in appearance, there were tiny bilateral pleural effusions. The rest of his blood work has been reviewed and his white blood cell count is up to 25.8, hemoglobin is 14.9, his d-dimer remains elevated at greater than 34.1, patient had a recent CTA chest on 02/12/2021 which showed no evidence of pulmonary embolism, and lower extremity Dopplers were negative for DVT. His sodium today is 135, potassium is 4.3, the rest of electrolytes and renal profile were unremarkable. His AST is over 119, ALT is 85. His follow-up LDH and CRP are pending for today, his pro-calcitonin level is 0.60. Baricitinib was discontinued. Lower extremity Dopplers were again checked and were negative for DVT, will continue with current dose Lovenox. On 02/16/2021 patient seen in follow-up in intensive care unit, he remains intubated, sedated and paralyzed, on assist-control mode of ventilation with a rate of 32, tidal volume is 450, FiO2 of 40%, and PEEP of 14. His peak air pressures 30, plateau pressure is 27. Patient is currently on point tenderness) 75 ML per hour, Diprivan is a 50 mics per kilo per minute, Nimbex is a 2 mics per kilo per minute, his heparin infusion is at weight-based her to call, and he is tolerating tube feedings with vital HP at a rate of 37 with a goal of 37. He remains on Decadron 6 mg daily, he is on empiric antibiotics in the form of cefepime, his pro-calcitonin was elevated at 2.38, his blood and sputum cultures have been sent, a sputum culture showing rare PMNs, rare epithelial cells and rare gram-negative bacilli, fungal culture is pending. Culture has shown no growth thus far. Urinalysis has shown no clear evidence of infection. His inflammatory markers are improving at today's labs and LDH is down to 1195, CRP is 13.4, his white count is improving and is down to 17.8, hemoglobin is 12.9, his d-dimer has significantly improved and is down to 4.3, renal function is stable with BUN of 24 creatinine of 0.91, sodium is 138, potassium is 4.8, chloride is 109, CO2 is 25. No fever or chills, vital signs have been stable, has not required vasopressor support. Urine output has been adequate any order of 60-70 ML per hour. On 02/25/2021 patient seen in follow-up on medical surgical floor. He was successfully weaned and extubated from mechanical ventilator on 02/21/2021, he is tolerating extubation quite well so far, he was transferred out of intensive care unit yesterday. Today he is resting comfortably in bed, breathing comfortably, lung sounds positive for minimal crackles at the bases, no cough, no chest discomfort, the confusion has significantly improved, patient continues on Seroquel 100 mg twice daily, he has not required Ativan since last Wednesday on 02/23/2021, cooperative. Room air pulse ox is 95%, afebrile, vital signs are stable. Continues on Decadron 6 mg daily, oral anticoagulation for newly diagnosed DVT in his right lower extremity, he remains on COVID-19 multivitamins. He is tolerating oral intake, he denies any specific complaints, chest x-ray today shows residual right upper lobe infiltrate as well as mild infiltrate in the right lung base, overall improved appearance. Labs today show d-dimer of 5.34, negative pro-calcitonin of 0.12, and we will discontinue cefepime Objective - Vital Signs Vital signs: Vital Signs Temp 98.5 F 02/25/21 08:00 Pulse 69 02/25/21 08:00 Resp 18 02/25/21 08:00 BP 157/74 02/25/21 08:00 Pulse Ox 95 02/25/21 08:00 Intake & Output 02/24/21 02/25/21 02/25/21 18:59 06:59 18:59 Intake Total 622 420 Output Total 900 503 Balance -278 -83 Weight 75.34 kg Intake: IV 162 220 0.9NS Pressure BAg 6 CVP 6 Sodium Chloride 0.9% 1, 150 220 000 ml @ 20 mls/hr IV . Q24H [facility] Rx#:[id number] Intake, IV Titration 100 Amount Cefepime 2 gm In Sodium 100 Chloride 0.9% 100 ml @ 25 mls/hr IVPB Q8HR [facility] Rx# :[id number] Oral 360 200 Output: Urine 900 500 Stool 3 Other: Voiding Method Indwelling Catheter Urinal # Voids 0 # Bowel Movements 1 0 ABP, PAP, CO, CI - Last Documented Arterial Blood Pressure 127/43 - Exam GENERAL EXAM: Awake and alert, pleasant, 60-year-old white male, on room air with a pulse ox of 95% and up in bed, comfortable HEAD: Normocephalic/atraumatic. EYES: Normal reaction of pupils, equal size. Conjunctiva pink, sclera white. NOSE: Clear with pink turbinates. THROAT: No erythema or exudates. NECK: No masses, no JVD, no thyroid enlargement, no adenopathy. CHEST: No chest wall deformity. Symmetrical expansion. LUNGS: Equal air entry with minimal bilateral crackles CVS: Regular rate and rhythm, normal S1 and S2, no gallops, no murmurs, no rubs ABDOMEN: Soft, nontender. No hepatosplenomegaly, normal bowel sounds, no guarding or rigidity. EXTREMITIES: No clubbing, no edema, no cyanosis, 2+ pulses and upper and lower extremities. MUSCULOSKELETAL: Muscle strength and tone normal. SPINE: No scoliosis or deformity SKIN: No rashes CENTRAL NERVOUS SYSTEM: Alert, oriented 3 No focal deficits, tone is normal in all 4 extremities. - Labs CBC & Chem 7: 02/23/21 03:30 02/23/21 03:30 Labs: Abnormal Lab Results - Last 24 Hours (Table) 02/24/21 02/25/21 02/25/21 Range/Units 20:04 05:55 05:55 D-Dimer 5.34 H (<0.60) mg/L FEU POC Glucose (mg/dL) 143 H (75-99) mg/dL Procalcitonin 0.12 H (0.02-0.09) ng/mL 02/25/21 02/25/21 Range/Units 06:56 11:49 D-Dimer (<0.60) mg/L FEU POC Glucose (mg/dL) 101 H 117 H (75-99) mg/dL Procalcitonin (0.02-0.09) ng/mL Assessment and Plan Plan: Assessment: #1. Acute hypoxic respiratory failure, related to COVID-19, patient came into the hospital on 02/10/2021 with a day history of symptoms. He was outside the window for Remdesivir, he is a non-vaccinated adult. Started on Baricitinib on 02/11/2021. Currently on 15 L in the 100% nonrebreather mask. Patient had decompensated and was emergently transferred to the intensive care unit where he was intubated on 02/14/2021. She was successfully weaned and extubated on 02/21/2021. Tolerating extubation well so far #2. Elevated pro-calcitonin level, rule out possibility of bacterial infection, Baricitinib was discontinued, patient was mak cultured, and started on cefepime for empiric antibiotic coverage, no evidence of UTI, sputum culture showing rare PMNs, blood cultures are negative. Pro-calcitonin level today on 02/25/2021 is down to 0.12, significantly improved, and cefepime discontinued #3. Acute right leg DVT discovered on repeat lower extremity Doppler on 02/14/2021. No evidence of PE on CT angiogram of the chest from 02/12/2021, currently on Eliquis. #4. Acute kidney injury, improved with IV hydration #5. Hyperlipidemia #6. Hypertension #7. Acute delirium, multifactorial, improving, currently on Seroquel Plan: Patient has been transferred out of ICU yesterday, He has had no acute events overnight, vital signs have been stable he is on room air No fever or chills, Follow-up procalcitonin level is negative, we'll discontinue the cefepime Continue oral anticoagulation with Eliquis for right lower extremity DVT Consult physical therapy for mobilization of patient Patient is tolerating oral diet Today's labs have been reviewed Encourage incentive spirometer use Possible discharge home or ECF in the next 24 hours depending on physical therapy recommendations and patient preference I performed a history & physical examination of the patient and discussed their management with my nurse practitioner, Ness Garcia. I reviewed the nurse practitioner's note and agree with the documented findings and plan of care. Lung sounds are positive for dim breath sounds throughout the lung anne. The findings and the impression was discussed with the patient. I attest to the documentation by the nurse practitioner. Time with Patient: Less than 30
[2021-02-25] MEDS: MULTIVITAMINS, THERA 1 EACH TAB PO SCH (20:30)
[2021-02-25] MEDS: QUEtiapine 50 MG TAB PO SCH (20:30)
[2021-02-25] MEDS: EZETIMIBE 10 MG TAB PO SCH (20:30)
[2021-02-25] MEDS: PRAVASTATIN SODIUM 80 MG TAB PO SCH (20:31)
--- NOTE | 2021-02-25 21:32 | P.PN ---
Progress Note - Text Progress Note Date: 02/25/21 Chief Complaint: Short of breath This is a pleasant 60-year-old patient of Dr. rae Chronic stable medical conditions include hyperlipidemia, hypertension. Patient did not take the COVID-19 vaccine. About 7 days ago patient started having fever and dry cough chills. About 4 days ago patient tested positive for COVID-19. Patient is having one or 2 loose stools a day. Denies any body aches or headaches. No loss of taste or smell. S patient is pretty symptoms progress decided to come in. He was 82% on room air. Admitted with severe COVID 19 pneumonitis, acute kidney injury, acute hypoxic respiratory failure. Started on dexamethasone. IV fluids. Baricitinib added. February 11: Sitting of the edge of the bed. Short of breath. Eating some. Tired. Baricitinib added by pulmonary. February 12: Sitting at edge of the bed. Short of breath. 96% on 15 L. On Baricitinib and dexamethasone. Eating about 50-75%. February 13: Sitting up in a chair. Short of breath. On 15 L nasal cannula. On Baricitinib admitted and dexamethasone. Eating some February 14: Patient went down respiratory status and was moved to the ICU. Intubated. Drips included Diprivan, Nimbex, IV heparin. Doppler positive for DVT in the right lower extremity posterior tibial vein. Ventilator settings include FiO2 90% and a PEEP of 14. Spoke to patient is Dr. Bowman telephone number [phone]. She wanted the patient to have ivermectin. I did inform her that this was not one of the CDC recommended medications. Dr. Gandhi in beef skinner on the case is on the [facility] COVID guideline team. She also had wanted patient to be on inhalers including QVAR. She'll be discussing this with Dr. Gandhi the beef skinner. She also wants the patient to be at high dose vitamin C. I've asked her to fax over the literature to the ICU and I will review the same. February 15: ICU: Patient currently under pain and Nimbex. He will fed taken off this morning. 2 feeding at 37 mL an hour. On the ventilator with FiO2 50% and a PEEP of 14. February 16: ICU: Drips include propofol and Nimbex. FiO2 40% and a PEEP of 14. Tube feeding. February 21: ICU patient was extubated earlier today. Around 10 AM. Was getting 2 feeding prior to that. Currently on BiPAP 50%. Tired. On 50%. Current drips include Precedex and Cleviprex. February 22: ICU: Tired lethargic. On BiPAP 50%. Drips include Precedex and Cleviprex. February 23: ICU. Awake. Was delirious earlier. Wanting to eat. 8 L nasal cannula. Off drips. Discussed with the nurse. Wanting to sit up on the bed. February 24: ICU unit sitting up in a chair. Eating better. 4 L nasal cannula. Paul catheter. Slightly anxious February 25: On telemetry floor. Oral intake good. Starting to walk better. We not need rehab. Possibly home. 94% on room air discussed with the patient and machine adjuster leader case trimmanager helpdesk of systems: Was done for constitutional, cardiovascular, GI, pulmonary. relevant finding as above Active Medications Acetaminophen (Acetaminophen Tab 325 Mg Tab) 650 mg PO Q6HR PRN PRN Reason: Mild Pain or Fever > 100.5 Last Admin: 02/19/21 12:42 Dose: 650 mg Documented by: Albuterol Sulfate (Albuterol Hfa Inhaler) 2 puff INHALATION RT-QID PRN PRN Reason: Shortness Of Breath Or Wheezing Albuterol Sulfate (Albuterol Hfa Inhaler) 2 puff INHALATION RT-QID [facility] Last Admin: 02/25/21 20:37 Dose: Not Given Documented by: Apixaban (Apixaban 5 Mg Tab) 5 mg PO BID [facility]; Protocol Last Admin: 02/25/21 20:31 Dose: 5 mg Documented by: Ascorbic Acid (Ascorbic Acid 500 Mg Tab) 1,000 mg PO DAILY [facility] Last Admin: 02/25/21 10:16 Dose: 1,000 mg Documented by: Bisacodyl (Bisacodyl 10 Mg Supp) 10 mg RECTAL DAILY PRN PRN Reason: Constipation Last Admin: 02/19/21 11:00 Dose: 10 mg Documented by: Cholecalciferol (Cholecalciferol 25 Mcg (1000 Iu) Tablet) 100 mcg PO DAILY [facility] Last Admin: 02/25/21 10:16 Dose: 100 mcg Documented by: Dexamethasone Sodium Phosphate (Dexamethasone Sod Phosphate 10 Mg/Ml 1 Ml Vial) 6 mg IVP DAILY [facility] Last Admin: 02/25/21 10:16 Dose: 6 mg Documented by: Ezetimibe (Ezetimibe 10 Mg Tab) 10 mg PO HS [facility] Last Admin: 02/25/21 20:30 Dose: 10 mg Documented by: Sodium Chloride (Saline 0.9%) 1,000 mls @ 20 mls/hr IV .Q24H [facility] Last Admin: 02/25/21 10:18 Dose: 20 mls/hr Documented by: Multivitamins (Multivitamins, Thera 1 Each Tab) 1 each PO HS [facility] Last Admin: 02/25/21 20:30 Dose: 1 each Documented by: Pravastatin Sodium (Pravastatin Sodium 80 Mg Tab) 80 mg PO HS [facility] Last Admin: 02/25/21 20:31 Dose: 80 mg Documented by: Quetiapine Fumarate (Quetiapine 50 Mg Tab) 50 mg PO BID [facility] Last Admin: 02/25/21 20:30 Dose: 50 mg Documented by: Zinc Sulfate (Zinc Sulfate 220 Mg Cap) 220 mg PO DAILY [facility] Last Admin: 02/25/21 10:17 Dose: 220 mg Documented by: Past medical history to include: Hypertension, hyperlipidemia, diverticulosis, bilateral tinnitus, 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 Stopped in 1987. He has takes couple of drinks a day. 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 Family history: Reviewed, noncontributory to presentation Physical examination: VITAL SIGNS: 97.8, 92, 18, 1 24 x 78, 94% on room air GENERAL: Sitting up in a chair, comfortable LUNGS: Respiratory rate normal PSYCH: AO 3, more affect anxious Rest of the exam per pulmonary and nursing INVESTIGATIONS, reviewed in the clinical context: February 17: D-dimer 5.34 pro-calcitonin 0.12 February 23: WBC 11.1 hemoglobin 11.6 potassium 4.4 creatinine 0.76 February 22: WBC 11.1 hemoglobin 11.7 platelets 578 potassium 4.5 creatinine 0.63 February 21: White count 13.4 hemoglobin 12.1 platelets 650 sodium 138 potassium 4.5 creatinine 0.69 February 16: White count 17.8 hemoglobin 12.1 d-dimer 4.3 potassium 4.8 creatinine 0.9 CRP 13.4 February 15: WBC eating 0.3 hemoglobin 12.3 platelets 8.9 d-dimer greater than 34 potassium 5.2 creatinine 0.97 CRP 22 February 14: WBC 25.8 hemoglobin 14.9 d-dimer greater than 34 potassium 4.3 creatinine 0.77 pro-calcitonin 0.21 Ultrasound venous Doppler right leg: DVT posterior tibial vein. February 13: WBC 12.7 hemoglobin 15.4 d-dimer 29 potassium 4.8 creatinine 0.73 Chest CTA [February 12]: Negative for PE Doppler ultrasound [February 11]: Negative for DVT February 12: WBC 9.6 hemoglobin 15.6 d-dimer 4.76 potassium 4.5 creatinine 0.81 February 11: D-dimer 2.33 potassium 4.5 creatinine 0.94 CRP 35.5 Ultrasound kidney: Kidneys unremarkable. Possible hepatic steatosis. WBC 5.5 hemoglobin 14.9 platelets 206 lymphocytes 0.6 sodium 136 potassium 4.1 BUN 24 creatinine 1.28 CRP 33.2 Assessment and plan: -Acute severe COVID 19 pneumonitis in a patient did not receive the COVID-19 vaccine: Improving Dexamethasone. Subcu Lovenox. Vitamin C vitamin D zinc. -Possible secondary pneumonia Empirically on IV cefepime : Discontinued -Hyperlipidemia Zetia 10 mg daily at bedtime Pravachol 80 mg daily at bedtime -Acute DVT right lower extremity tibial vein IV heparin. Now eliquis -IV heparin monitoring: Discontinued -Essential hypertension amlodipine 5 mg a day currently held -Acute kidney injury, prerenal from decreased oral intake: Better IV fluids. -Anxiety Seroquel 50 mg twice a day. Ativan when necessary. -Acute severe hypoxic respiratory failure from COVID-19: Improved ventilator. Extubated on February 21. BiPAP 50%. 94% on room air Discussed with the patient and machine adjuster leader case trim. Patient should be able to go home tomorrow. Some more physical therapy had. We'll check oxygen with activity tomorrow. Antibiotics discontinued. On eliquis.
[2021-02-26] MEDS: ZINC SULFATE 220 MG CAP PO SCH (08:04)
[2021-02-26] MEDS: CHOLECALCIFEROL 25 MCG (1000 IU) TABLET PO SCH (08:04)
[2021-02-26] MEDS: ASCORBIC ACID 500 MG TAB PO SCH (08:04)
[2021-02-26] MEDS: APIXABAN 5 MG TAB PO SCH (08:04)
[2021-02-26] MEDS: QUEtiapine 50 MG TAB PO SCH (08:04)
[2021-02-26] MEDS ORDERED: predniSONE 20 MG TAB PO SCH (09:00)
[2021-02-26] MEDS: ALBUTEROL HFA INHALER INHALATION SCH (09:50)
[2021-02-26 09:58] VITALS: BP 128/82; PULSE 64; RESP 16; TEMP 98.1
--- NOTE | 2021-02-26 22:34 | P.DS ---
Providers Date of admission: 02/10/21 12:21 Expected date of discharge: 02/26/21 Attending physician: Jorge Lopez Consults: 02/10/21 12:12 Consult Physician Urgent Consulting Provider: Errol Gandhi Consult Reason/Comments: COVID Do you want consulting provider notified?: Yes 02/24/21 15:36 Consult Physician Routine Consulting Provider: Aram Gould Consult Reason/Comments: in pt rehab Do you want consulting provider notified?: Yes Primary care physician: Khadijah Hall [facility] Course: Chief Complaint: Short of breath This is a pleasant 60-year-old patient of Dr. rae Chronic stable medical conditions include hyperlipidemia, hypertension. Patient did not take the COVID-19 vaccine. About 7 days ago patient started having fever and dry cough chills. About 4 days ago patient tested positive for COVID-19. Patient is having one or 2 loose stools a day. Denies any body aches or headaches. No loss of taste or smell. S patient is pretty symptoms progress decided to come in. He was 82% on room air. Admitted with severe COVID 19 pneumonitis, acute kidney injury, acute hypoxic respiratory failure. Started on dexamethasone. IV fluids. Baricitinib added. Patient on February 14 pulmonary status worsened and was moved to the ICU intubated. Put on to prevent Nimbex IV heparin. Doppler positive for DVT in the right lower extremity and posterior tibial vein. Put on tube feeding. February 21 patient extubated. Once on the BiPAP. Because of delirium was put on Seroquel. Patient did moved out of the ICU. Continued to improve. Care was, dedicated with patient's daughter. Patient also received Cleviprex and Precedex. In ICU. Today: Patient doing much better. Breathing stable. Oral intake good. Pulse oxing 95% on room air. DC on eliquis. Prednisone taper. Care was discussed with the patient. Questions answered. Discussion and discharge planning more than 35 minutes Consultation: Dr. 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 Stopped in 1987. He has takes couple of drinks a day. 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 Family history: Reviewed, noncontributory to presentation Physical examination: VITAL SIGNS: 98.1, 64, 16, 128/82, 95% room air GENERAL: Sitting up in a chair, comfortable LUNGS: Respiratory rate normal PSYCH: AO 3, more affect anxious Rest of the exam per pulmonary and nursing INVESTIGATIONS, reviewed in the clinical context: February 23: WBC 11.1 hemoglobin 11.6 potassium 4.4 creatinine 0.76 Ultrasound venous Doppler right leg: DVT posterior tibial vein. February 13: WBC 12.7 hemoglobin 15.4 d-dimer 29 potassium 4.8 creatinine 0.73 Chest CTA [February 12]: Negative for PE Doppler ultrasound [February 11]: Negative for DVT February 12: WBC 9.6 hemoglobin 15.6 d-dimer 4.76 potassium 4.5 creatinine 0.81 February 11: D-dimer 2.33 potassium 4.5 creatinine 0.94 CRP 35.5 Ultrasound kidney: Kidneys unremarkable. Possible hepatic steatosis. WBC 5.5 hemoglobin 14.9 platelets 206 lymphocytes 0.6 sodium 136 potassium 4.1 BUN 24 creatinine 1.28 CRP 33.2 Assessment and plan: -Acute severe COVID 19 pneumonitis in a patient did not receive the COVID-19 vaccine: Better Dexamethasone. Subcu Lovenox. Vitamin C vitamin D zinc. DC on prednisone taper -Possible secondary pneumonia Empirically on IV cefepime : Discontinued -Hyperlipidemia Zetia 10 mg daily at bedtime Pravachol 80 mg daily at bedtime -Acute DVT right lower extremity tibial vein IV heparin. DC on eliquis -IV heparin monitoring: Discontinued -Essential hypertension amlodipine 5 mg a day currently held -Acute kidney injury, prerenal from decreased oral intake: Better IV fluids. -Anxiety Seroquel 50 mg twice a day. Ativan when necessary. -Acute severe hypoxic respiratory failure from COVID-19: Improved ventilator. Extubated on February 21. BiPAP 50%. 95% on room air Disposition: Home Plan - Discharge Summary Discharge Rx Participant: No New Discharge Prescriptions: New Albuterol Sulfate [Albuterol Sulfate Hfa] 1 puff PO Q4-6H #8.5 gm Zinc Sulfate [Orazinc] 220 mg PO DAILY #30 cap predniSONE 10 mg PO DAILY #30 tab Ipratropium [place] [Atrovent Hfa] 2 puff INHALATION QID #12.9 gm QUEtiapine [SEROquel] 50 mg PO HS #30 tab Cholecalciferol [Vitamin D3 (125 Mcg = 5000 Iu)] 125 mcg PO DAILY #30 tablet Apixaban [Eliquis Starter Pack (for VTE)] 5 - 10 mg PO DIRECTED 30 Days #1 each Continue Multivitamins, Thera [Multivitamin (formulary)] 1 tab PO HS Ascorbic Acid [Vitamin C] 500 mg PO HS Ezetimibe [Zetia] 10 mg PO HS Calcium Carb/Mag Ox/Zinc Sulf [Uuw-Ntu-Skjy 334-134-5 mg Tab] 1 tab PO BID Pravastatin Sodium [Pravachol] 80 mg PO HS Albuterol Inhaler [Ventolin Hfa Inhaler] 2 puff INHALATION RT-Q4H PRN PRN Reason: Shortness Of Breath No Action Turmeric Root Extract [Turmeric] 1,000 mg PO HS amLODIPine BESYLATE/BENAZEPRIL [amLODIPine BESYLATE/BENAZEPRIL 5-20 MG] 1 cap PO HS Discharge Medication List Albuterol Inhaler [Ventolin Hfa Inhaler] 2 puff INHALATION RT-Q4H PRN 02/10/21 [History] Ascorbic Acid [Vitamin C] 500 mg PO HS 02/10/21 [History] Calcium Carb/Mag Ox/Zinc Sulf [Oos-Ocy-Qngy 334-134-5 mg Tab] 1 tab PO BID 02/10/21 [History] Ezetimibe [Zetia] 10 mg PO HS 02/10/21 [History] Multivitamins, Thera [Multivitamin (formulary)] 1 tab PO HS 02/10/21 [History] Pravastatin Sodium [Pravachol] 80 mg PO HS 02/10/21 [History] Turmeric Root Extract [Turmeric] 1,000 mg PO HS 02/10/21 [History] amLODIPine BESYLATE/BENAZEPRIL [amLODIPine BESYLATE/BENAZEPRIL 5-20 MG] 1 cap PO HS 02/10/21 [History] Albuterol Sulfate [Albuterol Sulfate Hfa] 1 puff PO Q4-6H #8.5 gm 02/26/21 [Rx] Apixaban [Eliquis Starter Pack (for VTE)] 5 - 10 mg PO DIRECTED 30 Days #1 each 02/26/21 [Rx] Cholecalciferol [Vitamin D3 (125 Mcg = 5000 Iu)] 125 mcg PO DAILY #30 tablet 02/26/21 [Rx] Ipratropium [place] [Atrovent Hfa] 2 puff INHALATION QID #12.9 gm 02/26/21 [Rx] QUEtiapine [SEROquel] 50 mg PO HS #30 tab 02/26/21 [Rx] Zinc Sulfate [Orazinc] 220 mg PO DAILY #30 cap 02/26/21 [Rx] predniSONE 10 mg PO DAILY #30 tab 02/26/21 [Rx] Follow up Appointment(s)/Referral(s): Chelo Lopez MD [STAFF PHYSICIAN] - 03/26/21 1:30 pm Khadijah Hall DO [Primary Care Provider] - 03/04/21 2:00 pm Sk[facility], [NON-STAFF] - As Needed Patient Instructions/Handouts: Coronavirus Disease 2019 (COVID-19) Discharge Disposition: HOME WITH HOME HEALTH SERVICES
== END 2021-02-26 13:31 | disposition home health service (06) | DRG 207 ==
LOC: EC 10:06 → 4SSUR 12:21 → 2SICU 02-14 06:59 → 4SSUR 02-24 23:30
PROVIDERS: ADMIT Hospitalist; ATTEND Hospitalist
PROC: 3E0333Z Introduction of Anti-inflammatory into Peripheral Vein, Percutaneous Approach (ICD-10-PCS; 2021-02-10)
PROC: XW0DXM6 Introduction of Baricitinib into Mouth and Pharynx, External Approach, New Technology Group 6 (ICD-10-PCS; 2021-02-11)
PROC: 5A0945A Assistance with Respiratory Ventilation, 24-96 Consecutive Hours, High Flow/Velocity Cannula (ICD-10-PCS; 2021-02-11)
PROC: 5A1955Z Respiratory Ventilation, Greater than 96 Consecutive Hours (ICD-10-PCS; principal; 2021-02-14)
PROC: 03HY32Z Insertion of Monitoring Device into Upper Artery, Percutaneous Approach (ICD-10-PCS; 2021-02-14)
PROC: 4A133B1 Monitoring of Arterial Pressure, Peripheral, Percutaneous Approach (ICD-10-PCS; 2021-02-14)
PROC: 4A133J1 Monitoring of Arterial Pulse, Peripheral, Percutaneous Approach (ICD-10-PCS; 2021-02-14)
PROC: 02HV33Z Insertion of Infusion Device into Superior Vena Cava, Percutaneous Approach (ICD-10-PCS; 2021-02-14)
PROC: 3E033XZ Introduction of Vasopressor into Peripheral Vein, Percutaneous Approach (ICD-10-PCS; 2021-02-14)
PROC: 0BH17EZ Insertion of Endotracheal Airway into Trachea, Via Natural or Artificial Opening (ICD-10-PCS; 2021-02-14)
PROC: 5A09457 Assistance with Respiratory Ventilation, 24-96 Consecutive Hours, Continuous Positive Airway Pressure (ICD-10-PCS; 2021-02-21)
DX: U07.1 COVID-19 (principal); J12.82 Pneumonia due to coronavirus disease 2019; J15.9 Unspecified bacterial pneumonia; J96.01 Acute respiratory failure with hypoxia; F05 Delirium due to known physiological condition; N17.9 Acute kidney failure, unspecified; I82.401 Acute embolism and thrombosis of unspecified deep veins of right lower extremity; E78.5 Hyperlipidemia, unspecified; F41.9 Anxiety disorder, unspecified; I10 Essential (primary) hypertension; M19.041 Primary osteoarthritis, right hand; M19.042 Primary osteoarthritis, left hand; Z79.01 Long term (current) use of anticoagulants; Z79.899 Other long term (current) drug therapy; Z87.891 Personal history of nicotine dependence
CPT/HCPCS: 36415; 71045; 71046; 71275; 76770; 80048; 80053; 81001; 82728; 82805; 83605; 83615; 84145; 85025; 85379; 85610; 85730; 86140; 87040; 87070; 87205; 93970; 94002; 94003; 94640; 94660; 96361; 96374; 99285